=== PATIENT | male | born 1935 | race Caucasian/White ===

== ENCOUNTER → 2017-04-02 | Outpatient (CLI) | payer BC ==
[~2017-04-02] MED LIST: ATEN-173 PO; FELO5TAB PO; LISI40TA PO; MULT-506 PO
[2017-04-02 14:45] LABS: BASO % 0.4 %; BASO ABS # 0.02 K/uL (0-0.2); COMPLETE YES; EOS % 1.7 %; HEMATOCRIT 44.7 % (42-52); IG% 0.2 %; LYMPH % 33.8 %; LYMPH ABS # 1.84 K/uL (1.2-3.4); MEAN CELL VOLUME 93.1 fL (80-100); MEAN CORPUSCULAR HGB CONC 33.3 g/dl (32-36); MEAN PLATELET VOLUME 10.2 fL (7.4-10.4); NEUT % 56.9 %; PLATELET COUNT 231 K/uL (130-400); WHITE BLOOD COUNT 5.45 K/uL (4.8-10.8)
[2017-04-02 15:06] LABS: BLOOD UREA NITROGEN 20 mg/dl (7-18); BUN/CREATININE RATIO 17.9 (10-20); CALCIUM 9.2 mg/dl (8.5-10.1); CARBON DIOXIDE 30 mmol/L (21-32); CHLORIDE 110 mmol/L (98-107); GLUCOSE 88 mg/dl (70-99); POTASSIUM 3.9 mmol/L (3.5-5.1); SODIUM 146 mmol/L (136-145)
[2017-04-02 15:10] LABS: CHOLESTEROL 159 mg/dl (0-200); CHOLESTEROL/HDL RATIO 2.8; HDL CHOLESTEROL 56 mg/dl; LDL CHOLESTEROL CALCULATED 80 mg/dl; TRIGLYCERIDES 116 mg/dl (0-150); URIC ACID 8.9 mg/dl (2.6-7.2); VERY LOW DENSITY LIPOPROT CALC 23 mg/dl
== END | disposition home or self-care (01) ==
LOC: C.LABBC 10:28
PROVIDERS: ATTEND Internal Medicine Geriatric Medicine
DX: I10 Essential (primary) hypertension (principal); M10.9 Gout, unspecified; G47.30 Sleep apnea, unspecified; R42 Dizziness and giddiness

== ENCOUNTER → 2017-12-10 | Outpatient (CLI) | payer BC ==
[2017-12-10 17:37] LABS: BLOOD UREA NITROGEN 23 mg/dl (7-18); CALCIUM 9.4 mg/dl (8.5-10.1); CARBON DIOXIDE 30 mmol/L (21-32); CREATININE 1.12 mg/dl (0.60-1.40); GLUCOSE 127 mg/dl (70-99); POTASSIUM 4.2 mmol/L (3.5-5.1); SODIUM 137 mmol/L (136-145)
[2017-12-10 17:40] LABS: CHOLESTEROL 125 mg/dl (0-200); LDL CHOLESTEROL CALCULATED 34 mg/dl
== END | disposition home or self-care (01) ==
LOC: C.LABBC 14:51
PROVIDERS: ATTEND Internal Medicine Geriatric Medicine
DX: I73.9 Peripheral vascular disease, unspecified (principal); F09 Unspecified mental disorder due to known physiological condition; I10 Essential (primary) hypertension

== ENCOUNTER 2021-06-18 00:19 | Inpatient (IN) ==
[2021-06-18 01:09] LABS: Basophils # (auto) 0.01 K/uL (0-0.2); Basophils % (auto) 0.1 %; Eosinophils # (auto) 0.12 K/uL (0-0.5); Eosinophils % (auto) 1.7 %; Hematocrit (blood only) 43.2 % (42-52); Hemoglobin 14.5 g/dL (14.0-18.0); Immature Granulocytes # (auto) 0.01 K/uL (0.00-0.02); Immature Granulocytes % (auto) 0.1 %; Lymphocytes % (auto) 21.8 %; Mean Corpuscular Hemoglobin 31.2 pg (25-34); Mean Corpuscular Hgb Conc 33.6 g/dL (32-36); Mean Corpuscular Volume 92.9 fL (80-100); Monocytes # (auto) 0.58 K/uL (0.11-0.59); Monocytes % (auto) 8.4 %; Neutrophils # (auto) 4.67 K/uL (1.4-6.5); Neutrophils % (auto) 67.9 %; Platelet Count 202 K/uL (130-400); RDW Coefficient of Variation 13.7 % (11.5-14.5); RDW Standard Deviation 46.4 fL (36.4-46.3); Red Blood Count 4.65 M/uL (4.7-6.1); White Blood Count 6.89 K/uL (4.8-10.8)
[2021-06-18 01:18] LABS: Albumin Level 3.7 gm/dl (3.4-5.0); BUN Creatinine Ratio 19.4 (10-20); Calcium 9.4 mg/dl (8.5-10.1); Creatinine Clr Calc Pharmacy 48.5 ml/min; Est GFR (African American) 67.8 ml/min; Est GFR (Non-African American) 58.5 ml/min; Potassium 4.1 mmol/L (3.5-5.1)
[2021-06-18 01:22] LABS: Bilirubin,Total 0.4 mg/dl (0.2-1); Globulin 3.6 gm/dl (2.5-4.0); Partial Thromboplastin Time 25.5 Seconds (21.0-31.0); Prothrombin Time 10.6 Seconds (9.0-12.0); Total Protein 7.3 gm/dl (6.4-8.2); Troponin I 0.028 ng/ml (0-0.045)
--- NOTE | 2021-06-18 01:44 | Emergency Department Note ---
Impression & Plan Left-sided chest pain, AV block, Mobitz 1, Bifascicular block ED Provider Note Name: JUDI MICHELLE Age: 86 Sex: M Arrives Via: Walk-In Informant: Patient ED Provider: Jac Ramos MD Chief Complaint: Chest pain Impression: See Above Medical Decision Makin yr old male with history HTN, Prostate CA arrives with acute onset left chest pain radiating to left shoulder/elbow which has resolved by arrival. CXR with what seems to be mildly widened mediastinum vs rotation. Exam benign other than irregular beat on cardiac exam which is Mobitz 1 block on EKG. Initial Trop wnl. Labs otherwise unremarkable. With mild mediastinal widening will order CTA chest after discussion with hospitalist and noted that I did not order ASA while awaiting return of this which hospitalist agrees with. Patient comfortable and no distress at time of hospitalization. Prior Medical Record and Triage/Nursing Notes reviewed by Me Additional history obtained from chart Differentials:Cardiac ischemia, aortic dissection, pulmonary embolism, pneumothorax, pneumonia, pericarditis, myocarditis, esophageal rupture, GERD, cholecystitis, pancreatitis, musculoskeletal, as well as other pathologies. Vital Signs: reviewed and remarkable for HTN Interventions: SLNTG with improvement in BP Labs:Reviewed and remarkable for no significant abnormalities Imaging:X ray results are stated below per my interpretation: Chest: 1 view: Mild widening of mediastinum CT A CHEST: "CTA OTHER - CTA CHEST WO/WITH CONTRAST: Comparison: CT chest 11/30/2006 No acute findings within the chest. No aortic dissection. Mild dilatation of the aortic root measuring up to 4.6 m. The thoracic aorta is ectatic. Small hiatal hernia. Mild atelectasis within the lung bases. 4 mm nodule in the periphery of the right lung was present on comparison exam and therefore benign. Scattered small pulmonary nodules including a 4 mm nodule within the basilar right lower lobe and 4 mm nodule within the posterior right lower lobe. Consider follow-up per Fleischner criteria guidelines. Left adrenal adenoma measuring up to 13 mm. 2.1 cm cystic structure within the uncinate process of the pancreas, only partially included in the [id number]. Recommend a contrast enhanced pancreas protocol abdominal CT or MRI to further evaluate. Low-density structures within the liver likely represent cysts. Left renal cyst. Degenerative changes of the spine. Radiologist: Marjorie Gibbs M.D." EKG:Per My Interpretation: Indication Chest pain: Sinus with mobitz 1 heart block, 62 bpm, qtc 446. No Ectopy. No Ischemia. Compared to EKG earlier on 06/18/21, no significant changes. Cardiac/Tele Monitoring: Cardiac Monitoring: An Order was placed for continuous cardiac monitoring. The monitor shows a rate of 80 with a irregular rhythm. Consults:Dr Downing Hospitalist Plan: Disposition:Hospitalization. Referred to: PCP Condition: Good History of Present Illness:86 yr old male arrives for evaluation of chest pain. Patient notes sudden onset at rest of left chest pain. Dull/tight in nature. Radiated to left shoulder/elbow. Resolved after an hour. Currently sore left arm though notes chopping down a tree earlier. Denies nausea, vomiting, palpitations, syncope, back pian, abdominal pain, fevers, chills, shortness of breath, headache, urinary/bowel symptoms, increased leg swelling, nor other symptoms. No medications prior to arrival. Notes chronic leg swelling, HTN, and prostate cancer. No history of PA, CAD, nor cardiac work up. Ex smoker 50 yrs ago. ROS: See above HPI for pertinent positives & negatives. A total of 10 systems reviewed and were otherwise negative. Past Medical History:HTN, Prostate CA (had covid Nov 2020) Past Surgical History:See Below Family History:See Below Social History:See Below Home Medications:See Below Allergies:NKDA Vitals:Blood Pressure: 196/90, Pulse 57, RR 18, T 36.5C, O2 94% on RA Physical Exam: GENERAL: Patient is well appearing and in no acute distress. EYES: No scleral icterus, unremarkable pupils. ENT: Mucous membranes moist, no nasal congestion. NECK: No masses appreciated, nomeningismus, trachea is midline. RESPIRATORY: No dyspnea. Clear to auscultation and equal bilaterally. No wheeze, no rhonchi. CARDIOVASCULAR: Irregular.No murmurs, rubs, gallops appreciated. GASTROINTESTINAL: Abdomen soft, non-tender, no peritonitis.Bowel sounds positive.No masses appreciated. BACK: No midline tenderness, no CVA tenderness EXTREMITIES: Normal motion all extremities, no cyanosis, 2+ edema. NEUROLOGIC: Alert and oriented, no acute motor or sensory deficits, no focal weakness, cranial nerves grossly intact. SKIN: No rash, no jaundice, no diaphoresis. PSYCH: Appropriate GCS: 15 ED Course: Times/Reassessments: stable, no further chest pains, BP coming down Jac Ramos MD Past Med/Surg History Medical History (Updated 06/18/21 @ 05:53 by Jac Ramos MD) Abnormal gait Chronic venous stasis Cognitive disorder Elevated PSA, less than 10 ng/ml Gout Hyperlipidemia Hypertension Mild neurocognitive disorder Nephrolithiasis Obstructive sleep apnea Periodic limb movement disorder Urinary urgency Surgical History S/P cataract surgery 11/2015 S/P colonoscopy 10 years S/P tonsillectomy and adenoidectomy Family History Mother Breast cancer Lung disease COPD (chronic obstructive pulmonary disease) Father Heart disease Denies family history of Colon cancer Ovarian cancer Prostate cancer Myocardial infarction Colorectal cancer Social History (Updated 05/01/21 @ 08:44 by Gina Ortega RN) Smoking Status: Former smoker Tobacco Type: Cigarettes Age Quit Using Tobacco: 35; packs per day: 1; Smoking End Date: quit at 35 years old; Second Hand Exposure: No; Hx Alcohol Use: Yes Alcohol type: beer, wine and hard liquor Alcohol Intake Frequency: 2-3 x/Week Alcohol Intake Frequency Comment: 1 beer a week Hx Substance Use: No Preferred Language: Jordanian Communication Ability: Effective Visual Impairment: Limited Hearing Ability: Normal Automotive Refinisher Required: No Beliefs That Will Affect Care: None marital status: Current Living Situation: Spouse Current Living Situation Comment: Living at home with current occupational status: employed current occupation: works at a [employer] How many Children do You have: 2 Other Information That Helps Us Care for You: No Feels Safe at Home: Yes Safety Concerns: Feels Safe At This Time Childhood Exposure to Second-Hand Smoke: Yes caffeine: Yes (coffee daily, tea, soda ) Dental Care, Regularly: Yes Physical Activity Frequency: Daily Physical Activity Frequency Comment: prescribed by therapy Seatbelt Use: always Sunscreen Use: No Assistive Devices: Brace/Splint/Immobilizer, CPAP and Glasses Allergies Allergies Allergy/AdvReac Type Severity Reaction Status Date / Time No Known Allergies Allergy Verified 06/18/21 01:37 Home Meds Home Medications Medication Instructions Recorded Confirmed calcium carbonate 600 mg (1,500 1 tab PO DAILY 06/08/19 06/18/21 mg)-vitamin D3 400 unit tablet (Calcium 600 + D(3)) multivitamin 1 tab PO DAILY 06/08/19 06/18/21 acetaminophen 500 mg tablet 500 mg PO DAILY tab 01/14/21 06/18/21 (Tylenol Extra Strength) Prevagen 1 tab PO DAILY 06/18/21 06/18/21 ropinirole 0.5 mg tablet 0.5 mg PO HS 06/18/21 06/18/21 Previous Rx's Medication Instructions Recorded amlodipine 2.5 mg tablet 2.5 mg PO DAILY #90 tab 06/01/20 hydrochlorothiazide 12.5 mg tablet 12.5 mg PO DAILY #90 tab 01/14/21 CPAP Machine #1 ea 01/31/21 lisinopril 40 mg tablet 40 mg PO DAILY #90 tab 03/11/21 Results & Data (ED) Vital Signs Vital Signs - 24 hr 06/18/21 00:22 06/18/21 00:40 06/18/21 00:51 Temperature 36.5 C Temperature Source Temporal Artery Scan Pulse Rate 64 Pulse Rate [Apical] 57 L Pulse Rhythm [Apical] Regular Pulse Strength [Apical] Normal Respiratory Rate 20 18 Respiratory Effort / Characteristics Non-Labored Spontaneous Respiratory Depth Normal Blood Pressure 206/95 H Blood Pressure [Right Arm] 196/90 H Blood Pressure Mean 132 Blood Pressure Mean [Right Arm] 125 Pulse Oximetry 95 95 94 Oxygen Delivery Method Room Air Room Air Room Air Oxygen Flow Rate 94 Sepsis Recent Fever Within 48 Hours No Sepsis New/Unexplained Change in Mental Status N/A Sepsis Action Taken by Nursing No Action Required 06/18/21 02:00 Temperature Temperature Source Pulse Rate Pulse Rate [Apical] 61 Pulse Rhythm [Apical] Regular Pulse Strength [Apical] Normal Respiratory Rate 24 Respiratory Effort / Characteristics Non-Labored Spontaneous Respiratory Depth Normal Blood Pressure Blood Pressure [Right Arm] 179/100 H Blood Pressure Mean Blood Pressure Mean [Right Arm] 126 Pulse Oximetry 96 Oxygen Delivery Method Room Air Oxygen Flow Rate Sepsis Recent Fever Within 48 Hours Sepsis New/Unexplained Change in Mental Status Sepsis Action Taken by Nursing Laboratory Data Result diagrams: 06/18/21 00:40 06/18/21 00:40 Lab Results 06/18/21 06/18/21 06/18/21 Range/Units 00:40 00:40 00:40 WBC 6.89 (4.8-10.8) K/uL RBC 4.65 L (4.7-6.1) M/uL Hgb 14.5 (14.0-18.0) g/dL Hct 43.2 (42-52) % MCV 92.9 (80-100) fL MCH 31.2 (25-34) pg MCHC 33.6 (32-36) g/dL RDW Std Deviation 46.4 H (36.4-46.3) fL RDW Coeff of Armando 13.7 (11.5-14.5) % Plt Count 202 (130-400) K/uL MPV 10.0 (7.4-10.4) fL Immature Gran % (Auto) 0.1 % Neut % (Auto) 67.9 % Lymph % (Auto) 21.8 % [place] % (Auto) 8.4 % Eos % (Auto) 1.7 % Baso % (Auto) 0.1 % Neut # (Auto) 4.67 (1.4-6.5) K/uL Lymph # (Auto) 1.50 (1.2-3.4) K/uL [place] # (Auto) 0.58 (0.11-0.59) K/uL Eos # (Auto) 0.12 (0-0.5) K/uL Baso # (Auto) 0.01 (0-0.2) K/uL Immature Gran # (Auto) 0.01 (0.00-0.02) K/uL PT 10.6 (9.0-12.0) Seconds INR 1.0 (0.9-1.1) APTT 25.5 (21.0-31.0) Seconds PTT Ratio 1.0 Sodium 139 (136-145) mmol/L Potassium 4.1 (3.5-5.1) mmol/L Chloride 111 H (98-107) mmol/L Carbon Dioxide 25 (21-32) mmol/L Anion Gap 3.0 (3-11) BUN 22 H (7-18) mg/dl Creatinine 1.13 (0.6-1.4) mg/dl Est Cr Clr Drug Dosing 48.5 ml/min Est GFR ( Amer) 67.8 ml/min Est GFR (Non-Af Amer) 58.5 ml/min BUN/Creatinine Ratio 19.4 (10-20) Glucose 137 H (70-99) mg/dl Calcium 9.4 (8.5-10.1) mg/dl Magnesium 2.3 (1.8-2.4) mg/dl Total Bilirubin 0.4 (0.2-1) mg/dl AST 21 (15-37) U/L ALT 24 (12-78) U/L Alkaline Phosphatase 114 (45-117) U/L Troponin I 0.028 (0-0.045) ng/ml Total Protein 7.3 (6.4-8.2) gm/dl Albumin 3.7 (3.4-5.0) gm/dl Globulin 3.6 (2.5-4.0) gm/dl Albumin/Globulin Ratio 1.0 (0.9-2) COVID-19 Eval Order SARS-CoV-2 (PCR) (Negative) 06/18/21 06/18/21 Range/Units 01:45 01:45 WBC (4.8-10.8) K/uL RBC (4.7-6.1) M/uL Hgb (14.0-18.0) g/dL Hct (42-52) % MCV (80-100) fL MCH (25-34) pg MCHC (32-36) g/dL RDW Std Deviation (36.4-46.3) fL RDW Coeff of Armando (11.5-14.5) % Plt Count (130-400) K/uL MPV (7.4-10.4) fL Immature Gran % (Auto) % Neut % (Auto) % Lymph % (Auto) % [place] % (Auto) % Eos % (Auto) % Baso % (Auto) % Neut # (Auto) (1.4-6.5) K/uL Lymph # (Auto) (1.2-3.4) K/uL [place] # (Auto) (0.11-0.59) K/uL Eos # (Auto) (0-0.5) K/uL Baso # (Auto) (0-0.2) K/uL Immature Gran # (Auto) (0.00-0.02) K/uL PT (9.0-12.0) Seconds INR (0.9-1.1) APTT (21.0-31.0) Seconds PTT Ratio Sodium (136-145) mmol/L Potassium (3.5-5.1) mmol/L Chloride (98-107) mmol/L Carbon Dioxide (21-32) mmol/L Anion Gap (3-11) BUN (7-18) mg/dl Creatinine (0.6-1.4) mg/dl Est Cr Clr Drug Dosing ml/min Est GFR ( Amer) ml/min Est GFR (Non-Af Amer) ml/min BUN/Creatinine Ratio (10-20) Glucose (70-99) mg/dl Calcium (8.5-10.1) mg/dl Magnesium (1.8-2.4) mg/dl Total Bilirubin (0.2-1) mg/dl AST (15-37) U/L ALT (12-78) U/L Alkaline Phosphatase (45-117) U/L Troponin I (0-0.045) ng/ml Total Protein (6.4-8.2) gm/dl Albumin (3.4-5.0) gm/dl Globulin (2.5-4.0) gm/dl Albumin/Globulin Ratio (0.9-2) COVID-19 Eval Order Covid19 at [facility] SARS-CoV-2 (PCR) NEGATIVE (Negative) Administered Medications Discontinued Medications Aspirin (Aspirin Chew 324 Mg) 324 mg PO NOW STA Stop: 06/18/21 04:00 Last Admin: 06/18/21 04:05 Dose: 324 mg Documented by: [id number] Ioversol (Optiray 320 125ml) 125 ml IV ONCE ONE Stop: 06/18/21 02:26 Last Admin: 06/18/21 02:26 Dose: 118 ml Documented by: [id number] Discharge Plan Visit Data Chief Complaint: Chest Pain Stated Complaint: PAIN ON LEFT SIDE OF CHEST Discharge Problem: Left-sided chest pain, AV block, Mobitz 1, Bifascicular block Patient Disposition: Admitted As Inpatient Discharge Instructions Interventions: ED Discharge Assessment Last Done: 06/18/21 04:10
[2021-06-18] MEDS ORDERED: OPTIRAY 320 125ml IV ONE (02:25)
--- NOTE | 2021-06-18 02:36 | History & Physical Report ---
Date of Service June 18, 2021 Assessment & Plan (1) Chest pain: Plan: Mr. Flynn is an 86 yo gentleman with a PMHx of hypertension who presented for left sided chest pain, admitted for ACS rule out. - Heart Score of 3, low risk - Chest CTA ruling out PE, aortic dissection - initial trop detectable but not elevated at 0.028. Trend serial levels - EKG showing RBBB and second degree AV nasrin block, but no ST segment changes - resting echo ordered for the am given detectable trop and new onset RBBB - pain was reproducible on exam, suspect MSK etiology (2) 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: Plan: - noted on EKG - no prior EKGs to compare - recommend outpatient cardiology referral (3) AV block, Mobitz 1: Plan: - noted on EKG - no prior EKGs to compare - check magnesium level - does not require acute intervention, recommend outpatient cardiology referral (4) Hypertension: Plan: - continue home lisinopril, amlodipine, HCTZ (5) Lung nodules: Plan: - small scattered nodules noted on CT (STAT RAD) - patient with remote history of smoking - await official read and arrange follow up accordingly (6) Cyst of pancreas: Plan: - 2.1 cystic structure noted on uncinate process of pancreas (per STAT RAD); await official read - consider ordering dedicated imaging or arrange as outpatient (7) Obstructive sleep apnea: Plan: - may wear home CPAP qhs DVT ppx: Lovenox Diet: regular Dispo: Med/tele Code: Full, I discussed with patient History of Present Illness Primary Care Provider: Nba Lr DO Mr. Harper is an 86 yo M with a PMHx of hypertension who presented to the [facility] emergency department for evaluation of sudden onset left sided chest pain. The discomfort started as he was getting ready to go to bed on 06/17/21. It radiated down his left arm, but not up to the jaw. There was no associated shortness of breath, nausea or diaphoresis. He denies any preceding trauma to the chest wall. He is very physically active - he works out at the local [employer] at least 3 x per week without any chest pain. He also cuts his on grass and occasionally moves furniture. He denies any new upper body workouts or recent lifting injury. He denies any feeling of heartburn or acid reflux. Leading up to this admission, he was in his usual state of health. No fever/chills, congestion, cough, abdominal pain, diarrhea, rashes. He does have prostate cancer for which he is currently undergoing radiation and androgen deprivation therapy. He has been told by a doctor that he has a heart murmur and an "extra heart beat." Social Hx: Drinks 1 alcohol beverage per week. Smoked for ~19 years, < 1 pack per day. Quit at age 35. He lives at home with his Kelvin. Family Hx: no known heart disease, although he is only aware of his maternal side In the ED, he was afebrile with normal HR. Blood pressure was elevated to 179/100. He was breathing well on room air. His CBC was normal. His coags were normal. His kidney and liver function were normal. Electrolytes were WNL. His troponin was detectable at 0.028. COVID neg. EKG showing a 2nd degree AV nasrin block, Mobitz type 1, along with a RBBB (no previous EKGs to compare). CXR showing no evidence of a PNA, no pleural effusion; mediastinal silhouette was enlarged. Chest CTA showing no PE, no aortic dissection; small scattered pulmonary nodules were noted, and a 2.1 cm cystic structure within the uncinate process of the pancreas; dedicated contrast enhanced CT or MRI with pancreas protocol recommended (per STAT rad). 324mg Aspirin was given. Allergies Allergy/AdvReac Type Severity Reaction Status Date / Time No Known Allergies Allergy Verified 06/18/21 01:37 Home Medications Medication Instructions Recorded Confirmed Type calcium carbonate 600 mg (1,500 1 tab PO DAILY 06/08/19 06/18/21 History mg)-vitamin D3 400 unit tablet (Calcium 600 + D(3)) multivitamin 1 tab PO DAILY 06/08/19 06/18/21 History amlodipine 2.5 mg tablet 2.5 mg PO DAILY #90 tab 06/01/20 06/18/21 Rx acetaminophen 500 mg tablet 500 mg PO DAILY tab 01/14/21 06/18/21 History (Tylenol Extra Strength) hydrochlorothiazide 12.5 mg tablet 12.5 mg PO DAILY #90 tab 01/14/21 06/18/21 Rx CPAP Machine #1 ea 01/31/21 05/01/21 Rx lisinopril 40 mg tablet 40 mg PO DAILY #90 tab 03/11/21 06/18/21 Rx Prevagen 1 tab PO DAILY 06/18/21 06/18/21 History ropinirole 0.5 mg tablet 0.5 mg PO HS 06/18/21 06/18/21 History Past Med/Surg History Medical History (Updated 06/18/21 @ 17:46 by Kodak Garcia DO) Abnormal gait Chronic venous stasis Cognitive disorder Elevated PSA, less than 10 ng/ml Gout Hyperlipidemia Hypertension Mild neurocognitive disorder Nephrolithiasis Obstructive sleep apnea Periodic limb movement disorder Urinary urgency Surgical History S/P cataract surgery 11/2015 S/P colonoscopy 10 years S/P tonsillectomy and adenoidectomy Family History Mother Breast cancer Lung disease COPD (chronic obstructive pulmonary disease) Father Heart disease Denies family history of Colon cancer Ovarian cancer Prostate cancer Myocardial infarction Colorectal cancer Social History (Updated 05/01/21 @ 08:44 by Gina Ortega RN) Smoking Status: Former smoker Tobacco Type: Cigarettes Age Quit Using Tobacco: 35; packs per day: 1; Smoking End Date: quit at 35 years old; Second Hand Exposure: No; Hx Alcohol Use: Yes Alcohol type: beer, wine and hard liquor Alcohol Intake Frequency: 2-3 x/Week Alcohol Intake Frequency Comment: 1 beer a week Hx Substance Use: No Preferred Language: Persian Communication Ability: Effective Visual Impairment: Limited Hearing Ability: Normal Market Researcher Required: No Beliefs That Will Affect Care: None marital status: Current Living Situation: Spouse Current Living Situation Comment: Living at home with current occupational status: employed current occupation: works at a [employer] How many Children do You have: 2 Other Information That Helps Us Care for You: No Feels Safe at Home: Yes Safety Concerns: Feels Safe At This Time Childhood Exposure to Second-Hand Smoke: Yes caffeine: Yes (coffee daily, tea, soda ) Dental Care, Regularly: Yes Physical Activity Frequency: Daily Physical Activity Frequency Comment: prescribed by therapy Seatbelt Use: always Sunscreen Use: No Assistive Devices: Denture - Lower and Glasses Review of Systems Review of Systems: All systems reviewed & are unremarkable except as noted in HPI & below Physical Exam Constitutional: WD/WN, vitals as above cooperative and comfortable; no acute distress Eyes: + anicteric sclerae ENMT: external ear and nose normal, oropharynx normal Neck: trachea midline Respiratory: normal respiratory effort, lungs clear to auscultation no cough Cardiovascular: Rate/Rhythm: regular rate; + abnormal rhythm Heart Sounds: normal S1, normal S2 and + murmur (systolic ejection ) Extremities: + pedal edema (1+ b/l ) Chest (Breasts): Additional Comments: + mild tenderness upon palpation of left pectoralis major Gastrointestinal (Abdomen): normal bowel sounds, soft, nontender, no hepatosplenomegaly Musculoskeletal: Head/Neck/Chest: normocephalic and head atraumatic Skin: no rashes, warm and dry Neurologic: moves all extremities Psychiatric: A+Ox3, euthymic affect Results & Data Results & Data ([facility]) Vital Signs (Past 12 Hours) Vital Signs Temp Pulse Pulse Resp BP BP Pulse Ox 06/18/21 02:00 61 24 179/100 H 96 06/18/21 00:51 94 06/18/21 00:40 57 L 18 196/90 H 95 06/18/21 00:22 36.5 C 64 20 206/95 H 95 Supervising Physician Co-Signing Physician Notes Patient seen and examined, chart reviewed, case discussed with Dr. Pickett and I agree with her assessment and plan as above. In brief, patient is an 86yo male with history of HTN presenting with chest pain. Patient is very active - exercises at the [facility] several days/week and denies exertional chest discomfort or dyspnea. This evening he had sudden onset of left sided chest discomfort with radiation down left arm. No SOB/diaphoresis/nausea. Was told in 1959 that he has an "extra beat" to his heart. Has history of heart murmur as well. Patient now with some slight discomfort at his left elbow and arm On exam he is afebrile, HD stable, NAD Skin - intact, no rashes/lesions HEENT - NC/AT, PERRL, Neck supple, no JVD Heart - +S1/S2, regular with ectopy, 4/6 blowing murmur across precordium,no c hest wall tenderness Lungs - CTA Abd - +BS, soft, NT/ND Ext - warm, well perfused, no clubbing/cyanosis or edema Labs and images reviewed. Troponin detectable at 0.028 with no prior EKG with bifascicular block, TWI in lateral leads Assessment/Plan -Telemetry monitoring -Trend troponin -Check 2D echo -If troponin increases or patient has recurrence of chest pain will initiate heparin gtt -Remainder of plan as above Resident Activity Tracking Resident Involvement: Resident Care Provided Care Provided: Adult Hospital Medicine
[2021-06-18] MEDS ORDERED: ASPIRIN CHEW 324 MG PO STA (03:59)
[2021-06-18] MEDS ORDERED: ACETAMINOPHEN 325 MG TAB PO PRN (04:39)
[2021-06-18] MEDS ORDERED: ONDANSETRON INJ 2 MG/ML 2 ML VIAL IV PRN (04:39)
[2021-06-18] MEDS ORDERED: POLYETHYLENE (MIRALAX) 17 GM PACK PO PRN (04:39)
[2021-06-18] MEDS ORDERED: NITROGLYCERIN 2% OINTMENT 30GM TUBE EXT PRN (04:39)
[2021-06-18 05:04] LABS: Magnesium 2.3 mg/dl (1.8-2.4)
[2021-06-18] MEDS: hydroCHLOROthiazide 25 MG TAB PO SCH (08:09)
[2021-06-18] MEDS: amLODIPine BESYLATE 5 MG TAB PO SCH (08:10)
[2021-06-18] MEDS: lisinopril 40 MG TAB PO SCH (08:10)
[2021-06-18] MEDS ORDERED: ENOXAPARIN INJ 40 MG/0.4 ML SYR SQ SCH (09:00)
--- NOTE | 2021-06-18 09:09 | CT Scan Report ---
CT ANGIOGRAM OF THE CHEST COMBO CLINICAL HISTORY: Atypical chest pain. Widened mediastinum seen by chest x-ray. COMPARISON STUDY: Chest CT dated 11/30/2006. Chest x-ray dated 06/18/2021. TECHNIQUE: Before and following the IV administration of 118 cc of Optiray 320, CT angiogram of the c hest was performed from the thoracic inlet to the upper abdomen utilizing the dissection protocol. Im ages are reviewed in the axial, sagittal, and coronal planes. 3-D MIPS images are created and assesse d. IV contrast was administered without complication. A dose lowering technique was utilized adherin g to the principles of ALARA. CT DOSE: 894.01 mGy.cm FINDINGS: Thyroid: Normal in size and heterogeneous in attenuation. Thoracic aorta: No intramural hematoma is seen on the unenhanced series. There is mild atheroscleroti c calcification. There is mild aneurysmal dilatation of the ascending thoracic aorta which measures u p to 4.1 cm in diameter. There is also dilatation of the aortic root which measures up to 4.9 cm. The thoracic aorta is uncoiled. The remainder of the thoracic aorta is normal in caliber, and the arch d emonstrates standard 3-vessel anatomy. No dissection is seen. Pulmonary vasculature: The main pulmonary arteries are dilated suggesting pulmonary artery hypertensi on. There are no central filling defects identified in the pulmonary vessels to suggest pulmonary emb olus. Note that this examination was not specifically protocoled to assess for pulmonary emboli. Heart: The heart is enlarged and without pericardial effusion. The coronary arteries are densely calc ified. Lungs and pleural spaces: There is bibasilar scarring/atelectasis. No airspace consolidation or pleur al effusion is identified. The trachea and central airways are clear. A 6 mm pleural-based nodule in the right lower lobe as seen on image #166. This is new from 2007. A 5 mm pleural-based nodule in the right middle lobe along the minor fissure seen on image #168 and a 4 mm groundglass nodule in the ri ght middle lobe is seen on image #180. These are unchanged from 2007 and of doubtful significance. A calcified granuloma seen at the left lung base. Mediastinum: There is no mediastinal lymphadenopathy. Shaniqua: Clear. Axillae: There is no axillary lymphadenopathy. Upper abdomen: A 2.4 cm cyst is noted in the left kidney. There is a small to moderate hiatal hernia. Small hepatic cysts measure up to 1.7 cm. A 1.4 cm adenoma is noted in the left adrenal gland. A 2.9 cm cystic lesion is partially visualized in the pancreatic head. Skeletal structures: The skeletal structures are heterogeneously osteopenic. The skeletal structures are osteopenic. Degenerative change and hyperkyphosis is noted in the thoracic spine. Advanced arthri tic change is seen in the shoulders. No lytic or blastic bony lesions are seen. IMPRESSION: 1. There is mild aneurysmal dilatation of the ascending thoracic aorta which measures up to 4.1 cm. T he aortic root is also dilated measuring up to 4.9 cm. The thoracic aorta is uncoiled, likely corresp onding to the abnormality seen by chest x-ray. 2. No dissection is identified. 3. There is no airspace consolidation typical for pneumonia or pleural effusion. 4. There is a 6 cm pleural-based nodule in the right lower lobe. This is pathologically indeterminant but new from 2006. This can be followed as per the Fleischner criteria if clinically warranted. Warren tional pulmonary nodules are stable dating back to 2006. 5. There is a nonaggressive appearing 2.9 cm cystic lesion partially visualized in the pancreatic hea d. A nonemergent contrast-enhanced pancreatic protocol CT or MRI is recommended for further assessmen t. 6. Cardiomegaly. 7. Hiatal hernia. 8. Additional findings as above. Please refer to below summary of Fleischner criteria recommendations for follow-up of incidental CT n odules (Lisa Wren, Guidelines for management of small pulmonary nodules detected on CT scans: A sta tement from the Fleischner Society, Radiology 237: [phone].) SOLID NODULES Solitary nodule size: <6 mm * low risk patients: no follow-up needed * high risk patients: optional CT at 12 months Solitary nodule size: 6-8 mm * low risk patients: follow-up at 6-12 months, then consider further follow-up at 18-24 months * high risk patients: initial follow-up CT at 6-12 months and then at 18-24 months if no change Solitary nodule size: >8 mm * either low or high risk patients - consider follow-up CT at 3 months, and/or CT-PET, and/or biopsy Multiple nodules size: <6 mm * low risk patients: no routine follow-up * high risk patients: optional CT at 12 months Multiple nodules size: 6-8 mm * low risk patients: follow-up at 3-6 months, then consider further follow-up at 18-24 months * high risk patients: follow-up at 3-6 months, then at 18-24 months if no change Multiple nodules size: >8 mm * low risk patients: follow-up at 3-6 months, then consider further follow-up at 18-24 months * high risk patients: follow-up at 3-6 months, then at 18-24 months if no change Note: newly detected indeterminate nodule in persons 35 years of age or older. * low risk patients: minimal or absent history of smoking and/or other known risk factors * high risk patients: history of smoking or of other known risk factors (e.g. first degree relative with lung cancer, or exposure to asbestos, radon, uranium) * if a nodule up to 8 mm is partly solid or is ground glass further follow-up is required after [address] m [address] to exclude possible slow growing adenocarcinoma (KAREL) SUBSOLID NODULES Solitary pure ground-glass nodule * nodule size <6 mm - no CT follow-up required * nodule size >=6 mm - follow-up CT at 6-12 months, then every 2 years until 5 years Solitary part-solid nodule * nodule size <6 mm - no CT follow-up required * nodule size >=6 mm - follow-up CT at 3-6 months. If unchanged, and solid component remains <6 mm, then annual follow-up for 5 years Multiple subsolid nodules * nodule size <6 mm - follow-up CT at 3-6 months, consider further follow-up at 2 and 4 years if sta ble * nodule size >=6 mm - follow-up CT at 3-6 months, subsequent management based on the most suspiciou s nodule(s) ACT 112: Negative or not required by law. Electronically signed by: Oscar Gan M.D. 06/18/2021 9:07 AM
--- NOTE | 2021-06-18 09:12 | XRay Report ---
SINGLE VIEW CHEST CLINICAL HISTORY: Atypical chest pain. FINDINGS: 2 AP, portable, upright chest radiographs are compared to study dated 10/02/2006 and correl ated with chest CT dated 11/30/2006. The heart is enlarged noting atherosclerotic calcification and un coiling of the thoracic aorta. The pulmonary vasculature is noncongested. There is mild bibasilar sca rring/atelectasis. The lungs and pleural spaces are otherwise clear. No pneumothorax is seen. The ske letal structures are osteopenic. The bony thorax is grossly intact. IMPRESSION: Cardiomegaly with no acute cardiopulmonary abnormality. ACT 112: Negative or not required by law. Electronically signed by: Oscar Gan M.D. 06/18/2021 9:11 AM
[2021-06-18] MEDS ORDERED: Heparin IV Adult Wt-Based Standard *NO* Bolus Protocol IV SCH (11:28)
[2021-06-18] MEDS ORDERED: HEPARIN 25000 UNIT/500 ML D5W IV ONE (11:32)
[2021-06-18] MEDS: HEPARIN SODIUM/DEXTROSE 25,000 UNITS/500 ML BAG IV SCH (12:24)
[2021-06-18 12:49] LABS: Estimated Average Glucose 117 mg/dl; Hemoglobin A1C 5.7 % (4.5-5.6)
[2021-06-18 13:18] LABS: Chol HDL Ratio 3; Cholesterol 161 mg/dl (0-200); HDL Cholesterol 64 mg/dl; LDL Cholesterol Calculated 72 mg/dl; Triglycerides 126 mg/dl (0-150); VLDL Cholesterol 25 mg/dl
--- NOTE | 2021-06-18 13:38 | XCELERA ---
[id number]
--- NOTE | 2021-06-18 13:55 | Cardiology Consultation ---
Date of Consultation June 18, 2021 Assessment & Plan (1) NSTEMI (non-ST elevated myocardial infarction): The patient's symptoms of chest discomfort and elevated biomarkers suggest that this was an ischemic event. All the duration of his symptoms is in question, it does appear to have been extended in nature. He has been placed on heparin and did receive an aspirin. No current symptoms. I recommended a cardiac catheterization. I think based on his history and objective findings this is nutrition representative of an acute coronary syndrome. I did describe the risks of the procedure and the potential risks of not having the procedure to include recurrent and perhaps larger infarction. At this point the patient was not agreeable to a procedure but wished to simply continue medical therapy. Unfortunately, based on his degree of conduction disease he is not a good candidate for beta-blockade. Nitrates could be employed for any evidence of pulmonary vascular congestion or elevated blood pressure. (2) Left-sided chest pain: His symptoms were fairly typical for an acute coronary syndrome. No reproducible symptoms on evaluation. Currently resolved. (3) Bifascicular block: Dura no recent EKGs in his record to determine the chronicity of his conduction disease. However, he does report being told that he had an irregularity in his heartbeat for some years. He is not appear to be overtly symptomatic. However, his degree of conduction disease makes him a poor candidate for optimal medical therapy to include beta blockade. We did discuss symptoms of which to be aware. This would include dizziness or syncope. Also a reduction in his exercise tolerance would likely indicate the need for a pacemaker. No immediate indication for pacemaker. (4) Aortic regurgitation: He appears to have fairly severe aortic regurgitation on echocardiography. He does have evidence of left ventricular dilation. He has aortic root dilation as well. Again, he does not appear to be overtly symptomatic, but will likely need an aortic valve intervention in the near future. His degree of LV dysfunction currently puts him at higher risk for complication. (5) Aortic root dilation: This is likely related to his degree of aortic regurgitation. His aortic root is large, but does not yet represented independent indication for surgical repair. This will need to be monitored closely with repeat evaluation in 6 months. History of Present Illness Reason for Consultation: Chest pain, elevated troponin Requesting Physician: Angelo Attending Physician: Humaira Carey DO History of Present Illness The patient is an 86-year-old gentleman without a known history of cardiac disease who presented to the hospital with episode of chest discomfort. Patient states that around bedtime last evening while getting ready for bed he began to experience some symptoms of pressure and tightness involving the left upper pectoral area. He described this as a aching sensation. There was some radiation into the left arm. It did not appear to be pleuritic in nature. Did not appear to change with use of the arm or changes in position. He notified his who suggested he go to the emergency room for evaluation. He states that the pain persisted for few hours even after he was seen in the emergency room. Interventions in the emergency room did not seem to alleviate his symptoms entirely. The symptoms eventually resolved and currently he is feeling well. He did not have associated shortness of breath or dizziness. He was not aware of any palpitations at that time. He has not had similar episodes in the past. Patient claims to be very active and healthy individual. He states that he exercises regularly. Most of these exercises appear to involve calisthenics and weight training. However, he is able to walk without significant limitation. He denies any exertional symptoms such as dyspnea or chest discomfort. He has not been aware of any palpitations. Again, he has denies dizziness or lightheadedness. He has not suffered a recent syncopal episode. In the remote past he did have syncope associated with phlebotomy and seeing blood. Allergies Allergy/AdvReac Type Severity Reaction Status Date / Time No Known Allergies Allergy Verified 06/26/21 11:43 Home Medications Medication Instructions Recorded Confirmed Type calcium carbonate 600 mg (1,500 1 tab PO DAILY 06/08/19 06/21/21 History mg)-vitamin D3 400 unit tablet (Calcium 600 + D(3)) multivitamin 1 tab PO DAILY 06/08/19 06/21/21 History amlodipine 2.5 mg tablet 2.5 mg PO DAILY #90 tab 06/01/20 06/21/21 Rx CPAP Machine #1 ea 01/31/21 06/21/21 Rx lisinopril 40 mg tablet 40 mg PO DAILY #90 tab 03/11/21 06/21/21 Rx Prevagen 1 tab PO DAILY 06/18/21 06/21/21 History acetaminophen 500 mg tablet 500 mg PO DAILY PRN #30 tab 06/20/21 06/21/21 Rx (Tylenol Extra Strength) aspirin 81 mg tablet,delayed 81 mg PO DAILY 30 Days #30 tab 06/20/21 06/21/21 Rx release clopidogrel 75 mg tablet (Plavix) 75 mg PO DAILY 30 Days #30 tab 06/20/21 06/21/21 Rx furosemide 20 mg tablet (Lasix) 20 mg PO DAILY #30 tab 06/20/21 06/21/21 Rx ropinirole 0.5 mg tablet 0.5 mg PO HS #30 tab 06/21/21 Rx cholecalciferol (vitamin D3) 50 50 mcg PO DAILY 06/26/21 06/26/21 History mcg (2,000 unit) capsule ferrous sulfate 325 mg (65 mg 325 mg PO DAILY 06/26/21 06/26/21 History iron) tablet (Feosol) Patient History Medical History (Updated 06/26/21 @ 12:19 by Nba Lr DO) Abnormal gait Chronic venous stasis Cognitive disorder Elevated PSA, less than 10 ng/ml Gout Hyperlipidemia Hypertension Left-sided chest pain Mild neurocognitive disorder Nephrolithiasis Obstructive sleep apnea Periodic limb movement disorder Urinary urgency Surgical History S/P cataract surgery 11/2015 S/P colonoscopy 10 years S/P tonsillectomy and adenoidectomy Family History Mother Breast cancer Lung disease COPD (chronic obstructive pulmonary disease) Father Heart disease Denies family history of Colon cancer Ovarian cancer Prostate cancer Myocardial infarction Colorectal cancer Social History (Updated 05/01/21 @ 08:44 by Gina Ortega RN) Smoking Status: Former smoker (QUIT SMOKING AT AGE 35) Tobacco Type: Cigarettes Age Quit Using Tobacco: 35; packs per day: 1; Second Hand Exposure: No; Hx Alcohol Use: Yes Alcohol type: beer, wine and hard liquor Alcohol Intake Frequency: 2-3 x/Week Alcohol Intake Frequency Comment: 1 beer a week Hx Substance Use: No Preferred Language: [place] Communication Ability: Effective Visual Impairment: Limited Hearing Ability: Normal Vp Ad Products And Planning Required: No Beliefs That Will Affect Care: None marital status: Current Living Situation: Spouse Current Living Situation Comment: Living at home with current occupational status: employed current occupation: works at a [employer] How many Children do You have: 2 Feels Safe at Home: Yes Childhood Exposure to Second-Hand Smoke: Yes caffeine: Yes (coffee daily, tea, soda ) Dental Care, Regularly: Yes Physical Activity Frequency: Daily Physical Activity Frequency Comment: prescribed by therapy Seatbelt Use: always Sunscreen Use: No Assistive Devices: Glasses Review of Systems Review of Systems: All systems reviewed & are unremarkable except as noted in HPI & below Physical Exam Physical Exam: The patient is alert and oriented. Mood and affect appeared normal. He answered all questions appropriately. HEENT: Pupils are equal and reactive to light and accommodation. Extraocular movements are intact. The sclerae are anicteric. Neuro: Cranial nerves intact Neck: Patient's neck is supple. He has palpable carotid pulses bilaterally wi thout bruits on auscultation. There is no evidence of jugular venous distention. The thyroid is not enlarged. Lungs: Clear to auscultation bilaterally. He has good air movement without use of accessory muscles. No rales wheezes or rhonchi. Cardiac: Heart demonstrates an irregular rhythm and slow rate. Normal S1 and S2. Crescendo systolic murmur Pulses: The patient has palpable radial pulses bilaterally that are equal in intensity Extremities: There was no evidence of hypoperfusion. There is no cyanosis or clubbing. Very mild lower extremity edema Skin: I did not appreciate any rashes on examination today. Results & Data ([facility]) Vital Signs (Past 12 Hours) Vital Signs Temp Pulse Pulse Resp BP Pulse Ox 06/18/21 11:34 36.7 C 53 L 18 157/81 H 95 06/18/21 08:00 54 L 06/18/21 07:36 36.4 C L 47 L 19 161/76 H 96 06/18/21 05:11 61 06/18/21 04:41 36.7 C 60 18 179/76 H 97 06/18/21 02:00 61 24 179/100 H 96 Laboratory Results Abnormal Lab Results 06/18/21 06/18/21 06/18/21 00:40 00:40 00:40 WBC 6.89 RBC 4.65 L Hgb 14.5 Hct 43.2 MCV 92.9 MCH 31.2 MCHC 33.6 RDW Std Deviation 46.4 H RDW Coeff of Armando 13.7 Plt Count 202 MPV 10.0 Immature Gran % (Auto) 0.1 Neut % (Auto) 67.9 Lymph % (Auto) 21.8 [place] % (Auto) 8.4 Eos % (Auto) 1.7 Baso % (Auto) 0.1 Neut # (Auto) 4.67 Lymph # (Auto) 1.50 [place] # (Auto) 0.58 Eos # (Auto) 0.12 Baso # (Auto) 0.01 Immature Gran # (Auto) 0.01 PT 10.6 INR 1.0 APTT 25.5 PTT Ratio 1.0 Sodium 139 Potassium 4.1 Chloride 111 H Carbon Dioxide 25 Anion Gap 3.0 BUN 22 H Creatinine 1.13 Est Cr Clr Drug Dosing 48.5 Est GFR ( Amer) 67.8 Est GFR (Non-Af Amer) 58.5 BUN/Creatinine Ratio 19.4 Glucose 137 H Estimat Average Glucose Hemoglobin A1c Calcium 9.4 Magnesium 2.3 Total Bilirubin 0.4 AST 21 ALT 24 Alkaline Phosphatase 114 Troponin I 0.028 Total Protein 7.3 Albumin 3.7 Globulin 3.6 Albumin/Globulin Ratio 1.0 Triglycerides Cholesterol LDL Cholesterol, Calc VLDL Cholesterol, Calc HDL Cholesterol Cholesterol/HDL Ratio COVID-19 Eval Order SARS-CoV-2 (PCR) 06/18/21 06/18/21 06/18/21 00:40 00:40 01:45 WBC RBC Hgb Hct MCV MCH MCHC RDW Std Deviation RDW Coeff of Armando Plt Count MPV Immature Gran % (Auto) Neut % (Auto) Lymph % (Auto) [place] % (Auto) Eos % (Auto) Baso % (Auto) Neut # (Auto) Lymph # (Auto) [place] # (Auto) Eos # (Auto) Baso # (Auto) Immature Gran # (Auto) PT INR APTT PTT Ratio Sodium Potassium Chloride Carbon Dioxide Anion Gap BUN Creatinine Est Cr Clr Drug Dosing Est GFR ( Amer) Est GFR (Non-Af Amer) BUN/Creatinine Ratio Glucose Estimat Average Glucose 117 Hemoglobin A1c 5.7 H Calcium Magnesium Total Bilirubin AST ALT Alkaline Phosphatase Troponin I Total Protein Albumin Globulin Albumin/Globulin Ratio Triglycerides 126 Cholesterol 161 LDL Cholesterol, Calc 72 VLDL Cholesterol, Calc 25 HDL Cholesterol 64 Cholesterol/HDL Ratio 3 COVID-19 Eval Order Covid19 at [facility] SARS-CoV-2 (PCR) 06/18/21 06/18/21 06/18/21 01:45 06:58 12:48 WBC RBC Hgb Hct MCV MCH MCHC RDW Std Deviation RDW Coeff of Armando Plt Count MPV Immature Gran % (Auto) Neut % (Auto) Lymph % (Auto) [place] % (Auto) Eos % (Auto) Baso % (Auto) Neut # (Auto) Lymph # (Auto) [place] # (Auto) Eos # (Auto) Baso # (Auto) Immature Gran # (Auto) PT INR APTT PTT Ratio Sodium Potassium Chloride Carbon Dioxide Anion Gap BUN Creatinine Est Cr Clr Drug Dosing Est GFR ( Amer) Est GFR (Non-Af Amer) BUN/Creatinine Ratio Glucose Estimat Average Glucose Hemoglobin A1c Calcium Magnesium Total Bilirubin AST ALT Alkaline Phosphatase Troponin I 1.930 H* 9.840 H* Total Protein Albumin Globulin Albumin/Globulin Ratio Triglycerides Cholesterol LDL Cholesterol, Calc VLDL Cholesterol, Calc HDL Cholesterol Cholesterol/HDL Ratio COVID-19 Eval Order SARS-CoV-2 (PCR) NEGATIVE Diagnostic Findings Chest CT a demonstrated aortic root dilation of 4.9 cm. Pancreatic cystic mass also noted. Chest x-ray obtained in emergency room revealed cardiomegaly without active cardiopulmonary disease. Echocardiogram obtained today revealed reduced LV systolic function with an estimated ejection fraction of 40%. There were regional wall motion abnormalities most consistent with right coronary artery disease. He had severe aortic insufficiency with aortic root dilation. Mild mitral regurgitation. Left atrial dilation. Left ventricular dilation. PG Care Time/CCT Total # of Minutes Spent Total Time Spent with Patient: Total time spent is greater than 50% in coordination of care (as documented) at patient's floor/unit and/or counseling patient: Coding Level of Care Code 65958 Initial Inpt Care Lvl 3 Diagnoses NSTEMI (non-ST elevated myocardial infarction) I21.4 Left-sided chest pain R07.9 Bifascicular block I45.2 Aortic regurgitation I35.1 Aortic root dilation I77.810
--- NOTE | 2021-06-18 15:26 | Electrocardiogram Report ---
Test Reason : Blood Pressure : / mmHG Vent. Rate : 066 BPM Atrial Rate : 098 BPM P-R Int : 000 ms QRS Dur : 150 ms QT Int : 424 ms P-R-T Axes : 027 -55 043 degrees QTc Int : 444 ms Sinus rhythm with prolonged WI interval and Mobitz 1 conduction Right bundle branch block Left anterior fascicular block Bifascicular block Voltage criteria for left ventricular hypertrophy Abnormal ECG When compared with ECG of 02-OCT-2006 00:10, (RBBB and left anterior fascicular block) is now Present Confirmed by Milton Barajas ([id number]) on 06/18/2021 3:25:41 PM Referred By: REFERRED SELF Confirmed By:Mina Barajas
--- NOTE | 2021-06-18 15:26 | Electrocardiogram Report ---
Test Reason : Blood Pressure : / mmHG Vent. Rate : 062 BPM Atrial Rate : 093 BPM P-R Int : 000 ms QRS Dur : 150 ms QT Int : 440 ms P-R-T Axes : 000 -53 022 degrees QTc Int : 446 ms Sinus rhythm with 2nd degree A-V block (Mobitz I) with Premature supraventricular complexes Right bundle branch block Left anterior fascicular block Bifascicular block Voltage criteria for left ventricular hypertrophy Abnormal ECG When compared with ECG of 18-JUN-2021 00:28, (unconfirmed) No change Confirmed by Milton Barajas ([id number]) on 06/18/2021 3:26:22 PM Referred By: REFERRED SELF Confirmed By:Mina Barajas
--- NOTE | 2021-06-18 15:31 | Electrocardiogram Report ---
Test Reason : Blood Pressure : / mmHG Vent. Rate : 049 BPM Atrial Rate : 077 BPM P-R Int : 000 ms QRS Dur : 162 ms QT Int : 516 ms P-R-T Axes : 000 -64 -46 degrees QTc Int : 466 ms Sinus rhythm with 2nd degree A-V block Right bundle branch block Left anterior fascicular block Bifascicular block Moderate voltage criteria for LVH, may be normal variant T wave abnormality, consider lateral ischemia Abnormal ECG When compared with ECG of 18-JUN-2021 01:33, (unconfirmed) Premature supraventricular complexes are no longer Present T wave inversion now evident in Anterolateral leads Confirmed by Milton Barajas ([id number]) on 06/18/2021 3:30:46 PM Referred By: REFERRED SELF Confirmed By:Mina Barajas
--- NOTE | 2021-06-18 17:18 | Hospitalist Progress Note ---
Date of Service June 18, 2021 Assessment & Plan (1) NSTEMI (non-ST elevated myocardial infarction): Plan: Mr. Flynn is an 86 yo gentleman with a PMHx of hypertension who presented for left sided chest pain, admitted for ACS rule out. - Chest xray showed widened mediastinum in ED --> Chest CTA performed ruling out PE, aortic dissection - Initial trop detectable but not elevated at 0.028. Trended serial levels. 0.028 --> 1.9 --> 9.8 - Echo performed today --> reduced left ventricular systolic function, regional wall abnormalities, left atrium dilated, severe aortic regurgitation, mild mitral regurgitation, right ventricular systolic pressure elevated, moderate aortic root dilation (4.9cm on CT) - EKG in ED showing RBBB and second degree AV nasrin block, but no ST segment changes --> repeat EKG this morning showed inverted T waves in anterolateral leads suggesting ischemic changes - Consulted cardiology --> recommended cath, patient declined cath at first and wanted medication medication, however, agreed to cath tomorrow after discussion with his (2) Chest pain: (3) Aortic regurgitation: Plan: New. Severe aortic regurg with aortic root dilation on TTE today. - may require valve replacement at some point in the future if he becomes symptomatic. (4) Bifascicular block: Plan: New. - no beta blockade. (5) Thoracic ascending aortic aneurysm: Plan: - 4.1cm dilation found on CT scan - Will follow up outpatient; reimaging may be necessary in ~6 months to monitor size of aneurysm (6) Lung nodules: Plan: -Small scattered nodules noted on CT (STAT RAD) --> Official reading: A 6 mm pleural-based nodule in the right lower lobe as seen on image #166. This is new from 2007. A 5 mm pleural-based nodule in the right middle lobe along the minor fissure seen on image #168 and a 4 mm groundglass nodule in the right middle lobe is seen on image #180. These are unchanged from 2007 and of doubtful significance. - Patient with remote history of smoking and older age classify this patient as high risk and based on Fleischner criteria recommendations --> patient should get a repeat chest CT in 6-12 months to monitor progression. This can be done outpatient. (7) Hypertension: Plan: - continue home lisinopril, amlodipine, HCTZ (8) Cyst of pancreas: Plan: - Nonaggressive appearing 2.9 cm cystic lesion partially visualized in the pancreatic head --> a nonemergent contrast-enhanced pancreatic protocol CT or MRI is recommended for further assessment. This can be performed outpatient. (9) Obstructive sleep apnea: Plan: - may wear home CPAP qhs as needed DVT ppx: Lovenox Diet: regular Dispo: Med/tele Code: Full Admission and Anticipated Discharge Date Admission Date: June 18, 2021 Supervising Physician Co-Signing Physician Notes Patient seen and examined with PGY-1 Dr. Garcia. Agree with history, exam findings, assessment and plan of care as outlined. In brief, Mr. Flynn is an 86 year old male with history of HN admitted with left sided chest pain. Earlier today, reports that chest pain has resolved; however, troponins are rising. Denies dyspnea, nausea, dizziness. Vital signs and nursing notes reviewed. Well appearing. Breathing comfortably on room air. Heart irregular rhythm. Bradycardic. Systolic murmur. 1. NSTEMI. Troponin 0.025?1.93?9. Started on heparin gtt, atorvastatin 80mg, ASA 81mg. TTE with EF 40-45%, moderate to severe aortic regurgitation, moderate aortic root dilatation and wall motion abnormalities (inferior wall from the mid ventricle to apex is severely hypokinetic, distal septal and apical segments are occasionally dyskinetic). Continue Lisinopril 40mg. A1C in 5.7%, LDL 72, HDL 64. Appreciate cardiology recommendations. Plans for cardiac cath in the AM. 2. Aortic regurgitation with aortic root dilation. New. Severe. Seen on TTE obtained on admission. May require valve replacement at some point down the line. Will need repeat Echo in 6 months to re-evaluate aortic root dilation. 3. Bifascicular block. Avoid beta-thomas. May need a pacemaker at some point down the line should he become symptomatic. 4. HTN. Lisinopril as above. Continue home amlodipine 2.5mg and HCTZ 12.5mg. 5. Pancreatic cyst. CT Chest shows 2.9 cm cyst in the pancreatic head. Will plan for dedicated CT Abd/Pelvis after cardiac cath provided his renal function is stable. 6. Pulmonary nodules. Follow up imaging as an outpatient. 7. Descending aortic aneurysm. Follow up imaging as an outpatient. 8. Prostate cancer. s/p radiation and followed by urology and rad-onc. Dispo: pending clinical improvement. Subjective Patient states he is in no pain at all. Denies heart palpitations and SOB. No acute complaints. Review of Systems Review of Systems: All systems reviewed & are unremarkable except as noted in HPI & below Physical Exam Physical Exam: Constitutional: alert and oriented. Normal mood and affect. HEENT: Pupils are equal and reactive to light and accommodation. Extraocular movements are intact. The sclerae are anicteric. Neuro: Cranial nerves intact Neck: Patient's neck is supple. He has palpable carotid pulses bilaterally without bruits on auscultation. There is no evidence of jugular venous distention. The thyroid is not enlarged. Lungs: Clear to auscultation bilaterally. No use of accessory muscles. No rales wheezes or rhonchi. Cardiac: Heart demonstrates an irregular rhythm and slow rate. Normal S1 and S2. Crescendo systolic murmur. Pulses: Palpable equal radial pulses bilaterally Extremities: There was no evidence of hypoperfusion. There is no cyanosis or clubbing. Very mild lower extremity edema. MSK: chest pain not reproducible with palpation of the chest wall Skin: No rashes. Results & Data Results & Data ([facility]) Vital Signs (Past 12 Hours) Vital Signs Temp Pulse Pulse Resp BP Pulse Ox 06/18/21 16:00 36.7 C 49 L 18 153/80 H 97 06/18/21 11:34 36.7 C 53 L 18 157/81 H 95 06/18/21 08:00 54 L 06/18/21 07:36 36.4 C L 47 L 19 161/76 H 96 Diagnostic Findings Laboratory Results WBC 6.89 K/uL (4.8-10.8) 06/18/21 00:40 RBC 4.65 M/uL (4.7-6.1) L 06/18/21 00:40 Hgb 14.5 g/dL (14.0-18.0) 06/18/21 00:40 Hct 43.2 % (42-52) 06/18/21 00:40 MCV 92.9 fL (80-100) 06/18/21 00:40 MCH 31.2 pg (25-34) 06/18/21 00:40 MCHC 33.6 g/dL (32-36) 06/18/21 00:40 RDW Std Deviation 46.4 fL (36.4-46.3) H 06/18/21 00:40 RDW Coeff of Armando 13.7 % (11.5-14.5) 06/18/21 00:40 Plt Count 202 K/uL (130-400) 06/18/21 00:40 MPV 10.0 fL (7.4-10.4) 06/18/21 00:40 Immature Gran % (Auto) 0.1 % 06/18/21 00:40 Neut % (Auto) 67.9 % 06/18/21 00:40 Lymph % (Auto) 21.8 % 06/18/21 00:40 [place] % (Auto) 8.4 % 06/18/21 00:40 Eos % (Auto) 1.7 % 06/18/21 00:40 Baso % (Auto) 0.1 % 06/18/21 00:40 Neut # (Auto) 4.67 K/uL (1.4-6.5) 06/18/21 00:40 Lymph # (Auto) 1.50 K/uL (1.2-3.4) 06/18/21 00:40 [place] # (Auto) 0.58 K/uL (0.11-0.59) 06/18/21 00:40 Eos # (Auto) 0.12 K/uL (0-0.5) 06/18/21 00:40 Baso # (Auto) 0.01 K/uL (0-0.2) 06/18/21 00:40 Immature Gran # (Auto) 0.01 K/uL (0.00-0.02) 06/18/21 00:40 PT 10.6 Seconds (9.0-12.0) 06/18/21 00:40 INR 1.0 (0.9-1.1) 06/18/21 00:40 APTT 25.5 Seconds (21.0-31.0) 06/18/21 00:40 PTT Ratio 1.0 06/18/21 00:40 Sodium 139 mmol/L (136-145) 06/18/21 00:40 Potassium 4.1 mmol/L (3.5-5.1) 06/18/21 00:40 Chloride 111 mmol/L (98-107) H 06/18/21 00:40 Carbon Dioxide 25 mmol/L (21-32) 06/18/21 00:40 Anion Gap 3.0 (3-11) 06/18/21 00:40 BUN 22 mg/dl (7-18) H 06/18/21 00:40 Creatinine 1.13 mg/dl (0.6-1.4) 06/18/21 00:40 Est Cr Clr Drug Dosing 48.5 ml/min 06/18/21 00:40 Est GFR ( Amer) 67.8 ml/min 06/18/21 00:40 Est GFR (Non-Af Amer) 58.5 ml/min 06/18/21 00:40 BUN/Creatinine Ratio 19.4 (10-20) 06/18/21 00:40 Glucose 137 mg/dl (70-99) H 06/18/21 00:40 Estimat Average Glucose 117 mg/dl 06/18/21 00:40 Hemoglobin A1c 5.7 % (4.5-5.6) H 06/18/21 00:40 Calcium 9.4 mg/dl (8.5-10.1) 06/18/21 00:40 Magnesium 2.3 mg/dl (1.8-2.4) 06/18/21 00:40 Total Bilirubin 0.4 mg/dl (0.2-1) 06/18/21 00:40 AST 21 U/L (15-37) 06/18/21 00:40 ALT 24 U/L (12-78) 06/18/21 00:40 Alkaline Phosphatase 114 U/L (45-117) 06/18/21 00:40 Troponin I 9.840 ng/ml (0-0.045) H* 06/18/21 12:48 Total Protein 7.3 gm/dl (6.4-8.2) 06/18/21 00:40 Albumin 3.7 gm/dl (3.4-5.0) 06/18/21 00:40 Globulin 3.6 gm/dl (2.5-4.0) 06/18/21 00:40 Albumin/Globulin Ratio 1.0 (0.9-2) 06/18/21 00:40 Triglycerides 126 mg/dl (0-150) 06/18/21 00:40 Cholesterol 161 mg/dl (0-200) 06/18/21 00:40 LDL Cholesterol, Calc 72 mg/dl 06/18/21 00:40 VLDL Cholesterol, Calc 25 mg/dl 06/18/21 00:40 HDL Cholesterol 64 mg/dl 06/18/21 00:40 Cholesterol/HDL Ratio 3 06/18/21 00:40 COVID-19 Eval Order Covid19 at [facility] 06/18/21 01:45 SARS-CoV-2 (PCR) NEGATIVE (Negative) 06/18/21 01:45 Impressions Chest X-Ray 06/18/21 00:51 SINGLE VIEW CHEST CLINICAL HISTORY: Atypical chest pain. FINDINGS: 2 AP, portable, upright chest radiographs are compared to study dated 10/02/2006 and correlated with chest CT dated 11/30/2006. The heart is enlarged noting atherosclerotic calcification and uncoiling of the thoracic aorta. The pulmonary vasculature is noncongested. There is mild bibasilar scarring/atelectasis. The lungs and pleural spaces are otherwise clear. No pneumothorax is seen. The skeletal structures are osteopenic. The bony thorax is grossly intact. IMPRESSION: Cardiomegaly with no acute cardiopulmonary abnormality. ACT 112: Negative or not required by law. Electronically signed by: Oscar Gan M.D. 06/18/2021 9:11 AM Chest CTA 06/18/21 01:41 CT ANGIOGRAM OF THE CHEST COMBO CLINICAL HISTORY: Atypical chest pain. Widened mediastinum seen by chest x-ray. COMPARISON STUDY: Chest CT dated 11/30/2006. Chest x-ray dated 06/18/2021. TECHNIQUE: Before and following the IV administration of 118 cc of Optiray 320, CT angiogram of the chest was performed from the thoracic inlet to the upper abdomen utilizing the dissection protocol. Images are reviewed in the axial, sagittal, and coronal planes. 3-D MIPS images are created and assessed. IV contrast was administered without complication. A dose lowering technique was utilized adhering to the principles of ALARA. CT DOSE: 894.01 mGy.cm FINDINGS: Thyroid: Normal in size and heterogeneous in attenuation. Thoracic aorta: No intramural hematoma is seen on the unenhanced series. There is mild atherosclerotic calcification. There is mild aneurysmal dilatation of the ascending thoracic aorta which measures up to 4.1 cm in diameter. There is also dilatation of the aortic root which measures up to 4.9 cm. The thoracic aorta is uncoiled. The remainder of the thoracic aorta is normal in caliber, and the arch demonstrates standard 3-vessel anatomy. No dissection is seen. Pulmonary vasculature: The main pulmonary arteries are dilated suggesting pulmonary artery hypertension. There are no central filling defects identified in the pulmonary vessels to suggest pulmonary embolus. Note that this examination was not specifically protocoled to assess for pulmonary emboli. Heart: The heart is enlarged and without pericardial effusion. The coronary arteries are densely calcified. Lungs and pleural spaces: There is bibasilar scarring/atelectasis. No airspace consolidation or pleural effusion is identified. The trachea and central airways are clear. A 6 mm pleural-based nodule in the right lower lobe as seen on image #166. This is new from 2007. A 5 mm pleural-based nodule in the right middle lobe along the minor fissure seen on image #168 and a 4 mm groundglass nodule in the right middle lobe is seen on image #180. These are unchanged from 2007 and of doubtful significance. A calcified granuloma seen at the left lung base. Mediastinum: There is no mediastinal lymphadenopathy. Shaniqua: Clear. Axillae: There is no axillary lymphadenopathy. Upper abdomen: A 2.4 cm cyst is noted in the left kidney. There is a small to moderate hiatal hernia. Small hepatic cysts measure up to 1.7 cm. A 1.4 cm adenoma is noted in the left adrenal gland. A 2.9 cm cystic lesion is partially visualized in the pancreatic head. Skeletal structures: The skeletal structures are heterogeneously osteopenic. The skeletal structures are osteopenic. Degenerative change and hyperkyphosis is noted in the thoracic spine. Advanced arthritic change is seen in the shoulders. No lytic or blastic bony lesions are seen. IMPRESSION: 1. There is mild aneurysmal dilatation of the ascending thoracic aorta which measures up to 4.1 cm. The aortic root is also dilated measuring up to 4.9 cm. The thoracic aorta is uncoiled, likely corresponding to the abnormality seen by chest x-ray. 2. No dissection is identified. 3. There is no airspace consolidation typical for pneumonia or pleural effusion. 4. There is a 6 cm pleural-based nodule in the right lower lobe. This is pathologically indeterminant but new from 2007. This can be followed as per the Fleischner criteria if clinically warranted. Additional pulmonary nodules are stable dating back to 2006. 5. There is a nonaggressive appearing 2.9 cm cystic lesion partially visualized in the pancreatic head. A nonemergent contrast-enhanced pancreatic protocol CT or MRI is recommended for further assessment. 6. Cardiomegaly. 7. Hiatal hernia. 8. Additional findings as above. Please refer to below summary of Fleischner criteria recommendations for follow- up of incidental CT nodules (Lisa Wren, Guidelines for management of small pulmonary nodules detected on CT scans: A statement from the Fleischner Society, Radiology 237: [phone].) SOLID NODULES Solitary nodule size: <6 mm * low risk patients: no follow-up needed * high risk patients: optional CT at 12 months Solitary nodule size: 6-8 mm * low risk patients: follow-up at 6-12 months, then consider further follow-up at 18-24 months * high risk patients: initial follow-up CT at 6-12 months and then at 18-24 months if no change Solitary nodule size: >8 mm * either low or high risk patients - consider follow-up CT at 3 months, and/or CT-PET, and/or biopsy Multiple nodules size: <6 mm * low risk patients: no routine follow-up * high risk patients: optional CT at 12 months Multiple nodules size: 6-8 mm * low risk patients: follow-up at 3-6 months, then consider further follow-up at 18-24 months * high risk patients: follow-up at 3-6 months, then at 18-24 months if no change Multiple nodules size: >8 mm * low risk patients: follow-up at 3-6 months, then consider further follow-up at 18-24 months * high risk patients: follow-up at 3-6 months, then at 18-24 months if no change Note: newly detected indeterminate nodule in persons 35 years of age or older. * low risk patients: minimal or absent history of smoking and/or other known risk factors * high risk patients: history of smoking or of other known risk factors (e.g. first degree relative with lung cancer, or exposure to asbestos, radon, uranium) * if a nodule up to 8 mm is partly solid or is ground glass further follow-up is required after 24 months to exclude possible slow growing adenocarcinoma (KAREL) SUBSOLID NODULES Solitary pure ground-glass nodule * nodule size <6 mm - no CT follow-up required * nodule size >=6 mm - follow-up CT at 6-12 months, then every 2 years until 5 years Solitary part-solid nodule * nodule size <6 mm - no CT follow-up required * nodule size >=6 mm - follow-up CT at 3-6 months. If unchanged, and solid component remains <6 mm, then annual follow-up for 5 years Multiple subsolid nodules * nodule size <6 mm - follow-up CT at 3-6 months, consider further follow-up at 2 and 4 years if stable * nodule size >=6 mm - follow-up CT at 3-6 months, subsequent management based on the most suspicious nodule(s) ACT 112: Negative or not required by law. Electronically signed by: Oscar Gan M.D. 06/18/2021 9:07 AM Resident Activity Tracking Resident Involvement: Resident Care Provided Care Provided: Adult [facility]
[2021-06-18] MEDS ORDERED: CLOPIDOGREL BISULFATE 300 MG TAB PO ONE (18:08)
[2021-06-18] MEDS: rOPINIRole HCL 0.25 MG TABLET PO SCH (19:49)
[2021-06-18 19:57] LABS: Partial Thromboplastin Ratio 1.8
[2021-06-18 20:10] LABS: Partial Thromboplastin Time 48.4 Seconds (21.0-31.0)
--- NOTE | 2021-06-18 22:00 | Billing Data ---
Date of Service June 18, 2021 Coding Level of Care Code INT OBSERVATION CARE 50M LVL 2
[2021-06-19] MEDS: HEPARIN SODIUM/DEXTROSE 25,000 UNITS/500 ML BAG IV SCH (06:24)
[2021-06-19] MEDS: amLODIPine BESYLATE 5 MG TAB PO SCH (07:29)
[2021-06-19] MEDS: lisinopril 40 MG TAB PO SCH (07:29)
[2021-06-19] MEDS: CLOPIDOGREL BISULFATE 75 MG TAB PO SCH (07:29)
[2021-06-19] MEDS: ASPIRIN 81 MG ECTAB PO SCH (07:30)
[2021-06-19 07:39] LABS: Partial Thromboplastin Ratio 2.4
[2021-06-19] MEDS ORDERED: niCARdipine HCL INJ 2.5 MG/ML 10 ML AMP ONE (07:43)
[2021-06-19] MEDS ORDERED: HEPARIN (PORCINE) 1000 UNIT/ML 10 ML (CATH LAB USE ONLY) ONE (07:43)
[2021-06-19] MEDS ORDERED: MIDAZOLAM HCL 1 MG/ML 2ML VIAL ONE (07:44)
[2021-06-19] MEDS ORDERED: NITROGLYCERIN/D5W 100MCG/ML 20ML SYR ONE (07:44)
[2021-06-19] MEDS ORDERED: fentaNYL citrate 100 MCG/2 ML VIAL ONE (07:44)
[2021-06-19 07:47] LABS: Partial Thromboplastin Time 63.7 Seconds (21.0-31.0)
--- NOTE | 2021-06-19 08:13 | Pre Anesthesia Assessment ---
Date of Service June 19, 2021 Pre Sedation Assessment Vital Signs Temp Pulse Resp BP BP Pulse Ox 06/19/21 07:24 36.4 C L 59 L 16 169/91 H 93 06/19/21 02:50 37.0 C 46 L 18 129/73 97 06/18/21 22:16 36.6 C 48 L 16 165/78 H 91 06/18/21 20:24 36.8 C 53 L 17 157/75 H 96 06/18/21 16:00 36.7 C 49 L 18 153/80 H 97 06/18/21 11:34 36.7 C 53 L 18 157/81 H 95 Cardiovascular + regular rate Respiratory + respiratory effort normal Pre-Sedation Airway Assessment Smoking Status: Former smoker Hx Sleep Apnea: No Hx Difficult Intubation: No Short, Thick Neck: No Thyromental Distance: > or= 3.5 Finger Breadths Oral Cavity: + WNL Mallampati Class: III ASA: ASA3 NPO Status Date of Last Intake of Fluids: 06/19/21 Time of Last Intake of Fluids: 07:30 Last Oral Intake of Fluids Comment: sip with meds Date of Last Intake of Solid Food: 06/18/21 Procedure Planning Contraindications for Sedation: none Current Medications Reviewed: Yes Notes The planned sedation has been discussed with the patient. Informed Consent was obtained. I have identified the patient, determined the appropriateness of sedation and have assessed the patient immediately prior to the procedure. All medicine(s) and interventions are by my order.
--- NOTE | 2021-06-19 09:01 | Cardiac Catheterization ---
[facility] Data: Research Compliance Specialist Cardiac Status Clinical evaluation leading to the procedure CAD Presenation: Non STEMI Diagnostic Physicians Name: Milton Barajas MD Closure Device Recommendations: Medical Therapy and/or Counseling Cardiac Cath Procedure Full Procedure Date June 19, 2021 Pre-Procedure Diagnosis Pre-Procedure Diagnosis: Non STEMI AUC Score AUC Score: 8 Post-Procedure Diagnosis Post-Procedure Diagnosis: Mild CAD Procedure(s) Performed Procedure(s) Performed: Coronary Angiography and Left Heart Cath Firer Powerhouse Milton Barajas MD Steward/Stewardess Third Class(s) none Estimated Blood Loss Estimated Blood Loss: 15cc Medication(s) Medication(s): Fentanyl, Heparin, Lidocaine 1%, Nicardipine, Nitroglycerin and Versed Summary of Findings Procedure performed: Left heart catheterization, selective coronary angiography Staff managing manager: Milton Barajas MD Indication: The patient is an 86-year-old gentleman who presented with symptoms of chest discomfort and elevated cardiac biomarkers. Procedure detail: The patient was informed the risks benefits and alternatives to the intended procedure. He understood which proceed. He was taken to the cardiac catheterization suite in a fasting state. Conscious sedation was administered per protocol the patient was monitored electrocardiographically throughout today's procedure. The right wrist was prepped and draped in usual sterile fashion. This area was anesthetized using subcutaneous menstruation of lidoc enedina solution. The right radial artery was subsequently accessed using Seldinger technique and a sheath was placed over guidewire at this site. There was great difficulty in advancing a catheter through the tortuosity of the subclavian artery and aorta. As such, this site was abandoned and the right femoral area was prepped and draped in usual sterile fashion. The area over the right femoral artery was anesthetized using subcutaneous menstruation lidocaine solution in the right femoral artery was subsequently accessed using Seldinger technique. A sheath was placed over guidewire this site used facilitate passage of the cardiac catheter for selective coronary angiography and left heart catheterization. Images were obtained in multiple orthogonal views prior to removal of the catheter and sheath. Hemostasis was achieved using a proprietary closure device. The patient tolerated procedure well. There were no immediate complications. Findings: Left main: Left main coronary artery was relatively short and affectively trifurcate into the left anterior descending, large ramus intermedius branch in the left circumflex artery. There is no disease in this vessel Left anterior descending: Left anterior descending artery was a large transapical vessel. It produced a single large diagonal branch and a diminutive 2nd diagonal branch. No disease in this distribution Ramus intermedius: There was a large ramus intermedius branch which was free of disease Left circumflex: Left circumflex artery was a non dominant vessel. It produced 2 OM branches which were free of disease The right coronary artery was sub selectively engaged. It was large in size and free of disease. Impression: Right dominant coronary system No evidence of aortic stenosis Elevated left ventricular filling pressures No obstructive coronary disease Hemodynamics Rest Ao:: 155/79 mm of mercury Final Ao: 170/90 mm of mercury LV: 168/30 mm of mercury Left ventricular end-diastolic pressure 30 mm of mercury Recommendations Recommendations: Medical Therapy and/or Counseling Specimens Specimens: None Radiation Exposure (mGy) One thousand sixty-seven Contrast (mls) Eighty-five Procedural Complication(s) None Disposition PCU I attest to the content of the Intraoperative Record and any orders documented therein. Any exceptions are noted below. [facility] Card Cath Procedure Codes Cardiac Catheterization Procedure 1: Cardiovascular Cath Procedures: 35517 Coronaries and LHC (+/-LV) Moderate Sedation Procedure 1: Sedation/Anesthesia: 52377 Mod Sedation by the same physician;Init15 Min Child Age 5 & Up Procedure 2: Sedation/Anesthesia: 04401 Mod Sedation by the same physician; Ea [id number] Minutes PG Care Time/CCT Total # of Minutes Spent Total Time Spent with Patient: Total time spent is greater than 50% in coordination of care (as documented) at patient's floor/unit and/or counseling patient:
--- NOTE | 2021-06-19 09:03 | Post Operative Brief Note ---
Cardiology Brief Post Op Date of Surgery June 19, 2021 Pre & Post Diagnosis Operation Date: 06/19/21 08:00 <No data on this case meets the specified criteria> Procedure Left heart catheterization, selective coronary angiography, limited right femoral angiography, limited right subclavian angiography Hospice Chaplain Milton Barajas MD Stacker Straightener None Estimated Blood Loss 10 Findings See Below Normal coronary arteries without evidence of acute coronary syndrome Elevated left ventricular end-diastolic pressure Complications none Disposition Accompanied Patient To Recovery: No Overlapping Procedure I was immediately available: during the entire case.
--- NOTE | 2021-06-19 09:03 | Post Anesthesia Assessment ---
Date of Service June 19, 2021 Post Sedation Assessment Vital Signs Temp Pulse Resp BP BP Pulse Ox 06/19/21 07:24 36.4 C L 59 L 16 169/91 H 93 06/19/21 02:50 37.0 C 46 L 18 129/73 97 06/18/21 22:16 36.6 C 48 L 16 165/78 H 91 06/18/21 20:24 36.8 C 53 L 17 157/75 H 96 06/18/21 16:00 36.7 C 49 L 18 153/80 H 97 06/18/21 11:34 36.7 C 53 L 18 157/81 H 95 Recovery Score Activity: Moves 4 extremities Respiration: Deep Breath/Cough Circulation: +/-20% PreAnes Value Consciousness: Arouseable (by name) Oxygen Saturation: > 92% On Room Air Discharge Sedation Level of Care: Fast Track Phase II Post Sedation Plan On clinical assessment, the patient appears to have tolerated the sedation without complications. Patient is recovering as anticipated. Patient will continue to be monitored by nursing and may be discharged when sedation discharge criteria are met per below protocol. Upon Completions of procedure up to 15 minutes continue every 5 minute vital signs and the P.A.R. score; then discharge to a Phase I or Fast Track to Phase II per the following guidelines: * Discharge Patient to appropriate Phase II area if PAR is 8 or greater or return to pre- procedure baseline. The post - procedure orders will be as directed. * If PAR score is less than 8 or not return to pre-procedure baseline then patient will follow Phase I monitoring till PAR is reached for Phase II. The Phase I may be done in procedure room or may call to secure a Phase I area. * If naloxone or flumazenil are used for reversal, hold in Phase I for continued monitoring from when last reversal dose was given for a minimum of 60 minutes or longer pending the nurse and/or physician discretion of patient condition before discharge to Phase II. Please call the Sedation Physician to re-evaluate and complete post-note for discharge to Phase II area. Do NOT discharge from procedure sedation or Phase 1 until post- sedation evaluation note is complete by procedure /sedation MD Sedation Discharge Instructions to be given to the patient at discharge to home.
[2021-06-19] MEDS: ATORVASTATIN 40 MG TAB PO SCH (11:51)
[2021-06-19] MEDS: hydroCHLOROthiazide 25 MG TAB PO SCH (11:51)
--- NOTE | 2021-06-19 14:03 | Electrocardiogram Report ---
Test Reason : Blood Pressure : / mmHG Vent. Rate : 054 BPM Atrial Rate : 081 BPM P-R Int : 000 ms QRS Dur : 162 ms QT Int : 482 ms P-R-T Axes : 000 -61 -34 degrees QTc Int : 457 ms Sinus rhythm with 2nd degree A-V block (Mobitz I) Right bundle branch block Left anterior fascicular block Bifascicular block Moderate voltage criteria for LVH, may be normal variant T wave abnormality, consider lateral ischemia Abnormal ECG When compared with ECG of 18-JUN-2021 10:36, No significant change was found Confirmed by Milton Barajas ([id number]) on 06/19/2021 2:03:03 PM Referred By: REFERRED SELF Confirmed By:Mina Barajas
--- NOTE | 2021-06-19 14:43 | Hospitalist Progress Note ---
Date of Service June 19, 2021 Assessment & Plan (1) Chest pain: Plan: Mr. Flynn is an 86 yo gentleman with a PMHx of hypertension who presented for left sided chest pain, admitted for ACS rule out. - Chest xray showed widened mediastinum in ED --> Chest CTA performed ruling out PE, aortic dissection - Initial trop detectable but not elevated at 0.028. Trended serial levels. 0.028 --> 1.9 --> 9.8 --> Peaked and now downtrending. - Echo yesterday --> reduced left ventricular systolic function, regional wall abnormalities, left atrium dilated, severe aortic regurgitation, mild mitral regurgitation, right ventricular systolic pressure elevated, moderate aortic root dilation (4.9cm on CT) - EKG in ED showing RBBB and second degree AV nasrin block, but no ST segment changes --> repeat EKG showed inverted T waves in anterolateral leads suggesting ischemic changes - Consulted cardiology --> cath performed today; coronary arteries were clean showing no signs of ACS --> cardiology states symptoms could have been due to aortic regurgitation; recommends future aortic valve repair in future - Patient should follow up closely with cardiology in outpatient setting with serial echo's - d/c tomorrow (2) Thoracic ascending aortic aneurysm: Plan: - 4.1cm dilation found on CT scan - Will follow up outpatient; reimaging may be necessary in ~6 months to monitor size of aneurysm (3) Lung nodules: Plan: -Small scattered nodules noted on CT (STAT RAD) --> Official reading: A 6 mm pleural-based nodule in the right lower lobe as seen on image #166. This is new from 2007. A 5 mm pleural-based nodule in the right middle lobe along the minor fissure seen on image #168 and a 4 mm groundglass nodule in the right middle lobe is seen on image #180. These are unchanged from 2007 and of doubtful significance. - Patient with remote history of smoking and older age classify this patient as high risk and based on Fleischner criteria recommendations --> patient should get a repeat chest CT in 6-12 months to monitor progression. This can be done outpatient. (4) Hypertension: Plan: - continue home lisinopril, amlodipine, HCTZ (5) Cyst of pancreas: Plan: - Nonaggressive appearing 2.9 cm cystic lesion partially visualized in the pancreatic head --> a nonemergent contrast-enhanced pancreatic protocol CT or MRI is recommended for further assessment. This can be performed outpatient. (6) Obstructive sleep apnea: Plan: - may wear home CPAP qhs as needed DVT ppx: Lovenox Diet: regular Dispo: Med/tele Code: Full Admission and Anticipated Discharge Date Admission Date: June 18, 2021 Supervising Physician Co-Signing Physician Notes Patient seen and examined independently of PGY-1 Dr. Garcia. Agree with history, exam findings, assessment and plan of care as outlined. In brief, Mr. Flynn is an 86 year old male with history of HN admitted with left sided chest pain. Earlier today, reports that chest pain has resolved; however, troponins are rising. Denies dyspnea, nausea, dizziness. Vital signs and nursing notes reviewed. Well appearing. Breathing comfortably on room air. 1. Elevated Troponin. Troponin peaked at 15 and now downtrending. Received Freddy vix load yesterday and Plavix this AM prior to cardiac cath. Cardiac cath with no evidence of CAD, noted elevated left ventricular filling pressures. Suspect either heart strain from chronic, severe aortic regurg vs vasospasm vs thrombus that was no longer present on cath. Continue atorvastatin 80mg, ASA 81mg. TTE with EF 40-45%, moderate to severe aortic regurgitation, moderate aortic root dilatation and wall motion abnormalities (inferior wall from the mid ventricle to apex is severely hypokinetic, distal septal and apical segments are occasionally dyskinetic). Continue Lisinopril 40mg. A1C in 5.7%, LDL 72, HDL 64. Appreciate cardiology recommendations. 2. Aortic regurgitation with aortic root dilation. New. Severe. Seen on TTE obtained on admission. May need valve replaced at some point. Both our team and cardiology have discussed this with him. He would like to monitor for now and will likely have elective valve replacement. 3. Bifascicular block. Avoid beta-thomas. May need a pacemaker at some point down the line should he become symptomatic. 4. HTN. Lisinopril as above. Continue home amlodipine 2.5mg and HCTZ 12.5mg. 5. Pancreatic cyst. CT Chest shows 2.9 cm cyst in the pancreatic head. Will plan for dedicated CT Abd/Pelvis after cardiac cath provided his renal function is stable. 6. Pulmonary nodules. Follow up imaging as an outpatient. 7. Descending aortic aneurysm. Follow up imaging as an outpatient. 8. Prostate cancer. s/p radiation and followed by urology and rad-onc. Subjective Patient is in good spirits following cath. No acute symptoms or complaints. Review of Systems Review of Systems: All systems reviewed & are unremarkable except as noted in HPI & below Physical Exam Physical Exam: Constitutional: alert and oriented. Normal mood and affect. HEENT: Pupils are equal and reactive to light and accommodation. Extraocular movements are intact. The sclerae are anicteric. Neuro: Cranial nerves intact Neck: Patient's neck is supple. He has palpable carotid pulses bilaterally without bruits on auscultation. There is no evidence of jugular venous distention. The thyroid is not enlarged. Lungs: Clear to auscultation bilaterally. No use of accessory muscles. No rales wheezes or rhonchi. Cardiac: Normal S1 and S2. Crescendo systolic murmur. No reproducible pain. Pulses: Palpable equal radial pulses bilaterally Extremities: There was no evidence of hypoperfusion. There is no cyanosis or clubbing. Very mild lower extremity edema. Skin: No rashes. Results & Data Results & Data ([facility]) Vital Signs (Past 12 Hours) Vital Signs Temp Pulse Resp BP Pulse Ox 06/19/21 13:38 47 L 20 139/78 95 06/19/21 12:34 43 L 18 150/61 H 95 06/19/21 11:52 151/71 H 06/19/21 11:18 38 L 16 165/86 H 94 06/19/21 11:00 52 L 18 165/97 H 95 06/19/21 10:08 44 L 16 144/64 H 95 06/19/21 09:42 48 L 155/61 H 94 06/19/21 09:35 61 18 171/64 H 95 06/19/21 09:18 48 L 18 182/70 H 96 06/19/21 09:03 36.5 C 42 L 175/78 H 06/19/21 07:24 36.4 C L 59 L 16 169/91 H 93 06/19/21 02:50 37.0 C 46 L 18 129/73 97 Resident Activity Tracking Resident Involvement: Resident Care Provided Care Provided: Adult [facility] Medicine
--- NOTE | 2021-06-19 18:14 | Cardiology Progress Note ---
Date of Service June 19, 2021 Assessment & Plan (1) NSTEMI (non-ST elevated myocardial infarction): Plan: Despite symptoms and objective findings consistent with an acute coronary syndrome, there was no evidence of this on coronary angiography. However, given his risk factors in the possibility this represented a transient phenomenon related to the coronary is a think we will continue a daily aspirin and Plavix. (2) Left-sided chest pain: Plan: Unclear etiology. Still possibly an acute coronary syndrome without residual stenosis or thrombus. (3) Bifascicular block: Plan: Asymptomatic. No worse or high-grade conduction disease. (4) Aortic regurgitation: Plan: It is very possible this was involved in his recent symptoms. Despite elevated filling pressures and mildly reduced LV systolic function is not appear to be significantly symptomatic from his aortic regurgitation. He reports a reasonable exercise tolerance. I did discuss his case with the Interventional Cardiology Service at [facility]. He does not appear to be a good candidate for percutaneous valve is this is less successful with aortic regurgitation. This would suggested a valve replacement would need to involve a thoracotomy. We discussed this option and symptoms of which to be aware. We discussed the option of close follow-up with serial echocardiography in order to determine optimal timing for valve replacement. I think the patient is ambulatory tomorrow in feeling well he could be discharged on 81 mg of aspirin and 75 mg of Plavix daily. I think he would also benefit from low dose of diuretic based on his elevated filling pressures. 20 mg of Lasix daily be a good start. Can follow-up in our clinic for a discussion of symptoms and repeat echocardiography. (5) Aortic root dilation: Plan: This is likely related to his degree of aortic regurgitation. His aortic root is large, but does not yet represented independent indication for surgical repair. This will need to be monitored closely with repeat evaluation in 6 months. Admission and Anticipated Discharge Date Admission Date: June 18, 2021 Subjective This afternoon the patient was feeling well. No pain at the right radial access site or right femoral access site. No additional symptoms of chest discomfort. Ambulatory without difficulty. Review of Systems Review of Systems: Per HPI Physical Exam Physical Exam: The patient is alert and oriented. Mood and affect appeared normal. He answered all questions appropriately. HEENT: Pupils are equal and reactive to light and accommodation. Extraocular movements are intact. The sclerae are anicteric. Neuro: Cranial nerves intact Lungs: Normal respiratory effort Pulses: Palpable right radial pulse. Good perfusion of the right hand. Extremities: There was no evidence of hypoperfusion. There is no cyanosis or clubbing. Minimal edema. No hematoma the right femoral access site. Skin: I did not appreciate any rashes on examination today. Results & Data ([facility]) Vital Signs (Past 12 Hours) Vital Signs Temp Pulse Resp BP Pulse Ox 06/19/21 15:53 36.4 C L 65 18 96 06/19/21 15:33 52 L 16 164/78 H 06/19/21 14:48 47 L 20 147/68 H 06/19/21 13:38 47 L 20 139/78 95 06/19/21 12:34 43 L 18 150/61 H 95 06/19/21 11:52 151/71 H 06/19/21 11:18 38 L 16 165/86 H 94 06/19/21 11:00 52 L 18 165/97 H 95 06/19/21 10:08 44 L 16 144/64 H 95 06/19/21 09:42 48 L 155/61 H 94 06/19/21 09:35 61 18 171/64 H 95 06/19/21 09:18 48 L 18 182/70 H 96 06/19/21 09:03 36.5 C 42 L 175/78 H 06/19/21 07:24 36.4 C L 59 L 16 169/91 H 93 Laboratory Results Abnormal Lab Results 06/18/21 06/18/21 06/19/21 18:51 19:18 00:36 APTT 48.4 H* PTT Ratio 1.8 Activ Coag Time Kaolin Troponin I 15.300 H* 10.700 H* 06/19/21 06/19/21 06/19/21 06:57 06:57 08:58 APTT 63.7 H* PTT Ratio 2.4 Activ Coag Time Kaolin 164 H Troponin I 6.790 H* Diagnostic Findings Chest CT a demonstrated aortic root dilation of 4.9 cm. Pancreatic cystic mass also noted. Chest x-ray obtained in emergency room revealed cardiomegaly without active cardiopulmonary disease. Echocardiogram obtained today revealed reduced LV systolic function with an estimated ejection fraction of 40%. There were regional wall motion abnormalities most consistent with right coronary artery disease. He had severe aortic insufficiency with aortic root dilation. Mild mitral regurgitation. Left atrial dilation. Left ventricular dilation. Cardiac catheterization performed today revealed normal coronary arteries without significant obstructive disease or evidence of acute coronary syndrome. Elevated left ventricular filling pressures. PG Care Time/CCT Total # of Minutes Spent Total Time Spent with Patient: Total time spent is greater than 50% in coordination of care (as documented) at patient's floor/unit and/or counseling p atient: Coding Level of Care Code 81601 Subseq Hosp Care Lvl 2 Diagnoses NSTEMI (non-ST elevated myocardial infarction) I21.4 Left-sided chest pain R07.9 Bifascicular block I45.2 Aortic regurgitation I35.1 Aortic root dilation I77.810
[2021-06-19] MEDS: rOPINIRole HCL 0.25 MG TABLET PO SCH (20:15)
[2021-06-20] MEDS: ASPIRIN 81 MG ECTAB PO SCH (07:45)
[2021-06-20] MEDS: ATORVASTATIN 40 MG TAB PO SCH (07:45)
[2021-06-20] MEDS: amLODIPine BESYLATE 5 MG TAB PO SCH (07:45)
[2021-06-20] MEDS: CLOPIDOGREL BISULFATE 75 MG TAB PO SCH (07:45)
[2021-06-20] MEDS: lisinopril 40 MG TAB PO SCH (07:46)
[2021-06-20] MEDS ORDERED: FUROSEMIDE 20 MG in SYRINGE 0 ML IV ONE (09:00)
--- NOTE | 2021-06-20 10:59 | Discharge Summary ---
Date of Service June 20, 2021 Admission HPI Per Admitting Provider Mr. Harper is an 86 yo M with a PMHx of hypertension who presented to the [facility] emergency department for evaluation of sudden onset left sided chest pain. The discomfort started as he was getting ready to go to bed on 06/17/21. It radiated down his left arm, but not up to the jaw. There was no associated shortness of breath, nausea or diaphoresis. He denies any preceding trauma to the chest wall. He is very physically active - he works out at the local [employer] at least 3 x per week without any chest pain. He also cuts his on grass and occasionally moves furniture. He denies any new upper body workouts or recent lifting injury. He denies any feeling of heartburn or acid reflux. Leading up to this admission, he was in his usual state of health. No fever/chills, congestion, cough, abdominal pain, diarrhea, rashes. He does have prostate cancer for which he is currently undergoing radiation and androgen deprivation therapy. He has been told by a doctor that he has a heart murmur and an "extra heart beat." Social Hx: Drinks 1 alcohol beverage per week. Smoked for ~19 years, < 1 pack per day. Quit at age 35. He lives at home with his Kelvin. Family Hx: no known heart disease, although he is only aware of his maternal side In the ED, he was afebrile with normal HR. Blood pressure was elevated to 179/100. He was breathing well on room air. His CBC was normal. His coags were normal. His kidney and liver function were normal. Electrolytes were WNL. His troponin was detectable at 0.028. COVID neg. EKG showing a 2nd degree AV nasrin block, Mobitz type 1, along with a RBBB (no previous EKGs to compare). CXR showing no evidence of a PNA, no pleural effusion; mediastinal silhouette was enlarged. Chest CTA showing no PE, no aortic dissection; small scattered pulmonary nodules were noted, and a 2.1 cm cystic structure within the uncinate process of the pancreas; dedicated contrast enhanced CT or MRI with pancreas protocol recommended (per STAT rad). 324mg Aspirin was given. Admission Exam Per Admitting Provider Constitutional: WD/WN, vitals as above cooperative and comfortable; no acute distress Eyes: + anicteric sclerae ENMT: external ear and nose normal, oropharynx normal Neck: trachea midline Respiratory: normal respiratory effort, lungs clear to auscultation no cough Cardiovascular: Rate/Rhythm: regular rate; + abnormal rhythm Heart Sounds: normal S1, normal S2 and + murmur (systolic ejection ) Extremities: + pedal edema (1+ b/l ) Chest (Breasts): Additional Comments: + mild tenderness upon palpation of left pectoralis major Gastrointestinal (Abdomen): normal bowel sounds, soft, nontender, no hepatosplenomegaly Musculoskeletal: Head/Neck/Chest: normocephalic and head atraumatic Skin: no rashes, warm and dry Neurologic: moves all extremities Psychiatric: A+Ox3, euthymic affect Principal Diagnosis Aortic Valve Disease Discharge Exam Constitutional: alert and oriented. Normal mood and affect. HEENT: Pupils are equal and reactive to light and accommodation. Extraocular movements are intact. The sclerae are anicteric. Neuro: Cranial nerves intact Neck: Patient's neck is supple. He has palpable carotid pulses bilaterally without bruits on auscultation. There is no evidence of jugular venous distention. The thyroid is not enlarged. Lungs: Clear to auscultation bilaterally. No use of accessory muscles. No rales wheezes or rhonchi. Cardiac: Regular rate and rhythm. Normal S1 and S2. Crescendo systolic murmur. No reproducible pain. Pulses: Palpable equal radial pulses bilaterally. Good perfusion of the right hand. Extremities: There was no evidence of hypoperfusion. There is no cyanosis or clubbing. Very mild lower extremity edema. Skin: No rashes. Discharge Data Allergies Allergy/AdvReac Type Severity Reaction Status Date / Time No Known Allergies Allergy Verified 06/18/21 01:37 Consultations 06/18/21 01:41 ED Decision to Admit Stat 06/18/21 09:34 Consult Cardiology Routine Procedures Performed Operation Date: 06/19/21 08:00 Actual Procedures s Cineradiography w/Routine Exam - Juan Pablo Barajas MD p Cath, Left with Cors and Vent - Juan Pablo Barajas MD s Placement Art Occlusive Device - Juan Pablo Barajas MD Ordered Studies 06/18/21 01:41 CT angio chest dissec wo/w con Urgent 06/19/21 06:35 CL Cath Imgs for PACS use only Routine Laboratory Results WBC 6.89 K/uL (4.8-10.8) 06/18/21 00:40 RBC 4.65 M/uL (4.7-6.1) L 06/18/21 00:40 Hgb 14.5 g/dL (14.0-18.0) 06/18/21 00:40 Hct 43.2 % (42-52) 06/18/21 00:40 MCV 92.9 fL (80-100) 06/18/21 00:40 MCH 31.2 pg (25-34) 06/18/21 00:40 MCHC 33.6 g/dL (32-36) 06/18/21 00:40 RDW Std Deviation 46.4 fL (36.4-46.3) H 06/18/21 00:40 RDW Coeff of Armando 13.7 % (11.5-14.5) 06/18/21 00:40 Plt Count 202 K/uL (130-400) 06/18/21 00:40 MPV 10.0 fL (7.4-10.4) 06/18/21 00:40 Immature Gran % (Auto) 0.1 % 06/18/21 00:40 Neut % (Auto) 67.9 % 06/18/21 00:40 Lymph % (Auto) 21.8 % 06/18/21 00:40 [place] % (Auto) 8.4 % 06/18/21 00:40 Eos % (Auto) 1.7 % 06/18/21 00:40 Baso % (Auto) 0.1 % 06/18/21 00:40 Neut # (Auto) 4.67 K/uL (1.4-6.5) 06/18/21 00:40 Lymph # (Auto) 1.50 K/uL (1.2-3.4) 06/18/21 00:40 [place] # (Auto) 0.58 K/uL (0.11-0.59) 06/18/21 00:40 Eos # (Auto) 0.12 K/uL (0-0.5) 06/18/21 00:40 Baso # (Auto) 0.01 K/uL (0-0.2) 06/18/21 00:40 Immature Gran # (Auto) 0.01 K/uL (0.00-0.02) 06/18/21 00:40 PT 10.6 Seconds (9.0-12.0) 06/18/21 00:40 INR 1.0 (0.9-1.1) 06/18/21 00:40 APTT 63.7 Seconds (21.0-31.0) H* 06/19/21 06:57 PTT Ratio 2.4 06/19/21 06:57 Activ Coag Time Kaolin 164 SECONDS (94-140) H 06/19/21 08:58 Sodium 139 mmol/L (136-145) 06/18/21 00:40 Potassium 4.1 mmol/L (3.5-5.1) 06/18/21 00:40 Chloride 111 mmol/L (98-107) H 06/18/21 00:40 Carbon Dioxide 25 mmol/L (21-32) 06/18/21 00:40 Anion Gap 3.0 (3-11) 06/18/21 00:40 BUN 22 mg/dl (7-18) H 06/18/21 00:40 Creatinine 1.13 mg/dl (0.6-1.4) 06/18/21 00:40 Est Cr Clr Drug Dosing 48.5 ml/min 06/18/21 00:40 Est GFR ( Amer) 67.8 ml/min 06/18/21 00:40 Est GFR (Non-Af Amer) 58.5 ml/min 06/18/21 00:40 BUN/Creatinine Ratio 19.4 (10-20) 06/18/21 00:40 Glucose 137 mg/dl (70-99) H 06/18/21 00:40 Estimat Average Glucose 117 mg/dl 06/18/21 00:40 Hemoglobin A1c 5.7 % (4.5-5.6) H 06/18/21 00:40 Calcium 9.4 mg/dl (8.5-10.1) 06/18/21 00:40 Magnesium 2.3 mg/dl (1.8-2.4) 06/18/21 00:40 Total Bilirubin 0.4 mg/dl (0.2-1) 06/18/21 00:40 AST 21 U/L (15-37) 06/18/21 00:40 ALT 24 U/L (12-78) 06/18/21 00:40 Alkaline Phosphatase 114 U/L (45-117) 06/18/21 00:40 Troponin I 6.790 ng/ml (0-0.045) H* 06/19/21 06:57 Total Protein 7.3 gm/dl (6.4-8.2) 06/18/21 00:40 Albumin 3.7 gm/dl (3.4-5.0) 06/18/21 00:40 Globulin 3.6 gm/dl (2.5-4.0) 06/18/21 00:40 Albumin/Globulin Ratio 1.0 (0.9-2) 06/18/21 00:40 Triglycerides 126 mg/dl (0-150) 06/18/21 00:40 Cholesterol 161 mg/dl (0-200) 06/18/21 00:40 LDL Cholesterol, Calc 72 mg/dl 06/18/21 00:40 VLDL Cholesterol, Calc 25 mg/dl 06/18/21 00:40 HDL Cholesterol 64 mg/dl 06/18/21 00:40 Cholesterol/HDL Ratio 3 06/18/21 00:40 COVID-19 Eval Order Covid19 at [facility] 06/18/21 01:45 SARS-CoV-2 (PCR) NEGATIVE (Negative) 06/18/21 01:45 Impressions Chest X-Ray 06/18/21 00:51 SINGLE VIEW CHEST CLINICAL HISTORY: Atypical chest pain. FINDINGS: 2 AP, portable, upright chest radiographs are compared to study dated 10/02/2006 and correlated with chest CT dated 11/30/2006. The heart is enlarged noting atherosclerotic calcification and uncoiling of the thoracic aorta. The pulmonary vasculature is noncongested. There is mild bibasilar scarring/atelectasis. The lungs and pleural spaces are otherwise clear. No pneumothorax is seen. The skeletal structures are osteopenic. The bony thorax is grossly intact. IMPRESSION: Cardiomegaly with no acute cardiopulmonary abnormality. ACT 112: Negative or not required by law. Electronically signed by: Oscar Gan M.D. 06/18/2021 9:11 AM Chest CTA 06/18/21 01:41 CT ANGIOGRAM OF THE CHEST COMBO CLINICAL HISTORY: Atypical chest pain. Widened mediastinum seen by chest x-ray. COMPARISON STUDY: Chest CT dated 11/30/2006. Chest x-ray dated 06/18/2021. TECHNIQUE: Before and following the IV administration of 118 cc of Optiray 320, CT angiogram of the chest was performed from the thoracic inlet to the upper abdomen utilizing the dissection protocol. Images are reviewed in the axial, sagittal, and coronal planes. 3-D MIPS images are created and assessed. IV contrast was administered without complication. A dose lowering technique was utilized adhering to the principles of ALARA. CT DOSE: 894.01 mGy.cm FINDINGS: Thyroid: Normal in size and heterogeneous in attenuation. Thoracic aorta: No intramural hematoma is seen on the unenhanced series. There is mild atherosclerotic calcification. There is mild aneurysmal dilatation of the ascending thoracic aorta which measures up to 4.1 cm in diameter. There is also dilatation of the aortic root which measures up to 4.9 cm. The thoracic aorta is uncoiled. The remainder of the thoracic aorta is normal in caliber, and the arch demonstrates standard 3-vessel anatomy. No dissection is seen. Pulmonary vasculature: The main pulmonary arteries are dilated suggesting pulmonary artery hypertension. There are no central filling defects identified in the pulmonary vessels to suggest pulmonary embolus. Note that this examination was not specifically protocoled to assess for pulmonary emboli. Heart: The heart is enlarged and without pericardial effusion. The coronary arteries are densely calcified. Lungs and pleural spaces: There is bibasilar scarring/atelectasis. No airspace consolidation or pleural effusion is identified. The trachea and central airways are clear. A 6 mm pleural-based nodule in the right lower lobe as seen on image #166. This is new from 2007. A 5 mm pleural-based nodule in the right middle lobe along the minor fissure seen on image #168 and a 4 mm groundglass nodule in the right middle lobe is seen on image #180. These are unchanged from 2007 and of doubtful significance. A calcified granuloma seen at the left lung base. Mediastinum: There is no mediastinal lymphadenopathy. Shaniqua: Clear. Axillae: There is no axillary lymphadenopathy. Upper abdomen: A 2.4 cm cyst is noted in the left kidney. There is a small to moderate hiatal hernia. Small hepatic cysts measure up to 1.7 cm. A 1.4 cm adenoma is noted in the left adrenal gland. A 2.9 cm cystic lesion is partially visualized in the pancreatic head. Skeletal structures: The skeletal structures are heterogeneously osteopenic. The skeletal structures are osteopenic. Degenerative change and hyperkyphosis is noted in the thoracic spine. Advanced arthritic change is seen in the shoulders. No lytic or blastic bony lesions are seen. IMPRESSION: 1. There is mild aneurysmal dilatation of the ascending thoracic aorta which measures up to 4.1 cm. The aortic root is also dilated measuring up to 4.9 cm. The thoracic aorta is uncoiled, likely corresponding to the abnormality seen by chest x-ray. 2. No dissection is identified. 3. There is no airspace consolidation typical for pneumonia or pleural effusion. 4. There is a 6 cm pleural-based nodule in the right lower lobe. This is pathologically indeterminant but new from 2006. This can be followed as per the Fleischner criteria if clinically warranted. Additional pulmonary nodules are stable dating back to 2006. 5. There is a nonaggressive appearing 2.9 cm cystic lesion partially visualized in the pancreatic head. A nonemergent contrast-enhanced pancreatic protocol CT or MRI is recommended for further assessment. 6. Cardiomegaly. 7. Hiatal hernia. 8. Additional findings as above. Please refer to below summary of Fleischner criteria recommendations for follow-up of incidental CT nodules (Lisa Wren, Guidelines for management of small pulmonary nodules detected on CT scans: A statement from the Fleischner Society, Radiology 237: [phone].) SOLID NODULES Solitary nodule size: <6 mm * low risk patients: no follow-up needed * high risk patients: optional CT at 12 months Solitary nodule size: 6-8 mm * low risk patients: follow-up at 6-12 months, then consider further follow-up at 18-24 months * high risk patients: initial follow-up CT at 6-12 months and then at 18-24 months if no change Solitary nodule size: >8 mm * either low or high risk patients - consider follow-up CT at 3 months, and/or CT-PET, and/or biopsy Multiple nodules size: <6 mm * low risk patients: no routine follow-up * high risk patients: optional CT at 12 months Multiple nodules size: 6-8 mm * low risk patients: follow-up at 3-6 months, then consider further follow-up at 18-24 months * high risk patients: follow-up at 3-6 months, then at 18-24 months if no change Multiple nodules size: >8 mm * low risk patients: follow-up at 3-6 months, then consider further follow-up at 18-24 months * high risk patients: follow-up at 3-6 months, then at 18-24 months if no change Note: newly detected indeterminate nodule in persons 35 years of age or older. * low risk patients: minimal or absent history of smoking and/or other known risk factors * high risk patients: history of smoking or of other known risk factors (e.g. first degree relative with lung cancer, or exposure to asbestos, radon, uranium) * if a nodule up to 8 mm is partly solid or is ground glass further follow-up is required after 24 months to exclude possible slow growing adenocarcinoma (KAREL) SUBSOLID NODULES Solitary pure ground-glass nodule * nodule size <6 mm - no CT follow-up required * nodule size >=6 mm - follow-up CT at 6-12 months, then every 2 years until 5 years Solitary part-solid nodule * nodule size <6 mm - no CT follow-up required * nodule size >=6 mm - follow-up CT at 3-6 months. If unchanged, and solid component remains <6 mm, then annual follow-up for 5 years Multiple subsolid nodules * nodule size <6 mm - follow-up CT at 3-6 months, consider further follow-up at 2 and 4 years if stable * nodule size >=6 mm - follow-up CT at 3-6 months, subsequent management based on the most suspicious nodule(s) ACT 112: Negative or not required by law. Electronically signed by: Oscar Gan M.D. 06/18/2021 9:07 AM Hospital Course (1) Chest pain: Mr. Flynn is an 86 yo gentleman with a PMHx of hypertension who presented for left sided chest pain, admitted for ACS rule out. - Chest xray showed widened mediastinum in ED --> Chest CTA performed ruling out PE, aortic dissection - Initial trop detectable but not elevated at 0.028. Trended serial levels. 0.028 --> 1.9 --> 9.8 --> Peaked and downtrended. - Echo --> reduced left ventricular systolic function, regional wall abnormalities, left atrium dilated, severe aortic regurgitation, mild mitral regurgitation, right ventricular systolic pressure elevated, moderate aortic ro ot dilation (4.9cm on CT) - EKG in ED showing RBBB and second degree AV nasrin block, but no ST segment changes --> repeat EKG showed inverted T waves in anterolateral leads suggesting ischemic changes - After cardiology consultation, it was determined a cath should be performed; coronary arteries were clean showing no signs of ACS --> cardiology said presenting symptoms could have stemmed from aortic regurgitation; recommends future aortic valve repair in future - Patient should follow up closely with cardiology in outpatient setting with serial echocardiograms - Patient should begin low dose Lasix to alleviate elevated filling pressures; will also begin daily aspirin and Plavix; since we will begin these medications he will no longer need to take hydrochlorothiazide. (2) Thoracic ascending aortic aneurysm: - 4.1cm dilation found on CT scan - Will follow up with cardiology outpatient; reimaging may be necessary in ~6 months to monitor size progression of aneurysm. - Discuss with PCP during hospital follow up visit for further information. (3) Lung nodules: - Small scattered nodules noted on CT (STAT RAD) --> Official reading: A 6 mm pleural-based nodule in the right lower lobe as seen on image #166. This is new from 2007. A 5 mm pleural-based nodule in the right middle lobe along the minor fissure seen on image #168 and a 4 mm ground glass nodule in the right m iddle lobe is seen on image #180. These are unchanged from 2007 and of doubtful significance. - Patient quit smoking at the age of 35 so his sole risk factor for malignancy is his older age which classifies this patient as low risk and base follow up on Fleischner criteria recommendations --> I recommend you discuss this finding with your PCP during your hospital follow up visit for further information and recommendations for follow up. (4) Cyst of pancreas: - Nonaggressive appearing 2.9 cm cystic lesion partially visualized in the pancreatic head --> a nonemergent contrast-enhanced pancreatic protocol CT or MRI is recommended for further assessment. This can be performed outpatient. Discuss with PCP during hospital follow up visit for further information. (5) Hypertension: - Continue home lisinopril, amlodipine. - Patient will stop using HCTZ and instead begin using Lasix (more potent). Total Time Total Time Spent Total Time Spent (In Minutes): see attending attestation Discharge Plan Discharge Items Patient Disposition: Home - Self-Care Reason For Visit: CHEST PAIN Discharge Diagnosis: Aortic Valve Disease Activity: Resume your previous activity Non-emergency contact: Primary Care Provider and [employer] Service Team Member Call non-emergency contact if: you have any medication questions and your symptoms worsen Follow-up/Referrals: Nba Lr DO [Primary Care Provider] - 06/26/21 11:30 am Diet: Heart Healthy Addtl Attending Provider Instructions: Chest Pain - You were admitted to the hospital following chest pain in order to rule out acute coronary syndrome (ACS). Following lab work, imaging studies, and consultation with cardiology (Dr. Milton Barajas), it was determined the best course of action would to perform a diagnostic catheterization which ultimately showed no signs of ACS. However, based on echocardiogram findings, your presenting symptoms may have stemmed from aortic valve disease, which may need to be repaired in the near future. I recommend you follow up closely with your casing grader for repeat cardiograms and plan of action. You may also want to schedule an appointment with a vascular surgeon to learn more about aortic valve repair and your options going forward. - Your echocardiogram also showed elevated filling pressures in your heart and I suggest you begin using Lasix 20mg daily INSTEAD OF hydrochlorothiazide for optimal treatment. - I would also like you to begin taking aspirin 81mg and plavix 75mg daily for acute coronary syndrome prevention. Thoracic Aortic Ascending Aneurysm - Your CT scan in the hospital found a 4.1cm aneurysm on your aorta. With no symptoms, this just needs to be monitored for now with future chest CT. If the aneurysm grows to >5.5cm it has the chance to rupture so surgical intervention may be necessary at that time. - Discuss with PCP during hospital follow up visit for further information. Lung Nodule - Also on the CT scan, a new 6mm nodule was found in your lungs. You previously had other nodules in your lungs found in 2006, but those appear to be stable and non worrisome at this time. As for the new nodule, you are at low risk for malignancy but I recommend you discuss this finding with your PCP to determine what the best course of action is. Pancreatic Cyst - The CT scan also found a cyst on the head of the pancreas. Though this may be an incidental non worrisome finding, it is recommended you get a nonemergent contrast enhanced CT scan of your pancreas per protocol for further evaluation. Discuss this with your PCP during your hospital follow up visit for further information. Pending Studies at Discharge: No Stand-Alone Forms: My [facility] Medications and DC Order Prescriptions: New furosemide [Lasix] 20 mg tablet 20 mg PO DAILY Qty: 30 RF: 0 clopidogrel [Plavix] 75 mg tablet 75 mg PO DAILY 30 Days Qty: 30 RF: 0 aspirin 81 mg tablet,delayed release (DR/EC) 81 mg PO DAILY 30 Days Qty: 30 RF: 0 furosemide [Lasix] 20 mg tablet 20 mg PO DAILY 30 Days Qty: 30 RF: 0 Continued (DME) CPAP Machine Misc See Rx Instructions .ROUTE .MEDSUPPLY Qty: 1 RF: 0 lisinopril 40 mg tablet 40 mg PO DAILY Qty: 90 RF: 3 amlodipine 2.5 mg tablet 2.5 mg PO DAILY Qty: 90 RF: 3 multivitamin Tablet 1 tab PO DAILY RF: 0 calcium carbonate-vitamin D3 [Calcium 600 + D(3)] 600 mg(1,500mg) -400 unit Tablet 1 tab PO DAILY RF: 0 Prevagen 1 tab PO DAILY RF: 0 ropinirole 0.5 mg tablet 0.5 mg PO HS RF: 0 Changed acetaminophen [Tylenol Extra Strength] 500 mg tablet 500 mg PO DAILY PRN (Reason: pain) Qty: 30 RF: 0 Discontinued hydrochlorothiazide 12.5 mg tablet 12.5 mg PO DAILY Qty: 90 RF: 3 Discharge Orders: Discharge Order (Routine); Ordered 06/20/21 Ordered By: Kodak Garcia Admission Data Admit Date/Time: 06/18/21 17:42 Attending Provider: Humaira Carey Admit Provider: Annabella Pickett Primary Care Provider: Nba Lr Other Providers: Radha Downing Christophe W. Other Interventions: Discharge Summary Assessment (RN) Last Done: 06/20/21 15:04 Supervising Physician Co-Signing Physician Notes Patient seen and examined independently of PGY-1 Dr. Garcia. Agree with history, exam findings, assessment and plan of care as outlined. In brief, Mr. Flynn is an 86 year old male with history of HN admitted with left sided chest pain. Earlier today, reports that chest pain has resolved; however, troponins are rising. Denies dyspnea, nausea, dizziness. Vital signs and nursing notes reviewed. Well appearing. Breathing comfortably on room air. 1. Elevated Troponin. Troponin peaked at 15 and now downtrending. Cardiac cath with no evidence of CAD, noted elevated left ventricular filling pressures. Suspect either heart strain from chronic, severe aortic regurg vs vasospasm vs thrombus that was no longer present on cath. Continue atorvastatin 80mg, ASA 81mg, Plavix. TTE with EF 40-45%, moderate to severe aortic regurgitation, moderate aortic root dilatation and wall motion abnormalities (inferior wall from the mid ventricle to apex is severely hypokinetic, distal septal and apical segments are occasionally dyskinetic). Continue Lisinopril 40mg. A1C in 5.7%, LDL 72, HDL 64. Appreciate cardiology recommendations. 2. Aortic regurgitation with aortic root dilation. New. Severe. Seen on TTE obtained on admission. May need valve replaced at some point. Both our team and cardiology have discussed this with him. He would like to monitor for now and will likely have elective valve replacement. He is interested in being seen in [place] for valve replacement consultation. 3. Bifascicular block. Avoid beta-thomas. May need a pacemaker at some point down the line should he become symptomatic. 4. HTN. Lisinopril as above. Continue home amlodipine 2.5mg. Switched HCTZ to Lasix. 5. Pancreatic cyst. CT Chest shows 2.9 cm cyst in the pancreatic head. Will plan for dedicated CT Abd/Pelvis as an outpatient. 6. Pulmonary nodules. Follow up imaging as an outpatient. 7. Descending aortic aneurysm. Follow up imaging as an outpatient. Dispo: discharge home today. I personally spent 35 minutes discharge planning for this patient. Resident Activity Tracking Resident Involvement: Resident Care Provided Care Provided: Adult Hospital Medicine
--- NOTE | 2021-07-01 08:51 | Coding Query ---
CODING QUERY To promote full compliance with coding requirements relating to patient care, provider participation is requested in all cases of braille coder uncertainty. Please assist us with the question(s) below: Coding Question(s): Seeking to clarify if patient was treated for NSTEMI. Cardiology stated after cardiac cath " NSTEMI".. Despite symptoms and objective findings consistent with an acute coronary syndrome, there was no evidence of this on coronary angiography. Patient was treated with Heparin, Plavix, ASA , cardiology consult, echo , serial EKG's troponins, and cardiac cath. Please check below , after study, the condition that was treated pertaining to the documented NSTEMI. Physician's Response(s): __x Patient was treated for an NSTEMI. POA Patient was not treated treated for an NSTEMI Cannot cliically correlate if NSTEMI was treated Other: please document other /alternate diagnosis if applicable: Principal Diagnosis: "that condition established after study, to be chiefly responsible for occasioning the admission of the patient to the hospital for care." Co-Existing Principal Diagnosis: "when two or more diagnoses equally meet the criteria for principal diagnosis as determined by the circumstances of admission, diagnostic work up, and/or therapy provided, and the Alphabetic Index, Tabular List, or another coding guideline does not provide sequencing direction, any one of the diagnoses may be sequenced first." "When the physician has documented what appears to be a current diagnosis in the body of the record, but has not included the diagnosis in the final diagnostic statement, the physician should be asked whether the diagnosis should be added." (Source [facility] 2 QTR90. p3-4) NANCY
== END 2021-06-20 16:03 | disposition home or self-care (01) | DRG 281 ==
LOC: ED 00:19 → 2S 00:19 → SUATTDRO 02:13 → 2S 04:10

== ENCOUNTER 2021-10-10 09:12 | Observation (INO) ==
--- NOTE | 2021-10-10 09:38 | XRay Report ---
XR chest 1V portable CLINICAL HISTORY: SOB. COMPARISON STUDY: 10/09/2021 TECHNIQUE: 1 view of the chest FINDINGS: Single frontal view of the chest demonstrates the heart to again be enlarged. Compared to yesterday's study, there is again evidence for parenchymal costophrenic angles bilaterally characteristic of sma ll bilateral pleural effusions. The lungs are clear of alveolar opacities. There is decreased inspira tion with elevation of hemidiaphragms the current study. There is no evidence for vascular congestion . There is no acute osseous pathology. IMPRESSION: Compared to yesterday's study, evidence for small bilateral pleural effusions is again se en. Decreased inspiration on the current study. ACT 112: Negative or not required by law. Electronically signed by: Flakito Dyson M.D. 10/10/2021 9:37 AM
[2021-10-10 09:52] LABS: Basophils # (auto) 0.01 K/uL (0-0.2); Basophils % (auto) 0.2 %; Eosinophils # (auto) 0.03 K/uL (0-0.5); Eosinophils % (auto) 0.5 %; Hematocrit (blood only) 44.1 % (42-52); Hemoglobin 14.5 g/dL (14.0-18.0); Immature Granulocytes # (auto) 0.01 K/uL (0.00-0.02); Immature Granulocytes % (auto) 0.2 %; Lymphocytes # (auto) 1.01 K/uL (1.2-3.4); Lymphocytes % (auto) 16.1 %; Mean Corpuscular Hemoglobin 30.9 pg (25-34); Mean Corpuscular Hgb Conc 32.9 g/dL (32-36); Mean Platelet Volume 10.7 fL (7.4-10.4); Monocytes # (auto) 0.52 K/uL (0.11-0.59); Monocytes % (auto) 8.3 %; Neutrophils % (auto) 74.7 %; Platelet Count 179 K/uL (130-400); RDW Standard Deviation 47.8 fL (36.4-46.3); Red Blood Count 4.69 M/uL (4.7-6.1); White Blood Count 6.28 K/uL (4.8-10.8)
[2021-10-10 10:13] LABS: Albumin Level 3.6 gm/dl (3.4-5.0); BUN Creatinine Ratio 22.4 (10-20); Calcium 9.8 mg/dl (8.5-10.1); Creatinine Clr Calc Pharmacy 45.5 ml/min; Est GFR (African American) 62.5 ml/min; Est GFR (Non-African American) 53.9 ml/min; INR 1.3 (0.9-1.1); Magnesium 2.2 mg/dl (1.8-2.4); Partial Thromboplastin Time 27.6 Seconds (21.0-31.0); Potassium 4.1 mmol/L (3.5-5.1); Prothrombin Time 12.8 Seconds (9.0-12.0)
[2021-10-10 10:17] LABS: Globulin 3.6 gm/dl (2.5-4.0); Total Protein 7.2 gm/dl (6.4-8.2); Troponin I 0.041 ng/ml (0-0.045)
[2021-10-10] MEDS ORDERED: FUROSEMIDE 40 MG/4 ML VIAL IV ONE (12:13)
--- NOTE | 2021-10-10 12:13 | Emergency Department Note ---
Impression & Plan CHF (congestive heart failure), Breath shortness ED Provider Note NAME: JUDI MICHELLE AGE: 86 SEX: M : 1935 ARRIVES VIA: Walk-In INFORMANT: Patient ED PROVIDER(S): Steve Abebe DO CHIEF COMPLAINT: shortness of breath HPI: Patient is an 86-year-old male past medical history of NSTEMI, aortic root dilation, aortic rate regurg who presents the ER for shortness of breath. This been getting worse for the past week. He has been following up with his PCP and they referred him in today as he had a 9 pound weight gain over the past week. He increase his Lasix but has been getting worse. He can no longer lie flat. Shortness of breath is present with minimal movement. No chest pain. No belly pain, nausea, vomiting, or diarrhea. Swelling of legs is present. No dysuria, urgency, or frequency. No other exacerbating or remitting factors. ROS: See above HPI for pertinent positives & negatives. A total of 10 systems reviewed and were otherwise negative. PAST MEDICAL HISTORY:See Below PAST SURGICAL HISTORY:See Below FAMILY HISTORY:See Below SOCIAL HISTORY:See Below HOME MEDICATIONS:See Below ALLERGIES:See Below VITALS:See Below PHYSICAL EXAMINATION: GENERAL: Sitting up in bed, alert, well appearing, well nourished, no distress, non-toxic EYE EXAM: normal conjunctiva. PERRL and EOM's grossly intact. OROPHARYNX: no exudate, no erythema, lips, buccal mucosa, and tongue normal and mucous membranes are moist NECK: +JVD LUNGS: Clear to auscultation. Normal chest wall mechanics HEART: no murmurs, S1 normal and S2 normal ABDOMEN: abdomen soft, non-tender, normo-active bowel sounds, no masses, no rebound or guarding. UPPER EXTREMITIES: upper extremities are grossly normal. LOWER EXTREMITIES: Right leg larger than left with pitting edema bilaterally NEURO EXAM: Normal sensorium, cranial nerves II-XII grossly intact, normal speech, no gross weakness of arms, no gross weakness of legs. MEDICAL DECISION MAKING: Patient is an 86-year-old male who presents ER for shortness of breath. IV was established blood was obtained. Labs show no significant leukocytosis or anemia. INR 1.3. BMP with a slightly elevated chloride at 109. LFTs bilirubin was unremarkable. Troponin was checked was 0.041. Covid was negative. Chest x-ray with cephalization. Patient is given IV Lasix. With the 10 pound weight gain in the worsening shortness of breath and orthopnea patient was discussed with hospitalist for further evaluation. Triage Nursing notes reviewed. Limited review of prior medical records performed Vital Signs: reviewed and remarkable for no significant abnormalities Differential diagnosis: Differential diagnoses includes but is not limited to pneumonia, bronchitis, COPD/Asthma exacerbation, pneumothorax, pulmonary embolism, congestive heart fa ilure, acute coronary syndrome ER treatment provided: See below Diagnostics interpreted by me: ECG: Sinus rhythm with a first-degree AV block Left axis Right bundle branch block T wave inversion V1 through V3 QTC 492 Cardiac Monitoring: An order was placed for continuous cardiac monitoring. The monitor shows a rate of 51 with sinus rhythm. Laboratory studies: As stated above and show below. Imaging studies: Portable AP upright 1 view of the chest shows bilateral effusions with cephalization Consultation(s): Discussed with hospitalist for further evaluation Procedures: none Critical Care: None Past Med/Surg History Medical History Abnormal gait Chronic venous stasis Elevated PSA, less than 10 ng/ml Gout Hyperlipidemia Hypertension Left-sided chest pain Mild cognitive impairment Mild neurocognitive disorder Nephrolithiasis Obstructive sleep apnea Periodic limb movement disorder Urinary urgency Surgical History S/P cataract surgery 11/2015 S/P colonoscopy 10 years S/P tonsillectomy and adenoidectomy Family History Mother Breast cancer Lung disease COPD (chronic obstructive pulmonary disease) Father Heart disease Denies family history of Colon cancer Ovarian cancer Prostate cancer Myocardial infarction Colorectal cancer Social History (Updated 07/11/21 @ 10:19 by Sophia Chaudhry) Smoking Status: Former smoker Tobacco Type: Cigarettes Age Quit Using Tobacco: 35; packs per day: 1; Second Hand Exposure: No; Hx Alcohol Use: Yes Alcohol type: beer, wine and hard liquor Alcohol Intake Frequency: 2-3 x/Week Alcohol Intake Frequency Comment: 1 beer a week Hx Substance Use: No Preferred Language: Grenadian Communication Ability: Effective Visual Impairment: Limited Hearing Ability: Normal Engagement Director Required: No Beliefs That Will Affect Care: None marital status: Current Living Situation: Spouse Current Living Situation Comment: Living at home with current occupational status: employed current occupation: works at a [employer] How many Children do You have: 2 Feels Safe at Home: Yes Childhood Exposure to Second-Hand Smoke: Yes caffeine: Yes (coffee daily, tea, soda ) Dental Care, Regularly: Yes Physical Activity Frequency: Daily Physical Activity Frequency Comment: prescribed by therapy Seatbelt Use: always Sunscreen Use: No Assistive Devices: Glasses Allergies Allergies Allergy/AdvReac Type Severity Reaction Status Date / Time No Known Allergies Allergy Verified 10/08/21 10:35 Home Meds Home Medications Medication Instructions Recorded Confirmed calcium carbonate 600 mg-vitamin 1 tab PO DAILY 06/08/19 10/10/21 D3 10 mcg (400 unit) tablet (Calcium 600 + D(3)) multivitamin 1 tab PO DAILY 06/08/19 10/10/21 Prevagen 1 tab PO DAILY 06/18/21 10/10/21 cholecalciferol (vitamin D3) 50 250 mcg PO DAILY 06/26/21 10/10/21 mcg (2,000 unit) capsule ferrous sulfate 325 mg (65 mg 325 mg PO DAILY 06/26/21 10/10/21 iron) tablet (Feosol) ibuprofen 200 mg tablet 200 mg PO Q6H PRN 10/08/21 10/10/21 furosemide 20 mg tablet (Lasix) 40 mg PO DAILY 10/10/21 10/10/21 Previous Rx's Medication Instructions Recorded CPAP Machine #1 ea 01/31/21 lisinopril 40 mg tablet 40 mg PO DAILY #90 tab 03/11/21 acetaminophen 500 mg tablet 500 mg PO DAILY PRN #30 tab 06/20/21 (Tylenol Extra Strength) ropinirole 0.5 mg tablet 0.5 mg PO HS #30 tab 06/21/21 aspirin 81 mg tablet,delayed 81 mg PO DAILY #30 tab 07/31/21 release (Adult Low Dose Aspirin) clopidogrel 75 mg tablet (Plavix) 75 mg PO DAILY 30 Days #90 tab 07/31/21 Results & Data (ED) Vital Signs Vital Signs - 24 hr 10/10/21 09:21 10/10/21 12:23 10/10/21 12:57 Temperature 36.8 C Temperature Source Temporal Artery Scan Pulse Rate 44 L Pulse Rate [Radial] 58 L Pulse Rate from SpO2 Sensor Respiratory Rate 18 20 Respiratory Effort / Characteristics Blood Pressure Blood Pressure [Right Arm] 159/96 H Blood Pressure Mean Blood Pressure Mean [Right Arm] 117 Pulse Oximetry 92 93 93 Oxygen Delivery Method Room Air Room Air Room Air Oxygen Flow Rate Sepsis Recent Fever Within 48 Hours No Sepsis New/Unexplained Change in Mental Status No Sepsis Action Taken by Nursing No Action Required 10/10/21 13:00 10/10/21 13:30 10/10/21 13:52 Temperature Temperature Source Pulse Rate 58 L 50 L 70 Pulse Rate [Radial] Pulse Rate from SpO2 Sensor 55 L 54 L Respiratory Rate 22 15 16 Respiratory Effort / Characteristics Blood Pressure 163/89 H Blood Pressure [Right Arm] Blood Pressure Mean 113 Blood Pressure Mean [Right Arm] Pulse Oximetry 94 94 95 Oxygen Delivery Method Room Air Room Air Room Air Oxygen Flow Rate Sepsis Recent Fever Within 48 Hours Sepsis New/Unexplained Change in Mental Status Sepsis Action Taken by Nursing 10/10/21 13:55 10/10/21 13:56 10/10/21 13:57 Temperature Temperature Source Pulse Rate Pulse Rate [Radial] Pulse Rate from SpO2 Sensor Respiratory Rate 18 Respiratory Effort / Characteristics Non-Labored Non-Labored Blood Pressure Blood Pressure [Right Arm] Blood Pressure Mean Blood Pressure Mean [Right Arm] Pulse Oximetry 95 Oxygen Delivery Method Room Air Room Air Oxygen Flow Rate 96 95 Sepsis Recent Fever Within 48 Hours Sepsis New/Unexplained Change in Mental Status Sepsis Action Taken by Nursing 10/10/21 14:00 Temperature Temperature Source Pulse Rate 54 L Pulse Rate [Radial] Pulse Rate from SpO2 Sensor 56 L Respiratory Rate 22 Respiratory Effort / Characteristics Blood Pressure 151/93 H Blood Pressure [Right Arm] Blood Pressure Mean 112 Blood Pressure Mean [Right Arm] Pulse Oximetry 96 Oxygen Delivery Method Room Air Oxygen Flow Rate Sepsis Recent Fever Within 48 Hours Sepsis New/Unexplained Change in Mental Status Sepsis Action Taken by Nursing Laboratory Data Result diagrams: 10/10/21 09:40 10/10/21 09:40 Lab Results 10/10/21 10/10/21 10/10/21 Range/Units 09:40 09:40 09:40 WBC 6.28 (4.8-10.8) K/uL RBC 4.69 L (4.7-6.1) M/uL Hgb 14.5 (14.0-18.0) g/dL Hct 44.1 (42-52) % MCV 94.0 (80-100) fL MCH 30.9 (25-34) pg MCHC 32.9 (32-36) g/dL RDW Std Deviation 47.8 H (36.4-46.3) fL RDW Coeff of Armando 14.0 (11.5-14.5) % Plt Count 179 (130-400) K/uL MPV 10.7 H (7.4-10.4) fL Immature Gran % (Auto) 0.2 % Neut % (Auto) 74.7 % Lymph % (Auto) 16.1 % [place] % (Auto) 8.3 % Eos % (Auto) 0.5 % Baso % (Auto) 0.2 % Neut # (Auto) 4.70 (1.4-6.5) K/uL Lymph # (Auto) 1.01 L (1.2-3.4) K/uL [place] # (Auto) 0.52 (0.11-0.59) K/uL Eos # (Auto) 0.03 (0-0.5) K/uL Baso # (Auto) 0.01 (0-0.2) K/uL Immature Gran # (Auto) 0.01 (0.00-0.02) K/uL PT 12.8 H (9.0-12.0) Seconds INR 1.3 H (0.9-1.1) APTT 27.6 (21.0-31.0) Seconds PTT Ratio 1.0 Sodium 142 (136-145) mmol/L Potassium 4.1 (3.5-5.1) mmol/L Chloride 109 H (98-107) mmol/L Carbon Dioxide 25 (21-32) mmol/L Anion Gap 8.0 (3-11) BUN 27 H (7-18) mg/dl Creatinine 1.21 (0.6-1.4) mg/dl Est Cr Clr Drug Dosing 45.5 ml/min Est GFR ( Amer) 62.5 ml/min Est GFR (Non-Af Amer) 53.9 ml/min BUN/Creatinine Ratio 22.4 H (10-20) Glucose 125 H (70-99) mg/dl Calcium 9.8 (8.5-10.1) mg/dl Magnesium 2.2 (1.8-2.4) mg/dl Total Bilirubin 1.0 (0.2-1) mg/dl AST 34 (15-37) U/L ALT 36 (12-78) U/L Alkaline Phosphatase 100 (45-117) U/L Troponin I 0.041 (0-0.045) ng/ml NT-Pro-B Natriuret Pep (0-1800) pg/ml Total Protein 7.2 (6.4-8.2) gm/dl Albumin 3.6 (3.4-5.0) gm/dl Globulin 3.6 (2.5-4.0) gm/dl Albumin/Globulin Ratio 1.0 (0.9-2) SARS-CoV-2, RNA, NAAT (NEGATIVE) 10/10/21 10/10/21 Range/Units 09:40 12:23 WBC (4.8-10.8) K/uL RBC (4.7-6.1) M/uL Hgb (14.0-18.0) g/dL Hct (42-52) % MCV (80-100) fL MCH (25-34) pg MCHC (32-36) g/dL RDW Std Deviation (36.4-46.3) fL RDW Coeff of Armando (11.5-14.5) % Plt Count (130-400) K/uL MPV (7.4-10.4) fL Immature Gran % (Auto) % Neut % (Auto) % Lymph % (Auto) % [place] % (Auto) % Eos % (Auto) % Baso % (Auto) % Neut # (Auto) (1.4-6.5) K/uL Lymph # (Auto) (1.2-3.4) K/uL [place] # (Auto) (0.11-0.59) K/uL Eos # (Auto) (0-0.5) K/uL Baso # (Auto) (0-0.2) K/uL Immature Gran # (Auto) (0.00-0.02) K/uL PT (9.0-12.0) Seconds INR (0.9-1.1) APTT (21.0-31.0) Seconds PTT Ratio Sodium (136-145) mmol/L Potassium (3.5-5.1) mmol/L Chloride (98-107) mmol/L Carbon Dioxide (21-32) mmol/L Anion Gap (3-11) BUN (7-18) mg/dl Creatinine (0.6-1.4) mg/dl Est Cr Clr Drug Dosing ml/min Est GFR ( Amer) ml/min Est GFR (Non-Af Amer) ml/min BUN/Creatinine Ratio (10-20) Glucose (70-99) mg/dl Calcium (8.5-10.1) mg/dl Magnesium (1.8-2.4) mg/dl Total Bilirubin (0.2-1) mg/dl AST (15-37) U/L ALT (12-78) U/L Alkaline Phosphatase (45-117) U/L Troponin I (0-0.045) ng/ml NT-Pro-B Natriuret Pep 29344 H (0-1800) pg/ml Total Protein (6.4-8.2) gm/dl Albumin (3.4-5.0) gm/dl Globulin (2.5-4.0) gm/dl Albumin/Globulin Ratio (0.9-2) SARS-CoV-2, RNA, NAAT NEGATIVE (NEGATIVE) Administered Medications Discontinued Medications Furosemide (Furosemide 40 Mg/4 Ml Vial) 40 mg IV ONE ONE Stop: 10/10/21 12:14 Last Admin: 10/10/21 12:22 Dose: 40 mg Documented by: [id number] Imaging Data Radiologist's Impression: Chest X-Ray 10/10/21 09:25 XR chest 1V portable CLINICAL HISTORY: SOB. COMPARISON STUDY: 10/09/2021 TECHNIQUE: 1 view of the chest FINDINGS: Single frontal view of the chest demonstrates the heart to again be enlarged. Compared to yesterday's study, there is again evidence for parenchymal costophrenic angles bilaterally characteristic of small bilateral pleural effusions. The lungs are clear of alveolar opacities. There is decreased inspiration with elevation of hemidiaphragms the current study. There is no evid ence for vascular congestion. There is no acute osseous pathology. IMPRESSION: Compared to yesterday's study, evidence for small bilateral pleural effusions is again seen. Decreased inspiration on the current study. ACT 112: Negative or not required by law. Electronically signed by: Flakito Dyson M.D. 10/10/2021 9:37 AM Discharge Plan Visit Data Chief Complaint: Shortness of Breath/Dyspnea Stated Complaint: SOB ED Provider: Steve Abebe Discharge Problem: CHF (congestive heart failure), Breath shortness Discharge Problem: CHF (congestive heart failure) Qualifiers: Heart failure type: unspecified Heart failure chronicity: unspecified Qualified Code(s): I50.9 - Heart failure, unspecified
--- NOTE | 2021-10-10 14:30 | Electrocardiogram Report ---
Test Reason : Blood Pressure : / mmHG Vent. Rate : 060 BPM Atrial Rate : 060 BPM P-R Int : 000 ms QRS Dur : 156 ms QT Int : 492 ms P-R-T Axes : 000 -50 036 degrees QTc Int : 492 ms Sinus rhythm with Mobitz I AV block Right bundle branch block Left anterior fascicular block Bifascicular block Minimal voltage criteria for LVH, may be normal variant Abnormal ECG Confirmed by Milton Barajas ([id number]) on 10/10/2021 2:30:14 PM Referred By: Confirmed By:Mian Barajas
--- NOTE | 2021-10-10 14:39 | History & Physical Report ---
Date of Service October 10, 2021 Assessment & Plan (1) CHF exacerbation: Plan: Acute on chronic HF exacerbation- HFrEF - Decrease in systolic function noted on ECHO 09/27/21 - ? HF worsening of the valve or valve worsening causing the failure - 2 pillow orthopnea and increase lower extremity edema and weight gain - Will continue to diurese with 40mg IV lasix q8 hours- goal 1liter negative by morning - Continue EVELYN - Not on BB secondary to bradycardia - Cath completed in June with no obstructive disease - EF 35 % with diffuse hypokinesis without LVH (2) Aortic regurgitation: Plan: As above- follows with PSH - diurese and evaluate symptoms - Noted as moderate AR on 09/27 ECHO (3) Aortic root dilation: Plan: Found on 06/29 admission - follow serially (4) Obstructive sleep apnea: Plan: KATHYA with CPAP - evident of right sided failure as well on exam - Diurese CPAP at night while having HOB elevated (5) Bifascicular block: Plan: No change (6) Hypertension: Plan: Continue EVELYN and diuretics - Goal <140 (7) AV block, Mobitz 1: Plan: No change from previous ecg - appears he has also had some Mobitz II on previous ECGs History of Present Illness Chief Complaint: SOB Primary Care Provider: Nba Lr, DO 86 YOM with past medical history of: HTN, HLD, HFrEF, AR/AI, Restless legs, Thoracic ascending aortic aneurysm, NSTEMI. Patient comes to the EMD today following direction of his PCP for symptoms consistent with HF. Patient comes in with worsening dyspnea and weight gain reported 8lb gain from PCP last visit and 4lb weight gain since Thursday, he had his Lasix dose increased to 40mg daily but he is unsure if he started this yet. The patient denies any chest pain or pressure, gets dyspneic from approx 25-30 feet of ambulation and now has 2 pillow orthopnea at night. He also was not wearing his CPAP secondary to not being able to breathe with it on lying flat. also reports increase in lower extremity edema as well. Patient was originally seen for concern of CAD/NSTEMI in June 29. Patient underwent coronary angiography at that time- and had no obstructive disease. It was noted that he had mildly reduced EF (45%) at that time and worsening of his AR. He was followed up at [facility] at that time and follows with Dr. Mahmood. Patient was evaluated and started on EVELYN and Lasix 20mg daily, as his symptoms were controlled was to have follow up with CT chest and ECHO in September. The ECHO was completed on with EF now 35% and diffuse hypokinesis with RV and LV dilation. As patient has worsening of his systolic function and worsening of symptoms will have cardiology see patient and possibly coordinate transfer if surgical evaluation needs to be sooner. He is scheduled for for evaluation at [facility]. Patient was given 40mg IV Lasix in the EMD and has diuresed 550 ml urine now. Will continue with 40mg IV Lasix q8 hours, adjust if needed based on hemodynamics with his AR/AI. Discussed with Dr. Groves and he will not be on service tomorrow so will consult [facility] [place] Barajas. Patient has had his COVID vaccine and his COVID test on admission is: NEGATIVE Allergies Allergy/AdvReac Type Severity Reaction Status Date / Time No Known Allergies Allergy Verified 10/08/21 10:35 Home Medications Medication Instructions Recorded Confirmed Type calcium carbonate 600 mg-vitamin 1 tab PO DAILY 06/08/19 10/10/21 History D3 10 mcg (400 unit) tablet (Calcium 600 + D(3)) multivitamin 1 tab PO DAILY 06/08/19 10/10/21 History CPAP Machine #1 ea 01/31/21 10/08/21 Rx lisinopril 40 mg tablet 40 mg PO DAILY #90 tab 03/11/21 10/10/21 Rx Prevagen 1 tab PO DAILY 06/18/21 10/10/21 History acetaminophen 500 mg tablet 500 mg PO DAILY PRN #30 tab 06/20/21 10/10/21 Rx (Tylenol Extra Strength) ropinirole 0.5 mg tablet 0.5 mg PO HS #30 tab 06/21/21 10/10/21 Rx cholecalciferol (vitamin D3) 50 250 mcg PO DAILY 06/26/21 10/10/21 History mcg (2,000 unit) capsule ferrous sulfate 325 mg (65 mg 325 mg PO DAILY 06/26/21 10/10/21 History iron) tablet (Feosol) aspirin 81 mg tablet,delayed 81 mg PO DAILY #30 tab 07/31/21 10/10/21 Rx release (Adult Low Dose Aspirin) clopidogrel 75 mg tablet (Plavix) 75 mg PO DAILY 30 Days #90 tab 07/31/21 10/10/21 Rx ibuprofen 200 mg tablet 200 mg PO Q6H PRN 10/08/21 10/10/21 History furosemide 20 mg tablet (Lasix) 40 mg PO DAILY 10/10/21 10/10/21 History Past Med/Surg History Medical History Abnormal gait Chronic venous stasis Elevated PSA, less than 10 ng/ml Gout Hyperlipidemia Hypertension Left-sided chest pain Mild cognitive impairment Mild neurocognitive disorder Nephrolithiasis Obstructive sleep apnea Periodic limb movement disorder Urinary urgency Surgical History S/P cataract surgery 11/2015 S/P colonoscopy 10 years S/P tonsillectomy and adenoidectomy Family History Mother Breast cancer Lung disease COPD (chronic obstructive pulmonary disease) Father Heart disease Denies family history of Colon cancer Ovarian cancer Prostate cancer Myocardial infarction Colorectal cancer Social History (Updated 07/11/21 @ 10:19 by Sophia Chaudhry) Smoking Status: Former smoker Tobacco Type: Cigarettes Age Quit Using Tobacco: 35; packs per day: 1; Second Hand Exposure: No; Hx Alcohol Use: Yes Alcohol type: beer, wine and hard liquor Alcohol Intake Frequency: 2-3 x/Week Alcohol Intake Frequency Comment: 1 beer a week Hx Substance Use: No Preferred Language: Gabonese Communication Ability: Effective Visual Impairment: Limited Hearing Ability: Normal Smt Machine Operator Required: No Beliefs That Will Affect Care: None marital status: Current Living Situation: Spouse Current Living Situation Comment: Living at home with current occupational status: employed current occupation: works at a [email or web address] How many Children do You have: 2 Other Information That Helps Us Care for You: No Feels Safe at Home: Yes Safety Concerns: Feels Safe At This Time Childhood Exposure to Second-Hand Smoke: Yes caffeine: Yes (coffee daily, tea, soda ) Dental Care, Regularly: Yes Physical Activity Frequency: Daily Physical Activity Frequency Comment: prescribed by therapy Seatbelt Use: always Sunscreen Use: No Assistive Devices: Cane, Denture - Lower and Glasses Review of Systems Review of Systems: REVIEW OF SYSTEMS: Constitutional: No fever, sweats or chills Eyes: No diplopia, no worsening or blurred vision ENT: normal hearing, no trouble swallowing Respiratory: (+) dyspnea at rest or on exertion, No cough, sputum, Cardiovascular: (+) edema, No chest pain, tightness or palpitations Abdomen: No pain, nausea, vomiting, diarrhea or constipation Musculoskeletal: No joint pain, calf pain, swelling Neurologic: No weakness, numbness/tingling, or balance problems Psychiatric: No anxiety or depression Skin: No rash or itch Physical Exam Physical Exam: PHYSICAL EXAM: General: awake, alert, no apparent distress Head: Normocephalic, atraumatic ENT: PERRL, EOMI, no pharyngeal exudate, mucous membranes moist Neuro: AAO x 3, speech clear and appropriate, strength intact bilaterally 5/5, sensation intact and equal all extremities and dermatomes, no pronator drift Chest: equal rise and fall of the chest, no accessory muscle use, no heaves or thrills, scattered crackles throughout, on room air Cardiac: irregular rate and rhythm, telemetry reviewed- 1st degree with PACs, skin warm dry, cap refill <3 seconds, peripheral pulses +2 no JVD, systolic murmur, +3 bilateral lower extremity edema up to knees GI: NABS x 4 quadrants, soft, nontender to palpation, no rebound, guarding or tenderness : Spontaneously voiding, no pain, no CVA tenderness, Psych: Normal mood and affect Skin: venous discoloration Results & Data Results & Data ([facility]) Vital Signs (Past 12 Hours) Vital Signs Temp Pulse Pulse Resp BP BP Pulse Ox 10/10/21 13:56 18 95 10/10/21 13:52 70 16 95 10/10/21 13:30 50 L 15 94 10/10/21 13:00 58 L 22 163/89 H 94 10/10/21 12:57 93 10/10/21 12:23 58 L 20 159/96 H 93 10/10/21 09:21 36.8 C 44 L 18 92 Laboratory Results Abnormal lab results 10/10/21 10/10/21 10/10/21 Range/Units 09:40 09:40 09:40 RBC 4.69 L (4.7-6.1) M/uL RDW Std Deviation 47.8 H (36.4-46.3) fL MPV 10.7 H (7.4-10.4) fL Lymph # (Auto) 1.01 L (1.2-3.4) K/uL PT 12.8 H (9.0-12.0) Seconds INR 1.3 H (0.9-1.1) Chloride 109 H (98-107) mmol/L BUN 27 H (7-18) mg/dl BUN/Creatinine Ratio 22.4 H (10-20) Glucose 125 H (70-99) mg/dl NT-Pro-B Natriuret Pep (0-1800) pg/ml 10/10/21 Range/Units 09:40 RBC (4.7-6.1) M/uL RDW Std Deviation (36.4-46.3) fL MPV (7.4-10.4) fL Lymph # (Auto) (1.2-3.4) K/uL PT (9.0-12.0) Seconds INR (0.9-1.1) Chloride (98-107) mmol/L BUN (7-18) mg/dl BUN/Creatinine Ratio (10-20) Glucose (70-99) mg/dl NT-Pro-B Natriuret Pep 73092 H (0-1800) pg/ml Diagnostic Findings Chest X-Ray 10/10/21 09:25 XR chest 1V portable CLINICAL HISTORY: SOB. COMPARISON STUDY: 10/09/2021 TECHNIQUE: 1 view of the chest FINDINGS: Single frontal view of the chest demonstrates the heart to again be enlarged. Compared to yesterday's study, there is again evidence for parenchymal costophrenic angles bilaterally characteristic of small bilateral pleural effusions. The lungs are clear of alveolar opacities. There is decreased inspiration with elevation of hemidiaphragms the current study. There is no evidence for vascular congestion. There is no acute osseous pathology. IMPRESSION: Compared to yesterday's study, evidence for small bilateral pleural effusions is again seen. Decreased inspiration on the current study. ACT 112: Negative or not required by law. Electronically signed by: Flakito Dyson M.D. 10/10/2021 9:37 AM Medications Administered Home Medications calcium carbonate 600 mg-vitamin D3 10 mcg (400 unit) tablet (Calcium 600 + D(3)) 1 tab PO DAILY 06/08/19 [History Confirmed 10/10/21] multivitamin 1 tab PO DAILY 06/08/19 [History Confirmed 10/10/21] CPAP Machine #1 ea 01/31/21 [Rx Confirmed 10/08/21] lisinopril 40 mg tablet 40 mg PO DAILY #90 tab 03/11/21 [Rx Confirmed 10/10/21] Prevagen 1 tab PO DAILY 06/18/21 [History Confirmed 10/10/21] acetaminophen 500 mg tablet (Tylenol Extra Strength) 500 mg PO DAILY PRN #30 tab 06/20/21 [Rx Confirmed 10/10/21] ropinirole 0.5 mg tablet 0.5 mg PO HS #30 tab 06/21/21 [Rx Confirmed 10/10/21] cholecalciferol (vitamin D3) 50 mcg (2,000 unit) capsule 250 mcg PO DAILY 06/26/21 [History Confirmed 10/10/21] ferrous sulfate 325 mg (65 mg iron) tablet (Feosol) 325 mg PO DAILY 06/26/21 [History Confirmed 10/10/21] aspirin 81 mg tablet,delayed release (Adult Low Dose Aspirin) 81 mg PO DAILY #30 tab 07/31/21 [Rx Confirmed 10/10/21] clopidogrel 75 mg tablet (Plavix) 75 mg PO DAILY 30 Days #90 tab 07/31/21 [Rx Confirmed 10/10/21] ibuprofen 200 mg tablet 200 mg PO Q6H PRN 10/08/21 [History Confirmed 10/10/21] furosemide 20 mg tablet (Lasix) 40 mg PO DAILY 10/10/21 [History Confirmed 10/10/21] Discontinued Medications Furosemide (Furosemide 40 Mg/4 Ml Vial) 40 mg IV ONE ONE Stop: 10/10/21 12:14 Last Admin: 10/10/21 12:22 Dose: 40 mg Documented by: [id number] ECG Additional Comments: Sinus rhythm with Mobitz I AV block Right bundle branch block Left anterior fascicular block Bifascicular block Minimal voltage criteria for LVH, may be normal variant Abnormal ECG Code Status & VTE Plan Code Status CODE: FULL VTE: SCDs, Lovenos VTE Prophylaxis Plan VTE Prophylaxis will be ordered: Yes Supervising Physician Co-Signing Physician Notes Patient is a 86 yo male who si being admitted for CHF exacerbation During face to face encounter, a history and physical was obtained. I discussed plan of care with CHERRI Duarte and patient. Patient will treated with diuretics and Is and Os will be monitored PG Care Time/CCT Total # of Minutes Spent Total Time Spent with Patient: Total time spent is greater than 50% in coordination of care (as documented) at patient's floor/unit and/or counseling patient: Coding Level of Care Code 79648 Initial Inpt Care Lvl 3 Diagnoses CHF exacerbation I50.9 Aortic regurgitation I35.1 Aortic root dilation I77.810 Bifascicular block I45.2 Obstructive sleep apnea G47.33 Hypertension I10 AV block, Mobitz 1 I44.1
[2021-10-10] MEDS ORDERED: ONDANSETRON INJ 2 MG/ML 2 ML VIAL IV PRN (21:33)
[2021-10-10] MEDS ORDERED: POLYETHYLENE (MIRALAX) 17 GM PACK PO PRN (21:33)
[2021-10-10] MEDS ORDERED: ACETAMINOPHEN 500 MG TAB PO PRN (21:38)
[2021-10-10] MEDS ORDERED: rOPINIRole HCL 0.25 MG TABLET PO SCH (22:00)
[2021-10-10] MEDS: FUROSEMIDE 40 MG/4 ML VIAL IV SCH (22:39)
[2021-10-11] MEDS: FUROSEMIDE 40 MG/4 ML VIAL IV SCH (06:36)
[2021-10-11] MEDS ORDERED: ENOXAPARIN INJ 40 MG/0.4 ML SYR SQ SCH (09:00)
[2021-10-11] MEDS ORDERED: CLOPIDOGREL BISULFATE 75 MG TAB PO SCH (09:00)
[2021-10-11] MEDS ORDERED: FERROUS SULFATE 325 MG TAB PO SCH (09:00)
[2021-10-11] MEDS ORDERED: lisinopril 40 MG TAB PO SCH (09:00)
[2021-10-11] MEDS ORDERED: ASPIRIN 81 MG ECTAB PO SCH (09:00)
[2021-10-11 09:22] LABS: Hematocrit (blood only) 42.4 % (42-52); Hemoglobin 13.9 g/dL (14.0-18.0); Mean Corpuscular Hemoglobin 30.8 pg (25-34); Mean Corpuscular Hgb Conc 32.8 g/dL (32-36); Mean Corpuscular Volume 93.8 fL (80-100); Mean Platelet Volume 11.2 fL (7.4-10.4); Platelet Count 175 K/uL (130-400); Red Blood Count 4.52 M/uL (4.7-6.1); White Blood Count 5.33 K/uL (4.8-10.8)
--- NOTE | 2021-10-11 09:38 | Hospitalist Progress Note ---
Date of Service October 11, 2021 Assessment & Plan (1) CHF exacerbation: Plan: Acute on chronic HF exacerbation- HFrEF - Decrease in systolic function noted on ECHO 09/27/21 - ? HF worsening of the valve or valve worsening causing the failure - 2 pillow orthopnea and increase lower extremity edema and weight gain - Will continue to diurese with 40mg IV lasix q8 hours- goal 1liter negative by morning - Continue EVELYN - Not on BB secondary to bradycardia - Cath completed in June with no obstructive disease - EF 35 % with diffuse hypokinesis without LVH (2) Aortic regurgitation: Plan: As above- follows with PSH - diurese and evaluate symptoms - Noted as moderate AR on 09/27 ECHO (3) Aortic root dilation: Plan: Found on 06/29 admission - follow serially (4) Obstructive sleep apnea: Plan: KATHYA with CPAP - evident of right sided failure as well on exam - Diurese CPAP at night while having HOB elevated (5) Bifascicular block: Plan: No change (6) Hypertension: Plan: Continue EVELYN and diuretics - Goal <140 (7) AV block, Mobitz 1: Plan: No change from previous ecg - appears he has also had some Mobitz II on previous ECGs Admission and Anticipated Discharge Date Admission Date: October 10, 2021 Physical Exam Physical Exam: PHYSICAL EXAM: General: awake, alert, no apparent distress Head: Normocephalic, atraumatic ENT: PERRL, EOMI, no pharyngeal exudate, mucous membranes moist Neuro: AAO x 3, speech clear and appropriate, strength intact bilaterally 5/5, sensation intact and equal all extremities and dermatomes, no pronator drift Chest: equal rise and fall of the chest, no accessory muscle use, no heaves or thrills, scattered crackles throughout, on room air Cardiac: irregular rate and rhythm, telemetry reviewed- 1st degree with PACs, skin warm dry, cap refill <3 seconds, peripheral pulses +2 no JVD, systolic murmur, +3 bilateral lower extremity edema up to knees GI: NABS x 4 quadrants, soft, nontender to palpation, no rebound, guarding or tenderness : Spontaneously voiding, no pain, no CVA tenderness, Psych: Normal mood and affect Skin: venous discoloration Results & Data Results & Data ([facility]) Vital Signs (Past 12 Hours) Vital Signs Temp Pulse Resp BP Pulse Ox 10/11/21 04:25 53 L 14 98/51 L 95 10/11/21 01:48 87 L 10/11/21 01:36 55 L 16 162/99 H 93 10/10/21 22:44 36.5 C 60 20 10/10/21 22:07 59 L 24 162/99 H 94 PG Care Time/CCT Total # of Minutes Spent Total Time Spent with Patient: Total time spent is greater than 50% in coordination of care (as documented) at patient's floor/unit and/or counseling patient: Coding Diagnoses CHF exacerbation I50.9 Aortic regurgitation I35.1 Aortic root dilation I77.810 Obstructive sleep apnea G47.33 Bifascicular block I45.2 Hypertension I10 AV block, Mobitz 1 I44.1
[2021-10-11 09:45] LABS: BUN Creatinine Ratio 19.8 (10-20); Calcium 9.3 mg/dl (8.5-10.1); Creatinine Clr Calc Pharmacy 41.3 ml/min; Est GFR (African American) 57.3 ml/min; Est GFR (Non-African American) 49.4 ml/min; Potassium 3.5 mmol/L (3.5-5.1)
[2021-10-11 09:50] LABS: Troponin I 0.03 ng/ml (0-0.045)
--- NOTE | 2021-10-11 09:59 | Cardiology Consultation ---
Date of Consultation October 11, 2021 Assessment & Plan (1) CHF (congestive heart failure): (2) Aortic root dilation: (3) Aortic regurgitation: (4) Bifascicular block: (5) Cardiomyopathy: 1. Congestive heart very: He appears to have had an acute exacerbation of his known systolic heart failure. Most recent evaluation revealed an ejection fraction 35%. The precipitant for his decompensation is unclear. He has not report any recent dietary indiscretion although his symptoms appear to have developed after Thanksgiving. I suppose it is possible that he had higher than sodium intake during that time. He did not report palpitations consistent with an arrhythmia although transient atrial fibrillation could have produced some decompensation. He is not appear to have suffered an ischemic event. He appears to be compliant with his medications. It is possible that his LV functi on has worsened or his valvular heart disease has progressed. In any event, he will require diuresis. He responded quite well to intravenous diuretics last evening. He received another dose early this morning. I think if he is ambulatory today and his symptoms are improved we could consider discharge perhaps on torsemide as an alternative to furosemide. He could be followed in the outpatient setting for continued improvement. 2. Cardiomyopathy: Nonischemic. Previously he has done very well despite poor LV function and valvular heart disease. He appears to be an active individual without cardiac symptoms most of the time. He has been treated with lisinopril and more recently a diuretic. Beta-thomas has been held due to his conduction disease. His most recent evaluation suggested ejection fraction of 35%. By guidelines, this would place him in a group of patients who could be considered for implantable defibrillator as primary prevention against sudden cardiac . However, there appears to be attenuated benefit in his demographic and more recent studies have suggested the absence of a mortality benefit in his age group. 3. Aortic regurgitation: Moderate on most recent evaluation. Until this admission he did not generally have symptoms consistent with severe aortic regurgitation. He does have an element of left ventricular dilation. 4. Trifascicular block: He has significant conduction disease. This precludes use of beta-blockade for treatment of his cardiomyopathy. He did not endorse symptoms of dizziness or lightheadedness and leading up to his admission has been very active including exercising regularly. Without symptoms or does not appear to be a good indication for permanent pacing although with a pacemaker (or ICD) we could provide more aggressive treatment of his cardiomyopathy. 5. Aortic root dilation. Measured 4.6 cm on recent echocardiogram. Prior CT scan demonstrated aortic root dilation of 4.9 cm. He has some small dilation in the at ascending aorta as well. History of Present Illness Reason for Consultation: Dyspnea Requesting Physician: Felicia Attending Physician: Amanda Gomez MD History of Present Illness The patient is an 86-year-old gentleman with a known history of a nonischemic cardiomyopathy, aortic root dilation, bifascicular heart block and moderate aortic regurgitation who was referred to the emergency room for symptoms of progressive dyspnea. The patient states that over the past several days he has noticed worsening shortness of breath. This initially was fairly mild and occurred with exertion, but has become more significant in that time frame. Based on his symptoms he was advised previously to double the dose of his outpatient diuretic to 40 mg daily which she reports doing. He also noticed weight gain and lower extremity edema. There have been some reports of orthopnea, but the patient denied this. In general, he is an active individual who is accustomed to routine exercise. He participates in an exercise class at a local gymnasium without limiting symptoms. Generally speaking he does not have to stop activity due to dyspnea. He did not report any history of chest discomfort, palpitations or dizziness. He generally does not have lower extremity edema. He did not report any recent dietary indiscretion or change in his diet. He is cognizant of sodium use. He did not report missing any medications or having any other changes in his medical therapy. Allergies Allergy/AdvReac Type Severity Reaction Status Date / Time No Known Allergies Allergy Verified 10/08/21 10:35 Home Medications Medication Instructions Recorded Confirmed Type calcium carbonate 600 mg-vitamin 1 tab PO DAILY 06/08/19 10/10/21 History D3 10 mcg (400 unit) tablet (Calcium 600 + D(3)) multivitamin 1 tab PO DAILY 06/08/19 10/10/21 History CPAP Machine #1 ea 01/31/21 10/08/21 Rx lisinopril 40 mg tablet 40 mg PO DAILY #90 tab 03/11/21 10/10/21 Rx Prevagen 1 tab PO DAILY 06/18/21 10/10/21 History acetaminophen 500 mg tablet 500 mg PO DAILY PRN #30 tab 06/20/21 10/10/21 Rx (Tylenol Extra Strength) ropinirole 0.5 mg tablet 0.5 mg PO HS #30 tab 06/21/21 10/10/21 Rx cholecalciferol (vitamin D3) 50 250 mcg PO DAILY 06/26/21 10/10/21 History mcg (2,000 unit) capsule ferrous sulfate 325 mg (65 mg 325 mg PO DAILY 06/26/21 10/10/21 History iron) tablet (Feosol) aspirin 81 mg tablet,delayed 81 mg PO DAILY #30 tab 07/31/21 10/10/21 Rx release (Adult Low Dose Aspirin) clopidogrel 75 mg tablet (Plavix) 75 mg PO DAILY 30 Days #90 tab 07/31/21 10/10/21 Rx ibuprofen 200 mg tablet 200 mg PO Q6H PRN 10/08/21 10/10/21 History furosemide 20 mg tablet (Lasix) 40 mg PO DAILY 10/10/21 10/10/21 History Patient History Medical History Abnormal gait Chronic venous stasis Elevated PSA, less than 10 ng/ml Gout Hyperlipidemia Hypertension Left-sided chest pain Mild cognitive impairment Mild neurocognitive disorder Nephrolithiasis Obstructive sleep apnea Periodic limb movement disorder Urinary urgency Surgical History S/P cataract surgery 11/2015 S/P colonoscopy 10 years S/P tonsillectomy and adenoidectomy Family History Mother Breast cancer Lung disease COPD (chronic obstructive pulmonary disease) Father Heart disease Denies family history of Colon cancer Ovarian cancer Prostate cancer Myocardial infarction Colorectal cancer Social History (Updated 07/11/21 @ 10:19 by Sophia Chaudhry) Smoking Status: Former smoker Tobacco Type: Cigarettes Age Quit Using Tobacco: 35; packs per day: 1; Second Hand Exposure: No; Hx Alcohol Use: Yes Alcohol type: beer, wine and hard liquor Alcohol Intake Frequency: 2-3 x/Week Alcohol Intake Frequency Comment: 1 beer a week Hx Substance Use: No Preferred Language: Luxembourgish Communication Ability: Effective Visual Impairment: Limited Hearing Ability: Normal Silk Screen Repairer Required: No Beliefs That Will Affect Care: None marital status: Current Living Situation: Spouse Current Living Situation Comment: Living at home with current occupational status: employed current occupation: works at a [email or web address] How many Children do You have: 2 Other Information That Helps Us Care for You: No Feels Safe at Home: Yes Safety Concerns: Feels Safe At This Time Childhood Exposure to Second-Hand Smoke: Yes caffeine: Yes (coffee daily, tea, soda ) Dental Care, Regularly: Yes Physical Activity Frequency: Daily Physical Activity Frequency Comment: prescribed by therapy Seatbelt Use: always Sunscreen Use: No Assistive Devices: Cane, Denture - Lower and Glasses Review of Systems Review of Systems: Per HPI. No recent coughing. No recent fevers or chills. No close contacts that her sick. Physical Exam Physical Exam: The patient is alert and oriented. Mood and affect appeared normal. He answered all questions appropriately. HEENT: Pupils are equal and reactive to light and accommodation. Extraocular movements are intact. The sclerae are anicteric. Neuro: Cranial nerves intact Neck: Patient's neck is supple. He has palpable carotid pulses bilaterally without bruits on auscultation. There is no evidence of jugular venous distention. The thyroid is not enlarged. Lungs: Some crackles at the bases bilaterally. No expiratory wheezing. Normal respiratory effort. Cardiac: Heart demonstrates a regular rate and rhythm. Normal S1 and S2. Cre scendo systolic murmur. Pulses: The patient has palpable radial pulses bilaterally that are equal in intensity Extremities: There was no evidence of hypoperfusion. There is no cyanosis or clubbing. Mild to moderate lower extremity edema Skin: I did not appreciate any rashes on examination today. Results & Data ([facility]) Vital Signs (Past 12 Hours) Vital Signs Temp Pulse Resp BP Pulse Ox 10/11/21 04:25 53 L 14 98/51 L 95 10/11/21 01:48 87 L 10/11/21 01:36 55 L 16 162/99 H 93 10/10/21 22:44 36.5 C 60 20 10/10/21 22:07 59 L 24 162/99 H 94 Laboratory Results Abnormal Lab Results 10/10/21 10/10/21 10/10/21 09:40 09:40 09:40 WBC RBC Hgb Hct MCV MCH MCHC RDW Std Deviation RDW Coeff of Armando Plt Count MPV PT 12.8 H INR 1.3 H APTT 27.6 PTT Ratio 1.0 Sodium 142 Potassium 4.1 Chloride 109 H Carbon Dioxide 25 Anion Gap 8.0 BUN 27 H Creatinine 1.21 Est Cr Clr Drug Dosing 45.5 Est GFR ( Amer) 62.5 Est GFR (Non-Af Amer) 53.9 BUN/Creatinine Ratio 22.4 H Glucose 125 H Calcium 9.8 Magnesium 2.2 Total Bilirubin 1.0 AST 34 ALT 36 Alkaline Phosphatase 100 Troponin I 0.041 NT-Pro-B Natriuret Pep 93496 H Total Protein 7.2 Albumin 3.6 Globulin 3.6 Albumin/Globulin Ratio 1.0 SARS-CoV-2, RNA, NAAT 10/10/21 10/11/21 10/11/21 12:23 08:25 08:25 WBC 5.33 RBC 4.52 L Hgb 13.9 L Hct 42.4 MCV 93.8 MCH 30.8 MCHC 32.8 RDW Std Deviation 48.0 H RDW Coeff of Armando 14.0 Plt Count 175 MPV 11.2 H PT INR APTT PTT Ratio Sodium 143 Potassium 3.5 Chloride 105 Carbon Dioxide 29 Anion Gap 9.0 BUN 26 H Creatinine 1.30 Est Cr Clr Drug Dosing 41.3 Est GFR ( Amer) 57.3 Est GFR (Non-Af Amer) 49.4 BUN/Creatinine Ratio 19.8 Glucose 138 H Calcium 9.3 Magnesium Total Bilirubin AST ALT Alkaline Phosphatase Troponin I 0.030 NT-Pro-B Natriuret Pep Total Protein Albumin Globulin Albumin/Globulin Ratio SARS-CoV-2, RNA, NAAT NEGATIVE Diagnostic Findings Chest x-ray obtained the time admission revealed evidence for COPD. Echocardiogram performed 09/27/2021 at [facility]: Ejection fraction 35%. Moderately dilated left ventricle. Diffuse hypokinesis. Aortic root dilation (4.6 cm) Moderate aortic regurgitation. Cardiac catheterization performed 06/19/2021: No obstructive coronary disease. Elevated left ventricular filling pressures. ECG Additional Comments: EKG obtained the time admission revealed sinus rhythm with Mobitz 1 conduction, right bundle branch block and left anterior fascicular block. Essentially unchanged from prior EKGs. PG Care Time/CCT Total # of Minutes Spent Total Time Spent with Patient: Total time spent is greater than 50% in coordination of care (as documented) at patient's floor/unit and/or counseling patient: Coding Level of Care Code 86128 Initial Inpt Care Lvl 3 Diagnoses CHF (congestive heart failure) I50.9 Heart failure chronicity: unspecified Heart failure type: unspecified Aortic root dilation I77.810 Aortic regurgitation I35.1 Bifascicular block I45.2 Cardiomyopathy I42.9 (1) CHF (congestive heart failure) Heart failure chronicity: unspecified Heart failure type: unspecified Qualified Code(s): I50.9 - Heart failure, unspecified
--- NOTE | 2021-10-11 10:35 | Electrocardiogram Report ---
Test Reason : Blood Pressure : / mmHG Vent. Rate : 053 BPM Atrial Rate : 053 BPM P-R Int : 416 ms QRS Dur : 160 ms QT Int : 556 ms P-R-T Axes : 044 -61 088 degrees QTc Int : 521 ms Sinus rhythm with Mobitz I conduction Right bundle branch block Left anterior fascicular block Bifascicular block Abnormal ECG When compared with ECG of 10-OCT-2021 09:36, Nonspecific T wave abnormality now evident in Lateral leads Confirmed by Milton Barajas ([id number]) on 10/11/2021 10:35:20 AM Referred By: REFERRED SELF Confirmed By:Mina Barajas
--- NOTE | 2021-10-11 12:45 | Discharge Summary ---
Date of Service October 11, 2021 Admission HPI Per Admitting Provider 86 YOM with past medical history of: HTN, HLD, HFrEF, AR/AI, Restless legs, Thoracic ascending aortic aneurysm, NSTEMI. Patient comes to the [facility] today following direction of his PCP for symptoms consistent with HF. Patient comes in with worsening dyspnea and weight gain reported 8lb gain from PCP last visit and 4lb weight gain since Thursday, he had his Lasix dose increased to 40mg daily but he is unsure if he started this yet. The patient denies any chest pain or pressure, gets dyspneic from approx 25-30 feet of ambulation and now has 2 pillow orthopnea at night. He also was not wearing his CPAP secondary to not being able to breathe with it on lying flat. also reports increase in lower extremity edema as well. Patient was originally seen for concern of CAD/NSTEMI in June 29. Patient underwent coronary angiography at that time- and had no obstructive disease. It was noted that he had mildly reduced EF (45%) at that time and worsening of his AR. He was [place] [facility] [place] that [place] and follows with Dr. Mahmood. Patient was evaluated and started on EVELYN and Lasix 20mg daily, as his symptoms were controlled was to have follow up with CT chest and ECHO in September. The ECHO was completed on with EF now 35% and diffuse hypokinesis with RV and LV dilation. As patient has worsening of his systolic function and worsening of symptoms will have cardiology see patient and possibly coordinate transfer if surgical evaluation needs to be sooner. He is scheduled for for evaluation at [facility]. Patient was given 40mg IV Lasix in the [facility] and has diuresed 550 ml urine now. Will continue with 40mg IV Lasix q8 hours, adjust if needed based on hemodynamics with his AR/AI. Discussed with Dr. Groves and he will not be on service tomorrow so will consult [facility] Cardiology Dr. Barajas. Patient has had his COVID vaccine and his COVID test on admission is: NEGATIVE Admission Exam Per Admitting Provider PHYSICAL EXAM: General: awake, alert, no apparent distress Head: Normocephalic, atraumatic ENT: PERRL, EOMI, no pharyngeal exudate, mucous membranes moist Neuro: AAO x 3, speech clear and appropriate, strength intact bilaterally 5/5, sensation intact and equal all extremities and dermatomes, no pronator drift Chest: equal rise and fall of the chest, no accessory muscle use, no heaves or thrills, scattered crackles throughout, on room air Cardiac: irregular rate and rhythm, telemetry reviewed- 1st degree with PACs, skin warm dry, cap refill <3 seconds, peripheral pulses +2 no JVD, systolic murmur, +3 bilateral lower extremity edema up to knees GI: NABS x 4 quadrants, soft, nontender to palpation, no rebound, guarding or tenderness : Spontaneously voiding, no pain, no CVA tenderness, Psych: Normal mood and affect Skin: venous discoloration Principal Diagnosis CHF Exacerbation Discharge Exam PHYSICAL EXAM: General: awake, alert, no apparent distress Head: Normocephalic, atraumatic ENT: PERRL, EOMI, no pharyngeal exudate, mucous membranes moist Neuro: AAO x 3, speech clear and appropriate, strength intact bilaterally 5/5, sensation intact and equal all extremities and dermatomes, no pronator drift Resp: CTAB with exception of faint scattered crackles, no w/r, 95% on ROOM AIR Cardiac: RRR with PACs, +diastolic murmur of AI appreciated, calves non-tender, trace-1+ b/l edema with chronic venous stasis changes GI: +BS throughout, soft, nontender ; no borden Psych: AOx3, pleasant and cooperative MSK/Neuro: moves all extremities, no focal deficit Discharge Data Allergies Allergy/AdvReac Type Severity Reaction Status Date / Time No Known Allergies Allergy Verified 10/08/21 10:35 Consultations 10/10/21 12:15 ED Decision to Admit Stat 10/10/21 21:33 Consult Cardiology Routine Hospital Course (1) CHF exacerbation: Acute on chronic HF exacerbation- HFrEF, with worsening LE edema and 2pillow orthopnea inability to lay flat. ?if dietary indiscretion from thanksgiving as precipitating event although transient afib possible (not observe on tele while inpatient) vs worsening valvular heart disease (aortic insuffiency and root dilation, 4.6cm) Prior EF 45% June 2021 and underwent cath without obstructive disease at that time--> F/u C with Dr Yates and was started on EVELYN/lasix 20mg daily Repeat ECHO 09/27/21 with EF 35% and diffuse hypokinesis with RV and LV dilation. without LVH Placed on Lasix 40mg IV Q8H and diuresed net negative 4.3L (weight 84.2kg --> 76.7kg Cardiology evaluated -- recs to transition to torsemide 20mg daily at discharge and follow weights/contact PCP for worsening signs and need for additional doses Continue EVELYN, not on BB 2nd to bradycardia Weaned off supplemental oxygen-- 95% on RA and ready for discharge. --> F/u appt with Dr Yates at d/c [facility] [place] (2) Aortic regurgitation: As above- follows with PS for moderate AR per ECHO 09/27 F/u Dr Yates outpatient [facility] for eval valve replacement 10/29/21 (3) Aortic root dilation: Found on 06/29 admission, 2nd to above. f/u cards outpatient (4) Obstructive sleep apnea: CPAP HS (5) Bifascicular block: No change -- no symptoms of dizziness or lightheadedness prior to admission. 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 During your stay at [facility], we have made an effort to correct the problem that brought you to the hospital while keeping you as comfortable as possible. Medications were used to bring your condition under control and your discharge instructions will include directions for any medications you should take after l eaving the hospital. Please make sure you see your Primary Care Provider as part of your follow up plan. Activity: Resume your previous activity Non-emergency contact: Primary Care Provider and Publishing Systems Analyst Call non-emergency contact if: you have any medication questions and your symptoms worsen Follow-up/Referrals: Jhoan Groves, [Physician] - (1 week -- to f/u with Dr. Yates at [facility]) Nba Lr, DO [Primary Care Provider] - Diet: Carb Consistent or DM2 and Heart Healthy Addtl Attending Provider Instructions: You have been hospitalized for shortness of breath and found to be in congestive heart failure, likely due to your aortic insufficiency and that will need follow up with [facility] as you are already doing for consideration of valve replacement. You were provided with IV diuretics and evaluated by cardiology with good response to diuresis and you are being switched from furosemide (lasix) to torsemide as this may be a better choice for you to keep your weight stable and symptoms controlled. The torsemide is stronger, and for this reason you are being sent with 20mg to take by mouth daily. You should continue to monitor daily weights and alert your medical provider if you have weight gain >3lb in 24 hour period of time or for increased symptoms. You should follow up with your PCP to monitor your progress after discharge from the hospital to monitor your progress. Please return to the emergency department with any fever, chest pain, shortness of breath or for any other symptoms that are concerning for you. It has been a pleasure being a part of the medical team providing for you while you have been in the hospital. Take care! Addtl Clerk Travel Reservations Provider Instructions: Call 911 and go to the Emergency Room if: * You have tightness or pain in your chest that does not go away with rest or Nitroglycerin * You are very short of breath even with rest Call your doctor if any of the following symptoms or problems start or get worse: * Shortness of breath or difficulty breathing * Wake up at night short of breath * Chest pain * Cough * Swelling of your hands, fee, or legs * More fatigued or tired with your normal activity * Palpitations - sudden fast heart beats WEIGHT * Weigh yourself every morning after using the bathroom. * Use the same scale. * Wear the same amount of clothing. * Write your weight down on your chart. * Call your doctor if you gain more than 2-3 pounds in 1-2 days. MEDICATIONS * Use this discharge instruction sheet for instructions. * Take your medications at the time your doctor ordered. * Do not skip a dose of your medicines. * If you miss a dose of medicine, take as soon as possible, but DO NOT DOUBLE A DOSE. * Read your medicine information when you get home. * Know all of the side effects of your medicine. * Call your doctor's office if you have any side effects. * Be sure all of your doctors know what medicine and herbs you take (including cold, flu, and herbal medicine). * Pain Medicine: If you do not get relief from your pain, please call your doctor for help. Take the following with you to your follow-up doctor appointments: * Weight Chart * Medication List * List of questions Do not drink excessive alcohol, beer or wine. Pending Studies at Discharge: No Stand-Alone Forms: My [facility] Medications and DC Order Prescriptions: New torsemide 20 mg tablet 20 mg PO DAILY Qty: 30 RF: 0 Continued (DME) CPAP Machine Misc See Rx Instructions .ROUTE .MEDSUPPLY Qty: 1 RF: 0 lisinopril 40 mg tablet 40 mg PO DAILY Qty: 90 RF: 3 ropinirole 0.5 mg tablet 0.5 mg PO HS Qty: 30 RF: 5 aspirin [Adult Low Dose Aspirin] 81 mg tablet,delayed release (DR/EC) 81 mg PO DAILY Qty: 30 RF: 2 clopidogrel [Plavix] 75 mg tablet 75 mg PO DAILY 30 Days Qty: 90 RF: 3 cholecalciferol (vitamin D3) 50 mcg (2,000 unit) capsule 250 mcg PO DAILY RF: 0 ferrous sulfate [Feosol] 325 mg (65 mg iron) tablet 325 mg PO DAILY RF: 0 ibuprofen 200 mg tablet 200 mg PO Q6H PRN (Reason: Pain) RF: 0 multivitamin Tablet 1 tab PO DAILY RF: 0 calcium carbonate-vitamin D3 [Calcium 600 + D(3)] 600 mg(1,500mg) -400 unit Tablet 1 tab PO DAILY RF: 0 Prevagen 1 tab PO DAILY RF: 0 acetaminophen [Tylenol Extra Strength] 500 mg tablet 500 mg PO DAILY PRN (Reason: pain) Qty: 30 RF: 0 Discontinued furosemide [Lasix] 20 mg tablet 40 mg PO DAILY RF: 0 Discharge Orders: Discharge Order (Routine); Ordered 10/11/21 Ordered By: Shiloh Graham Admission Data Admit Date/Time: 10/10/21 14:06 Attending Provider: Amanda Gomez Admit Provider: Ney Mccann Primary Care Provider: Nba Lr Other Providers: Ney Hdez ; Juan Pablo Barajas Other Interventions: Discharge Summary Assessment (RN) Last Done: 10/11/21 13:45 Supervising Physician Co-Signing Physician Notes PA Supervision Note: I personally saw and examined the patient. I verified all whitaker points and agree with AL Graham with the following exceptions and/or additions: S-Pt feeling very well after IV diuresis over the last 24 hours. No further orthopnea, is weaned off O2, and ambulating in his room without difficulties. No CP or nausea, no abd pains. Leg swelling is improved. Discussed his care with Cardiology O- Vitals reviewed Gen: [AAOx3, NAD] HEENT: [anicteric sclerae, EOMI] CV: [RRR 1/6 diastolic murmur at RUSB, nl S1S2] Pulm: [CTAB no wcr] Abd: [+BS soft NT ND no masses or hernias] Ext: [trace edema legs and feet bilat] Skin: [no rashes, warm/dry] Neuro: [full strength throughout] A/P-86 yo male here with acute on chronic HFrEF exacerabtion. Much improved after diuresis, dc to home on torsemide 20mg daily as per Cardiology recommendation Keep f/u appt with Cardiology at [facility] [place] later this month for worsening EF in setting of severe AI Coding Level of Care Code D/C DAY MANAGEMENT >30 MINS Diagnoses CHF exacerbation I50.9 Aortic regurgitation I35.1 Aortic root dilation I77.810 Obstructive sleep apnea G47.33 Bifascicular block I45.2 Hypertension I10 AV block, Mobitz 1 I44.1
[2021-10-11] MEDS ORDERED: FUROSEMIDE 40 MG/4 ML VIAL IV SCH (21:00)
== END 2021-10-11 13:45 | disposition home or self-care (01) ==
LOC: ED 09:12 → SUATTDRO 14:06 → EDINP 14:06 → INTOOBSV 14:06 → EDINP 16:56
DX: I50.21 Acute systolic (congestive) heart failure; I35.0 Nonrheumatic aortic (valve) stenosis; I42.9 Cardiomyopathy, unspecified; I77.810 Thoracic aortic ectasia; I11.0 Hypertensive heart disease with heart failure; Z20.822 Contact with and (suspected) exposure to COVID-19; M10.9 Gout, unspecified; G47.33 Obstructive sleep apnea (adult) (pediatric); G47.61 Periodic limb movement disorder; Z79.899 Other long term (current) drug therapy; E78.5 Hyperlipidemia, unspecified; I44.1 Atrioventricular block, second degree; Z87.891 Personal history of nicotine dependence; I45.3 Trifascicular block

== ENCOUNTER 2023-09-20 15:39 | Inpatient (IN) ==
--- NOTE | 2023-09-20 16:17 | ED Triage Note ---
Date of Service September 20, 2023 History of Present Illness This patient was briefly evaluated while in triage. An abbreviated physical exam was performed. This patient is a 88-year-old Male who presents to the ED for evaluation of fall. Patient states he was walking to the bathroom at [employer] and lost his footing and fell. States he land on his buttock and back. Denies hitting his head. No LOC. On baby aspirin and Plavix. Denies having pain anywhere. Also reports rash on face that he woke up with this morning. No changes to environment or new medications. Physical Exam Constitutional: alert and oriented x3. no acute distress. HEENT: normocephalic, atraumatic. normal conjunctiva.PERRLA. EOM's grossly intact. Erythematous rash to upper face Respiratory: lungs are clear to auscultation without wheezes, rhonchi, or rales bilaterally. equal chest rise. normal respiratory effort, no accessory muscle use. Cardiovascular: normal heart sounds without murmur. regular rate and rhythm. GI: abdomen is soft, nontender. No palpable masses. No rebound tenderness or guarding. MSK: moves all 4 extremities spontaneously Psych:appropriate mood and affect. Initial orders for labs and / or imaging were placed and patient was placed in the waiting area until a bed is available. Please see further documentation for the full ED course.
--- NOTE | 2023-09-20 17:54 | CT Scan Report ---
HEAD CT NONCONTRAST CT DOSE: 1195.45 mGy.cm HISTORY: fall TECHNIQUE: Multiaxial CT images of the head were performed without the use of intravenous contrast. A utomated exposure control was utilized for this study. A dose lowering technique was utilized adheri ng to the principles of ALARA. Comparison: Head CT 09/18/2023. Findings: Mild mucosal thickening within the paranasal sinuses. The mastoid air cells are clear. Mild fascial edema/swelling. The calvarium and skull base are intact. There is no mass, hematoma, midline shift, acute infarct. White matter hypodensity is nonspecific but suggestive of microvascular ischem ic change. The ventricles and sulci demonstrate mild age-related involutional changes. Impression: No acute intracranial abnormality. Atrophy and microvascular ischemic changes. ACT 112: Negative or not required by law. Electronically signed by: Dangelo Perez M.D. 09/20/2023 5:52 PM
--- NOTE | 2023-09-20 17:58 | CT Scan Report ---
CERVICAL SPINE CT CT DOSE: HISTORY: fall TECHNIQUE: Multiaxial CT images of the cervical spine were performed and reformatted in the sagittal and coronal plane without the use of contrast. A dose lowering technique was utilized adhering to th e principles of ALARA. COMPARISON: None. FINDINGS: No fractures. No subluxation. Prevertebral soft tissues and the C1-C2 interval are intact. No pneumothorax. IMPRESSION: No fractures within the cervical spine. ACT 112: Negative or not required by law. Electronically signed by: Dangelo Perez M.D. 09/20/2023 5:55 PM
--- NOTE | 2023-09-20 19:09 | Emergency Department Note ---
Impression & Plan Generalized weakness, Leukocytosis, Non-ST elevation OK (NSTEMI), Facial swelling, Recurrent falls, Elevated procalcitonin ED Provider Note HISTORY OF PRESENT ILLNESS: Patient is an 88-year-old male presenting with a fall from standing and confusion. provides most of history secondary to patient's somnolence. states that last night the patient was walking to the bathroom when he lost his footing and fell backwards, striking the back of his head. He was more lethargic today and they were shopping at [employer] when the patient says he lost his footing and fell backwards, striking the back of his head again. reports that the patient woke up this morning and his eyes were swollen shut. Denies the patient having any fevers. She reports that he seems very lethargic and more weak than normal. Patient has no complaints on arrival to the ER. Denies any chest pain, shortness of breath or abdominal pain. He denies passing out. He is on aspirin and Plavix. ROS: as above PHYSICAL EXAM: Constitutional: Patient appears in no acute distress. HENT: Head: Normocephalic and atraumatic. Patient does appear to have erythema of the bilateral periorbital region with swelling. Eyes: EOMI, PERRL Mouth/Throat: Mucous membranes moist. Neck: Trachea midline. Neck supple. No midline cervical spine tenderness to palpation. Cardiovascular: RRR, No murmurs, rubs or gallops. Intact distal pulses. Pulmonary/Chest: No respiratory distress. Breath sounds clear and equal bilaterally. No wheezes or rales. No chest wall tenderness to palpation. Abdominal: Abdomen soft, no tenderness, rebound or guarding. Musculoskeletal: No edema, tenderness or deformity noted. Skin: Warm and dry. No rash, erythema, pallor or cyanosis Psychiatric: Appropriate mood and affect for situation. Neurological: Lethargic, but arousable to verbal stimulus. CN II-XII grossly intact, moving all extremities equally and fully. MDM: - Vitals signs stable - History obtained via patient's , given patient's lethargy. Patient presents with confusion and recurrent falls from standing. reports the patient has fallen twice in the last 24 hours secondary to losing his footing and falling backwards. He fell earlier today at [employer]. He is on aspirin and Plavix. No reported loss of consciousness with the falls. reports that the patient has been very confused and more lethargic today, which is abnormal for him. Patient denies any chest pain or shortness of breath. reports the patient's eyes were swollen shut this morning. - Chronic conditions affecting care: HTN; HLD; KATHYA; chronic venous stasis; RBBB; bifascicular block - Differential diagnoses include, but are not limited to: Intracranial hemorrhage; CVA; ACS; pneumonia; UTI; viral syndrome - Order placed for continuous cardiac monitoring. At this time, monitor showed rate of 60 bpm with normal sinus rhythm, per my interpretation. - External medical records reviewed. EMS run sheet was reviewed. Patient was vitally stable in route. No medications were given prehospital. - EKG reviewed by myself showed normal sinus rhythm. Rate 83 bpm. QTc 470. Patient is noted to have a bifascicular block, which has been noted on previous EKGs to - Laboratory workup interpreted by myself showed leukocytosis (WBC 16.78) with left shift; normal lactate; stable electrolytes; elevated troponin (42.2); normal CK; elevated procalcitonin (3.24) - CT head wo contrast negative for acute intracranial pathology. Noted to have mild facial edema and swelling. - CT cervical spine wo contrast negative for acute injury - UA negative for infection - CXR negative for pneumonia, per my interpretation. - Blood cultures obtained. - IV zosyn ordered for antibiotic coverage. - Given 2L NS in ER. - Unclear source for patient's infection at this time. - Discussion was had with point of care specialist about patient's case and need for admission - Hospitalist consulted for admission - Patient admitted to [facility] service for further evaluation and management. ASSESSMENT AND PLAN: Diagnosis: Generalized weakness; leukocytosis; NSTEMI; recurrent falls; facial swelling; elevated procalcitonin Plan: admit Past Med/Surg History Medical History (Updated 09/20/23 @ 22:11 by Nancy Ureña MD) Venous ulcer Pigmented skin lesion of uncertain behavior of torso IPMN (intraductal papillary mucinous neoplasm) Hyperglycemia Blood Sugar 216 after Kenalog injection 02/2022. HgbA1c 5.9%. Mild cognitive impairment NSTEMI (non-ST elevated myocardial infarction) Bifascicular block Left-sided chest pain AV block, Mobitz 1 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 Elevated PSA, less than 10 ng/ml Mild neurocognitive disorder Abnormal gait Gout Nephrolithiasis Urinary urgency Chronic venous stasis Periodic limb movement disorder Obstructive sleep apnea Hypertension Hyperlipidemia Surgical History S/P tonsillectomy and adenoidectomy S/P colonoscopy 10 years S/P cataract surgery 11/2015 Family History Mother Breast cancer Lung disease COPD (chronic obstructive pulmonary disease) Father Heart disease Denies family history of Colon cancer Ovarian cancer Prostate cancer Myocardial infarction Colorectal cancer Social History Smoking Status: Never smoker Tobacco Type: Cigarettes Age Quit Using Tobacco: 35; packs per day: 1; Second Hand Exposure: No; Do You Dip or Chew Tobacco: No; Hx Alcohol Use: Yes Alcohol type: beer, wine and hard liquor Alcohol Intake Frequency: 2-3 x/Week Alcohol Intake Frequency Comment: 1 beer a week Hx Substance Use: No Preferred Language: Mongolian Communication Ability: Effective Visual Impairment: Limited Hearing Ability: Normal 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 Beliefs That Will Affect Care: None marital status: Current Living Situation: Spouse Current Living Situation Comment: Living at home with current occupational status: employed current occupation: works at a [employer] How many Children do You have: 2 Feels Safe at Home: Yes Childhood Exposure to Second-Hand Smoke: Yes Diet: regular caffeine: Yes (coffee daily, tea, soda ) Dental Care, Regularly: Yes Physical Activity Frequency: Daily Physical Activity Frequency Comment: prescribed by therapy Seatbelt Use: always Sunscreen Use: No Assistive Devices: None Allergies Allergies Allergy/AdvReac Type Severity Reaction Status Date / Time No Known Allergies Allergy Verified 09/20/23 20:15 Home Meds Home Medications Medication Instructions Recorded Confirmed calcium carbonate 600 mg-vitamin 1 tab PO DAILY 06/08/19 09/20/23 D3 10 mcg (400 unit) tablet (Calcium 600 + D(3)) Prevagen 1 tab PO DAILY 06/18/21 09/20/23 cholecalciferol (vitamin D3) 50 250 mcg PO DAILY 06/26/21 09/20/23 mcg (2,000 unit) capsule ibuprofen 200 mg tablet 200 mg PO Q6H PRN Pain 10/08/21 09/20/23 acetaminophen 500 mg tablet 500 mg PO QAM pain 04/15/22 09/20/23 (Tylenol Extra Strength) [id number] 1 tab PO QAM 09/20/23 09/20/23 Previous Rx's Medication Instructions Recorded aspirin 81 mg tablet,delayed 81 mg PO DAILY #30 tabs 07/31/21 release (Adult Low Dose Aspirin) spironolactone 25 mg tablet 25 mg PO DAILY #30 tabs 01/22/23 empagliflozin 10 mg tablet 10 mg PO DAILY #90 tabs 04/20/23 (Jardiance) bicalutamide 50 mg tablet (Casodex) 50 mg PO DAILY Prostate cancer #30 05/21/23 tabs sacubitril 97 mg-valsartan 103 mg 1 tab PO BID #180 tabs 06/08/23 tablet (Entresto) torsemide 10 mg tablet 10 mg PO DAILY #60 tabs 08/20/23 clopidogrel 75 mg tablet (Plavix) 75 mg PO DAILY 30 days #90 tabs 09/16/23 Results & Data (ED) Vital Signs Vital Signs - 24 hr 09/20/23 16:13 09/20/23 18:18 09/20/23 19:03 Temperature 36.8 C Temperature Source Temporal Artery Scan Pulse Rate 89 84 64 Pulse Rate [Apical] Pulse Rhythm Regular Pulse Rhythm [Apical] Pulse Strength [Apical] Respiratory Rate 18 16 Respiratory Effort / Characteristics Non-Labored Respiratory Depth Normal Respiratory Pattern Blood Pressure 128/80 Blood Pressure [Right Arm] Blood Pressure Mean 96 Blood Pressure Mean [Right Arm] Blood Pressure Position [Right Arm] Pulse Oximetry 96 96 Oxygen Delivery Method Room Air Room Air Sepsis Recent Fever Within 48 Hours No Sepsis New/Unexplained Change in Mental Status No Sepsis Action Taken by Nursing No Action Required 09/20/23 19:44 09/20/23 21:00 Temperature 37.7 C H 37.8 C H Temperature Source Oral Oral Pulse Rate Pulse Rate [Apical] 61 61 Pulse Rhythm Pulse Rhythm [Apical] Regular Regular Pulse Strength [Apical] Normal Normal Respiratory Rate 17 17 Respiratory Effort / Characteristics Non-Labored Spontaneous Non-Labored Spontaneous Respiratory Depth Normal Normal Respiratory Pattern Regular Regular Blood Pressure Blood Pressure [Right Arm] 123/79 121/71 Blood Pressure Mean Blood Pressure Mean [Right Arm] 93 87 Blood Pressure Position [Right Arm] Semi-fowlers Semi-fowlers Pulse Oximetry 93 94 Oxygen Delivery Method Room Air Room Air Sepsis Recent Fever Within 48 Hours Sepsis New/Unexplained Change in Mental Status Sepsis Action Taken by Nursing Laboratory Data 09/20/23 19:18 09/20/23 19:18 Lab Results 09/20/23 09/20/23 09/20/23 Range/Units 19:15 19:18 19:43 WBC 16.78 H (4.8-10.8) K/ul RBC 4.38 L (4.70-6.10) M/uL Hgb 13.8 L (14.0-18.0) g/dl Hct 40.9 L (42.0-52.0) % MCV 93.4 (80.0-100.0) fL MCH 31.5 (25.0-34.0) pg MCHC 33.7 (32.0-36.0) g/dL RDW Std Deviation 43.8 (36.4-46.3) fL RDW Coeff of Armando 12.7 (11.5-14.5) % Plt Count 182 (130-400) K/uL MPV 10.1 (9.4-12.4) fL Immature Gran % (Auto) 0.7 % Neut % (Auto) 92.3 % Lymph % (Auto) 1.3 % Scurry % (Auto) 5.5 % Eos % (Auto) 0.0 % Baso % (Auto) 0.2 % Neut # (Auto) 15.49 H (1.40-6.50) K/uL Lymph # (Auto) 0.22 L (1.20-3.40) K/uL Scurry # (Auto) 0.92 H (0.11-0.59) K/uL Eos # (Auto) 0.00 (0.00-0.50) K/uL Baso # (Auto) 0.03 (0.00-0.20) K/uL Immature Gran # (Auto) 0.12 (0.01-0.20) K/uL Sodium 137 (136-145) mmol/L Potassium 3.8 (3.5-5.1) mmol/L Chloride 102 (98-107) mmol/L Carbon Dioxide 26 (21-32) mmol/L Anion Gap 9 (3-11) BUN 28 H (6-23) mg/dl Creatinine 1.31 (0.6-1.4) mg/dl Est Cr Clr Drug Dosing Not Reportable Est GFR ( Amer) 55.9 ml/min Est GFR (Non-Af Amer) 48.3 ml/min BUN/Creatinine Ratio 21.4 H (10-20) Glucose 154 H (70-99(Fasting)) mg/dl Lactate 1.3 (0.4-2.0) mmol/L Calcium 9.6 (8.6-10.3) mg/dl Magnesium 2.0 (1.7-2.4) mg/dl Total Bilirubin 1.0 (0.2-1.0) mg/dl AST 20 (13-39) U/L ALT 15 (7-52) U/L Alkaline Phosphatase 82 (34-104) U/L Total Creatine Kinase 51 (30-223) U/L Troponin I High Sens 42.2 H (0-20) pg/ml Total Protein 6.7 (6.0-8.3) gm/dl Albumin 4.0 (3.4-5.0) gm/dl Globulin 2.7 (2.5-4.0) gm/dl Albumin/Globulin Ratio 1.5 (0.9-2) Procalcitonin (0-0.5) ng/ml Urine Color Yellow Urine Appearance Clear (Clear) Urine pH 5.0 (4.5-7.5) Ur Specific Ada 1.022 (1.000-1.030) Urine Protein Trace H (Negative) Urine Glucose (UA) 3+ H (Negative) Urine Ketones Trace H (Negative) Urine Blood Negative (Negative) Urine Nitrite Negative (Negative) Urine Bilirubin Negative (Negative) Urine Urobilinogen Negative (Negative) Ur Leukocyte Esterase Negative (Negative) Urine WBC (Auto) 1-5 (0-5) /hpf Urine RBC (Auto) 0-4 (0-4) /hpf U Hyaline Cast (Auto) 0 (0-5) /lpf U Epithel Cells (Auto) >30 H (0-5) /lpf Urine Bacteria (Auto) Negative (Negative) 09/20/23 Range/Units 21:10 WBC (4.8-10.8) K/ul RBC (4.70-6.10) M/uL Hgb (14.0-18.0) g/dl Hct (42.0-52.0) % MCV (80.0-100.0) fL MCH (25.0-34.0) pg MCHC (32.0-36.0) g/dL RDW Std Deviation (36.4-46.3) fL RDW Coeff of Armando (11.5-14.5) % Plt Count (130-400) K/uL MPV (9.4-12.4) fL Immature Gran % (Auto) % Neut % (Auto) % Lymph % (Auto) % Scurry % (Auto) % Eos % (Auto) % Baso % (Auto) % Neut # (Auto) (1.40-6.50) K/uL Lymph # (Auto) (1.20-3.40) K/uL Scurry # (Auto) (0.11-0.59) K/uL Eos # (Auto) (0.00-0.50) K/uL Baso # (Auto) (0.00-0.20) K/uL Immature Gran # (Auto) (0.01-0.20) K/uL Sodium (136-145) mmol/L Potassium (3.5-5.1) mmol/L Chloride (98-107) mmol/L Carbon Dioxide (21-32) mmol/L Anion Gap (3-11) BUN (6-23) mg/dl Creatinine (0.6-1.4) mg/dl Est Cr Clr Drug Dosing Est GFR ( Amer) ml/min Est GFR (Non-Af Amer) ml/min BUN/Creatinine Ratio (10-20) Glucose (70-99(Fasting)) mg/dl Lactate (0.4-2.0) mmol/L Calcium (8.6-10.3) mg/dl Magnesium (1.7-2.4) mg/dl Total Bilirubin (0.2-1.0) mg/dl AST (13-39) U/L ALT (7-52) U/L Alkaline Phosphatase (34-104) U/L Total Creatine Kinase (30-223) U/L Troponin I High Sens (0-20) pg/ml Total Protein (6.0-8.3) gm/dl Albumin (3.4-5.0) gm/dl Globulin (2.5-4.0) gm/dl Albumin/Globulin Ratio (0.9-2) Procalcitonin 3.24 H (0-0.5) ng/ml Urine Color Urine Appearance (Clear) Urine pH (4.5-7.5) Ur Specific Ada (1.000-1.030) Urine Protein (Negative) Urine Glucose (UA) (Negative) Urine Ketones (Negative) Urine Blood (Negative) Urine Nitrite (Negative) Urine Bilirubin (Negative) Urine Urobilinogen (Negative) Ur Leukocyte Esterase (Negative) Urine WBC (Auto) (0-5) /hpf Urine RBC (Auto) (0-4) /hpf U Hyaline Cast (Auto) (0-5) /lpf U Epithel Cells (Auto) (0-5) /lpf Urine Bacteria (Auto) (Negative) Administered Medications Discontinued Medications Piperacillin Sod/Tazobactam Sod (Zosyn) 4.5 gm in 100 mls @ 200 mls/hr IV NOW ONE Stop: 09/20/23 21:56 Last Admin: 09/20/23 21:54 Dose: 200 mls/hr Documented By: ANA Imaging Data Radiologist's Impression: Cervical Spine CT 09/20/23 16:[address] DOSE: HISTORY: fall TECHNIQUE: Multiaxial CT images of the cervical spine were performed and reformatted in the sagittal and coronal plane without the use of contrast. A dose lowering technique was utilized adhering to the principles of ALARA. COMPARISON: None. FINDINGS: No fractures. No subluxation. Prevertebral soft tissues and the C1-C2 interval are intact. No pneumothorax. IMPRESSION: No fractures within the cervical spine. ACT 112: Negative or not required by law. Electronically signed by: Dangelo Perez M.D. 09/20/2023 5:[address] 09/20/23 16:[address] DOSE: 1195.45 mGy.cm HISTORY: fall TECHNIQUE: Multiaxial CT images of the head were performed without the use of intravenous contrast. Automated exposure control was utilized for this study. A dose lowering technique was utilized adhering to the principles of ALARA. Comparison: Head CT 09/18/2023. Findings: Mild mucosal thickening within the paranasal sinuses. The mastoid air cells are clear. Mild fascial edema/swelling. The calvarium and skull base are intact. There is no mass, hematoma, midline shift, acute infarct. White matter hypodensity is nonspecific but suggestive of microvascular ischemic change. The ventricles and sulci demonstrate mild age-related involutional changes. Impression: No acute intracranial abnormality. Atrophy and microvascular ischemic changes. ACT 112: Negative or not required by law. Electronically signed by: Dangelo Perez M.D. 09/20/2023 5:52 PM Chest X-Ray 09/20/23 19:03 XR chest 1V portable HISTORY: weakness COMPARISON: PET CT 05/28/2023. Chest x-ray 10/24/2022. FINDINGS: The cardiac silhouette remains enlarged. There is a tortuous thoracic aorta again noted. The lungs are clear. No pleural effusions. No pneumothorax. IMPRESSION: Stable cardiomegaly. Otherwise, no acute process within the chest. ACT 112: Negative or not required by law. Electronically signed by: Dangelo Perez M.D. 09/20/2023 8:19 PM Discharge Plan Visit Data Chief Complaint: Fall Stated Complaint: FALL, ED Provider: Nancy Ureña Discharge Problem: Generalized weakness, Leukocytosis, Non-ST elevation OK (NSTEMI), Facial swelling, Recurrent falls, Elevated procalcitonin Forms Stand Alone Forms: [facility] Prescriptions Prescriptions: No Action aspirin [Adult Low Dose Aspirin] 81 mg tablet,delayed release (DR/EC) 81 mg PO DAILY Qty: 30 2RF Jardiance 10 mg tablet 10 mg PO DAILY Qty: 90 3RF Entresto 97-103 mg tablet 1 tab PO BID Qty: 180 3RF clopidogrel [Plavix] 75 mg tablet 75 mg PO DAILY 30 Days Qty: 90 3RF spironolactone 25 mg tablet 25 mg PO DAILY Qty: 30 2RF torsemide 10 mg tablet 10 mg PO DAILY Qty: 60 1RF Rx Instructions: May increase to 20 mg PRN cholecalciferol (vitamin D3) 50 mcg (2,000 unit) capsule 250 mcg PO DAILY ibuprofen 200 mg tablet 200 mg PO Q6H PRN (Reason: Pain) acetaminophen [Tylenol Extra Strength] 500 mg tablet 500 mg PO QAM bicalutamide [Casodex] 50 mg tablet 50 mg PO DAILY Qty: 30 6RF calcium carbonate-vitamin D3 [Calcium 600 + D(3)] 600 mg(1,500mg) -400 unit Tablet 1 tab PO DAILY Prevagen 1 tab PO DAILY Multivitamin-Calcium and Iron Tablet 1 tab PO QAM Referrals Referrals: Nba Lr DO [Primary Care Provider] -
[2023-09-20 19:42] LABS: Hematocrit (blood only) 40.9 % (42.0-52.0); Hemoglobin 13.8 g/dl (14.0-18.0); Mean Corpuscular Hemoglobin 31.5 pg (25.0-34.0); Mean Corpuscular Hgb Conc 33.7 g/dL (32.0-36.0); Mean Corpuscular Volume 93.4 fL (80.0-100.0); Mean Platelet Volume 10.1 fL (9.4-12.4); Platelet Count 182 K/uL (130-400); RDW Coefficient of Variation 12.7 % (11.5-14.5); RDW Standard Deviation 43.8 fL (36.4-46.3); Red Blood Count 4.38 M/uL (4.70-6.10); White Blood Count 16.78 K/ul (4.8-10.8)
[2023-09-20 19:54] LABS: Appearance Urine Clear (Clear); Bacteria Urine Automated Negative (Negative); Bilirubin Urine Negative (Negative); Blood Urine Negative (Negative); Cast Urine Automated 0 /lpf (0-5); Color Urine Yellow; Epithelial Cell Urine Auto >30 /lpf (0-5); Glucose Urine UA 3+ (Negative); Ketones Urine Trace (Negative); Leukocyte Esterase Urine Negative (Negative); Nitrite Urine Negative (Negative); Protein Urine Trace (Negative); RBC Urine Automated 0-4 /hpf (0-4); Specific Gravity Urine 1.022 (1.000-1.030); Urobilinogen Urine Negative (Negative)
[2023-09-20 19:59] LABS: Alanine Aminotransferase 15 U/L (7-52); Albumin Globulin Ratio 1.5 (0.9-2); Alkaline Phosphatase 82 U/L (34-104); Anion Gap 9 (3-11); Aspartate Aminotransferase 20 U/L (13-39); BUN Creatinine Ratio 21.4 (10-20); Blood Urea Nitrogen 28 mg/dl (6-23); Calcium 9.6 mg/dl (8.6-10.3); Carbon Dioxide 26 mmol/L (21-32); Chloride 102 mmol/L (98-107); Creatine Kinase 51 U/L (30-223); Est GFR (African American) 55.9 ml/min; Est GFR (Non-African American) 48.3 ml/min; Globulin 2.7 gm/dl (2.5-4.0); Glucose 154 mg/dl (70-99(Fasting)); Potassium 3.8 mmol/L (3.5-5.1); Sodium 137 mmol/L (136-145); Total Protein 6.7 gm/dl (6.0-8.3)
[2023-09-20 20:05] LABS: Troponin I High Sensitivity 42.2 pg/ml (0-20)
[2023-09-20 20:20] LABS: Basophils # (auto) 0.03 K/uL (0.00-0.20); Basophils % (auto) 0.2 %; Immature Granulocytes # (auto) 0.12 K/uL (0.01-0.20); Immature Granulocytes % (auto) 0.7 %; Lymphocytes # (auto) 0.22 K/uL (1.20-3.40); Lymphocytes % (auto) 1.3 %; Monocytes # (auto) 0.92 K/uL (0.11-0.59); Monocytes % (auto) 5.5 %; Neutrophils # (auto) 15.49 K/uL (1.40-6.50); Neutrophils % (auto) 92.3 %
--- NOTE | 2023-09-20 20:20 | XRay Report ---
XR chest 1V portable HISTORY: weakness COMPARISON: PET CT 05/28/2023. Chest x-ray 10/24/2022. FINDINGS: The cardiac silhouette remains enlarged. There is a tortuous thoracic aorta again noted. Th e lungs are clear. No pleural effusions. No pneumothorax. IMPRESSION: Stable cardiomegaly. Otherwise, no acute process within the chest. ACT 112: Negative or not required by law. Electronically signed by: Dangelo Perez M.D. 09/20/2023 8:19 PM
[2023-09-20] MEDS ORDERED: PIPERACILLIN/TAZOBACTAM 4.5 GM/100 ML BAG IV ONE (21:27)
[2023-09-20] MEDS ORDERED: SODIUM CHLORIDE 0.9% 2,000 ML IV ONE (22:10)
[2023-09-20 22:20] LABS: Adenovirus PCR Not Detected (NotDetected); Bordetella parapertussis PCR Not Detected (NotDetected); Bordetella pertussis PCR Not Detected (NotDetected); Chlamydia pneumoniae PCR Not Detected (NotDetected); Coronavirus 229E PCR Not Detected (NotDetected); Coronavirus CoV-2 (COVID19)PCR Not Detected (NotDetected); Coronavirus HKU1 PCR Not Detected (NotDetected); Coronavirus NL63 PCR Not Detected (NotDetected); Coronavirus OC43PCR Not Detected (NotDetected); Human Metapneumovirus PCR Not Detected (NotDetected); Influenza A PCR Not Detected (NotDetected); Influenza B PCR Not Detected (NotDetected); Mycoplasma pneumoniae PCR Not Detected (NotDetected); Parainfluenza Virus 1 PCR Not Detected (NotDetected); Parainfluenza Virus 2 PCR Not Detected (NotDetected); Parainfluenza Virus 3 PCR Not Detected (NotDetected); Parainfluenza Virus 4 PCR Not Detected (NotDetected); Respiratory Syncytial VirusPCR Not Detected (NotDetected); Rhinovirus/Enterovirus PCR Not Detected (NotDetected)
--- NOTE | 2023-09-20 23:12 | History & Physical Report ---
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: (6) CAD (coronary artery disease): (7) HFrEF (heart failure with reduced ejection fraction): (8) Cardiomyopathy: (9) Mild cognitive impairment: (10) Incomplete emptying of bladder: Plan Falls x2/generalized weakness/dehydration- Negative imaging for CT of head, cervical spine and chest x-ray Respiratory BioFire negative Placed on LR at 80 mils per hour x1 L Will need PT/OT consult prior to discharge NSTEMI/CAD/hypertension/HFrEF/cardiomyopathy/bradycardia- The patient will be admitted to telemetry for serial cardiac enzymes, serial EKG's, cardiac rhythm monitoring Likely type II supply/demand mismatch Most recent echo on 05/21/2023 with ejection fraction of 30-35% reports that the patient has an appointment with Dr. Barajas for consideration of defibrillator While being observed in the ED, patient was noted to have a few PVCs, but also had episodes of bradycardia down into the low 40s. Holding spironolactone, torsemide, Entresto due to dehydration and borderline blood pressure Continue aspirin and clopidogrel Hold Jardiance Consult Dr. Snyder, who is covering for cardiology Prostate cancer/incomplete bladder emptying- Continue Casodex Follow urine culture and sensitivity Did receive a single dose of Zosyn 4.5 g IV from the ED Hyperglycemia- Holding Jardiance which unsure if he is on due to heart failure alone, or heart failure and blood sugar Placed on Accu-Cheks with NovoLog SSI CODE STATUS: DNR/DNI History of Present Illness Chief Complaint: The patient presents to the emergency department with his , after having had a fall backwards and hitting his head the previous evening at home, and then had a second episode today while walking at [facility]. She reports that he was confused last evening, had appeared improved somewhat today, and then had a second falling episode. The patient himself is fatigued appearing, is somewhat able to contribute to his HPI and review of systems, but his contributes most of the information Primary Care Provider: Nba Lr DO The patient is a an 88-year-old male with a past medical history including prostate cancer metastatic to intrathoracic lymph node, CAD, HFrEF, hypertension, cardiomyopathy, mild cognitive impairment, incomplete bladder emptying, multiple pulmonary nodules and chronic venous insufficiency. The patient presents to the emergency department as noted above, and is referred for further assessment and admission. Allergies Allergy/AdvReac Type Severity Reaction Status Date / Time No Known Allergies Allergy Verified 09/20/23 20:15 Home Medications Medication Instructions Recorded Confirmed Type calcium carbonate 600 mg-vitamin 1 tab PO DAILY 06/08/19 09/20/23 History D3 10 mcg (400 unit) tablet (Calcium 600 + D(3)) Prevagen 1 tab PO DAILY 06/18/21 09/20/23 History cholecalciferol (vitamin D3) 50 250 mcg PO DAILY 06/26/21 09/20/23 History mcg (2,000 unit) capsule aspirin 81 mg tablet,delayed 81 mg PO DAILY #30 tabs 07/31/21 09/20/23 Rx release (Adult Low Dose Aspirin) ibuprofen 200 mg tablet 200 mg PO Q6H PRN Pain 10/08/21 09/20/23 History acetaminophen 500 mg tablet 500 mg PO QAM pain 04/15/22 09/20/23 History (Tylenol Extra Strength) spironolactone 25 mg tablet 25 mg PO DAILY #30 tabs 01/22/23 09/20/23 Rx empagliflozin 10 mg tablet 10 mg PO DAILY #90 tabs 04/20/23 09/20/23 Rx (Jardiance) bicalutamide 50 mg tablet (Casodex) 50 mg PO DAILY Prostate cancer #30 05/21/23 09/20/23 Rx tabs sacubitril 97 mg-valsartan 103 mg 1 tab PO BID #180 tabs 06/08/23 09/20/23 Rx tablet (Entresto) torsemide 10 mg tablet 10 mg PO DAILY #60 tabs 08/20/23 09/20/23 Rx clopidogrel 75 mg tablet (Plavix) 75 mg PO DAILY 30 days #90 tabs 09/16/23 09/20/23 Rx jguggygdjvhv-Cu-dlhv-minerals 1 tab PO QAM 09/20/23 09/20/23 History Past Med/Surg History Medical History (Updated 09/21/23 @ 02:34 by Pk Newman MD) Venous ulcer Pigmented skin lesion of uncertain behavior of torso IPMN (intraductal papillary mucinous neoplasm) Hyperglycemia Blood Sugar 216 after Kenalog injection 02/2022. HgbA1c 5.9%. Mild cognitive impairment NSTEMI (non-ST elevated myocardial infarction) Bifascicular block Left-sided chest pain AV block, Mobitz 1 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 Elevated PSA, less than 10 ng/ml Mild neurocognitive disorder Abnormal gait Gout Nephrolithiasis Urinary urgency Chronic venous stasis Periodic limb movement disorder Obstructive sleep apnea Hypertension Hyperlipidemia Surgical History S/P tonsillectomy and adenoidectomy S/P colonoscopy 10 years S/P cataract surgery 11/2015 Family History Mother Breast cancer Lung disease COPD (chronic obstructive pulmonary disease) Father Heart disease Denies family history of Colon cancer Ovarian cancer Prostate cancer Myocardial infarction Colorectal cancer Social History Smoking Status: Never smoker Tobacco Type: Cigarettes Age Quit Using Tobacco: 35; packs per day: 1; Second Hand Exposure: No; Do You Dip or Chew Tobacco: No; Hx Alcohol Use: Yes Alcohol type: beer, wine and hard liquor Alcohol Intake Frequency: 2-3 x/Week Alcohol Intake Frequency Comment: 1 beer a week Hx Substance Use: No Preferred Language: Swedish Communication Ability: Effective Visual Impairment: Limited Hearing Ability: Normal Sample Paster Required: No Beliefs That Will Affect Care: None marital status: Current Living Situation: Spouse Current Living Situation Comment: Living at home with current occupational status: employed current occupation: works at a [employer] How many Children do You have: 2 Feels Safe at Home: Yes Childhood Exposure to Second-Hand Smoke: Yes Diet: regular caffeine: Yes (coffee daily, tea, soda ) Dental Care, Regularly: Yes Physical Activity Frequency: Daily Physical Activity Frequency Comment: prescribed by therapy Seatbelt Use: always Sunscreen Use: No Assistive Devices: Cane, CPAP and Denture - Lower Review of Systems Review of Systems: Per , patient was in his usual state of health until yesterday evening when he fell at home Physical Exam Physical Exam: The patient is intermittently awake, but significantly fatigued. lying in bed and in no acute distress. HEENT--PERRL, EOMI, mucous membranes and oropharynx moderately dry dry. Neck--supple. No JVD. No bruits. Thyroid normal, trachea midline, no adenopathy. Heart--intermittently with PVCs with normal heart rate, and episodes of bradycardia Lungs--clear bilaterally, no respiratory distress, no accessory muscle use. Abdomen--normal bowel sounds and soft. Nontender. Nondistended Extremities--no cyanosis or clubbing. No edema. Dermatologic--face is flushed, with moderate erythema in bilateral cheeks and forehead Neurologic--cranial nerves II through XII grossly intact. Rheumatologic--limited exam Psychiatric--fatigued and lethargic Results & Data Results & Data Vital Signs (Past 12 Hours) Vital Signs Temp Pulse Pulse Resp BP BP Pulse Ox 09/20/23 22:12 72 09/20/23 21:00 37.8 C H 61 17 121/71 94 09/20/23 19:44 37.7 C H 61 17 123/79 93 09/20/23 19:03 64 16 96 09/20/23 18:18 84 09/20/23 16:13 36.8 C 89 18 128/80 96 O2 Del Method 09/20/23 22:12 09/20/23 21:00 Room Air 09/20/23 19:44 Room Air 09/20/23 19:03 Room Air 09/20/23 18:18 09/20/23 16:13 Room Air Laboratory Results Laboratory Results WBC 16.78 K/ul (4.8-10.8) H 09/20/23 19:18 RBC 4.38 M/uL (4.70-6.10) L 09/20/23 19:18 Hgb 13.8 g/dl (14.0-18.0) L 09/20/23 19:18 Hct 40.9 % (42.0-52.0) L 09/20/23 19:18 MCV 93.4 fL (80.0-100.0) 09/20/23 19:18 MCH 31.5 pg (25.0-34.0) 09/20/23 19:18 MCHC 33.7 g/dL (32.0-36.0) 09/20/23 19:18 RDW Std Deviation 43.8 fL (36.4-46.3) 09/20/23 19:18 RDW Coeff of Armando 12.7 % (11.5-14.5) 09/20/23 19:18 Plt Count 182 K/uL (130-400) 09/20/23 19:18 MPV 10.1 fL (9.4-12.4) 09/20/23 19:18 Immature Gran % (Auto) 0.7 % 09/20/23 19:18 Neut % (Auto) 92.3 % 09/20/23 19:18 Lymph % (Auto) 1.3 % 09/20/23 19:18 [place] % (Auto) 5.5 % 09/20/23 19:18 Eos % (Auto) 0.0 % 09/20/23 19:18 Baso % (Auto) 0.2 % 09/20/23 19:18 Neut # (Auto) 15.49 K/uL (1.40-6.50) H 09/20/23 19:18 Lymph # (Auto) 0.22 K/uL (1.20-3.40) L 09/20/23 19:18 Free[place] # (Auto) 0.92 K/uL (0.11-0.59) H 09/20/23 19:18 Eos # (Auto) 0.00 K/uL (0.00-0.50) 09/20/23 19:18 Baso # (Auto) 0.03 K/uL (0.00-0.20) 09/20/23 19:18 Immature Gran # (Auto) 0.12 K/uL (0.01-0.20) 09/20/23 19:18 Sodium 137 mmol/L (136-145) 09/20/23 19:18 Potassium 3.8 mmol/L (3.5-5.1) 09/20/23 19:18 Chloride 102 mmol/L (98-107) 09/20/23 19:18 Carbon Dioxide 26 mmol/L (21-32) 09/20/23 19:18 Anion Gap 9 (3-11) 09/20/23 19:18 BUN 28 mg/dl (6-23) H 09/20/23 19:18 Creatinine 1.31 mg/dl (0.6-1.4) 09/20/23 19:18 Est Cr Clr Drug Dosing Not Reportable 09/20/23 19:18 Est GFR ( Amer) 55.9 ml/min 09/20/23 19:18 Est GFR (Non-Af Amer) 48.3 ml/min 09/20/23 19:18 BUN/Creatinine Ratio 21.4 (10-20) H 09/20/23 19:18 Glucose 154 mg/dl (70-99(Fasting)) H 09/20/23 19:18 Lactate 1.3 mmol/L (0.4-2.0) 09/20/23 19:43 Calcium 9.6 mg/dl (8.6-10.3) 09/20/23 19:18 Magnesium 2.0 mg/dl (1.7-2.4) 09/20/23 19:18 Total Bilirubin 1.0 mg/dl (0.2-1.0) 09/20/23 19:18 AST 20 U/L (13-39) 09/20/23 19:18 ALT 15 U/L (7-52) 09/20/23 19:18 Alkaline Phosphatase 82 U/L (34-104) 09/20/23 19:18 Total Creatine Kinase 51 U/L (30-223) 09/20/23 19:18 Troponin I High Sens 47.5 pg/ml (0-20) H 09/20/23 21:10 Total Protein 6.7 gm/dl (6.0-8.3) 09/20/23 19:18 Albumin 4.0 gm/dl (3.4-5.0) 09/20/23 19:18 Globulin 2.7 gm/dl (2.5-4.0) 09/20/23 19:18 Albumin/Globulin Ratio 1.5 (0.9-2) 09/20/23 19:18 Procalcitonin 3.24 ng/ml (0-0.5) H 09/20/23 21:10 Urine Color Yellow 09/20/23 19:15 Urine Appearance Clear (Clear) 09/20/23 19:15 Urine pH 5.0 (4.5-7.5) 09/20/23 19:15 Ur Specific [place] 1.022 (1.000-1.030) 09/20/23 19:15 Urine Protein Trace (Negative) H 09/20/23 19:15 Urine Glucose (UA) 3+ (Negative) H 09/20/23 19:15 Urine Ketones Trace (Negative) H 09/20/23 19:15 Urine Blood Negative (Negative) 09/20/23 19:15 Urine Nitrite Negative (Negative) 09/20/23 19:15 Urine Bilirubin Negative (Negative) 09/20/23 19:15 Urine Urobilinogen Negative (Negative) 09/20/23 19:15 Ur Leukocyte Esterase Negative (Negative) 09/20/23 19:15 Urine WBC (Auto) 1-5 /hpf (0-5) 09/20/23 19:15 Urine RBC (Auto) 0-4 /hpf (0-4) 09/20/23 19:15 U Hyaline Cast (Auto) 0 /lpf (0-5) 09/20/23 19:15 U Epithel Cells (Auto) >30 /lpf (0-5) H 09/20/23 19:15 Urine Bacteria (Auto) Negative (Negative) 09/20/23 19:15 Adenovirus (PCR) Not Detected (NotDetected) 09/20/23 21:05 B. pertussis DNA (PCR) Not Detected (NotDetected) 09/20/23 21:05 B.parapertussis DNA PCR Not Detected (NotDetected) 09/20/23 21:05 C. pneumoniae DNA (PCR) Not Detected (NotDetected) 09/20/23 21:05 Coronavirus OC43 (PCR) Not Detected (NotDetected) 09/20/23 21:05 Coronavirus HKU1 (PCR) Not Detected (NotDetected) 09/20/23 21:05 Coronavirus 229E (PCR) Not Detected (NotDetected) 09/20/23 21:05 SARS-CoV-2 (PCR) Not Detected (NotDetected) 09/20/23 21:05 Coronavirus NL63 (PCR) Not Detected (NotDetected) 09/20/23 21:05 Human Metapneumovir PCR Not Detected (NotDetected) 09/20/23 21:05 Influenza Type A (PCR) Not Detected (NotDetected) 09/20/23 21:05 Influenza Type B (PCR) Not Detected (NotDetected) 09/20/23 21:05 M. pneumoniae (PCR) Not Detected (NotDetected) 09/20/23 21:05 Parainfluenza 1 (PCR) Not Detected (NotDetected) 09/20/23 21:05 Parainfluenza 2 (PCR) Not Detected (NotDetected) 09/20/23 21:05 Parainfluenza 3 (PCR) Not Detected (NotDetected) 09/20/23 21:05 Parainfluenza 4 (PCR) Not Detected (NotDetected) 09/20/23 21:05 RSV (PCR) Not Detected (NotDetected) 09/20/23 21:05 Entero/Rhino (PCR) Not Detected (NotDetected) 09/20/23 21:[address] 09/20/23 16:[address] DOSE: HISTORY: fall TECHNIQUE: Multiaxial CT images of the cervical spine were performed and reformatted in the sagittal and coronal plane without the use of contrast. A dose lowering technique was utilized adhering to the principles of ALARA. COMPARISON: None. FINDINGS: No fractures. No subluxation. Prevertebral soft tissues and the C1-C2 interval are intact. No pneumothorax. IMPRESSION: No fractures within the cervical spine. ACT 112: Negative or not required by law. Electronically signed by: Dangelo Perez M.D. 09/20/2023 5:[address] 09/20/23 16:[address] DOSE: 1195.45 mGy.cm HISTORY: fall TECHNIQUE: Multiaxial CT images of the head were performed without the use of intravenous contrast. Automated exposure control was utilized for this study. A dose lowering technique was utilized adhering to the principles of ALARA. Comparison: Head CT 09/18/2023. Findings: Mild mucosal thickening within the paranasal sinuses. The mastoid air cells are clear. Mild fascial edema/swelling. The calvarium and skull base are intact. There is no mass, hematoma, midline shift, acute infarct. White matter hypodensity is nonspecific but suggestive of microvascular ischemic change. The ventricles and sulci demonstrate mild age-related involutional changes. Impression: No acute intracranial abnormality. Atrophy and microvascular ischemic changes. ACT 112: Negative or not required by law. Electronically signed by: Dangelo Perez M.D. 09/20/2023 5:52 PM Chest X-Ray 09/20/23 19:03 XR chest 1V portable HISTORY: weakness COMPARISON: PET CT 05/28/2023. Chest x-ray 10/24/2022. FINDINGS: The cardiac silhouette remains enlarged. There is a tortuous thoracic aorta again noted. The lungs are clear. No pleural effusions. No pneumothorax. IMPRESSION: Stable cardiomegaly. Otherwise, no acute process within the chest. ACT 112: Negative or not required by law. Electronically signed by: Dangelo Perez M.D. 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
[2023-09-21] MEDS ORDERED: DEXTROSE 50% 50 ML SYRINGE IV PRN (01:00)
[2023-09-21] MEDS ORDERED: GLUCOSE 40% GEL 15 GM TUBE PO PRN (01:00)
[2023-09-21] MEDS ORDERED: GLUCOSE 10 TAB/TUBE PO PRN (01:00)
[2023-09-21] MEDS ORDERED: GLUCAGON FOR INJ 1 MG VIAL SQ PRN (01:00)
[2023-09-21] MEDS ORDERED: ONDANSETRON INJ 2 MG/ML 2 ML VIAL IV PRN (01:00)
[2023-09-21] MEDS ORDERED: LACTATED RINGER'S 1,000 ML IV SCH (01:00)
[2023-09-21] MEDS ORDERED: CARBOHYDRATES FOR HYPOGLYCEMIA PO PRN (01:00)
[2023-09-21] MEDS ORDERED: PNEUMOCOCCAL VACCINE (PCV20) 20-VAL CONJ-DIP CRM/PF 0.5 ML SYR IM ONE (01:24)
[2023-09-21] MEDS ORDERED: INFLUENZA VACCINE HIGH-DOSE (HD-IIV4) PF 65+ 0.7mL SYR IM ONE (01:24)
[2023-09-21] MEDS: SPIRONOLACTONE 25 MG TAB PO SCH (08:22)
[2023-09-21] MEDS: VALSARTAN/SACUBITRIL 103/97MG TAB PO SCH ×2 (08:22→20:26)
[2023-09-21] MEDS: INSULIN ASPART PER UNIT CHARGE SC SCH ×4 (08:22→20:24)
[2023-09-21] MEDS: ASPIRIN 81 MG ECTAB PO SCH (08:22)
[2023-09-21] MEDS: TORSEMIDE 10 MG TAB PO SCH (08:22)
[2023-09-21] MEDS: ACETAMINOPHEN 500 MG TAB PO SCH (08:23)
[2023-09-21] MEDS: BICALUTAMIDE 50 MG TAB PO SCH (08:23)
--- NOTE | 2023-09-21 08:23 | Electrocardiogram Report ---
Test Reason : Blood Pressure : / mmHG Vent. Rate : 055 BPM Atrial Rate : 062 BPM P-R Int : 000 ms QRS Dur : 172 ms QT Int : 472 ms P-R-T Axes : -24 -53 034 degrees QTc Int : 451 ms Sinus rhythm with 2nd degree A-V block (Mobitz I) Right bundle branch block Left anterior fascicular block Abnormal ECG When compared with ECG of 20-SEP-2023 22:45, No significant change was found Confirmed by Jonathan Hathaway ([id number]) on 09/21/2023 8:23:24 AM Referred By: REFERRED SELF Confirmed By:Jonathan Hathaway
--- NOTE | 2023-09-21 08:25 | Electrocardiogram Report ---
Test Reason : Blood Pressure : / mmHG Vent. Rate : 055 BPM Atrial Rate : 079 BPM P-R Int : 000 ms QRS Dur : 172 ms QT Int : 454 ms P-R-T Axes : 000 -58 075 degrees QTc Int : 434 ms Sinus rhythm with 2nd degree A-V block (Mobitz I) Right bundle branch block Left anterior fascicular block Abnormal ECG When compared with ECG of 20-SEP-2023 19:09, Vent. rate has decreased BY 28 BPM Confirmed by Jonathan Hathaway ([id number]) on 09/21/2023 8:24:55 AM Referred By: REFERRED SELF Confirmed By:Jonathan Hathaway
--- NOTE | 2023-09-21 08:26 | Electrocardiogram Report ---
Test Reason : Blood Pressure : / mmHG Vent. Rate : 083 BPM Atrial Rate : 000 BPM P-R Int : 000 ms QRS Dur : 160 ms QT Int : 400 ms P-R-T Axes : 000 -63 062 degrees QTc Int : 470 ms Probable Sinus rhythm with 2nd degree SA block (Mobitz I) Right bundle branch block Left anterior fascicular block Abnormal ECG When compared with ECG of 17-JUL-2023 08:45, Vent. rate has increased BY 31 BPM Confirmed by Jonathan Hathaway ([id number]) on 09/21/2023 8:26:36 AM Referred By: REFERRED SELF Confirmed By:Jonathan Hathaway
[2023-09-21] MEDS ORDERED: CLOPIDOGREL BISULFATE 75 MG TAB PO SCH (09:00)
[2023-09-21 09:16] LABS: Estimated Average Glucose 114 mg/dl; Hemoglobin A1C 5.6 % (4.5-5.6)
[2023-09-21] MEDS: HEPARIN SOD 5,000 UNIT/0.5 ML VIAL SQ SCH ×2 (10:07→20:26)
[2023-09-21 12:17] LABS: A calco-baum cmplx NotReported Not Detected (NotDetected); Bact fragilis Not Reported Not Detected (NotDetected); C auris Not Reported Not Detected (NotDetected); Calbicans Not Reported Not Detected (NotDetected); Candida glabrata Not Reported Not Detected (NotDetected); Candida krusei Not Reported Not Detected (NotDetected); Cneoformans/gatti Not Reported Not Detected (NotDetected); Cparapsilosis Not Reported Not Detected (NotDetected); E cloacae compx Not Reported Not Detected (NotDetected); Efaecalis Not Reported Not Detected (NotDetected); Efaecium Not Reported Not Detected (NotDetected); Enterobacterales Not Reported Not Detected (NotDetected); Escherichia coli Not Reported Not Detected (NotDetected); H influenzae Not Reported Not Detected (NotDetected); K aerogenes Not Reported Not Detected (NotDetected); Koxytoca Not Reported Not Detected (NotDetected); Kpneumoniae grp Not Reported Not Detected (NotDetected); Lmonocyt Not Reported Not Detected (NotDetected); N meningitidis Not Reported Not Detected (NotDetected); P aeruginosa Not Reported Not Detected (NotDetected); Proteus spp Not Reported Not Detected (NotDetected); Salmonella spp Not Reported Not Detected (NotDetected); Smarcescens Not Reported Not Detected (NotDetected); Staph lugdunensis Not Reported Not Detected (NotDetected); Staph spp. Not Reported Not Detected (NotDetected); Staphaureus Not Reported Not Detected (NotDetected); Staphepi Not Reported Not Detected (NotDetected); Stenmaltophilia Not Reported Not Detected (NotDetected); Strep agal(GrpB) Not Reported Not Detected (NotDetected); Strep pneum Not Reported Not Detected (NotDetected); Strep pyog (GrpA) Not Reported DETECTED (NotDetected); Strep spp Not Reported DETECTED (NotDetected); Streptococcus spp DETECTED (NotDetected)
[2023-09-21 12:28] LABS: Streptococcus pyogenes (GrpA) DETECTED (NotDetected)
--- NOTE | 2023-09-21 12:30 | Cardiology Consultation ---
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 Although he is likely an ICD candidate based on reduced systolic function/heart failure alone and this would remedy any potential contribution of bradycardia to his falls, would first ensure that he does not have an active infection. He had a low-grade fever and his white count increased overnight, would observe further before committing to device implantation. Urine was not obviously infected and blood cultures are pending. If he remains afebrile and his white count improves and cultures are negative, he could be a candidate for device placement in the near future, will discuss with electrophysiology and reevaluate tomorrow. He was comfortable lying flat and is not obviously volume overloaded, he was restarted on his torsemide 10 mg daily and spironolactone 25 mg daily, Entresto was held due to concerns about volume depletion but likely could be restarted as well. Recommend discontinuing clopidogrel. As noted by Dr. Sanchez during last office visit, no clear indication for ongoing clopidogrel, this may have been started during an acute coronary syndrome over a year ago and should be discontinued prior to device placement to reduce bleeding risk. History of Present Illness Reason for Consultation: NSTEMI, bharti, syncope, appt for defib pnd Requesting Physician: Juan Courtney MD Attending Physician: Juan Courtney MD History of Present Illness 88-year-old man with metastatic prostate carcinoma and multiple chronic cardiac issues who was admitted 09/20/2023 after several falls. He is routinely followed by Dr. Luciano Sanchez for the following issues: 1. Heart failure with reduced ejection fraction (HFrEF)NICM, EF 30%NYHA class II, on ARNI/MRA, SGLT2i. No BB with conduction disease 2. Aortic regurgitationpreviously moderate to severe on echo, most recently moderate 05/2023 3. Aortic root/ascending aortic aneurysmroot 4.7, aorta 4.[address] surgery not thought surgical candidate 4. Minimal nonobstructive CAD on cath 2020 5. Sinus bradycardia with trifascicular blockasymptomatic 6. Hypertension At recent baseline he notes that he was able to go up and down stairs without difficulty, could sleep flat, and had no major limitations in activities of daily living. On the day of admission he abruptly fell backward at 1 point and struck his head, later that day he had a second fall and struck his face. He thought that the falls were perhaps mechanical, but he has had confusion and was not felt to be an accurate historian. ER evaluation for fractures was negative. He was felt to be mildly volume depleted and was given gentle fluid resuscitation. Rhythm appears to be chronically sinus with Mobitz type I second-degree AV block, at times his heart rate has dropped into the 40-50 bpm range during this admission. Of note, he was being considered for an ICD due to his reduced ejection fraction and heart failure symptoms, he had an appointment to see Dr. Barajas next month to discuss potential ICD placement. At the time of my evaluation this morning, he was comfortable and had no somatic complaints. He denied any chest pain, dyspnea, or subjective palpitations. Telemetry showed sinus rhythm with first-degree AV block with generally normal heart rates but periods of relative bradycardia (40-50 bpm). Allergies Allergy/AdvReac Type Severity Reaction Status Date / Time No Known Allergies Allergy Verified 09/20/23 20:15 Home Medications Medication Instructions Recorded Confirmed Type calcium carbonate 600 mg-vitamin 1 tab PO DAILY 06/08/19 09/20/23 History D3 10 mcg (400 unit) tablet (Calcium 600 + D(3)) Prevagen 1 tab PO DAILY 06/18/21 09/20/23 History cholecalciferol (vitamin D3) 50 250 mcg PO DAILY 06/26/21 09/20/23 History mcg (2,000 unit) capsule aspirin 81 mg tablet,delayed 81 mg PO DAILY #30 tabs 07/31/21 09/20/23 Rx release (Adult Low Dose Aspirin) ibuprofen 200 mg tablet 200 mg PO Q6H PRN Pain 10/08/21 09/20/23 History acetaminophen 500 mg tablet 500 mg PO QAM pain 04/15/22 09/20/23 History (Tylenol Extra Strength) spironolactone 25 mg tablet 25 mg PO DAILY #30 tabs 01/22/23 09/20/23 Rx empagliflozin 10 mg tablet 10 mg PO DAILY #90 tabs 04/20/23 09/20/23 Rx (Jardiance) bicalutamide 50 mg tablet (Casodex) 50 mg PO DAILY Prostate cancer #30 05/21/23 09/20/23 Rx tabs sacubitril 97 mg-valsartan 103 mg 1 tab PO BID #180 tabs 06/08/23 09/20/23 Rx tablet (Entresto) torsemide 10 mg tablet 10 mg PO DAILY #60 tabs 08/20/23 09/20/23 Rx clopidogrel 75 mg tablet (Plavix) 75 mg PO DAILY 30 days #90 tabs 09/16/23 09/20/23 Rx hxoyivapyhfi-Qt-qmza-minerals 1 tab PO QAM 09/20/23 09/20/23 History Patient History Medical History (Updated 09/21/23 @ 12:17 by Jonathan Hathaway MD) AV block, Mobitz 1 Venous ulcer Pigmented skin lesion of uncertain behavior of torso IPMN (intraductal papillary mucinous neoplasm) Hyperglycemia Blood Sugar 216 after Kenalog injection 02/2022. HgbA1c 5.9%. Mild cognitive impairment NSTEMI (non-ST elevated myocardial infarction) Bifascicular block Left-sided chest pain 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 Elevated PSA, less than 10 ng/ml Mild neurocognitive disorder Abnormal gait Gout Nephrolithiasis Urinary urgency Chronic venous stasis Periodic limb movement disorder Obstructive sleep apnea Hypertension Hyperlipidemia Surgical History S/P tonsillectomy and adenoidectomy S/P colonoscopy 10 years S/P cataract surgery 11/2015 Family History Mother Breast cancer Lung disease COPD (chronic obstructive pulmonary disease) Father Heart disease Denies family history of Colon cancer Ovarian cancer Prostate cancer Myocardial infarction Colorectal cancer Social History Smoking Status: Never smoker Tobacco Type: Cigarettes Age Quit Using Tobacco: 35; packs per day: 1; Second Hand Exposure: No; Do You Dip or Chew Tobacco: No; Hx Alcohol Use: Yes Alcohol type: beer, wine and hard liquor Alcohol Intake Frequency: 2-3 x/Week Alcohol Intake Frequency Comment: 1 beer a week Hx Substance Use: No Preferred Language: Bangladeshi Communication Ability: Effective Visual Impairment: Limited Hearing Ability: Normal Agricultural Adviser Required: No Beliefs That Will Affect Care: None marital status: Current Living Situation: Spouse Current Living Situation Comment: Living at home with current occupational status: employed current occupation: works at a [employer] How many Children do You have: 2 Feels Safe at Home: Yes Childhood Exposure to Second-Hand Smoke: Yes Diet: regular caffeine: Yes (coffee daily, tea, soda ) Dental Care, Regularly: Yes Physical Activity Frequency: Daily Physical Activity Frequency Comment: prescribed by therapy Seatbelt Use: always Sunscreen Use: No Assistive Devices: Cane, CPAP and Denture - Lower Physical Exam Physical Exam: No distress. Tmax 100.0 degrees Normotensive BP Pulse regular with brief pauses, current rate 51 bpm. Skin: No generalized lesions. HEENT: Periorbital swelling right eye. Neck: JVP mildly elevated with prominent "v" waves at 60 degrees, no carotid bruits. Lungs: clear. Cardiac: regular rhythm, normal S1/2, 2/6 right upper sternal border systolic ejection murmur which is nonradiating, no obvious diastolic murmur. Abdomen: benign. Extremities: Trace pretibial edema with stasis changes. Neurologic: Answers simple questions appropriately but may lack insight, grossly nonfocal. Results & Data Laboratory Results Troponin value was 30, 42, 47, 54, 58. Hemoglobin 13.8. WBC 10.4 yesterday, 16.78 today. Normal electrolytes, BUN 28, creatinine 1.31. BNP 1829 (previous range [id number]) Diagnostic Findings Initial ECG showed sinus rhythm at 83 BM with probable second-degree Mobitz type I AV block, RBBB, LAFB. Compared with 07/17/2023 study, ventricular rate increased by 31 bpm. Second ECG showed sinus rhythm with second-degree AV block Mobitz type I, RBBB, LAFB, ventricular rate 55 bpm. Third ECG showed sinus rhythm with second-degree AV block Mobitz type I, RBBB, LAFB, rate 55 bpm. Fourth ECG showed sinus rhythm with second-degree AV block Mobitz type I, RBBB, LAFB, rate 46 bpm. Chest x-ray on admission showed stable cardiomegaly and was otherwise unremarkable. 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
[2023-09-21] MEDS: DAPTOmycin 450 MG in SYRINGE 0 ML IV SCH (14:38)
--- NOTE | 2023-09-21 15:21 | Hospitalist Progress Note ---
Date of Service September 21, 2023 Assessment & Plan (1) Recurrent falls: Plan: Possibly due to near syncope from type I second-degree AV block and bradycardia. Appreciate cardiology consultation and recommendations. Permanent cardiac pacemaker insertion is indicated this admission. However, we will need to wait until blood cultures are negative. (2) Bacteremia: Plan: Gram-positive cocci in chains isolated. He is now on daptomycin, day 1. We will repeat blood cultures every 2 days until negative. Permanent pacemaker insertion will need to wait until blood cultures are negative. (3) Non-ST elevation NC (NSTEMI): Plan: Mild troponin elevation appears to be supply/demand mismatch. He has not had an acute NC (4) Generalized weakness: Plan: Supportive care. 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 Continue current medical management (7) CAD (coronary artery disease): Plan: Stable. Continue current medical manage (8) HFrEF (heart failure with reduced ejection fraction): Plan: No acute exacerbation. Stable. Continue current medical management Plan To be determined. OT and PT assessments will be requested after pacemaker insertion Admission and Anticipated Discharge Date Admission Date: September 20, 2023 Subjective Awake and alert. is at the bedside. Blood cultures are positive for gram- positive cocci in chains. Daptomycin has been started, day 1. Gentamicin ophthalmic drops ordered for the bilateral conjunctivitis. There may be a degree of facial cellulitis but the daptomycin should be taken care of this. Cardiology consultation noted. Permanent cardiac pacemaker is indicated in this case. He appears to have type I second-degree AV block with pauses causing near syncope and recurrent falls. He has not had an acute NC. Mild troponin elevation probably represents supply demand mismatch. Review of Systems 2 Review of Systems: Constitutional-no fever or chills ENT-no blurred vision, no double vision, no epistaxis, no sore throat Respiratory-no cough, no wheezing, no shortness of breath Cardiac-no palpitations, no chest pain, no syncope GI-no nausea, vomiting, diarrhea, melena, hematochezia -no urinary retention, no urinary incontinence, no dysuria, no hematuria Musculoskeletal-no joint pain, no muscle tenderness Skin-no bruising, no rashes, no pruritus Neuro-no isolated weakness, no paresthesia, no weakness Psych-no depression, no anxiety Physical Exam 2 Physical Exam: General-alert and oriented x3, no fevers, no chills HEENT-head atraumatic and normocephalic, bilateral conjunctivitis apparent pupils equal and reactive to light, extraocular muscles intact Neck-no lymphadenopathy or thyromegaly, trachea midline Chest-clear to auscultation percussion. No rales wheezing or rhonchi Cardiac-bradycardic irregular rate and rhythm, normal S1 and S2 Abdomen-normal bowel sounds, nontender, no hepatosplenomegaly Extremities-no cyanosis, clubbing, or edema Skinerythema in the periorbital areas may indicate cellulitis Neuro-cranial nerves II through XII intact, motor and sensory function within normal limits, strength symmetrical, no focal deficits Psych-normal affect, normal mood Results & Data Results & Data Vital Signs (Past 12 Hours) Vital Signs Temp Pulse Pulse Resp BP Pulse Ox O2 Del Method 09/21/23 11:06 36.9 C 51 L 18 111/66 96 Room Air 09/21/23 08:00 Room Air 09/21/23 07:00 37.2 C 66 20 130/72 97 Room Air 09/21/23 03:20 47 L Laboratory Results 09/20/23 19:18 09/20/23 19:18 PG Care Time/CCT Total # of Minutes Spent Total Time Spent with Patient: Total time spent is greater than 50% in coordination of care (as documented) at patient's floor/unit and/or counseling patient: Coding Level of Care Code 70852 SUB INP/OBS CARE 3/50MIN Diagnoses Recurrent falls R29.6 Bacteremia R78.81 Non-ST elevation NC (NSTEMI) I21.4 Generalized weakness R53.1 Dehydration, moderate E86.0 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
[2023-09-21] MEDS: GENTAMICIN SULFATE 0.3% OP SOLN 5 ML BTL OP SCH ×2 (16:58→20:26)
[2023-09-22] MEDS: ACETAMINOPHEN 500 MG TAB PO SCH (08:08)
[2023-09-22] MEDS: BICALUTAMIDE 50 MG TAB PO SCH (08:08)
[2023-09-22] MEDS: ASPIRIN 81 MG ECTAB PO SCH (08:08)
[2023-09-22] MEDS: TORSEMIDE 10 MG TAB PO SCH (08:09)
[2023-09-22] MEDS: VALSARTAN/SACUBITRIL 103/97MG TAB PO SCH ×2 (08:09→21:03)
[2023-09-22] MEDS: HEPARIN SOD 5,000 UNIT/0.5 ML VIAL SQ SCH ×2 (08:09→21:03)
[2023-09-22] MEDS: SPIRONOLACTONE 25 MG TAB PO SCH (08:09)
[2023-09-22] MEDS: GENTAMICIN SULFATE 0.3% OP SOLN 5 ML BTL OP SCH ×4 (08:11→21:03)
[2023-09-22] MEDS: INSULIN ASPART PER UNIT CHARGE SC SCH ×4 (08:22→21:13)
--- NOTE | 2023-09-22 08:57 | Electrocardiogram Report ---
Test Reason : Blood Pressure : / mmHG Vent. Rate : 046 BPM Atrial Rate : 061 BPM P-R Int : 488 ms QRS Dur : 172 ms QT Int : 510 ms P-R-T Axes : 047 -50 021 degrees QTc Int : 446 ms Sinus rhythm with 2nd degree A-V block (Mobitz I) Right bundle branch block Left anterior fascicular block Abnormal ECG When compared with ECG of 21-SEP-2023 06:15, No significant change Confirmed by Jonathan Hathaway ([id number]) on 09/22/2023 8:57:21 AM Referred By: REFERRED SELF Confirmed By:Jonathan Hathaway
--- NOTE | 2023-09-22 09:07 | Electrocardiogram Report ---
Test Reason : Blood Pressure : / mmHG Vent. Rate : 047 BPM Atrial Rate : 061 BPM P-R Int : 000 ms QRS Dur : 176 ms QT Int : 472 ms P-R-T Axes : 000 -59 019 degrees QTc Int : 417 ms Probable Sinus rhythm with 2nd degree A-V block (Mobitz I) Right bundle branch block Left anterior fascicular block Abnormal ECG When compared with ECG of 21-SEP-2023 07:59, No significant change Confirmed by Jonathan Hathaway ([id number]) on 09/22/2023 9:07:26 AM Referred By: REFERRED SELF Confirmed By:Jonathan Hathaway
--- NOTE | 2023-09-22 12:58 | Cardiology Progress Note ---
Date of Service September 22, 2023 Assessment & Plan (1) AV block, Mobitz 1: (2) Streptococcal bacteremia: (3) Nonischemic cardiomyopathy: (4) HFrEF (heart failure with reduced ejection fraction): Plan As noted, patient would be a candidate for ICD based on reduced systolic fu nction/heart failure and would benefit from pacemaker component given his recurrent bradycardia, however in the absence of symptoms/urgent indication, now that he has bacteremia elective device placement should be delayed. He is not demonstrating signs of hypoperfusion and has had bradycardia for some time, mainstay of management at this point is avoiding negative chronotropic agents. Volume status appears reasonable on torsemide 10 mg daily. No current heart failure symptoms. Hemodynamics favorable on his usual regimen of torsemide/spironolactone/Entresto. Remains afebrile, consider follow-up WBC to document resolution of leukocytosis. No new recommendations, will continue to follow to reassess risk/benefits and timing of device placement. Admission and Anticipated Discharge Date Admission Date: September 20, 2023 Subjective He appears more alert and engaged today. No somatic complaints, denies chest pain, dyspnea, palpitations, or lightheadedness. Rhythm remains sinus with Mobitz type I second-degree AV block, rates often in the 40-50 bpm range. 2/2 blood cultures from 09/20/2023 grew group A beta strep. Physical Exam Physical Exam: No distress. Tmax 99.0 degrees Normotensive BP Pulse regular with brief pauses, current rate 54 bpm. Skin: No generalized lesions. HEENT: Periorbital swelling right eye has largely resolved. Neck: JVP one third of the way to the angle of the jaw with prominent "v" waves at 60 degrees, no carotid bruits. Lungs: Limited inspiration, clear. Cardiac: regular rhythm with pauses, normal S1/2, no murmur appreciated today. Abdomen: benign. Extremities: Trace pretibial edema with stasis changes. Neurologic: Normal affect, grossly nonfocal. Results & Data Diagnostic Findings ECG showed sinus rhythm with second-degree AV block Mobitz type I, right bundle branch block, left anterior fascicular block. No significant change. Rate 47 bpm. PG Care Time/CCT Total # of Minutes Spent Total Time Spent with Patient: Total time spent is greater than 50% in coordination of care (as documented) at patient's floor/unit and/or counseling patient: Coding Level of Care Code 07534 SUB INP/OBS CARE 2MIN Diagnoses AV block, Mobitz 1 I44.1 Streptococcal bacteremia R78.81; B95.5 Nonischemic cardiomyopathy I42.8 HFrEF (heart failure with reduced ejection fraction) I50.20
[2023-09-22] MEDS: DAPTOmycin 450 MG in SYRINGE 0 ML IV SCH (14:01)
--- NOTE | 2023-09-22 15:25 | Hospitalist Progress Note ---
Date of Service September 22, 2023 Assessment & Plan (1) Recurrent falls: Plan: Possibly due to near syncope from type I second-degree AV block and bradycardia. Appreciate cardiology consultation and recommendations. Permanent cardiac pacemaker insertion is indicated this admission. However, we will need to wait until blood cultures are negative. (2) Bacteremia: Plan: Group A beta strep isolated. He remains on daptomycin, day 2. Facial sinus CT scan ordered to evaluate for possible sinusitis. Infectious disease consultation requested. He has multiple skin sores which could be the source of the infection. Repeat blood culture ordered today, September 22. Permanent pacemaker insertion will need to wait until blood cultures are negative. (3) Non-ST elevation MT (NSTEMI): Plan: Mild troponin elevation appears to be supply/demand mismatch. He has not had an acute MT (4) Generalized weakness: Plan: Supportive care. 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 Continue current medical management (7) CAD (coronary artery disease): Plan: Stable. Continue current medical manage (8) HFrEF (heart failure with reduced ejection fraction): Plan: No acute exacerbation. Stable. Continue current medical management (9) Conjunctivitis: Plan: Continue gentamicin ophthalmic drops. Plan To be determined. OT and PT assessments will be requested after pacemaker insertion Admission and Anticipated Discharge Date Admission Date: September 20, 2023 Subjective Alert and oriented. Good spirits. Group A beta strep isolated in the blood. Facial sinus CT scan ordered to rule out sinusitis as etiology. Cardiac echo ordered to rule out evidence of endocarditis. Infectious disease consultation requested. Daptomycin day 2. Review of Systems 2 Review of Systems: Constitutional-no fever or chills ENT-no blurred vision, no double vision, no epistaxis, no sore throat Respiratory-no cough, no wheezing, no shortness of breath Cardiac-no palpitations, no chest pain, no syncope GI-no nausea, vomiting, diarrhea, melena, hematochezia -no urinary retention, no urinary incontinence, no dysuria, no hematuria Musculoskeletal-no joint pain, no muscle tenderness Skin-no bruising, no rashes, no pruritus Neuro-no isolated weakness, no paresthesia, no weakness Psych-no depression, no anxiety Physical Exam 2 Physical Exam: General-alert and oriented x3, no fevers, no chills HEENT-head atraumatic and normocephalic, bilateral conjunctivitis is improving with gentamicin ophthalmic drops. Pupils equal and reactive to light, extraocular muscles intact Neck-no lymphadenopathy or thyromegaly, trachea midline Chest-clear to auscultation percussion. No rales wheezing or rhonchi Cardiac-bradycardic irregular rate and rhythm, normal S1 and S2 Abdomen-normal bowel sounds, nontender, no hepatosplenomegaly Extremities-no cyanosis, clubbing, or edema Skinerythema in the periorbital areas may indicate cellulitis Neuro-cranial nerves II through XII intact, motor and sensory function within normal limits, strength symmetrical, no focal deficits Psych-normal affect, normal mood Results & Data Results & Data Vital Signs (Past 12 Hours) Vital Signs Temp Pulse Pulse Resp BP BP Pulse Ox 09/22/23 14:00 36.4 C L 61 18 146/84 H 95 09/22/23 12:18 36.7 C 09/22/23 12:00 54 L 28 H 09/22/23 11:13 130/75 09/22/23 11:13 54 L 21 95 09/22/23 10:00 52 L 20 09/22/23 08:32 37.2 C 09/22/23 08:30 60 21 09/22/23 08:06 121/70 09/22/23 08:06 68 23 95 09/22/23 08:00 57 L 23 09/22/23 07:30 76 25 H 09/22/23 07:30 09/22/23 07:00 60 16 09/22/23 04:00 37.2 C 53 L 14 143/71 H 96 O2 Del Method 09/22/23 14:00 Room Air 09/22/23 12:18 09/22/23 12:00 09/22/23 11:13 09/22/23 11:13 Room Air 09/22/23 10:00 09/22/23 08:32 09/22/23 08:30 09/22/23 08:06 09/22/23 08:06 Room Air 09/22/23 08:00 09/22/23 07:30 09/22/23 07:30 Room Air 09/22/23 07:00 09/22/23 04:00 Room Air Laboratory Results 09/20/23 19:18 09/20/23 19:18 PG Care Time/CCT Total # of Minutes Spent Total Time Spent with Patient: Total time spent is greater than 50% in coordination of care (as documented) at patient's floor/unit and/or counseling patient: Coding Level of Care Code 82577 SUB INP/OBS CARE 3/50MIN Diagnoses Recurrent falls R29.6 Bacteremia R78.81 Non-ST elevation MT (NSTEMI) I21.4 Generalized weakness R53.1 Dehydration, moderate E86.0 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
--- NOTE | 2023-09-22 15:53 | CT Scan Report ---
CT sinus wo con CLINICAL HISTORY: strep bacteremia TECHNIQUE: Multidetector axial CT images through the sinuses were obtained. Coronal and sagittal refo rmations were also obtained. Automated dose lowering techniques and/or adjustment according to patien t size were utilized for this examination. CT DOSE: 655.81 mGy.cm Comparison: Comparison is made to CT head 09/20/2023 FINDINGS: Sinus thickening is seen in the bilateral frontal and maxillary sinuses. The orbits appear normal. Th ere are no acute fractures of the calvaria or scalp swelling. IMPRESSION: Mild sinus disease as above. ACT 112: Negative or not required by law. Electronically signed by: Kenji Martino M.D. 09/22/2023 3:51 PM
--- NOTE | 2023-09-22 16:59 | XCELERA ---
[id number]
[2023-09-23 07:13] LABS: Basophils # (auto) 0.02 K/uL (0.00-0.20); Basophils % (auto) 0.1 %; Eosinophils # (auto) 0.01 K/uL (0.00-0.50); Eosinophils % (auto) 0.1 %; Hematocrit (blood only) 37.2 % (42.0-52.0); Hemoglobin 12.1 g/dl (14.0-18.0); Immature Granulocytes % (auto) 0.7 %; Lymphocytes # (auto) 1.03 K/uL (1.20-3.40); Lymphocytes % (auto) 7.3 %; Mean Corpuscular Hemoglobin 30.8 pg (25.0-34.0); Mean Corpuscular Hgb Conc 32.5 g/dL (32.0-36.0); Mean Corpuscular Volume 94.7 fL (80.0-100.0); Mean Platelet Volume 10.3 fL (9.4-12.4); Monocytes # (auto) 0.86 K/uL (0.11-0.59); Monocytes % (auto) 6.1 %; Neutrophils # (auto) 12.09 K/uL (1.40-6.50); Neutrophils % (auto) 85.7 %; Platelet Count 205 K/uL (130-400); RDW Coefficient of Variation 12.6 % (11.5-14.5); RDW Standard Deviation 44.2 fL (36.4-46.3); Red Blood Count 3.93 M/uL (4.70-6.10); White Blood Count 14.11 K/ul (4.8-10.8)
[2023-09-23 09:06] LABS: Calcium 9.2 mg/dl (8.6-10.3); Creatinine Clr Calc Pharmacy 41.8 ml/min; Est GFR (African American) 58.6 ml/min; Est GFR (Non-African American) 50.6 ml/min; Potassium 3.5 mmol/L (3.5-5.1)
[2023-09-23] MEDS: ASPIRIN 81 MG ECTAB PO SCH (09:57)
[2023-09-23] MEDS: SPIRONOLACTONE 25 MG TAB PO SCH (09:57)
[2023-09-23] MEDS: HEPARIN SOD 5,000 UNIT/0.5 ML VIAL SQ SCH ×2 (09:57→20:59)
[2023-09-23] MEDS: TORSEMIDE 10 MG TAB PO SCH (09:57)
[2023-09-23] MEDS: VALSARTAN/SACUBITRIL 103/97MG TAB PO SCH ×2 (09:57→21:00)
[2023-09-23] MEDS: BICALUTAMIDE 50 MG TAB PO SCH (09:57)
[2023-09-23] MEDS: GENTAMICIN SULFATE 0.3% OP SOLN 5 ML BTL OP SCH ×4 (09:58→21:00)
[2023-09-23] MEDS: ACETAMINOPHEN 500 MG TAB PO SCH (10:00)
[2023-09-23] MEDS: INSULIN ASPART PER UNIT CHARGE SC SCH ×4 (10:18→21:01)
--- NOTE | 2023-09-23 12:24 | Infectious Disease Consult ---
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 He is a poor historian. History obtained from patient, but mostly chart review. He says he was attempting to put up a bird feeder, tripped and fell backwards and struck his head. Hs however states that he had fell at [facility] after losing his footing. The day of admission, he fell again. His noted that his eyes were swollen. He has multiple skin lesions and scabs on his neck ,scalp, arms and legs. He admits to feeling anxious and itching and picking his skin. He denies fever, chills, sweats, headaches, chest pain, shortness of breath, change in urine, bowel habits, nausea, vomiting. In ED, he was noted to be somnolent and had bilateral periorbital swelling and erythema. In the Ed, he is afebrile. T max 37.8. Labs with WBC 16.78, cr 1.31, troponin 42.2 ,procalcitonin 3.24,UA w/o pyuria. BC grew group A strep in 2/[address] head is negative for acute intracranial pathology. CT cervical and lumbarl spine negative for acute injury. CXR without infiltrates. EKG shows 2nd degree A-V block (Mobitz I). TTE shows a moderately dilated L ventricle, EF 30-35%, moderate Aortic regurgitation, Moderate root dilatation. He was seen by Cardiology and is being evaluated for ICD placement. He is currently receiving Daptomycin. ID consulted for bacteremia. Micro BC 09/20 Group A strep in 2/4 bottles BC 09/22 NGTD Abx Zosyn 09/20 Dapto 09/21- ongoing #Group A strep bacteremia #Multiple scabs and skin wounds with mild cellulitis. #2nd degree A-V block, Mobitz I #Recurrent Falls #Aortic root dilation #Prostate CA #Leukocytosis The GAS bacteremia may be from a skin source. He has several skin wounds and lesions that he reports is from itching and skin picking. He denies prosthetics or hardware. The multiple Falls may be secondary to syncopal episode with AV block. He also noted to have reduced systolic heart function and is under evaluation for ICD placement. TTE shows Aortic regurgitation and stable Aortic root dilation. No vegetation seen on valves. Recommendation Discontinued Daptomycin and Started Ancef 2 g iv q8 ( updated pharmacy) Follow up repeat BC Wound care Thank you for this consultation. ID will continue to follow. Jesús Palmer MD, MPH Infectious Disease [facility], ID Division Call [phone] with questions Consultation Information Consultation was provided via telemedicine using two-way real-time interactive telecommunication between the patient and the telemedicine provider. For the duration of the visit, the provider was performing the assessment from a different facility than the patient. This includesuse of bluetooth stethoscope forauscultationperformed by the telepresenter that the telemedicine provider can hear if described in the physical exam. Service Greeter contact information: Please call [facility] Call Center . 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 He is a poor historian. History obtained from patient, but mostly chart review. He says he was attempting to put up a bird feeder, tripped and fell backwards and struck his head. Hs however states that he had fell at [place] after losing his footing. The day of admission, he fell again. His noted that his eyes were swollen. He has multiple skin lesions and scabs on his neck ,scalp, arms and legs. He admits to feeling anxious and itching and picking his skin. He denies fever, chills, sweats, headaches, chest pain, shortness of breath, change in urine, bowel habits, nausea, vomiting. In ED, he was noted to be somnolent and had bilateral periorbital swelling and erythema. In the Ed, he is afebrile. T max 37.8. Labs with WBC 16.78, cr 1.31, troponin 42.2 ,procalcitonin 3.24,UA w/o pyuria. BC grew group A strep in 2/[address] head is negative for acute intracranial pathology. CT cervical and lumbarl spine negative for acute injury. CXR without infiltrates. EKG shows 2nd degree A-V block (Mobitz I). TTE shows a moderately dilated L ventricle, EF 30-35%, modera te Aortic regurgitation, Moderate root dilatation. He was seen by Cardiology and is being evaluated for ICD placement. He is currently receiving Daptomycin. ID consulted for bacteremia. Allergies Allergy/AdvReac Type Severity Reaction Status Date / Time No Known Allergies Allergy Verified 09/20/23 20:15 Home Medications Medication Instructions Recorded Confirmed Type calcium carbonate 600 mg-vitamin 1 tab PO DAILY 06/08/19 09/20/23 History D3 10 mcg (400 unit) tablet (Calcium 600 + D(3)) Prevagen 1 tab PO DAILY 06/18/21 09/20/23 History cholecalciferol (vitamin D3) 50 250 mcg PO DAILY 06/26/21 09/20/23 History mcg (2,000 unit) capsule aspirin 81 mg tablet,delayed 81 mg PO DAILY #30 tabs 07/31/21 09/20/23 Rx release (Adult Low Dose Aspirin) ibuprofen 200 mg tablet 200 mg PO Q6H PRN Pain 10/08/21 09/20/23 History acetaminophen 500 mg tablet 500 mg PO QAM pain 04/15/22 09/20/23 History (Tylenol Extra Strength) spironolactone 25 mg tablet 25 mg PO DAILY #30 tabs 01/22/23 09/20/23 Rx empagliflozin 10 mg tablet 10 mg PO DAILY #90 tabs 04/20/23 09/20/23 Rx (Jardiance) bicalutamide 50 mg tablet (Casodex) 50 mg PO DAILY Prostate cancer #30 05/21/23 09/20/23 Rx tabs sacubitril 97 mg-valsartan 103 mg 1 tab PO BID #180 tabs 06/08/23 09/20/23 Rx tablet (Entresto) torsemide 10 mg tablet 10 mg PO DAILY #60 tabs 08/20/23 09/20/23 Rx clopidogrel 75 mg tablet (Plavix) 75 mg PO DAILY 30 days #90 tabs 09/16/23 09/20/23 Rx kimypdtcfeyr-Fh-ubyh-minerals 1 tab PO QAM 09/20/23 09/20/23 History Patient History Medical History (Updated 09/22/23 @ 15:25 by Juan Courtney MD) AV block, Mobitz 1 Venous ulcer Pigmented skin lesion of uncertain behavior of torso IPMN (intraductal papillary mucinous neoplasm) Hyperglycemia Blood Sugar 216 after Kenalog injection 02/2022. HgbA1c 5.9%. Mild cognitive impairment NSTEMI (non-ST elevated myocardial infarction) Bifascicular block Left-sided chest pain 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 Elevated PSA, less than 10 ng/ml Mild neurocognitive disorder Abnormal gait Gout Nephrolithiasis Urinary urgency Chronic venous stasis Periodic limb movement disorder Obstructive sleep apnea Hypertension Hyperlipidemia Surgical History S/P tonsillectomy and adenoidectomy S/P colonoscopy 10 years S/P cataract surgery 11/2015 Family History Mother Breast cancer Lung disease COPD (chronic obstructive pulmonary disease) Father Heart disease Denies family history of Colon cancer Ovarian cancer Prostate cancer Myocardial infarction Colorectal cancer Social History Smoking Status: Never smoker Tobacco Type: Cigarettes Age Quit Using Tobacco: 35; packs per day: 1; Second Hand Exposure: No; Do You Dip or Chew Tobacco: No; Hx Alcohol Use: Yes Alcohol type: beer, wine and hard liquor Alcohol Intake Frequency: 2-3 x/Week Alcohol Intake Frequency Comment: 1 beer a week Hx Substance Use: No Preferred Language: Filipino Communication Ability: Effective Visual Impairment: Limited Hearing Ability: Normal Musculoskeletal Physician Required: No Beliefs That Will Affect Care: None marital status: Current Living Situation: Spouse Current Living Situation Comment: Living at home with current occupational status: employed current occupation: works at a [employer] How many Children do You have: 2 Feels Safe at Home: Yes Childhood Exposure to Second-Hand Smoke: Yes Diet: regular caffeine: Yes (coffee daily, tea, soda ) Dental Care, Regularly: Yes Physical Activity Frequency: Daily Physical Activity Frequency Comment: prescribed by therapy Seatbelt Use: always Sunscreen Use: No Assistive Devices: Cane and CPAP Review of System A 10 point ROS obtained. Pertinent positives per HPI. Physical Exam Physical Exam: Gen- NAD, Skin - multiple scabs and dry wounds on posterior neck, scalp, BL UE and LE. some with mild surrounding cellulitis.Cheeks with mild erythema. No periorbital edema HEENT- ANicteric sclera, EOMI Neck supple Card- bradycardic Lungs- no increased work of breathing Ext- chronic venous changes. See skin exam Neuro- Awake, alert Results & Data Vital Signs (Past 12 Hours) Vital Signs Temp Pulse Resp BP BP Pulse Ox O2 Del Method 09/23/23 11:39 36.6 C 69 18 123/69 96 Room Air 09/23/23 07:45 37 C 61 18 129/77 91 Room Air 09/23/23 02:30 36.8 C 73 18 135/72 93 Room Air Laboratory Results Laboratory Results - last 48 hr 09/20/23 09/21/23 09/21/23 21:05 08:06 16:28 WBC RBC Hgb Hct MCV MCH MCHC RDW Std Deviation RDW Coeff of Armando Plt Count MPV Immature Gran % (Auto) Neut % (Auto) Lymph % (Auto) [place] % (Auto) Eos % (Auto) Baso % (Auto) Neut # (Auto) Lymph # (Auto) [place] # (Auto) Eos # (Auto) Baso # (Auto) Immature Gran # (Auto) Sodium Potassium Chloride Carbon Dioxide Anion Gap BUN Creatinine Est Cr Clr Drug Dosing Est GFR ( Amer) Est GFR (Non-Af Amer) BUN/Creatinine Ratio Glucose POC Glucose 101 H Calcium Free T3 1.39 L Streptococcus sp PCR DETECTED A S. pyogenes (PCR) DETECTED A Bld Cult ID Panel PCR See PCR Comment 09/21/23 09/22/23 09/22/23 20:04 07:23 11:12 WBC RBC Hgb Hct MCV MCH MCHC RDW Std Deviation RDW Coeff of Armando Plt Count MPV Immature Gran % (Auto) Neut % (Auto) Lymph % (Auto) [place] % (Auto) Eos % (Auto) Baso % (Auto) Neut # (Auto) Lymph # (Auto) [place] # (Auto) Eos # (Auto) Baso # (Auto) Immature Gran # (Auto) Sodium Potassium Chloride Carbon Dioxide Anion Gap BUN Creatinine Est Cr Clr Drug Dosing Est GFR ( Amer) Est GFR (Non-Af Amer) BUN/Creatinine Ratio Glucose POC Glucose 155 H 100 H 160 H Calcium Free T3 Streptococcus sp PCR S. pyogenes (PCR) Bld Cult ID Panel PCR 09/22/23 09/22/23 09/23/23 16:24 19:58 06:34 WBC 14.11 H RBC 3.93 L Hgb 12.1 L Hct 37.2 L MCV 94.7 MCH 30.8 MCHC 32.5 RDW Std Deviation 44.2 RDW Coeff of Armando 12.6 Plt Count 205 MPV 10.3 Immature Gran % (Auto) 0.7 Neut % (Auto) 85.7 Lymph % (Auto) 7.3 [place] % (Auto) 6.1 Eos % (Auto) 0.1 Baso % (Auto) 0.1 Neut # (Auto) 12.09 H Lymph # (Auto) 1.03 L [place] # (Auto) 0.86 H Eos # (Auto) 0.01 Baso # (Auto) 0.02 Immature Gran # (Auto) 0.10 Sodium 138 Potassium 3.5 Chloride 104 Carbon Dioxide 29 Anion Gap 5 BUN 34 H Creatinine 1.26 Est Cr Clr Drug Dosing 41.8 Est GFR ( Amer) 58.6 Est GFR (Non-Af Amer) 50.6 BUN/Creatinine Ratio 27.0 H Glucose 98 POC Glucose 146 H 185 H Calcium 9.2 Free T3 Streptococcus sp PCR S. pyogenes (PCR) Bld Cult ID Panel PCR 09/23/23 09/23/23 07:26 11:39 WBC RBC Hgb Hct MCV MCH MCHC RDW Std Deviation RDW Coeff of Armando Plt Count MPV Immature Gran % (Auto) Neut % (Auto) Lymph % (Auto) [place] % (Auto) Eos % (Auto) Baso % (Auto) Neut # (Auto) Lymph # (Auto) [place] # (Auto) Eos # (Auto) Baso # (Auto) Immature Gran # (Auto) Sodium Potassium Chloride Carbon Dioxide Anion Gap BUN Creatinine Est Cr Clr Drug Dosing Est GFR ( Amer) Est GFR (Non-Af Amer) BUN/Creatinine Ratio Glucose POC Glucose 124 H 126 H Calcium Free T3 Streptococcus sp PCR S. pyogenes (PCR) Bld Cult ID Panel PCR Diagnostic Findings Microbiology 09/22/23 09:59 Blood Aerobic Blood Culture - Preliminary No growth in Aerobic bottle after 24 hours. 09/22/23 09:59 Blood Anaerobic Blood Culture - Preliminary No growth in Anaerobic bottle after 24 hours. 09/22/23 09:59 Blood Aerobic Blood Culture - Preliminary No growth in Aerobic bottle after 24 hours. 09/22/23 09:59 Blood Anaerobic Blood Culture - Preliminary No growth in Anaerobic bottle after 24 hours. 09/20/23 21:05 Blood Aerobic Blood Culture - Preliminary Group A Beta Strep 09/20/23 21:05 Blood Anaerobic Blood Culture - Preliminary No growth in Anaerobic bottle after 48 hours. 09/20/23 21:10 Blood Aerobic Blood Culture - Preliminary Group A Beta Strep 09/20/23 21:10 Blood Anaerobic Blood Culture - Preliminary No growth in Anaerobic bottle after [address] 09/22/23 14:44 CT sinus wo con CLINICAL HISTORY: strep bacteremia TECHNIQUE: Multidetector axial CT images through the sinuses were obtained. Coronal and sagittal reformations were also obtained. Automated dose lowering techniques and/or adjustment according to patient size were utilized for this examination. CT DOSE: 655.81 mGy.cm Comparison: Comparison is made to CT head 09/20/2023 FINDINGS: Sinus thickening is seen in the bilateral frontal and maxillary sinuses. The orbits appear normal. There are no acute fractures of the calvaria or scalp swelling. IMPRESSION: Mild sinus disease as above. ACT 112: Negative or not required by law. Electronically signed by: Kenji Martino M.D. 09/22/2023 3:51 PM Medications Administered Home Medications Medication Instructions Recorded Confirmed Last Taken calcium carbonate 600 mg-vitamin 1 tab PO DAILY 06/08/19 09/20/23 09/20/23 D3 10 mcg (400 unit) tablet (Calcium 600 + D(3)) Prevagen 1 tab PO DAILY 06/18/21 09/20/23 09/20/23 cholecalciferol (vitamin D3) 50 250 mcg PO DAILY 06/26/21 09/20/23 09/20/23 mcg (2,000 unit) capsule aspirin 81 mg tablet,delayed 81 mg PO DAILY #30 tabs 07/31/21 09/20/23 09/20/23 release (Adult Low Dose Aspirin) ibuprofen 200 mg tablet 200 mg PO Q6H PRN Pain 10/08/21 09/20/23 10/10/21 acetaminophen 500 mg tablet 500 mg PO QAM pain 04/15/22 09/20/23 09/20/23 (Tylenol Extra Strength) spironolactone 25 mg tablet 25 mg PO DAILY #30 tabs 01/22/23 09/20/23 09/20/23 empagliflozin 10 mg tablet 10 mg PO DAILY #90 tabs 04/20/23 09/20/23 09/20/23 (Jardiance) bicalutamide 50 mg tablet (Casodex) 50 mg PO DAILY Prostate cancer #30 05/21/23 09/20/23 09/20/23 tabs sacubitril 97 mg-valsartan 103 mg 1 tab PO BID #180 tabs 06/08/23 09/20/23 09/20/23 08:00 tablet (Entresto) torsemide 10 mg tablet 10 mg PO DAILY #60 tabs 08/20/23 09/20/23 09/20/23 clopidogrel 75 mg tablet (Plavix) 75 mg PO DAILY 30 days #90 tabs 09/16/23 09/20/23 09/20/23 nwlxfygfvyzp-Ve-yuwr-minerals 1 tab PO QAM 09/20/23 09/20/23 09/20/23 Active Medications Generic Name Dose Route Start Last Admin Trade Name Jimmie PRN Reason Stop Dose Admin Acetaminophen 500 mg 09/21/23 09:00 09/23/23 10:00 Acetaminophen 500 Mg Tab PO 10/21/23 08:59 500 mg QAM JONNA Administration Aspirin 81 mg 09/21/23 09:00 09/23/23 09:57 Aspirin 81 Mg Ectab PO 10/21/23 08:59 81 mg DAILY JONNA Administration Bicalutamide 50 mg 09/21/23 09:00 09/23/23 09:57 Bicalutamide 50 Mg Tab PO 10/21/23 08:59 50 mg DAILY JONNA Administration Gentamicin Sulfate 2 drops 09/21/23 17:00 09/23/23 09:58 Gentamicin Sulfate 0.3% Op Soln 5 Ml Btl OP 10/01/23 16:59 2 drops QID JONNA Administration Heparin Sodium (Porcine) 5,000 units 09/21/23 09:00 09/23/23 09:57 Heparin Sod 5,000 Unit/0.5 Ml Vial SQ 10/21/23 08:59 5,000 units Q12 JONNA Administration Insulin Aspart 0 units 09/21/23 07:30 09/23/23 10:18 Insulin Aspart Per Unit Charge SC 10/21/23 07:29 Not Given ACHS JONNA Sacubitril/Valsartan 1 tab 09/21/23 09:00 09/23/23 09:57 Valsartan/Sacubitril 103/97mg Tab PO 10/21/23 08:59 1 tab BID JONNA Administration Spironolactone 25 mg 09/21/23 09:00 09/23/23 09:57 Spironolactone 25 Mg Tab PO 10/21/23 08:59 25 mg DAILY JONNA Administration Torsemide 10 mg 09/21/23 09:00 09/23/23 09:57 Torsemide 10 Mg Tab PO 10/21/23 08:59 10 mg DAILY JONNA Administration
[2023-09-23] MEDS: ceFAZolin 2000MG 2,000 MG/15 ML SYR IV SCH ×2 (12:59→22:08)
[2023-09-23] MEDS ORDERED: cefTRIAXone SODIUM 2,000 MG in DEXTROSE 5 % MINI-B 50 ML IV SCH (14:00)
--- NOTE | 2023-09-23 15:32 | Hospitalist Progress Note ---
Date of Service September 23, 2023 Assessment & Plan (1) Recurrent falls: Plan: Possibly due to near syncope from type I second-degree AV block and bradycardia. Appreciate cardiology consultation and recommendations. Permanent cardiac pacemaker insertion is indicated, hopefully this admission. The second set of blood cultures are now negative. Infectious disease has switched the daptomycin to cefazolin. Streptococcus isolated in the blood. TTE negative for any signs of acute bacterial endocarditis. (2) Bacteremia: Plan: Group A beta strep isolated. Infectious disease has switched daptomycin to cefazolin. Facial sinus CT scan negative for evidence of acute or chronic sinusitis. He has multiple skin excoriations from itching which are the likely etiology of the Streptococcus. Repeat blood cultures ordered September 22 remain negative. (3) Non-ST elevation NJ (NSTEMI): Plan: Mild troponin elevation appears to be supply/demand mismatch. He has not had an acute NJ (4) Generalized weakness: Plan: Supportive care. 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 Continue current medical management (7) CAD (coronary artery disease): Plan: Stable. Continue current medical manage (8) HFrEF (heart failure with reduced ejection fraction): Plan: No acute exacerbation. Stable. Continue current medical management (9) Conjunctivitis: Plan: Continue gentamicin ophthalmic drops. Much improved Plan To be determined. OT and PT assessments will be requested after pacemaker insertion Admission and Anticipated Discharge Date Admission Date: September 20, 2023 Subjective Alert and oriented. Good spirits. is at the bedside. Infectious disease has switched daptomycin to cefazolin for the streptococcal bacteremia. TTE negative for any evidence of acute bacterial endocarditis. The second set of blood cultures are negative. Awaiting cardiology response whether we can proceed with pacemaker insertion at this point. Facial sinus CT scan negative for evidence of acute or chronic sinusitis. Streptococcus probably from multiple skin excoriations from itching Review of Systems 2 Review of Systems: Constitutional-no fever or chills ENT-no blurred vision, no double vision, no epistaxis, no sore throat Respiratory-no cough, no wheezing, no shortness of breath Cardiac-no palpitations, no chest pain, no syncope GI-no nausea, vomiting, diarrhea, melena, hematochezia -no urinary retention, no urinary incontinence, no dysuria, no hematuria Musculoskeletal-no joint pain, no muscle tenderness Skin-no bruising, no rashes, no pruritus Neuro-no isolated weakness, no paresthesia, no weakness Psych-no depression, no anxiety Physical Exam 2 Physical Exam: General-alert and oriented x3, no fevers, no chills HEENT-head atraumatic and normocephalic, bilateral conjunctivitis is improving with gentamicin ophthalmic drops. Pupils equal and reactive to light, extraocular muscles intact Neck-no lymphadenopathy or thyromegaly, trachea midline Chest-clear to auscultation percussion. No rales wheezing or rhonchi Cardiac-bradycardic irregular rate and rhythm, normal S1 and S2 Abdomen-normal bowel sounds, nontender, no hepatosplenomegaly Extremities-no cyanosis, clubbing, or edema Skinerythema in the periorbital areas has improved. Multiple excoriated areas on the extremities from itching. Neuro-cranial nerves II through XII intact, motor and sensory function within normal limits, strength symmetrical, no focal deficits Psych-normal affect, normal mood Results & Data Results & Data Vital Signs (Past 12 Hours) Vital Signs Temp Pulse Pulse Resp BP Pulse Ox O2 Del Method 09/23/23 11:39 36.6 C 69 18 123/69 96 Room Air 09/23/23 08:00 39 L 09/23/23 07:45 37 C 61 18 129/77 91 Room Air Laboratory Results 09/23/23 06:34 09/23/23 06:34 PG Care Time/CCT Total # of Minutes Spent Total Time Spent with Patient: Total time spent is greater than 50% in coordination of care (as documented) at patient's floor/unit and/or counseling patient: Coding Level of Care Code 28646 SUB INP/OBS CARE 3/50MIN Diagnoses Recurrent falls R29.6 Bacteremia R78.81 Non-ST elevation NJ (NSTEMI) I21.4 Generalized weakness R53.1 Dehydration, moderate E86.0 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
--- NOTE | 2023-09-23 16:43 | Cardiology Progress Note ---
Date of Service September 23, 2023 Assessment & Plan (1) AV block, Mobitz 1: (2) Streptococcal bacteremia: (3) Nonischemic cardiomyopathy: (4) HFrEF (heart failure with reduced ejection fraction): Plan Follow-up blood cultures negative but patient still with low-grade fever (Tm 100.0) and mild leukocytosis. We will reevaluate in the morning and discuss with EP relative risks/benefits of device placement during this hospitalization versus allowing more time to elapse to further lower the risk of device infection and recently bacteremic patient. Volume status favorable, no heart failure. Hemodynamics favorable. Further recommendations after evaluation tomorrow. Admission and Anticipated Discharge Date Admission Date: September 20, 2023 Subjective Uneventful night. Telemetry continues to show sinus rhythm with Mobitz 1 second-degree heart block, heart rate generally in the 50-60 bpm range but as low as 39 bpm transiently. He had no somatic complaints, denying any chest pain, dyspnea, palpitations, or lightheadedness. Physical Exam Physical Exam: No distress. Tmax 100.0 degrees Normotensive BP Pulse regular with brief pauses, current rate 66 bpm. Skin: No generalized lesions. HEENT: Benign. Neck: JVP at the clavicle at 90 degrees, no carotid bruits. Lungs: Limited depth inspiration, clear. Cardiac: regular rhythm with pauses, normal S1/2, no murmur appreciated today. Abdomen: benign. Extremities: Trace pretibial edema with stasis changes. Neurologic: Normal affect, grossly nonfocal. Results & Data Vital Signs (Past 12 Hours) Vital Signs Temp Pulse Pulse Resp BP Pulse Ox O2 Del Method 09/23/23 15:34 97.9 F 66 18 136/84 94 Room Air 09/23/23 11:39 97.9 F 69 18 123/69 96 Room Air 09/23/23 08:00 39 L 09/23/23 07:45 98.6 F 61 18 129/77 91 Room Air Laboratory Results Normal electrolytes, BUN 34, creatinine 1.26. Hemoglobin 12.1, WBC 14.11, normal platelet count. 09/22/2023 blood cultures 2/2 bottles were negative. PG Care Time/CCT Total # of Minutes Spent Total Time Spent with Patient: Total time spent is greater than 50% in coordination of care (as documented) at patient's floor/unit and/or counseling patient: Coding Level of Care Code 30826 SUB INP/OBS CARE Diagnoses AV block, Mobitz 1 I44.1 Streptococcal bacteremia R78.81; B95.5 Nonischemic cardiomyopathy I42.8 HFrEF (heart failure with reduced ejection fraction) I50.20
[2023-09-24] MEDS: ceFAZolin 2000MG 2,000 MG/15 ML SYR IV SCH ×3 (06:23→21:31)
[2023-09-24 06:46] LABS: Basophils # (auto) 0.02 K/uL (0.00-0.20); Basophils % (auto) 0.2 %; Eosinophils # (auto) 0.04 K/uL (0.00-0.50); Eosinophils % (auto) 0.4 %; Hematocrit (blood only) 38.4 % (42.0-52.0); Hemoglobin 12.5 g/dl (14.0-18.0); Immature Granulocytes # (auto) 0.05 K/uL (0.01-0.20); Immature Granulocytes % (auto) 0.5 %; Lymphocytes # (auto) 1.03 K/uL (1.20-3.40); Lymphocytes % (auto) 11.1 %; Mean Corpuscular Hemoglobin 30.6 pg (25.0-34.0); Mean Corpuscular Hgb Conc 32.6 g/dL (32.0-36.0); Mean Corpuscular Volume 94.1 fL (80.0-100.0); Mean Platelet Volume 9.8 fL (9.4-12.4); Monocytes # (auto) 0.54 K/uL (0.11-0.59); Monocytes % (auto) 5.8 %; Neutrophils # (auto) 7.61 K/uL (1.40-6.50); Platelet Count 224 K/uL (130-400); RDW Coefficient of Variation 12.5 % (11.5-14.5); RDW Standard Deviation 43.6 fL (36.4-46.3); Red Blood Count 4.08 M/uL (4.70-6.10); White Blood Count 9.29 K/ul (4.8-10.8)
[2023-09-24 07:00] LABS: BUN Creatinine Ratio 24.3 (10-20); Calcium 9.3 mg/dl (8.6-10.3); Creatinine Clr Calc Pharmacy 47.5 ml/min; Est GFR (African American) 68.3 ml/min; Potassium 3.4 mmol/L (3.5-5.1)
[2023-09-24] MEDS: INSULIN ASPART PER UNIT CHARGE SC SCH ×4 (08:34→20:52)
[2023-09-24] MEDS: BICALUTAMIDE 50 MG TAB PO SCH (08:35)
[2023-09-24] MEDS: VALSARTAN/SACUBITRIL 103/97MG TAB PO SCH ×2 (08:35→20:47)
[2023-09-24] MEDS: ASPIRIN 81 MG ECTAB PO SCH (08:35)
[2023-09-24] MEDS: SPIRONOLACTONE 25 MG TAB PO SCH (08:35)
[2023-09-24] MEDS: TORSEMIDE 10 MG TAB PO SCH (08:35)
[2023-09-24] MEDS: HEPARIN SOD 5,000 UNIT/0.5 ML VIAL SQ SCH ×2 (08:36→20:48)
[2023-09-24] MEDS: GENTAMICIN SULFATE 0.3% OP SOLN 5 ML BTL OP SCH ×4 (08:36→20:49)
[2023-09-24] MEDS: ACETAMINOPHEN 500 MG TAB PO SCH (08:38)
--- NOTE | 2023-09-24 13:00 | Cardiology Progress Note ---
Date of Service September 24, 2023 Assessment & Plan (1) AV block, Mobitz 1: (2) Streptococcal bacteremia: (3) Nonischemic cardiomyopathy: (4) HFrEF (heart failure with reduced ejection fraction): Plan In the absence of clearly symptomatic heart block, favor deferring device p lacement for weeks rather than days after recent bacteremia. Would increase activity as able, generally his heart rate picks up with any stimulation such as increased movement, and thus far he has not had symptoms attributable to bradycardia. If he does have presyncope or syncope, device placement might need to be earlier, otherwise would proceed with physical and occupational therapy and perhaps a stay at rehabilitation facility with plans for subsequent device placement in a few weeks. Volume status favorable, no heart failure. Hemodynamics favorable, with the exception of occasional bradycardia. Case discussed with Dr. Courtney. Admission and Anticipated Discharge Date Admission Date: September 20, 2023 Subjective Uneventful night, no change in status. WBC normalized, afebrile. Telemetry continues to show sinus rhythm with Mobitz 1 second-degree AV block, heart rate generally 50-60 bpm but dropping into the 30 bpm range for brief periods (asymptomatic). He had no somatic complaints, denying chest pain, dyspnea, palpitations, or lightheadedness. Physical Exam Physical Exam: No distress. Afebrile. Normotensive. Pulse currently 47 bpm Skin: No generalized lesions. HEENT: Benign. Neck: JVP at the clavicle at 90 degrees, no carotid bruits. Lungs: Limited depth inspiration, clear. Cardiac: regular rhythm with pauses, normal S1/2, no murmur appreciated today. Abdomen: benign. Extremities: Trace pretibial edema with stasis changes. Neurologic: Normal affect, grossly nonfocal. Results & Data Vital Signs (Past 12 Hours) Vital Signs Temp Pulse Resp BP Pulse Ox O2 Del Method 09/24/23 11:24 97.9 F 47 L 18 118/68 95 Room Air 09/24/23 07:36 97.7 F 60 18 133/61 96 Room Air 09/24/23 03:01 98.2 F 45 L 18 118/53 L 95 CPAP Laboratory Results Potassium 3.4, BUN 727, creatinine 1.11. PG Care Time/CCT Total # of Minutes Spent Total Time Spent with Patient: Total time spent is greater than 50% in coordination of care (as documented) at patient's floor/unit and/or counseling patient: Coding Level of Care Code 34875 SUB INP/OBS CARE 2MIN Diagnoses AV block, Mobitz 1 I44.1 Streptococcal bacteremia R78.81; B95.5 Nonischemic cardiomyopathy I42.8 HFrEF (heart failure with reduced ejection fraction) I50.20
[2023-09-24] MEDS: CYPROHEPTADINE HCL 4 MG TAB PO SCH (15:50)
--- NOTE | 2023-09-24 17:28 | Hospitalist Progress Note ---
Date of Service September 24, 2023 Assessment & Plan (1) Recurrent falls: Plan: Possibly due to near syncope from type I second-degree AV block and bradycardia. Appreciate cardiology consultation and recommendations. Permanent cardiac pacemaker insertion is indicated, hopefully this admission. The second set of blood cultures are now negative. Infectious disease has switched the daptomycin to cefazolin. Streptococcus isolated in the blood. TTE negative for any signs of acute bacterial endocarditis. (2) Bacteremia: Plan: Group A beta strep isolated. Infectious disease has switched daptomycin to cefazolin. Facial sinus CT scan negative for evidence of acute or chronic sinusitis. He has multiple skin excoriations from itching which are the likely etiology of the Streptococcus. Repeat blood cultures ordered September 22 are negative. (3) Non-ST elevation VA (NSTEMI): Plan: Mild troponin elevation appears to be supply/demand mismatch. He has not had an acute VA (4) Generalized weakness: Plan: Improved. 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 Continue current medical management (7) CAD (coronary artery disease): Plan: Stable. Continue current medical manage (8) HFrEF (heart failure with reduced ejection fraction): Plan: No acute exacerbation. Stable. Continue current medical management (9) Conjunctivitis: Plan: Continue gentamicin ophthalmic drops. Much improved (10) Pruritus: Plan: Periactin started. Plan Probable discharge to home. Awaiting final ID recommendations regarding antibiotic therapy. Admission and Anticipated Discharge Date Admission Date: September 20, 2023 Subjective Alert and oriented. Cardiology prefers to wait on pacemaker placement at a later date. He has chronic pruritus producing multiple excoriations which is the likely cause of this streptococcal infection. Periactin has been started for the itching. Bilateral conjunctivitis is much improved with gentamicin ophthalmic drops. He currently is on intravenous Ancef. Awaiting final ID recommendations regarding antibiotic therapy. Repeat blood culture obtained September [address] is negative[address] Fac[address] sinus CT scan is negative for evidence of acute or chronic sinusitis. TTE reveals no evidence of valvular vegetations. Review of Systems 2 Review of Systems: Constitutional-no fever or chills ENT-no blurred vision, no double vision, no epistaxis, no sore throat Respiratory-no cough, no wheezing, no shortness of breath Cardiac-no palpitations, no chest pain, no syncope GI-no nausea, vomiting, diarrhea, melena, hematochezia -no urinary retention, no urinary incontinence, no dysuria, no hematuria Musculoskeletal-no joint pain, no muscle tenderness Skin-no bruising, no rashes, no pruritus Neuro-no isolated weakness, no paresthesia, no weakness Psych-no depression, no anxiety Physical Exam 2 Physical Exam: General-alert and oriented x3, no fevers, no chills HEENT-head atraumatic and normocephalic, bilateral conjunctivitis is improving with gentamicin ophthalmic drops. Pupils equal and reactive to light, extraocular muscles intact Neck-no lymphadenopathy or thyromegaly, trachea midline Chest-clear to auscultation percussion. No rales wheezing or rhonchi Cardiac-bradycardic irregular rate and rhythm, normal S1 and S2 Abdomen-normal bowel sounds, nontender, no hepatosplenomegaly Extremities-no cyanosis, clubbing, or edema Skinerythema in the periorbital areas has improved. Multiple excoriated areas on the extremities from itching. Neuro-cranial nerves II through XII intact, motor and sensory function within normal limits, strength symmetrical, no focal deficits Psych-normal affect, normal mood Results & Data Results & Data Vital Signs (Past 12 Hours) Vital Signs Temp Pulse Resp BP Pulse Ox O2 Del Method 09/24/23 15:43 35.8 C L 55 L 18 135/61 94 Room Air 09/24/23 11:24 36.6 C 47 L 18 118/68 95 Room Air 09/24/23 07:36 36.5 C 60 18 133/61 96 Room Air Laboratory Results 09/24/23 06:16 09/24/23 06:16 PG Care Time/CCT Total # of Minutes Spent Total Time Spent with Patient: Total time spent is greater than 50% in coordination of care (as documented) at patient's floor/unit and/or counseling patient: Coding Level of Care Code 11171 SUB INP/OBS CARE 3/50MIN Diagnoses Recurrent falls R29.6 Bacteremia R78.81 Non-ST elevation VA (NSTEMI) I21.4 Generalized weakness R53.1 Dehydration, moderate E86.0 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
[2023-09-25] MEDS: CYPROHEPTADINE HCL 4 MG TAB PO SCH (03:56)
[2023-09-25] MEDS: ceFAZolin 2000MG 2,000 MG/15 ML SYR IV SCH ×2 (05:45→12:55)
[2023-09-25 06:10] LABS: Basophils # (auto) 0.02 K/uL (0.00-0.20); Basophils % (auto) 0.2 %; Eosinophils # (auto) 0.06 K/uL (0.00-0.50); Eosinophils % (auto) 0.6 %; Hematocrit (blood only) 38.5 % (42.0-52.0); Hemoglobin 12.6 g/dl (14.0-18.0); Immature Granulocytes % (auto) 1.1 %; Lymphocytes # (auto) 1.01 K/uL (1.20-3.40); Lymphocytes % (auto) 10.8 %; Mean Corpuscular Hemoglobin 31.1 pg (25.0-34.0); Mean Corpuscular Hgb Conc 32.7 g/dL (32.0-36.0); Mean Corpuscular Volume 95.1 fL (80.0-100.0); Mean Platelet Volume 9.8 fL (9.4-12.4); Monocytes # (auto) 0.59 K/uL (0.11-0.59); Monocytes % (auto) 6.3 %; Neutrophils # (auto) 7.56 K/uL (1.40-6.50); Platelet Count 252 K/uL (130-400); RDW Coefficient of Variation 12.6 % (11.5-14.5); Red Blood Count 4.05 M/uL (4.70-6.10); White Blood Count 9.34 K/ul (4.8-10.8)
[2023-09-25 06:12] LABS: BUN Creatinine Ratio 20.8 (10-20); Calcium 9.1 mg/dl (8.6-10.3); Creatinine Clr Calc Pharmacy 42.2 ml/min; Est GFR (African American) 59.2 ml/min; Est GFR (Non-African American) 51.1 ml/min; Potassium 3.7 mmol/L (3.5-5.1)
[2023-09-25] MEDS: ASPIRIN 81 MG ECTAB PO SCH (08:45)
[2023-09-25] MEDS: BICALUTAMIDE 50 MG TAB PO SCH (08:46)
[2023-09-25] MEDS: HEPARIN SOD 5,000 UNIT/0.5 ML VIAL SQ SCH (08:46)
[2023-09-25] MEDS: SPIRONOLACTONE 25 MG TAB PO SCH (08:46)
[2023-09-25] MEDS: TORSEMIDE 10 MG TAB PO SCH (08:46)
[2023-09-25] MEDS: VALSARTAN/SACUBITRIL 103/97MG TAB PO SCH (08:46)
[2023-09-25] MEDS: GENTAMICIN SULFATE 0.3% OP SOLN 5 ML BTL OP SCH ×2 (08:47→12:51)
[2023-09-25] MEDS: INSULIN ASPART PER UNIT CHARGE SC SCH ×2 (08:48→12:55)
[2023-09-25] MEDS: ACETAMINOPHEN 500 MG TAB PO SCH (08:53)
--- NOTE | 2023-09-25 09:34 | Infectious Disease Progress Nt ---
Date of Service September 25, 2023 Assessment & Plan (1) Streptococcal bacteremia: (2) AV block, Mobitz 1: (3) Nonischemic cardiomyopathy: (4) Recurrent falls: Plan 88 year old male with a pmh of prostate cancer with metastases to intrathoracic lymph node, CAD, HFrEF, hypertension, non ischemic cardiomyopathy, mild cognitive impairment, incomplete bladder emptying presents s/p fall. He is a poor historian. History obtained from patient, but mostly chart review. He says he was attempting to put up a bird feeder, tripped and fell backwards and struck his head. Hs however states that he had fell at [employer] after losing his footing. The day of admission, he fell again. His noted that his eyes were swollen. He has multiple skin lesions and scabs on his neck ,scalp, arms and legs. He admits to feeling anxious and itching and picking his skin. He denies fever, chills, sweats, headaches, chest pain, shortness of breath, change in urine, bowel habits, nausea, vomiting. In ED, he was noted to be somnolent and had bilateral periorbital swelling and erythema. In the Ed, he is afebrile. T max 37.8. Labs with WBC 16.78, cr 1.31, troponin 42.2 ,procalcitonin 3.24,UA w/o pyuria. BC grew group A strep in 2/[address] head is negative for acute intracranial pathology. CT cervical and lumbarl spine negative for acute injury. CXR without infiltrates. EKG shows 2nd degree A-V block (Mobitz I). TTE shows a moderately dilated L ventricle, EF 30-35%, moderate Aortic regurgitation, Moderate root dilatation. He was seen by Cardiology and is being evaluated for ICD placement. He is currently receiving Daptomycin. ID consulted for bacteremia. Micro BC 09/20 Group A strep in 2/4 bottles S to ampicillin, PCn BC 09/22 NGTD Abx Zosyn 09/20 Dapto 09/21- 09/23 Cefazolin 09/23-ongoing #Group A strep bacteremia #Multiple scabs and skin wounds with mild cellulitis. #2nd degree A-V block, Mobitz I #Recurrent Falls #Aortic root dilation #Prostate CA #Leukocytosis-resolved The GAS bacteremia is likely from a skin source. He has several skin wounds and lesions that he reports is from itching and skin picking. He denies prosthetics or hardware. The multiple falls may be secondary to syncopal episode with AV block. He also noted to have reduced systolic heart function and is under evaluation for ICD placement. TTE shows Aortic regurgitation and stable Aortic root dilation. No vegetation seen on valves. Cards is following but will hold off on ICD placement this admission as they favor deferring device placement for weeks rather than days after recent bacteremia. They dont feel he is clearly symptomatic heart block . If he does have presyncope or syncope, device placement might need to be earlier. Leukocytosis resolved. He remains afebrile. Repeat BC fro 09/22 sterile to date Recommendation Can transition to Amoxicillin 1 g PO q 8 hours ( cr cl 42 today) for 2 weeks post sterile cx. IF 09/22 BC remains sterile EOT is 10/06. Would repeat BC 1 week post completion of abx to ensure BC clearance Check weekly cbc, bmp, lft on abx Follow up BC 09/22 to ensure sterile Wound care D/w Dr Courtney ID will sign off . Call with questions. Jesús Palmer MD, MPH Infectious Disease [facility], ID Division Call [phone] with questions Admission and Anticipated Discharge Date Admission Date: September 20, 2023 Subjective This patient recommendation is based on a telemedicine consult request which was completed asynchronously through chart review and information provided by the primary physician. The patient was not seen or examined today. The evaluation is consultative in nature and all patient care and treatment decisions can either be accepted or rejected by the patient's primary hospital-based treating physician using their own independent medical judgment for their patient. Time Spent Reviewing Chart: 21 - 30 minutes Repeat BC 09/22 NGTD No ICD this admission per Cards Pending DC today Afebrile , wbc 9.4, cr 1.25 Results & Data Vital Signs (Past 12 Hours) Vital Signs Temp Pulse Pulse Resp BP Pulse Ox O2 Del Method 09/25/23 07:22 36.5 C 57 L 19 155/61 H 97 CPAP 09/25/23 03:00 36.4 C L 54 L 20 133/68 96 Room Air 09/25/23 02:40 39 L 09/24/23 23:52 Room Air, CPAP 09/24/23 23:00 36.8 C 49 L 20 126/66 96 Room Air Laboratory Results Short CBC 09/25/23 Range/Units 05:33 WBC 9.34 (4.8-10.8) K/ul Hgb 12.6 L (14.0-18.0) g/dl Hct 38.5 L (42.0-52.0) % Plt Count 252 (130-400) K/uL BMP 09/25/23 05:33 Sodium 139 Potassium 3.7 Chloride 105 Carbon Dioxide 28 BUN 26 H Creatinine 1.25 Glucose 95 Calcium 9.1 Diagnostic Findings Microbiology 09/22/23 09:59 Blood Aerobic Blood Culture - Preliminary No growth in Aerobic bottle after 48 hours. 09/22/23 09:59 Blood Anaerobic Blood Culture - Preliminary No growth in Anaerobic bottle after 48 hours. 09/22/23 09:59 Blood Aerobic Blood Culture - Preliminary No growth in Aerobic bottle after 48 hours. 09/22/23 09:59 Blood Anaerobic Blood Culture - Preliminary No growth in Anaerobic bottle after 48 hours. 09/20/23 21:05 Blood Aerobic Blood Culture - Preliminary Group A Beta Strep 09/20/23 21:05 Blood Anaerobic Blood Culture - Preliminary No growth in Anaerobic bottle after 48 hours. 09/20/23 21:10 Blood Aerobic Blood Culture - Preliminary Group A Beta Strep 09/20/23 21:10 Blood Anaerobic Blood Culture - Preliminary No growth in Anaerobic bottle after [address] 09/22/23 14:44 CT sinus wo con CLINICAL HISTORY: strep bacteremia TECHNIQUE: Multidetector axial CT images through the sinuses were obtained. Coronal and sagittal reformations were also obtained. Automated dose lowering techniques and/or adjustment according to patient size were utilized for this examination. CT DOSE: 655.81 mGy.cm Comparison: Comparison is made to CT head 09/20/2023 FINDINGS: Sinus thickening is seen in the bilateral frontal and maxillary sinuses. The orbits appear normal. There are no acute fractures of the calvaria or scalp swelling. IMPRESSION: Mild sinus disease as above. ACT 112: Negative or not required by law. Electronically signed by: Kenji Martino M.D. 09/22/2023 3:51 PM Medications Administered Home Medications Medication Instructions Recorded Confirmed Last Taken calcium carbonate 600 mg-vitamin 1 tab PO DAILY 06/08/19 09/20/23 09/20/23 D3 10 mcg (400 unit) tablet (Calcium 600 + D(3)) Prevagen 1 tab PO DAILY 06/18/21 09/20/23 09/20/23 cholecalciferol (vitamin D3) 50 250 mcg PO DAILY 06/26/21 09/20/23 09/20/23 mcg (2,000 unit) capsule aspirin 81 mg tablet,delayed 81 mg PO DAILY #30 tabs 07/31/21 09/20/23 09/20/23 release (Adult Low Dose Aspirin) ibuprofen 200 mg tablet 200 mg PO Q6H PRN Pain 10/08/21 09/20/23 10/10/21 acetaminophen 500 mg tablet 500 mg PO QAM pain 04/15/22 09/20/23 09/20/23 (Tylenol Extra Strength) spironolactone 25 mg tablet 25 mg PO DAILY #30 tabs 01/22/23 09/20/23 09/20/23 empagliflozin 10 mg tablet 10 mg PO DAILY #90 tabs 04/20/23 09/20/23 09/20/23 (Jardiance) bicalutamide 50 mg tablet (Casodex) 50 mg PO DAILY Prostate cancer #30 05/21/23 09/20/23 09/20/23 tabs sacubitril 97 mg-valsartan 103 mg 1 tab PO BID #180 tabs 06/08/23 09/20/23 09/20/23 08:00 tablet (Entresto) torsemide 10 mg tablet 10 mg PO DAILY #60 tabs 08/20/23 09/20/23 09/20/23 clopidogrel 75 mg tablet (Plavix) 75 mg PO DAILY 30 days #90 tabs 09/16/23 09/20/23 09/20/23 nshocsykfyta-Af-ohbt-minerals 1 tab PO QAM 09/20/23 09/20/23 09/20/23 Active Medications Generic Name Dose Route Start Last Admin Trade Name Freq PRN Reason Stop Dose Admin Acetaminophen 500 mg 09/21/23 09:00 09/25/23 08:53 Acetaminophen 500 Mg Tab PO 10/21/23 08:59 500 mg QAM JONNA Administration Aspirin 81 mg 09/21/23 09:00 09/25/23 08:45 Aspirin 81 Mg Ectab PO 10/21/23 08:59 81 mg DAILY JONNA Administration Bicalutamide 50 mg 09/21/23 09:00 09/25/23 08:46 Bicalutamide 50 Mg Tab PO 10/21/23 08:59 50 mg DAILY JONNA Administration Cyproheptadine HCl 4 mg 09/24/23 15:30 09/25/23 03:56 Cyproheptadine Hcl 4 Mg Tab PO 10/24/23 15:29 4 mg Q12H JONNA Administration Gentamicin Sulfate 2 drops 09/21/23 17:00 09/25/23 08:47 Gentamicin Sulfate 0.3% Op Soln 5 Ml Btl OP 10/01/23 16:59 2 drops QID JONNA Administration Heparin Sodium (Porcine) 5,000 units 09/21/23 09:00 09/25/23 08:46 Heparin Sod 5,000 Unit/0.5 Ml Vial SQ 10/21/23 08:59 5,000 units Q12 JONNA Administration Cefazolin Sodium 2,000 mg in 15 mls @ 3.75 mls/min 09/23/23 14:00 09/25/23 05:45 Ancef 2000mg IV 10/07/23 13:59 3.75 mls/min Q8H JONNA Administration Insulin Aspart 0 units 09/21/23 07:30 09/25/23 08:48 Insulin Aspart Per Unit Charge SC 10/21/23 07:29 Not Given ACHS JONNA Sacubitril/Valsartan 1 tab 09/21/23 09:00 09/25/23 08:46 Valsartan/Sacubitril 103/97mg Tab PO 10/21/23 08:59 1 tab BID JONNA Administration Spironolactone 25 mg 09/21/23 09:00 09/25/23 08:46 Spironolactone 25 Mg Tab PO 10/21/23 08:59 25 mg DAILY JONNA Administration Torsemide 10 mg 09/21/23 09:00 09/25/23 08:46 Torsemide 10 Mg Tab PO 10/21/23 08:59 10 mg DAILY JONNA Administration
--- NOTE | 2023-09-25 12:01 | Discharge Summary ---
Date of Service September 25, 2023 Admission HPI Per Admitting Provider The patient is a an 88-year-old male with a past medical history including prostate cancer metastatic to intrathoracic lymph node, CAD, HFrEF, hypertension, cardiomyopathy, mild cognitive impairment, incomplete bladder emptying, multiple pulmonary nodules and chronic venous insufficiency. The patient presents to the emergency department as noted above, and is referred for further assessment and admission. Principal Diagnosis Streptococcal bacteremia, type I second-degree AV block with episodes of syncope, bilateral conjunctivitis, chronic pruritus Discharge Exam General-alert and oriented x3, no fevers, no chills HEENT-head atraumatic and normocephalic, bilateral conjunctivitis is improving with gentamicin ophthalmic drops. Pupils equal and reactive to light, extraocular muscles intact Neck-no lymphadenopathy or thyromegaly, trachea midline Chest-clear to auscultation percussion. No rales wheezing or rhonchi Cardiac-bradycardic irregular rate and rhythm, normal S1 and S2 Abdomen-normal bowel sounds, nontender, no hepatosplenomegaly Extremities-no cyanosis, clubbing, or edema Skinerythema in the periorbital areas has improved. Multiple excoriated areas on the extremities from itching. Neuro-cranial nerves II through XII intact, motor and sensory function within normal limits, strength symmetrical, no focal deficits Psych-normal affect, normal mood Discharge Data Allergies Allergy/AdvReac Type Severity Reaction Status Date / Time No Known Allergies Allergy Verified 09/20/23 20:15 Consultations 09/20/23 21:40 ED Decision to Admit Stat 09/21/23 01:00 Consult Cardiology Routine 09/22/23 14:44 Consult Infectious Diseases Routine Ordered Studies 09/20/23 16:17 CT neck [CT cervical spine wo con] Stat Head CT [CT head/brain wo con] Stat 09/22/23 14:44 CT sinus wo con Urgent Hospital Course (1) Recurrent falls: Possibly due to near syncope from type I second-degree AV block and bradycardia. Appreciate cardiology consultation and recommendations. Permanent cardiac pacemaker insertion will be done at a later date due to current streptococcal bacteremia. The second set of blood cultures remain negative. Infectious disease has switched the daptomycin to cefazolin and stated that he can go home on amoxicillin 1 g 3 times daily through October 06. Streptococcus isolated in the blood. TTE negative for any signs of acute bacterial endocarditis. (2) Bacteremia: Group A beta strep isolated. Infectious disease has switched daptomycin to cefazolin. He will be discharged on amoxicillin 1 g 3 times a day through October 06 per ID recommendations. Facial sinus CT scan negative for evidence of acute or chronic sinusitis. He has multiple skin excoriations from itching which are the likely etiology of the Streptococcus. Repeat blood cultures ordered September 22 remain negative. (3) Non-ST elevation VT (NSTEMI): Mild troponin elevation appears to be supply/demand mismatch. He has not had an acute VT (4) Generalized weakness: Resolved. 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 Continue current medical management (7) CAD (coronary artery disease): Stable. Continue current medical manage (8) HFrEF (heart failure with reduced ejection fraction): No acute exacerbation. Stable. Continue current medical management (9) Conjunctivitis: Treated while hospitalized with gentamicin ophthalmic drops. Now resolved (10) Pruritus: Periactin has helped considerably. This will continue at discharge Plan Home today, September 25. Continue Periactin 4 mg twice daily for the itching. He will remain on amoxicillin 1 g 3 times a day through October 06. Follow-up with PCP and cardiology for scheduling of permanent cardiac pacemaker implant. Total Time Total Time Spent Total Time Spent (In Minutes): 45 minutes Discharge Plan Discharge Items Patient Disposition: Home - Self-Care Reason For Visit: NSTEMI, SYNCOPE, BRADYCARDIA, DEHYDRATION Discharge Diagnosis: Streptococcal bacteremia, type I second-degree AV block with syncope, bilateral conjunctivitis, chronic pruritus Activity: Resume your previous activity Non-emergency contact: Primary Care Provider and [place] Call non-emergency contact if: you have any medication questions and your symptoms worsen Follow-up/Referrals: Nba Lr, [Primary Care Provider] - Diet: Regular and Heart Healthy Addtl Attending Provider Instructions: Take amoxicillin 1 g 3 times a day through October 06 until gone. Take Periactin (cyproheptadine)twice daily for itching. See cardiology as an outpatient for eventual scheduling of permanent pacemaker insertion. Get blood work in 1 week. Pending Studies at Discharge: No Stand-Alone Forms: My [employer], Smoking Cessation Medications and DC Order Prescriptions: New cyproheptadine 4 mg Tablet 4 mg PO BID Qty: 40 0RF amoxicillin 500 mg tablet 1,000 mg PO TID Qty: 70 0RF Continued aspirin [Adult Low Dose Aspirin] 81 mg tablet,delayed release (DR/EC) 81 mg PO DAILY Qty: 30 2RF Jardiance 10 mg tablet 10 mg PO DAILY Qty: 90 3RF Entresto 97-103 mg tablet 1 tab PO BID Qty: 180 3RF clopidogrel [Plavix] 75 mg tablet 75 mg PO DAILY 30 Days Qty: 90 3RF spironolactone 25 mg tablet 25 mg PO DAILY Qty: 30 2RF torsemide 10 mg tablet 10 mg PO DAILY Qty: 60 1RF Rx Instructions: May increase to 20 mg PRN cholecalciferol (vitamin D3) 50 mcg (2,000 unit) capsule 250 mcg PO DAILY ibuprofen 200 mg tablet 200 mg PO Q6H PRN (Reason: Pain) acetaminophen [Tylenol Extra Strength] 500 mg tablet 500 mg PO QAM bicalutamide [Casodex] 50 mg tablet 50 mg PO DAILY Qty: 30 6RF calcium carbonate-vitamin D3 [Calcium 600 + D(3)] 600 mg(1,500mg) -400 unit Tablet 1 tab PO DAILY Prevagen 1 tab PO DAILY Multivitamin-Calcium and Iron Tablet 1 tab PO QAM Discharge Orders: Discharge Order (Routine); Ordered 09/25/23 Ordered By: Juan Courtney Admission Data Admit Date/Time: 09/20/23 23:11 Attending Provider: Juan Courtney Admit Provider: Pk Newman Primary Care Provider: Nba Lr Other Providers: Pk Newman; Brian Snyder; Laurita Wilburn; Lenny Magallanes; Meli Raya; Prateek Bentley; Kath Ro; Tanesha Rodriguez; Moni Partida; Jesús Palmer; Mariya Chavez; Cherie Quiles Coding Level of Care Code 25770 INP/OBS DISCH >30 MIN Diagnoses Recurrent falls R29.6 Bacteremia R78.81 Non-ST elevation [place] (NSTEMI) I21.4 Generalized weakness R53.1 Dehydration, moderate E86.0 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
--- NOTE | 2023-09-25 12:04 | Cardiology Progress Note ---
Date of Service September 25, 2023 Assessment & Plan (1) AV block, Mobitz 1: (2) Streptococcal bacteremia: (3) Nonischemic cardiomyopathy: (4) HFrEF (heart failure with reduced ejection fraction): Plan In the absence of clearly symptomatic heart block, favor deferring device p lacement for weeks rather than days after recent bacteremia. At this point, given absence of any symptomatic bradycardia, would complete antibiotic course and allow patient to continue through physical and occupational therapy with follow-up by electrophysiology in the next few weeks in the office. At that time, device placement can be discussed and scheduled in the near future. Volume status appears favorable, no change in diuretics. As noted, please arrange cardiology follow-up with Dr. Brittany Barajas for discussion of device placement. Admission and Anticipated Discharge Date Admission Date: September 20, 2023 Subjective Uneventful night. Feels well, no dyspnea, chest pain, palpitations, or lightheadedness. Telemetry showed sinus rhythm with Mobitz type I second-degree AV block, heart rate predominantly in the 50-60 bpm range, no sustained bradycardia. Physical Exam Physical Exam: No distress. Afebrile. Normotensive. Pulse currently 65 bpm Skin: No generalized lesions. HEENT: Benign. Neck: JVP at the clavicle at 90 degrees, no carotid bruits. Lungs: Limited depth inspiration, clear. Cardiac: regular rhythm with pauses, normal S1/2, no murmur appreciated today. Abdomen: benign. Extremities: Trace pretibial edema with stasis changes. Neurologic: Normal affect, grossly nonfocal. Results & Data Vital Signs (Past 12 Hours) Vital Signs Temp Pulse Pulse Resp BP BP Pulse Ox 09/25/23 11:10 97.3 F L 65 19 121/69 96 09/25/23 07:22 97.7 F 57 L 19 155/61 H 97 09/25/23 03:00 97.5 F L 54 L 20 133/68 96 09/25/23 02:40 39 L O2 Del Method 09/25/23 11:10 Room Air 09/25/23 07:22 CPAP 09/25/23 03:00 Room Air 09/25/23 02:40 PG Care Time/CCT Total # of Minutes Spent Total Time Spent with Patient: Total time spent is greater than 50% in coordination of care (as documented) at patient's floor/unit and/or counseling patient: Coding Level of Care Code 64298 SUB INP/OBS CARE Diagnoses AV block, Mobitz 1 I44.1 Streptococcal bacteremia R78.81; B95.5 Nonischemic cardiomyopathy I42.8 HFrEF (heart failure with reduced ejection fraction) I50.20
== END 2023-09-25 13:31 | disposition home or self-care (01) | DRG 871 ==
LOC: ED 15:39 → SUATTDRO 23:11 → EDINP 23:11 → 1E 09-21 01:48 → 2S 09-22 14:04

== ENCOUNTER 2023-09-26 13:35 | Inpatient (IN) ==
--- NOTE | 2023-09-26 14:11 | Emergency Department Note ---
History of Present Illness General Chief complaint: Leg Injury/Pain Stated complaint: LEFT LEG SWELLING/RED/WARM TO TOUCH Time Seen by Provider: 09/26/23 13:48 History of Present Illness Maximum Pain Intensity: 6 88-year-old male presents emergency department complaint of increased left lower extremity swelling pain and erythema and edema. Patient of note was discharged from the hospital yesterday. Patient was inpatient for a strep bacteremia. Patient was found to be syncopal 5 days ago and was found to have a type I second-degree block. Patient was planning to get a pacemaker however he was found to be bacteremic and that is currently on hold. Patient was discharged yesterday and family states that he was complaining of leg pain and leg redness. Patient does state that he has wounds to the left lateral side of his leg from scratching. Family was concerned due to increased swelling of his left leg. Patient denies chest pain or shortness of breath. Patient is currently on amoxicillin. Home Medications Medication Instructions Recorded Confirmed Type calcium carbonate 600 mg-vitamin 1 tab PO DAILY 06/08/19 09/26/23 History D3 10 mcg (400 unit) tablet (Calcium 600 + D(3)) Prevagen 1 tab PO DAILY 06/18/21 09/20/23 History cholecalciferol (vitamin D3) 50 250 mcg PO DAILY 06/26/21 09/26/23 History mcg (2,000 unit) capsule aspirin 81 mg tablet,delayed 81 mg PO DAILY #30 tabs 07/31/21 09/26/23 Rx release (Adult Low Dose Aspirin) ibuprofen 200 mg tablet 200 mg PO Q6H PRN Pain 10/08/21 09/26/23 History acetaminophen 500 mg tablet 500 mg PO QAM pain 04/15/22 09/26/23 History (Tylenol Extra Strength) spironolactone 25 mg tablet 25 mg PO DAILY #30 tabs 01/22/23 09/26/23 Rx empagliflozin 10 mg tablet 10 mg PO DAILY #90 tabs 04/20/23 09/26/23 Rx (Jardiance) bicalutamide 50 mg tablet (Casodex) 50 mg PO DAILY Prostate cancer #30 05/21/23 09/26/23 Rx tabs sacubitril 97 mg-valsartan 103 mg 1 tab PO BID #180 tabs 07/31/23 11/18/23 Rx tablet (Entresto) torsemide 10 mg tablet 10 mg PO DAILY #60 tabs 08/20/23 09/26/23 Rx clopidogrel 75 mg tablet (Plavix) 75 mg PO DAILY 30 days #90 tabs 09/16/23 09/26/23 Rx xnqelnvvecbu-Jc-tnqa-minerals 1 tab PO QAM 09/20/23 09/26/23 History amoxicillin 500 mg tablet 1,000 mg (2 x 500 mg) PO TID #70 09/25/23 09/26/23 Rx tabs cyproheptadine 4 mg tablet 4 mg PO BID #40 tabs 09/25/23 09/26/23 Rx Allergies Allergy/AdvReac Type Severity Reaction Status Date / Time No Known Allergies Allergy Verified 09/20/23 20:15 Past Med/Surg History Medical History Pruritus 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 HgbA1c 5.9%. Mild cognitive impairment NSTEMI (non-ST elevated myocardial infarction) Bifascicular block Left-sided chest pain 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 Elevated PSA, less than 10 ng/ml Mild neurocognitive disorder Abnormal gait Gout Nephrolithiasis Urinary urgency Chronic venous stasis Periodic limb movement disorder Obstructive sleep apnea Hypertension Hyperlipidemia Surgical History S/P tonsillectomy and adenoidectomy S/P colonoscopy 10 years S/P cataract surgery 11/2015 Family History Mother Breast cancer Lung disease COPD (chronic obstructive pulmonary disease) Father Heart disease Denies family history of Colon cancer Ovarian cancer Prostate cancer Myocardial infarction Colorectal cancer Social History Smoking Status: Former smoker Tobacco Type: Cigarettes Age Quit Using Tobacco: 35; packs per day: 1; Second Hand Exposure: No; Do You Dip or Chew Tobacco: No; Hx Alcohol Use: Yes Alcohol type: beer, wine and hard liquor Alcohol Intake Frequency: 2-3 x/Week Alcohol Intake Frequency Comment: 1 beer a week Hx Substance Use: No Preferred Language: Belarusian Communication Ability: Effective Visual Impairment: Limited Hearing Ability: Normal [employer] Required: No Beliefs That Will Affect Care: None marital status: Current Living Situation: Spouse Current Living Situation Comment: Living at home with current occupational status: employed current occupation: works at a [employer] How many Children do You have: 2 Feels Safe at Home: Yes Childhood Exposure to Second-Hand Smoke: Yes Diet: regular caffeine: Yes (coffee daily, tea, soda ) Dental Care, Regularly: Yes Physical Activity Frequency: Daily Physical Activity Frequency Comment: prescribed by therapy Seatbelt Use: always Sunscreen Use: No Assistive Devices: Cane and CPAP Review of Systems Respiratory: no cough Cardiovascular: no chest pain Integumentary: + skin ulcer and + erythema Physical Exam Vital Signs Vital Signs - 24 hr 09/26/23 13:37 09/26/23 14:10 09/26/23 14:10 Temperature 36.5 C Temperature Source Temporal Artery Scan Pulse Rate 78 48 L Pulse Rate [Apical] Pulse Rate from SpO2 Sensor 55 L Respiratory Rate 20 20 Respiratory Effort / Characteristics Non-Labored Spontaneous Respiratory Depth Normal Blood Pressure 112/68 126/63 Blood Pressure [Left Arm] Blood Pressure Mean 82 73 Blood Pressure Mean [Left Arm] Pulse Oximetry 94 95 Oxygen Delivery Method Room Air Sepsis Recent Fever Within 48 Hours No Sepsis New/Unexplained Change in Mental Status N/A Sepsis Action Taken by Nursing No Action Required 09/26/23 14:11 09/26/23 14:11 09/26/23 14:20 Temperature Temperature Source Pulse Rate 51 L 37 L Pulse Rate [Apical] 34 L Pulse Rate from SpO2 Sensor 62 Respiratory Rate 18 16 19 Respiratory Effort / Characteristics Respiratory Depth Blood Pressure Blood Pressure [Left Arm] 123/62 Blood Pressure Mean Blood Pressure Mean [Left Arm] 82 Pulse Oximetry 95 93 94 Oxygen Delivery Method Room Air Sepsis Recent Fever Within 48 Hours Sepsis New/Unexplained Change in Mental Status Sepsis Action Taken by Nursing 09/26/23 14:20 09/26/23 14:31 Temperature Temperature Source Pulse Rate 36 L Pulse Rate [Apical] Pulse Rate from SpO2 Sensor Respiratory Rate Respiratory Effort / Characteristics Respiratory Depth Blood Pressure 112/50 L Blood Pressure [Left Arm] Blood Pressure Mean 94 Blood Pressure Mean [Left Arm] Pulse Oximetry Oxygen Delivery Method Sepsis Recent Fever Within 48 Hours Sepsis New/Unexplained Change in Mental Status Sepsis Action Taken by Nursing GENERAL: Patient is awake alert in no acute distress patient is resting comfortably and showing no signs of anxiety EYES: The conjunctivae are clear. The pupils are round and reactive. EARS, NOSE, MOUTH AND THROAT: The nose is without any evidence of any deformity. Mucous membranes are moist. Tongue is midline. NECK: The neck is nontender and supple. RESPIRATORY: Normal respiratory effort is noted there is no evidence of wheezing rhonchi or rales CARDIOVASCULAR: Bradycardic rate, normal rhythm noted there no murmurs rubs or gallops normal S1 normal S2. GASTROINTESTINAL: The abdomen is soft. Abdomen is nontender. BACK: No midline tenderness or or step-off noted range of motion in flexion extension as well as rotation no signs of muscle spasm noted MUSCULOSKELETAL/EXTREMITIES: There is no evidence of gross deformity full range of motion is noted in the hips and shoulders. Left lower extremity with circumferential edema and pitting edema with erythema to the medial aspect of the lower bernal region. There are 2 bandages present on the lateral aspect of the leg. Patient is neurovascularly intact distally the foot is not cold. Patient has significant edema in comparison to the right leg. Patient has no palpable cords and negative Homans' sign SKIN: There is no obvious evidence of any rash. There are no petechiae, pallor or cyanosis noted. NEUROLOGIC: Patient is awake alert and oriented x3 strength is symmetric patellar Course Reevaluation(s) Reevaluation #1: Patient is resting in no distress has periods of bradycardia. Time: 17:07 Consultations Consultation #1: Case was discussed with the [facility] hospitalist for admission Time: 17:07 Medical Decision Making Medical Records Attestation: I reviewed the patient's medical records. Home Medications Current Medication List: was personally reviewed by me Laboratory Data Attestation: I reviewed the patient's lab results. Lab work interpreted by me is unremarkable 09/26/23 14:10 09/26/23 14:10 Lab Results 09/26/23 09/26/23 09/26/23 Range/Units 14:10 14:14 14:32 WBC 10.68 (4.8-10.8) K/ul RBC 4.21 L (4.70-6.10) M/uL Hgb 13.0 L (14.0-18.0) g/dl POC Hgb 12.9 L (14.0-18.0) g/dl Hct 39.5 L (42.0-52.0) % POC Hct 38 L (42-52) % MCV 93.8 (80.0-100.0) fL MCH 30.9 (25.0-34.0) pg MCHC 32.9 (32.0-36.0) g/dL RDW Std Deviation 43.5 (36.4-46.3) fL RDW Coeff of Armando 12.6 (11.5-14.5) % Plt Count 296 (130-400) K/uL MPV 9.6 (9.4-12.4) fL Immature Gran % (Auto) 1.1 % Neut % (Auto) 84.7 % Lymph % (Auto) 7.7 % [place] % (Auto) 5.9 % Eos % (Auto) 0.3 % Baso % (Auto) 0.3 % Neut # (Auto) 9.05 H (1.40-6.50) K/uL Lymph # (Auto) 0.82 L (1.20-3.40) K/uL [place] # (Auto) 0.63 H (0.11-0.59) K/uL Eos # (Auto) 0.03 (0.00-0.50) K/uL Baso # (Auto) 0.03 (0.00-0.20) K/uL Immature Gran # (Auto) 0.12 (0.01-0.20) K/uL POC Sodium 140 (135-144) mmol/L Sodium 138 (136-145) mmol/L POC Potassium 3.8 (3.3-5.0) mmol/L Potassium 3.9 (3.5-5.1) mmol/L POC Chloride 103 (101-112) mmol/L Chloride 104 (98-107) mmol/L Carbon Dioxide 29 (21-32) mmol/L POC Total CO2 26 (24-31) mmol/L Anion Gap 5 (3-11) POC Anion Gap 16.0 (16-25) mmol/L POC BUN 26 H (7-18) mg/dl BUN 27 H (6-23) mg/dl Creatinine 1.00 (0.6-1.4) mg/dl POC Creatinine 1.0 (0.6-1.3) mg/dl Est Cr Clr Drug Dosing 44.6 ml/min Est GFR ( Amer) 77.5 ml/min Est GFR (Non-Af Amer) 66.9 ml/min BUN/Creatinine Ratio 27.0 H (10-20) Glucose 142 H (70-99(Fasting)) mg/dl POC Glucose (other) 151 H (70-99) mg/dl Lactate 1.1 (0.4-2.0) mmol/L Calcium 9.7 (8.6-10.3) mg/dl POC Ioniz Calcium Carlos 1.20 (1.12-1.32) mmol/l Magnesium 2.2 (1.7-2.4) mg/dl Total Bilirubin 0.7 (0.2-1.0) mg/dl Direct Bilirubin 0.2 (0-0.2) mg/dl AST 17 (13-39) U/L ALT < 3 L (7-52) U/L Alkaline Phosphatase 98 (34-104) U/L Troponin I High Sens 25.9 H (0-20) pg/ml Total Protein 6.7 (6.0-8.3) gm/dl Albumin 3.3 L (3.4-5.0) gm/dl Procalcitonin 0.94 H (0-0.5) ng/ml Imaging Data Attestation: I personally reviewed and interpreted this imaging study as follows: My Impression: Chest x-ray interpreted by me negative for infiltrate Radiologist's Impression: Chest X-Ray 09/26/23 13:49 SINGLE VIEW CHEST CLINICAL HISTORY: Sepsis FINDINGS: An AP, portable, upright chest radiograph is compared to study dated 09/20/2023 and correlated with chest CT dated 05/20/2023. The heart is markedly enlarged. The pulmonary vasculature is noncongested. Chronic interstitial thickening is similar to previous. Scarring/atelectasis is seen at the lung bases. No airspace consolidation or large pleural effusion is identified. No pneumothorax is seen. The skeletal structures are osteopenic. The bony thorax is grossly intact. IMPRESSION: Cardiomegaly with no acute cardiopulmonary abnormality. ACT 112: Negative or not required by law. Electronically signed by: Oscar Gan M.D. 09/26/2023 4:40 PM Venous Doppler Study 09/26/23 14:04 ULTRASOUND LEFT LOWER EXTREMITY VENOUS CLINICAL HISTORY: Left leg pain. COMPARISON STUDY: Left lower extremity venous ultrasound dated 06/08/2019. TECHNIQUE: Portable real-time, grayscale, and color Doppler sonography of the deep veins of the left lower extremity was performed from the inguinal crease to the calf. Compression and augmentation were utilized. The examination is degraded by lack of patient cooperation/movement. FINDINGS: There is no sonographic evidence of deep venous thrombosis identified in the left lower extremity. The common femoral, superficial femoral, and popliteal veins are patent and normally compressible. The greater saphenous vein and the profunda femoris vein at the junction with the common femoral vein are clear. The visualized calf veins are patent. Prominent lymph nodes in the left groin measuring 2.2 cm. These may be reactive. IMPRESSION: There is no sonographic evidence of deep venous thrombosis identified in the left lower extremity. ACT 112: Negative or not required by law. Electronically signed by: Oscar Gan M.D. 09/26/2023 3:56 PM ECG Data Attestation: I personally reviewed and interpreted this ECG as follows: Additional Comments: EKG interpreted by me second-degree AV block type II 2-1 AV conduction, rate is [address] segment elevation or depression Telemetry interpreted by me, patient has a sinus rhythm and then at times he has a heart block with a rate of 42 MDM Narrative Medical decision making differential diagnosis includes dehydration, electrolyte abnormality, cardiac dysrhythmia, DVT, cellulitis, sepsis Plan is to check labs, EKG, chest x-ray, ultrasound of left lower extremity The patient's and the patient's son provided me history of him being discharged yesterday and the fact that he is bacteremic and has a history of a heart block and is requiring a pacemaker I did review Dr. Chaudhary discharge summary of 09/25/2023 in which the patient is currently on amoxicillin for bacteremia Patient had a negative ultrasound for DVT. Patient is bradycardic. Patient has a cellulitis in the left lower extremity, patient is on amoxicillin, the family has stated to me multiple times that he is too weak and they feel like they cannot handle him at home. The case was discussed with the [facility] hospitalist for admission the patient may need a SNF placement Impression & Plan AV block, Mobitz 1, Weakness, Cellulitis Discharge Plan Visit Data Chief Complaint: Leg Injury/Pain Stated Complaint: LEFT LEG SWELLING/RED/WARM TO TOUCH ED Provider: Lan Weaver Discharge Problem: AV block, Mobitz 1, Weakness, Cellulitis Patient Disposition: Admitted As Inpatient Forms Stand Alone Forms: [facility] Prescriptions Prescriptions: No Action aspirin [Adult Low Dose Aspirin] 81 mg tablet,delayed release (DR/EC) 81 mg PO DAILY Qty: 30 2RF Jardiance 10 mg tablet 10 mg PO DAILY Qty: 90 3RF Entresto 97-103 mg tablet 1 tab PO BID Qty: 180 3RF clopidogrel [Plavix] 75 mg tablet 75 mg PO DAILY 30 Days Qty: 90 3RF spironolactone 25 mg tablet 25 mg PO DAILY Qty: 30 2RF torsemide 10 mg tablet 10 mg PO DAILY Qty: 60 1RF Rx Instructions: May increase to 20 mg PRN cholecalciferol (vitamin D3) 50 mcg (2,000 unit) capsule 250 mcg PO DAILY ibuprofen 200 mg tablet 200 mg PO Q6H PRN (Reason: Pain) acetaminophen [Tylenol Extra Strength] 500 mg tablet 500 mg PO QAM bicalutamide [Casodex] 50 mg tablet 50 mg PO DAILY Qty: 30 6RF calcium carbonate-vitamin D3 [Calcium 600 + D(3)] 600 mg(1,500mg) -400 unit Tablet 1 tab PO DAILY Prevagen 1 tab PO DAILY lgybvhrqvqlo-Si-ksma-minerals Tablet 1 tab PO QAM cyproheptadine 4 mg Tablet 4 mg PO BID Qty: 40 0RF amoxicillin 500 mg tablet 1,000 mg PO TID Qty: 70 0RF Referrals Referrals: Nba Lr DO [Primary Care Provider] -
[2023-09-26 14:26] LABS: iSTAT Hemoglobin 12.9 g/dl (14.0-18.0); iSTAT Ionized Calcium 1.2 mmol/l (1.12-1.32); iSTAT Potassium 3.8 mmol/L (3.3-5.0)
[2023-09-26 14:52] LABS: Basophils # (auto) 0.03 K/uL (0.00-0.20); Basophils % (auto) 0.3 %; Eosinophils # (auto) 0.03 K/uL (0.00-0.50); Eosinophils % (auto) 0.3 %; Hematocrit (blood only) 39.5 % (42.0-52.0); Immature Granulocytes # (auto) 0.12 K/uL (0.01-0.20); Immature Granulocytes % (auto) 1.1 %; Lymphocytes # (auto) 0.82 K/uL (1.20-3.40); Lymphocytes % (auto) 7.7 %; Mean Corpuscular Hemoglobin 30.9 pg (25.0-34.0); Mean Corpuscular Hgb Conc 32.9 g/dL (32.0-36.0); Mean Corpuscular Volume 93.8 fL (80.0-100.0); Mean Platelet Volume 9.6 fL (9.4-12.4); Monocytes # (auto) 0.63 K/uL (0.11-0.59); Monocytes % (auto) 5.9 %; Neutrophils # (auto) 9.05 K/uL (1.40-6.50); Neutrophils % (auto) 84.7 %; Platelet Count 296 K/uL (130-400); RDW Coefficient of Variation 12.6 % (11.5-14.5); RDW Standard Deviation 43.5 fL (36.4-46.3); Red Blood Count 4.21 M/uL (4.70-6.10); White Blood Count 10.68 K/ul (4.8-10.8)
[2023-09-26 15:08] LABS: Anion Gap 5 (3-11); Blood Urea Nitrogen 27 mg/dl (6-23); Calcium 9.7 mg/dl (8.6-10.3); Carbon Dioxide 29 mmol/L (21-32); Chloride 104 mmol/L (98-107); Creatinine Clr Calc Pharmacy 44.6 ml/min; Est GFR (African American) 77.5 ml/min; Est GFR (Non-African American) 66.9 ml/min; Glucose 142 mg/dl (70-99(Fasting)); Potassium 3.9 mmol/L (3.5-5.1); Sodium 138 mmol/L (136-145)
[2023-09-26 15:14] LABS: Troponin I High Sensitivity 25.9 pg/ml (0-20)
[2023-09-26 15:21] LABS: Alanine Aminotransferase < 3 U/L (7-52); Albumin Level 3.3 gm/dl (3.4-5.0); Alkaline Phosphatase 98 U/L (34-104); Aspartate Aminotransferase 17 U/L (13-39); Bilirubin Direct 0.2 mg/dl (0-0.2); Bilirubin,Total 0.7 mg/dl (0.2-1.0); Magnesium 2.2 mg/dl (1.7-2.4); Total Protein 6.7 gm/dl (6.0-8.3)
--- NOTE | 2023-09-26 15:57 | Ultrasound Report ---
ULTRASOUND LEFT LOWER EXTREMITY VENOUS CLINICAL HISTORY: Left leg pain. COMPARISON STUDY: Left lower extremity venous ultrasound dated 06/08/2019. TECHNIQUE: Portable real-time, grayscale, and color Doppler sonography of the deep veins of the left lower extremity was performed from the inguinal crease to the calf. Compression and augmentation were utilized. The examination is degraded by lack of patient cooperation/movement. FINDINGS: There is no sonographic evidence of deep venous thrombosis identified in the left lower ext remity. The common femoral, superficial femoral, and popliteal veins are patent and normally compress ible. The greater saphenous vein and the profunda femoris vein at the junction with the common femora l vein are clear. The visualized calf veins are patent. Prominent lymph nodes in the left groin measu ring 2.2 cm. These may be reactive. IMPRESSION: There is no sonographic evidence of deep venous thrombosis identified in the left lower e xtremity. ACT 112: Negative or not required by law. Electronically signed by: Oscar Gan M.D. 09/26/2023 3:56 PM
--- NOTE | 2023-09-26 16:42 | XRay Report ---
SINGLE VIEW CHEST CLINICAL HISTORY: Sepsis FINDINGS: An AP, portable, upright chest radiograph is compared to study dated 09/20/2023 and correla edgardo with chest CT dated 05/20/2023. The heart is markedly enlarged. The pulmonary vasculature is nonco ngested. Chronic interstitial thickening is similar to previous. Scarring/atelectasis is seen at the lung bases. No airspace consolidation or large pleural effusion is identified. No pneumothorax is see n. The skeletal structures are osteopenic. The bony thorax is grossly intact. IMPRESSION: Cardiomegaly with no acute cardiopulmonary abnormality. ACT 112: Negative or not required by law. Electronically signed by: Oscar Gan M.D. 09/26/2023 4:40 PM
[2023-09-26] MEDS ORDERED: ACETAMINOPHEN 325 MG TAB PO PRN (17:25)
[2023-09-26] MEDS ORDERED: LACTATED RINGER'S 500 ML IV ONE (17:25)
--- NOTE | 2023-09-26 17:54 | History & Physical Report ---
Date of Service September 26, 2023 Assessment & Plan (1) Generalized weakness: Plan: -Admit to med/tele -HR currently in the 30's-50's but asymptomatic -Patient was discharged home yesterday; currently too weak with current cellulitis for family to safely care for him at home -Will need rehab/placement on DC until he is strong enough to return home -No there signs of infection at this time besides his known LLE cellulitis; UA is still in process -WBC still WNL, procal at 0.94 but likely trending down since last admission with procal of 3.24 -Will obtain repeat blood cultures to ensure he is still clear from previous strep bacteremia in case urgent pacemaker placement would be needed while admitted -Will continue amoxicillin as recommended by ID during last admission at this time -Will give 1L LR on admission as he appears dehydrated on exam -PT/OT/CM consults placed -Fall precautions -SQ lovenox for DVT PPX -HH diet with 2gm sodium restriction and 1800 mL fluid restriction -AM CBC, BMP, mag (2) Cellulitis of left lower extremity: Plan: -Will continue amoxicillin as recommended by ID with an end date of 10/06 -Will obtain xrays of the left ankle and foot for further evaluation -Wound care nurse consult placed (3) Elevated troponin: Plan: -Initial high sen trop elevated at 25 -Patient is without chest pain -Trending down compared to earlier this week when it was in the 50's -Likely due to demand from recent illness and dehydration -Obtaining ECG and 2 hour repeat high sen trop on admission -Continue to monitor on tele (4) Streptococcal bacteremia: Plan: -Present on last admission -Source is thought to be LLE cellulitis -Continue amoxicillin -Follow repeat blood cultures to ensure they are still negative (5) AV block, Mobitz 1: Plan: -Noted on last admission, thought to be the cause of his recurrent falls at presentation last admission -Cardiology is planning pacemaker placement when he is clear from his recent strep bacteremia -No recent falls/syncope since discharge yesterday -Continue to monitor on tele, fall precautions -Would consult Cardiology if he becomes symptomatic (6) HFrEF (heart failure with reduced ejection fraction): Plan: -LVEF of 30-35% as of 09/22 -Appears dehydrated on exam today, had am dose of torsemide and spironolactone per family -CXR negative for signs of failure -Will give 1L LR on admission -Can resume diuretics tomorrow if stable -Continue Entresto and Jardiance -2gm sodium and 1800 mL fluid restriction (7) Dehydration: Plan: -Will give 1L LR on admission -Monitor volume status while holding diuretics (8) Hypertension: Plan: -Stable -Holding spironolactone and torsemide on admission as he appears dehydrated and had doses this am (9) Obstructive sleep apnea: Plan: -Order placed so patient can use his CPAP machine family brought in (10) Prostate cancer: Plan: -Continue Casodex (11) Gout flare: Plan The patient was discussed with Dr. 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 In the ED the patient was noted to have a HR in the 30's-50's but was asymptomatic and otherwise stable. Labs were significant for WBC WNL, initial high sen trop of 25, procal of 0.94 (down from 3.24 on 09/20), and UA in process. Chest xray showed cardiomegaly without acute findings. Venous doppler of the LLE was negative for DVT. At the time of the exam the patient was sleeping with family bedside, history was mainly obtained from family. They state that they were unsure if the patient was ready for discharge yesterday but may not have voiced it clearly enough to the primary team. On arrival home (Patient only lives with his ), family had to be called to help get him inside. Since then the patient's grandson has needed to assist the patient anytime he needs to stand or walk as he is unable to safely ambulate due to his LLE pain. His states that she cannot safely care for him at home by herself, they all agree that rehab placement is best at this time. He has been taking all medications as prescribed since discharge yesterday and has not had recent falls. The patient himself states he is feeling fairly well. His pain is controlled at rest but significantly exacerbated with palpation of the LLE or ambulation. He denies recent fever, chills, chest pain, SOB, lightheadedness, dizziness, heart palpitations, recent syncopal episodes since discharge, cough, abd pain, nausea, vomiting, diarrhea, dysuria, hematuria, melena, and recent trauma. We discussed code status with the patient, , and grandson. The patient has a living will and wishes to be a DNR/DNI. His would be the primary decision maker if he could not make decisions himself. Per chart review, the patient was recently admitted to [facility] from 09/20-09/25 for symptomatic type 1 2nd degree AV block and multiple falls. He was found to have cellulitis of the LLE and found to have Streptococcal bacteremia. Infectious disease was consulted and believed his LLE cellulitis to be the source of his bacteremia. He was initially started on Daptomycin but transitioned to PO amoxicillin per ID recommendations. TTE during the admission was negative for signs of vegetation and showed a LVEF of 30-35%. Cardiology was consulted due to symptomatic 2nd degree AV block. The plan was for the patient to complete treatment of his bacteremia prior to pacemaker placement as he remained stable during the admission. The patient was discharged home on 09/25. Please refer to Dr. Do's attestation for any changes to the treatment plan Allergies Allergy/AdvReac Type Severity Reaction Status Date / Time No Known Allergies Allergy Verified 09/20/23 20:15 Home Medications Medication Instructions Recorded Confirmed Type calcium carbonate 600 mg-vitamin 1 tab PO DAILY 06/08/19 09/26/23 History D3 10 mcg (400 unit) tablet (Calcium 600 + D(3)) Prevagen 1 tab PO DAILY 06/18/21 09/20/23 History cholecalciferol (vitamin D3) 50 250 mcg PO DAILY 06/26/21 09/26/23 History mcg (2,000 unit) capsule aspirin 81 mg tablet,delayed 81 mg PO DAILY #30 tabs 07/31/21 09/26/23 Rx release (Adult Low Dose Aspirin) ibuprofen 200 mg tablet 200 mg PO Q6H PRN Pain 10/08/21 09/26/23 History acetaminophen 500 mg tablet 500 mg PO QAM pain 04/15/22 09/26/23 History (Tylenol Extra Strength) spironolactone 25 mg tablet 25 mg PO DAILY #30 tabs 01/22/23 09/26/23 Rx empagliflozin 10 mg tablet 10 mg PO DAILY #90 tabs 04/20/23 09/26/23 Rx (Jardiance) bicalutamide 50 mg tablet (Casodex) 50 mg PO DAILY Prostate cancer #30 05/21/23 09/26/23 Rx tabs sacubitril 97 mg-valsartan 103 mg 1 tab PO BID #180 tabs 06/08/23 09/26/23 Rx tablet (Entresto) torsemide 10 mg tablet 10 mg PO DAILY #60 tabs 08/20/23 09/26/23 Rx clopidogrel 75 mg tablet (Plavix) 75 mg PO DAILY 30 days #90 tabs 09/16/23 09/26/23 Rx qsxoowmawtzt-Nh-silo-minerals 1 tab PO QAM 09/20/23 09/26/23 History amoxicillin 500 mg tablet 1,000 mg (2 x 500 mg) PO TID #70 09/25/23 09/26/23 Rx tabs cyproheptadine 4 mg tablet 4 mg PO BID #40 tabs 09/25/23 09/26/23 Rx Past Med/Surg History Medical History (Updated 09/27/23 @ 13:15 by Cristopher Do MD) HFrEF (heart failure with reduced ejection fraction) Pruritus Nonischemic cardiomyopathy 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 HgbA1c 5.9%. Mild cognitive impairment NSTEMI (non-ST elevated myocardial infarction) Bifascicular block Left-sided chest pain 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 Elevated PSA, less than 10 ng/ml Mild neurocognitive disorder Abnormal gait Gout Nephrolithiasis Urinary urgency Chronic venous stasis Periodic limb movement disorder Obstructive sleep apnea Hypertension Hyperlipidemia Surgical History S/P tonsillectomy and adenoidectomy S/P colonoscopy 10 years S/P cataract surgery 11/2015 Family History Mother Breast cancer Lung disease COPD (chronic obstructive pulmonary disease) Father Heart disease Denies family history of Colon cancer Ovarian cancer Prostate cancer Myocardial infarction Colorectal cancer Social History Smoking Status: Never smoker Tobacco Type: Cigarettes Age Quit Using Tobacco: 35; packs per day: 1; Second Hand Exposure: No; Do You Dip or Chew Tobacco: No; Hx Alcohol Use: Yes Alcohol type: beer, wine and hard liquor Alcohol Intake Frequency: 2-3 x/Week Alcohol Intake Frequency Comment: 1 beer a week Hx Substance Use: No Preferred Language: Gibralt[place] Communication Ability: Effective Visual Impairment: Limited Hearing Ability: Normal [employer] Required: No Beliefs That Will Affect Care: None marital status: Current Living Situation: Spouse Current Living Situation Comment: Living at home with current occupational status: employed current occupation: works at a [employer] How many Children do You have: 2 Other Information That Helps Us Care for You: No Feels Safe at Home: Yes Safety Concerns: Feels Safe At This Time Childhood Exposure to Second-Hand Smoke: Yes Diet: regular caffeine: Yes (coffee daily, tea, soda ) Dental Care, Regularly: Yes Physical Activity Frequency: Daily Physical Activity Frequency Comment: prescribed by therapy Seatbelt Use: always Sunscreen Use: No Assistive Devices: Cane Physical Exam 2 Physical Exam: Physical Exam: General: In no acute distress, stated age, well-nourished, non-toxic appearing HEENT: Normocephalic, atraumatic, no scleral icterus, pupils around round, symmetrical, and reactive to light, dry mucus membranes, trachea midline, no thyromegaly Chest/Pulm: No respiratory distress, symmetrical chest expansion, clear breath sounds throughout Cardiac: bradycardic rate, regular rhythm, systolic murmur noted Abdomen: Negative for ascites and bruising, normoactive bowel sounds, soft, non-tender to palpation throughout Musculoskeletal: Symmetrical and without signs of acute trauma, upper and lower extremities with full ROM, no atrophy, spasticity, or flaccidity; swelling and erythema of the LLE does not extend proximally to the left knee and distally to the left ankle, no significant swelling or erythema of the left ankle or foot Extremities: Radial, dorsalis pedis, and posterior tibial pulses are intact and symmetrical, LLE currently swollen compared to right Skin: LLE with swelling, erythema, and warmth between the left knee and left ankle, does not cross either joint, 3 chronic wounds on the lateral LLE with pustulous drainage from the most distal wound Neuro: Alert and oriented to person, place, month, year, and president, no focal defects, no tremors noted Psych: No acute distress, calm and cooperative during the exam Skin: Results & Data Results & Data Vital Signs (Past 12 Hours) Vital Signs Temp Pulse Pulse Resp BP BP Pulse Ox 09/26/23 14:31 36 L 09/26/23 14:20 112/50 L 09/26/23 14:20 37 L 19 94 09/26/23 14:11 51 L 16 93 09/26/23 14:11 34 L 18 123/62 95 09/26/23 14:10 48 L 20 95 09/26/23 14:10 126/63 09/26/23 13:37 36.5 C 78 20 112/68 94 O2 Del Method 09/26/23 14:31 09/26/23 14:20 09/26/23 14:20 09/26/23 14:11 09/26/23 14:11 Room Air 09/26/23 14:10 09/26/23 14:10 09/26/23 13:37 Room Air Laboratory Results Abnormal lab results 09/26/23 09/26/23 Range/Units 14:10 14:14 RBC 4.21 L (4.70-6.10) M/uL Hgb 13.0 L (14.0-18.0) g/dl POC Hgb 12.9 L (14.0-18.0) g/dl Hct 39.5 L (42.0-52.0) % POC Hct 38 L (42-52) % Neut # (Auto) 9.05 H (1.40-6.50) K/uL Lymph # (Auto) 0.82 L (1.20-3.40) K/uL [place] # (Auto) 0.63 H (0.11-0.59) K/uL POC BUN 26 H (7-18) mg/dl BUN 27 H (6-23) mg/dl BUN/Creatinine Ratio 27.0 H (10-20) Glucose 142 H (70-99(Fasting)) mg/dl POC Glucose (other) 151 H (70-99) mg/dl ALT < 3 L (7-52) U/L Troponin I High Sens 25.9 H (0-20) pg/ml Albumin 3.3 L (3.4-5.0) gm/dl Procalcitonin 0.94 H (0-0.5) ng/ml Diagnostic Findings Chest X-Ray 09/26/23 13:49 SINGLE VIEW CHEST CLINICAL HISTORY: Sepsis FINDINGS: An AP, portable, upright chest radiograph is compared to study dated 09/20/2023 and correlated with chest CT dated 05/20/2023. The heart is markedly enlarged. The pulmonary vasculature is noncongested. Chronic interstitial thickening is similar to previous. Scarring/atelectasis is seen at the lung bases. No airspace consolidation or large pleural effusion is identified. No pneumothorax is seen. The skeletal structures are osteopenic. The bony thorax is grossly intact. IMPRESSION: Cardiomegaly with no acute cardiopulmonary abnormality. ACT 112: Negative or not required by law. Electronically signed by: Oscar Gan M.D. 09/26/2023 4:40 PM Venous Doppler Study 09/26/23 14:04 ULTRASOUND LEFT LOWER EXTREMITY VENOUS CLINICAL HISTORY: Left leg pain. COMPARISON STUDY: Left lower extremity venous ultrasound dated 06/08/2019. TECHNIQUE: Portable real-time, grayscale, and color Doppler sonography of the deep veins of the left lower extremity was performed from the inguinal crease to the calf. Compression and augmentation were utilized. The examination is degraded by lack of patient cooperation/movement. FINDINGS: There is no sonographic evidence of deep venous thrombosis identified in the left lower extremity. The common femoral, superficial femoral, and popliteal veins are patent and normally compressible. The greater saphenous vein and the profunda femoris vein at the junction with the common femoral vein are clear. The visualized calf veins are patent. Prominent lymph nodes in the left groin measuring 2.2 cm. These may be reactive. IMPRESSION: There is no sonographic evidence of deep venous thrombosis identified in the left lower extremity. ACT 112: Negative or not required by law. Electronically signed by: Oscar Gan M.D. 09/26/2023 3:56 PM ECG Additional Comments: Will obtain at the time of the admission Code Status & VTE Plan Code Status DNR/DNI VTE Prophylaxis Plan VTE Prophylaxis will be ordered: Yes Supervising Physician Co-Signing Physician Notes I personally saw and examined the patient. I verified all whitaker points and agree with Wilbert Lambert PA-C with the following exceptions and/or additions: 88 year old male patient discharged yesterday after bacteremia. Unable to manage at home mainly due to pain in his left ankle. Present for the day prior to discharge and suspected to be gout per family but no treatment given and recommended to follow up with his outpatient PCP O/E HS decreased rate, regular rhythm, no murmurs, Chest CTAB, Abdo SNT, left leg erythema and swelling surrounding left ankle with erythema spreading to left bernal per picture above, significant pain on any ankle movement A/P Gout flare - colchicine + Naproxen. Will avoid prednisone in setting of recent bacteremia. Erythema does appear to spread up his left leg therefore cellulitis remains a possibility but less likely while on Ancef (occurred while on Ancef on the last days of his admission). Otherwise as above PG Care Time/CCT Total # of Minutes Spent Total Time Spent with Patient: Total time spent is greater than 50% in coordination of care (as documented) at patient's floor/unit and/or counseling patient: Coding [place] [address] INT INP/OBS CARE 3/75MIN Patient Type Established Medical Decision Making Moderate Complexity Diagnoses Generalized weakness R53.1 Cellulitis of left lower extremity L03.116 Elevated troponin R79.89 Streptococcal bacteremia R78.81; B95.5 AV block, Mobitz 1 I44.1 HFrEF (heart failure with reduced ejection fraction) I50.20 Dehydration E86.0 Hypertension I10 Obstructive sleep apnea G47.33 Prostate cancer C61 Gout flare M10.9
--- NOTE | 2023-09-26 19:48 | XRay Report ---
LEFT FOOT 3 VIEWS CLINICAL HISTORY: Left foot infection. FINDINGS: 3 views of the left foot are compared to study dated 12/17/2021. The skeletal structures are osteopenic. No fracture is seen. There is no bony erosion or periostitis. There is hallux valgus with moderate osteoarthritic change at the first metatarsophalangeal joint. Milder degenerative change is seen through out the remainder of the foot. There is a large plantar heel spur. Degenerative spurrin g is seen along the dorsal aspect of the tarsal bones. Diffuse soft tissue edema seen throughout the foot, greatest dorsally. No soft tissue gas or radiodense foreign body is identified. IMPRESSION: 1. Soft tissue swelling with no acute bony abnormality identified. 2. Osteopenia, hallux valgus, degenerative change, and large plantar heel spur as above. Electronically signed by: Oscar Gan M.D. 09/26/2023 7:46 PM
--- NOTE | 2023-09-26 20:18 | XRay Report ---
LEFT ANKLE 3 VIEWS CLINICAL HISTORY: Left leg infection. FINDINGS: 3 views of the left ankle are obtained. No prior studies are available for comparison at th e time of dictation. The skeletal structures are osteopenic. No fracture is seen. The ankle mortise i s intact. Degenerative change is noted at the tibiotalar articulation. No bony erosion or periostitis is identified. There is a large plantar heel spur. Degenerative spurring is seen along the dorsal as pect of the talus. Soft tissue edema is seen throughout the left lower extremity. IMPRESSION: Soft tissue swelling with no acute bony abnormality identified. Electronically signed by: Oscar Gan M.D. 09/26/2023 8:17 PM
[2023-09-26] MEDS: CYPROHEPTADINE HCL 4 MG TAB PO SCH (21:38)
[2023-09-26] MEDS: AMOXICILLIN 500 MG CAP PO SCH (21:38)
[2023-09-26] MEDS: ENOXAPARIN INJ 40 MG/0.4 ML SYR SQ SCH (21:39)
[2023-09-26] MEDS: VALSARTAN/SACUBITRIL 103/97MG TAB PO SCH (21:39)
[2023-09-26 22:03] LABS: Appearance Urine Clear (Clear); Bilirubin Urine Negative (Negative); Blood Urine Negative (Negative); Color Urine Yellow; Glucose Urine UA 3+ (Negative); Ketones Urine Negative (Negative); Leukocyte Esterase Urine Negative (Negative); Nitrite Urine Negative (Negative); Protein Urine Negative (Negative); Specific Gravity Urine 1.015 (1.000-1.030); Urobilinogen Urine Negative (Negative); pH Urine 5.5 (4.5-7.5)
[2023-09-26] MEDS ORDERED: COLCHICINE 0.6 MG TAB PO ONE (22:56)
[2023-09-26] MEDS: NAPROXEN 250 MG TAB PO SCH (23:12)
[2023-09-27 07:28] LABS: Basophils # (auto) 0.03 K/uL (0.00-0.20); Basophils % (auto) 0.4 %; Eosinophils # (auto) 0.06 K/uL (0.00-0.50); Eosinophils % (auto) 0.8 %; Hematocrit (blood only) 33.9 % (42.0-52.0); Hemoglobin 11.2 g/dl (14.0-18.0); Immature Granulocytes # (auto) 0.21 K/uL (0.01-0.20); Immature Granulocytes % (auto) 2.7 %; Lymphocytes # (auto) 1.19 K/uL (1.20-3.40); Lymphocytes % (auto) 15.2 %; Mean Corpuscular Hemoglobin 30.6 pg (25.0-34.0); Mean Corpuscular Volume 92.6 fL (80.0-100.0); Mean Platelet Volume 9.6 fL (9.4-12.4); Monocytes # (auto) 0.58 K/uL (0.11-0.59); Monocytes % (auto) 7.4 %; Neutrophils # (auto) 5.78 K/uL (1.40-6.50); Neutrophils % (auto) 73.5 %; Platelet Count 280 K/uL (130-400); RDW Coefficient of Variation 12.7 % (11.5-14.5); RDW Standard Deviation 43.4 fL (36.4-46.3); Red Blood Count 3.66 M/uL (4.70-6.10); White Blood Count 7.85 K/ul (4.8-10.8)
[2023-09-27 07:58] LABS: BUN Creatinine Ratio 26.3 (10-20); Calcium 9.1 mg/dl (8.6-10.3); Creatinine Clr Calc Pharmacy 53.7 ml/min; Est GFR (African American) 82.5 ml/min; Est GFR (Non-African American) 71.2 ml/min; Potassium 3.8 mmol/L (3.5-5.1)
[2023-09-27] MEDS: BICALUTAMIDE 50 MG TAB PO SCH (08:13)
[2023-09-27] MEDS: NAPROXEN 250 MG TAB PO SCH (08:13)
[2023-09-27] MEDS: VALSARTAN/SACUBITRIL 103/97MG TAB PO SCH ×2 (08:13→20:02)
[2023-09-27] MEDS: EMPAGLIFLOZIN 10 MG TAB PO SCH (08:13)
[2023-09-27] MEDS: AMOXICILLIN 500 MG CAP PO SCH ×3 (08:13→20:02)
[2023-09-27] MEDS: ASPIRIN 81 MG ECTAB PO SCH (08:14)
[2023-09-27] MEDS: CYPROHEPTADINE HCL 4 MG TAB PO SCH (08:14)
[2023-09-27] MEDS ORDERED: CLOPIDOGREL BISULFATE 75 MG TAB PO SCH (09:00)
[2023-09-27] MEDS ORDERED: PNEUMOCOCCAL VACCINE (PCV20) 20-VAL CONJ-DIP CRM/PF 0.5 ML SYR IM ONE (09:00)
[2023-09-27] MEDS ORDERED: COLCHICINE 0.6 MG TAB PO SCH (09:00)
[2023-09-27] MEDS ORDERED: INFLUENZA VACCINE HIGH-DOSE (HD-IIV4) PF 65+ 0.7mL SYR IM ONE (09:00)
[2023-09-27] MEDS ORDERED: CYPROHEPTADINE HCL 4 MG TAB PO PRN (10:07)
--- NOTE | 2023-09-27 10:09 | Hospitalist Progress Note ---
Date of Service September 27, 2023 Assessment & Plan (1) Generalized weakness: Plan: Patient was discharged home 09/25 after 6 day stay for Strep bacteremia and 2nd degree AV block. Was able to ambulate with PT and recommended for home at that time. Since discharge, unable to ambulate without great difficulty and assistance from family members. Currently too weak with for family to safely care for him at home Could be from bradycardia, deconditioning from bacteremia and hospital stay, plus use of cyproheptadine for itching which is now resolved No new infection and his leg is apparently improving from previous. No fevers, Procal trending downward, UA neg for infection, no leukocytosis, tachycardia or sepsis. -make cyproheptadine prn rather than scheduled -Will continue amoxicillin as recommended by ID during last admission at this time for Strep bacteremia -PT/OT/CM consults placed in case of need for rehab -Fall precautions (2) Cellulitis of left lower extremity: Plan: Is improving. LLE Venous DOppler here neg for DVT but does show left inguinal lymphadenopathy Xrays of the left ankle and foot without acute findings I do not suspect gout-mild erythema on left bunion/1st MTP likely from bunion rubbing on shoes-dc colchicine and naproxen -continue amoxicillin as recommended by ID with an end date of 10/06 -Wound care nurse consult placed for 3 small wounds--> continue Aquacell Ag and Optifoam for now-appear small and healing (3) Elevated troponin: Plan: High sen trop elevated at 25 and stable on repeat check at 26 and trending down compared to earlier this week when it was in the 50's Patient is without chest pain, ECG without ischemia but with ongoing Mobitz 1 2nd degree AVB Likely due to demand from recent illness and dehydration 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 Sanchez Jul 2023--> does not need to be on Plavix-discontinue now -continue ASA,not on statin, not on BB due to bradycardia (4) Streptococcal bacteremia: Plan: -Strep pyogenes bacteremia present on last admission -Source is thought to be LLE cellulitis -Continue amoxicillin 1000mg po tid through 10/06 -Follow repeat blood cultures to ensure they are still negative -remain NGTD from 09/22 and 09/26 (5) AV block, Mobitz 1: Plan: -Noted on last admission, thought to be contributing to his recurrent falls at presentation last admission -Cardiology is planning pacemaker placement when he is clear from his recent strep bacteremia -will discuss with Cardiology/EP on Thursday as to timing of pacer/ICD -continue to monitor on tele-possible 3rd degree AVB now as well? -keep lytes replete (6) HFrEF (heart failure with reduced ejection fraction): Plan: LVEF of 30-35% with mod AI,mild-mod MR, dilated aortic root 4.3cm on 09/22 ECHO Aortic root/ascending aortic aneurysmroot 4.7, aorta 4.[address] surgery not thought surgical candidate CXR negative for signs of failure but with 1L IVFs given in ER for suspected dehydration Now with edema LLE -Continue Entresto and Jardiance -not on BB for bradycardia -resume home torsemide and aldactone for edema -continue 2gm sodium and 1800 mL fluid restriction, daily weights, strict I/Os -needs ICD/pacer placement when cleared from bacteremia -follow BMP, mag and keep lytes replete (7) Hypertension: Plan: BPs controlled resume home diuretics, continue Entresto (8) Obstructive sleep apnea: Plan: - can use his home CPAP machine (9) Prostate cancer: Plan: -Continue Casodex stable on last PET scan Plan DVT proph-Lovenox SQ DIspo-continued stay on tele PT/OT evals ordered to see if needs rehab Admission and Anticipated Discharge Date Admission Date: September 26, 2023 Subjective Pt very tired but does wake up and answer questions. Thinks his leg swelling and redness of the left leg are stable to improved. Denies CP, SOB. Is eating. Denies diarrhea No pain in leg/foot Tele with 2nd and 3rd degree heart block, SR, rates 30s-70s Discussed his care with road contractor Cardiology who will d/w EP Cardio on Thursday Physical Exam Constitutional: well developed and + lethargic; no acute distress Eyes: + anicteric sclerae Respiratory: normal respiratory effort, lungs clear to auscultation Cardiovascular: Rate/Rhythm: regular rate and + bradycardic Heart Sounds: + murmur (2/6 systolic murmur heard best at apex) Extremities: + edema (1+ pitting edema left distal leg,ankle) Gastrointestinal (Abdomen): normal bowel sounds, soft, nontender, no hepatosplenomegaly Musculoskeletal: Extremities: + extremities abnormal to inspection (left foot bunion 1st MTP,mild erythema and callus) Skin: + wound (left lateral and posterior leg with 3 small 1cm open wounds) and + erythema (left leg and dorsal foot with blanching erythema,no ttp) Psychiatric: Orientation: oriented x 3; + not alert (drowsy but wakes up easily and answers questions appropriately) Results & Data Results & Data Vital Signs (Past 12 Hours) Vital Signs Temp Pulse Pulse Resp BP Pulse Ox O2 Del Method 09/27/23 07:46 36.6 C 57 L 18 127/63 91 Room Air 09/27/23 03:56 44 L 09/27/23 03:14 36.6 C 72 16 129/70 95 Room Air 09/26/23 23:57 36.6 C 61 18 118/66 91 CPAP Laboratory Results CBC, BMP, magnesium, BCxs reviewed PG Care Time/CCT Total # of Minutes Spent Total Time Spent with Patient: Total time spent is greater than 50% in coordination of care (as documented) at patient's floor/unit and/or counseling patient: Coding Level of Care Code 04553 SUB INP/OBS CARE 3/50MIN Diagnoses Generalized weakness R53.1 Cellulitis of left lower extremity L03.116 Elevated troponin R79.89 Streptococcal bacteremia R78.81; B95.5 AV block, Mobitz 1 I44.1 HFrEF (heart failure with reduced ejection fraction) I50.20 Hypertension I10 Obstructive sleep apnea G47.33 Prostate cancer C61
[2023-09-27] MEDS: TORSEMIDE 10 MG TAB PO SCH (11:47)
[2023-09-27] MEDS: SPIRONOLACTONE 12.5 MG TAB PO SCH (12:48)
[2023-09-27] MEDS: ENOXAPARIN INJ 40 MG/0.4 ML SYR SQ SCH (20:02)
[2023-09-28 07:10] LABS: Basophils # (auto) 0.03 K/uL (0.00-0.20); Basophils % (auto) 0.4 %; Eosinophils # (auto) 0.09 K/uL (0.00-0.50); Eosinophils % (auto) 1.2 %; Hematocrit (blood only) 37.6 % (42.0-52.0); Hemoglobin 12.2 g/dl (14.0-18.0); Immature Granulocytes # (auto) 0.08 K/uL (0.01-0.20); Immature Granulocytes % (auto) 1.1 %; Lymphocytes # (auto) 1.08 K/uL (1.20-3.40); Lymphocytes % (auto) 14.8 %; Mean Corpuscular Hgb Conc 32.4 g/dL (32.0-36.0); Mean Corpuscular Volume 95.4 fL (80.0-100.0); Mean Platelet Volume 9.4 fL (9.4-12.4); Monocytes # (auto) 0.47 K/uL (0.11-0.59); Monocytes % (auto) 6.5 %; Neutrophils # (auto) 5.53 K/uL (1.40-6.50); Platelet Count 304 K/uL (130-400); RDW Coefficient of Variation 12.6 % (11.5-14.5); RDW Standard Deviation 44.5 fL (36.4-46.3); Red Blood Count 3.94 M/uL (4.70-6.10); White Blood Count 7.28 K/ul (4.8-10.8)
[2023-09-28] MEDS: AMOXICILLIN 500 MG CAP PO SCH ×3 (08:30→20:14)
[2023-09-28] MEDS: CHOLECALCIFEROL 5,000 UNITS 125 MCG TAB PO SCH (08:31)
[2023-09-28] MEDS: ASPIRIN 81 MG ECTAB PO SCH (08:31)
[2023-09-28] MEDS: VALSARTAN/SACUBITRIL 103/97MG TAB PO SCH ×2 (08:31→20:14)
[2023-09-28] MEDS: CEROVITE ADV FORMULA TAB PO SCH (08:31)
[2023-09-28] MEDS: TORSEMIDE 10 MG TAB PO SCH (08:32)
[2023-09-28] MEDS: CALCIUM 600MG + VIT D 400 IU TAB PO SCH (08:32)
[2023-09-28] MEDS: BICALUTAMIDE 50 MG TAB PO SCH (08:33)
[2023-09-28] MEDS: EMPAGLIFLOZIN 10 MG TAB PO SCH (08:33)
[2023-09-28] MEDS: SPIRONOLACTONE 12.5 MG TAB PO SCH (08:33)
[2023-09-28 09:13] LABS: BUN Creatinine Ratio 29.5 (10-20); Calcium 9.2 mg/dl (8.6-10.3); Creatinine Clr Calc Pharmacy 48.6 ml/min; Est GFR (African American) 73.1 ml/min; Est GFR (Non-African American) 63.1 ml/min; Magnesium 2.1 mg/dl (1.7-2.4); Potassium 4.1 mmol/L (3.5-5.1)
[2023-09-28 10:36] LABS: Uric Acid 6.7 mg/dl (2.6-7.2)
--- NOTE | 2023-09-28 12:25 | Cardiology Consultation ---
Date of Consultation September 28, 2023 Assessment & Plan (1) AV block, Mobitz 1: (2) HFrEF (heart failure with reduced ejection fraction): (3) Streptococcal bacteremia: Plan 1. AV block: He has frequent episodes of at least second-degree AV block, possibly higher degree AV block but I suspect not. Regardless the rhythm slows down considerably and results in brief periods of junctional escape at times. It is certainly possible that his syncopal/fall event was a result of transient bradycardia. This tends to worsen, and I think he should have a pacemaker implanted. 2. Cardiomyopathy: He has significant left ventricular dysfunction with an ejection fraction of less than 35%. I think would be reasonable to implant an ICD since he needs to undergo surgery in any case, I discussed this with the patient, his and his son in the room and their concern is that he does have a DNR order. During the discussion he seemed to indicate that he was happy with an ICD providing therapy, his did as well. I did let them know that we could turn that portion off should events change in the future. The surgery is the same, so I would recommend an ICD. It would need to be at least a dual- chamber, I would recommend a biventricular since he will probably pace freq uently in the ventricle, now or in the future, and this could lead to worsening cardiomyopathy. A biventricular pacer could also be used if he does not want ICD therapy. 3. Bacteremia: He has been on appropriate antibiotic therapy for some time and I think we can safely proceed with ICD implantation. I did discuss this including the risks of infection related to his prior bacteremia and the remote chance of device pocket infection from the surgery. I tentatively have him scheduled for surgery tomorrow afternoon. History of Present Illness Reason for Consultation: AV block, cardiomyopathy Attending Physician: Amanda Gomez MD History of Present Illness This is an 88-year-old male with a history of longstanding left ventricular dysfunction (with nonobstructive coronary disease identified at catheterization 2020 therefore consistent with a nonischemic cardiomyopathy) and an ejection fraction of 30 to 35% as of September 22, 2023 with similar measurements in the past. He has moderate aortic insufficiency and mild to moderate mitral regurgitation. He has also developed first and second-degree AV block. He was hospitalized from September 20, 2023 through September 25, 2023 after presenting with generalized weakness and then having a fall, it is not clear that he had a syncopal event although his family (who did not witness it) feels that he did. He was found to have a streptococcal bacteremia and on monitoring had first and second-degree AV block however his heart rate was typically in the 50 to 60 bpm range and with his bacteremia it was felt that we should wait to implant a device (although we had indications for ICD implantation for primary prevention and some of his symptoms could be due to sinus bradycardia and AV block). He was only home for a day before presenting to the emergency room on September 26, 2023 with left leg discomfort. He has been requiring a lot of assistance for ambulation, which may in part be due to his heart rate as well as weakness from his recent hospitalization. He remains on amoxicillin 1000 mg 3 times daily which is planned through October 06, 2023. He has negative blood cultures September 22, 2023 and September 26, 2023. He has been feeling very weak since this ordeal started, but before that he was extremely active despite his age. He and his run the [employer] and he is very active and that. He is able to live independently with his , climb stairs, etc. He is hoping to get back to his prior physical routine. Allergies Allergy/AdvReac Type Severity Reaction Status Date / Time No Known Allergies Allergy Verified 09/20/23 20:15 Home Medications Medication Instructions Recorded Confirmed Type calcium carbonate 600 mg-vitamin 1 tab PO DAILY 06/08/19 09/26/23 History D3 10 mcg (400 unit) tablet (Calcium 600 + D(3)) Prevagen 1 tab PO DAILY 06/18/21 09/20/23 History cholecalciferol (vitamin D3) 50 250 mcg PO DAILY 06/26/21 09/26/23 History mcg (2,000 unit) capsule aspirin 81 mg tablet,delayed 81 mg PO DAILY #30 tabs 07/31/21 09/26/23 Rx release (Adult Low Dose Aspirin) ibuprofen 200 mg tablet 200 mg PO Q6H PRN Pain 10/08/21 09/26/23 History acetaminophen 500 mg tablet 500 mg PO QAM pain 04/15/22 09/26/23 History (Tylenol Extra Strength) spironolactone 25 mg tablet 25 mg PO DAILY #30 tabs 01/22/23 09/26/23 Rx empagliflozin 10 mg tablet 10 mg PO DAILY #90 tabs 04/20/23 09/26/23 Rx (Jardiance) bicalutamide 50 mg tablet (Casodex) 50 mg PO DAILY Prostate cancer #30 05/21/23 09/26/23 Rx tabs sacubitril 97 mg-valsartan 103 mg 1 tab PO BID #180 tabs 06/08/23 09/26/23 Rx tablet (Entresto) torsemide 10 mg tablet 10 mg PO DAILY #60 tabs 08/20/23 09/26/23 Rx clopidogrel 75 mg tablet (Plavix) 75 mg PO DAILY 30 days #90 tabs 09/16/23 09/26/23 Rx sxvjgmsedslb-Ap-ggll-minerals 1 tab PO QAM 09/20/23 09/26/23 History amoxicillin 500 mg tablet 1,000 mg (2 x 500 mg) PO TID #70 09/25/23 09/26/23 Rx tabs cyproheptadine 4 mg tablet 4 mg PO BID #40 tabs 09/25/23 09/26/23 Rx Patient History Medical History HFrEF (heart failure with reduced ejection fraction) Pruritus Nonischemic cardiomyopathy 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 HgbA1c 5.9%. Mild cognitive impairment NSTEMI (non-ST elevated myocardial infarction) Bifascicular block Left-sided chest pain 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 Elevated PSA, less than 10 ng/ml Mild neurocognitive disorder Abnormal gait Gout Nephrolithiasis Urinary urgency Chronic venous stasis Periodic limb movement disorder Obstructive sleep apnea Hypertension Hyperlipidemia Surgical History S/P tonsillectomy and adenoidectomy S/P colonoscopy 10 years S/P cataract surgery 11/2015 Family History Mother Breast cancer Lung disease COPD (chronic obstructive pulmonary disease) Father Heart disease Denies family history of Colon cancer Ovarian cancer Prostate cancer Myocardial infarction Colorectal cancer Social History Smoking Status: Never smoker Tobacco Type: Cigarettes Age Quit Using Tobacco: 35; packs per day: 1; Second Hand Exposure: No; Do You Dip or Chew Tobacco: No; Hx Alcohol Use: Yes Alcohol type: beer, wine and hard liquor Alcohol Intake Frequency: 2-3 x/Week Alcohol Intake Frequency Comment: 1 beer a week Hx Substance Use: No Preferred Language: Guyanese Communication Ability: Effective Visual Impairment: Limited Hearing Ability: Normal Manager Social Media Required: No Beliefs That Will Affect Care: None marital status: Current Living Situation: Spouse Current Living Situation Comment: Living at home with current occupational status: employed current occupation: works at a [employer] How many Children do You have: 2 Other Information That Helps Us Care for You: No Feels Safe at Home: Yes Safety Concerns: Feels Safe At This Time Childhood Exposure to Second-Hand Smoke: Yes Diet: regular caffeine: Yes (coffee daily, tea, soda ) Dental Care, Regularly: Yes Physical Activity Frequency: Daily Physical Activity Frequency Comment: prescribed by therapy Seatbelt Use: always Sunscreen Use: No Assistive Devices: Cane Physical Exam Physical Exam: Constitutional: Alert, cooperative and in no distress. HEENT: Unremarkable Neck: No jugular venous distention, carotid pulses are normal and equal bilaterally without bruits. Pulmonary: Clear to auscultation bilaterally. Cardiac: Regular rhythm with a grade 2/6 holosystolic murmur at the apex, no gallop or rub. Abdomen: Soft, nontender with normal bowel sounds. Extremities: No edema. Distal pulses intact. Neurologic: No focal findings. Skin: No rash, ecchymoses or petechiae. Results & Data Vital Signs (Past 12 Hours) Vital Signs Temp Pulse Pulse Resp BP Pulse Ox O2 Del Method 09/28/23 11:00 36.4 C L 56 L 17 137/69 95 Room Air 09/28/23 09:37 57 L 09/28/23 07:58 36.6 C 58 L 17 144/81 H 95 Room Air 09/28/23 04:00 36.4 C L 53 L 19 148/71 H 95 CPAP Laboratory Results CBC 09/28/23 Range/Units 06:21 WBC 7.28 (4.8-10.8) K/ul RBC 3.94 L (4.70-6.10) M/uL Hgb 12.2 L (14.0-18.0) g/dl Hct 37.6 L (42.0-52.0) % Plt Count 304 (130-400) K/uL Neut # (Auto) 5.53 (1.40-6.50) K/uL Lymph # (Auto) 1.08 L (1.20-3.40) K/uL [place] # (Auto) 0.47 (0.11-0.59) K/uL Eos # (Auto) 0.09 (0.00-0.50) K/uL Baso # (Auto) 0.03 (0.00-0.20) K/uL Comprehensive Metabolic Panel 09/28/23 Range/Units 06:21 Sodium 141 (136-145) mmol/L Potassium 4.1 (3.5-5.1) mmol/L Chloride 106 (98-107) mmol/L Carbon Dioxide 32 (21-32) mmol/L BUN 31 H (6-23) mg/dl Creatinine 1.05 (0.6-1.4) mg/dl Glucose 99 (70-99(Fasting)) mg/dl Calcium 9.2 (8.6-10.3) mg/dl Intake and Output 09/27/23 09/28/23 09/28/23 22:59 06:59 14:59 Intake Total 440 / 440 Output Total 875 / 1275 400 / 1275 351 / 351 Balance -435 / -835 -400 / -835 -351 / -351 Intake: Oral 440 / 440 Output: Urine 875 / 1275 400 / 1275 350 / 350 # Bowel Movements 0 / 0 1 Other: # Unmeasured Voids 1 Weight 75 kg Weight Measurement Method Built in [facility] Diagnostic Findings Telemetry: I reviewed telemetry and for the most part he is in sinus rhythm and there are periods of AV block. This appears to be second-degree AV block although there are times when he has a junctional escape rhythm for brief periods of time which could be complete heart block but more likely is bradycardia resulting in an escape. Sitting down in the hospital this has been asymptomatic. PG Care Time/CCT Total # of Minutes Spent Total Time Spent with Patient: Total time spent is greater than 50% in coordination of care (as documented) at patient's floor/unit and/or counseling patient: Coding Level of Care Code 37151 INT INP/OBS CARE 3/75MIN Diagnoses AV block, Mobitz 1 I44.1 HFrEF (heart failure with reduced ejection fraction) I50.20 Streptococcal bacteremia R78.81; B95.5
--- NOTE | 2023-09-28 17:33 | Hospitalist Progress Note ---
Date of Service September 28, 2023 Assessment & Plan (1) Generalized weakness: Plan: Patient was discharged home 09/25 after 6 day stay for Strep bacteremia and 2nd degree AV block. Was able to ambulate with PT and recommended for home at that time. Since discharge, unable to ambulate without great difficulty and assistance from family members. Currently too weak with for family to safely care for him at home Could be from bradycardia, deconditioning from bacteremia and hospital stay, plus use of cyproheptadine for itching which is now resolved Possibly also due to pain in left leg and ankle from cellulitis plus minus gout No new infection and his leg cellulitis and edema are improving. No fevers, Procal trending downward, UA neg for infection, no leukocytosis, tachycardia or sepsis. Drowsiness has significantly improved with stopping cyproheptadine and he is feeling much better -Will continue amoxicillin as recommended by ID during last admission at this time for Strep bacteremia -PT/OT/CM consults placed-needs rehab -Fall precautions -Plan for pacer placement tomorrow for heart block (2) Cellulitis of left lower extremity: Plan: Continues to improve, edema and erythema improving LLE Venous DOppler here neg for DVT but does show left inguinal lymphadenopathy Xrays of the left ankle and foot without acute findings Potentially had gout prior to discharge as per my discussion with previous hospitalist. Did receive total of 1.8 mg of colchicine mild erythema on left bunion/1st MTP likely from bunion rubbing on shoes-dc colchicine and naproxen -continue amoxicillin as recommended by ID with an end date of 10/06 -Wound care nurse consult placed for 3 small wounds--> continue Aquacel Ag and Optifoam for now-appear small and healing (3) Elevated troponin: Plan: High sen trop elevated at 25 and stable on repeat check at 26 and trending down compared to earlier this week when it was in the 50's Patient is without chest pain, ECG without ischemia but with ongoing Mobitz 1 2nd degree AVB Likely due to demand from recent illness and dehydration 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 Sanchez Jul 2023--> does not need to be on Plavix-discontinued -continue ASA,not on statin, not on BB due to bradycardia (4) Streptococcal bacteremia: Plan: -Strep pyogenes bacteremia present on last admission -Source is thought to be LLE cellulitis -Continue amoxicillin 1000mg po tid through 10/06 -Follow repeat blood cultures to ensure they are still negative -remain NGTD from 09/22 and 09/26 (5) Gout flare: Plan: As above Improved, discontinue colchicine with improvement to avoid diarrhea (6) AV block, Mobitz 1: Plan: -Noted on last admission, thought to be contributing to his recurrent falls at presentation last admission -Cardiology is planning pacemaker placement when he is clear from his recent strep bacteremia -will discuss with Cardiology/EP on Thursday as to timing of pacer/ICD -continue to monitor on tele-possible 3rd degree AVB now as well? -keep lytes replete (7) HFrEF (heart failure with reduced ejection fraction): Plan: LVEF of 30-35% with mod AI,mild-mod MR, dilated aortic root 4.3cm on 09/22 ECHO Aortic root/ascending aortic aneurysmroot 4.7, aorta 4.[address] surgery not thought surgical candidate CXR negative for signs of failure but with 1L IVFs given in ER for suspected dehydration Now with edema LLE -Continue Entresto and Jardiance -not on BB for bradycardia -Continue home torsemide and aldactone for edema -continue 2gm sodium and 1800 mL fluid restriction, daily weights, strict I/Os -needs ICD/pacer placement tomorrow -follow BMP, mag and keep lytes replete (8) Hypertension: Plan: BPs controlled Continue home diuretics, continue Entresto (9) Obstructive sleep apnea: Plan: - can use his home CPAP machine (10) Prostate cancer: Plan: -Continue Casodex stable on last PET scan Plan DVT proph-Lovenox SQ DIspo-continued stay on tele Needs rehab after pacer placement Admission and Anticipated Discharge Date Admission Date: September 26, 2023 Subjective Patient feeling much better today, less drowsy. No pain in the leg or ankle unless touched frequently. He did ambulate a little bit with the walker. Tolerating p.o. and no other concerns. Discussed his care with cardiology and at bedside. Telemetry with frequent second-degree block and first-degree block sinus rhythm, bradycardia Physical Exam Constitutional: well developed; no acute distress Eyes: + anicteric sclerae Respiratory: normal respiratory effort, lungs clear to auscultation Cardiovascular: Rate/Rhythm: + bradycardic Heart Sounds: + murmur (2/6 systolic murmur heard best at apex) Extremities: + edema (1+ pitting edema left distal leg,ankle, improving from previous) Gastrointestinal (Abdomen): normal bowel sounds, soft, nontender, no hepatosplenomegaly Musculoskeletal: Extremities: + extremities abnormal to inspection (left foot bunion 1st MTP,mild erythema and callus) Skin: + wound (left lateral and posterior leg with 3 small 1cm open wounds) and + erythema (left leg and dorsal foot with blanching erythema, improving, mild TTP) Psychiatric: Orientation: alert and oriented x 3 Results & Data Results & Data Vital Signs (Past 12 Hours) Vital Signs Temp Pulse Pulse Resp BP Pulse Ox O2 Del Method 09/28/23 17:03 67 09/28/23 15:58 36.9 C 56 L 17 129/66 95 Room Air 09/28/23 13:58 Room Air 09/28/23 11:00 36.4 C L 56 L 17 137/69 95 Room Air 09/28/23 09:37 57 L 09/28/23 07:58 36.6 C 58 L 17 144/81 H 95 Room Air Laboratory Results CBC, BMP, magnesium, uric acid, blood cultures reviewed PG Care Time/CCT Total # of Minutes Spent Total Time Spent with Patient: Total time spent is greater than 50% in coordination of care (as documented) at patient's floor/unit and/or counseling patient: Coding Level of Care Code 73283 SUB INP/OBS CARE 3/50MIN Diagnoses Generalized weakness R53.1 Cellulitis of left lower extremity L03.116 Elevated troponin R79.89 Streptococcal bacteremia R78.81; B95.5 Gout flare M10.9 AV block, Mobitz 1 I44.1 HFrEF (heart failure with reduced ejection fraction) I50.20 Hypertension I10 Obstructive sleep apnea G47.33 Prostate cancer C61
[2023-09-29] MEDS ORDERED: LACTATED RINGER'S 1,000 ML IV SCH (00:15)
[2023-09-29] MEDS ORDERED: ceFAZolin 2000MG 2,000 MG/15 ML SYR IV SCH (06:00)
[2023-09-29] MEDS ORDERED: ceFAZolin 330 MG/ML 1 GM VIAL IV SCH (06:00)
[2023-09-29 07:00] LABS: Basophils # (auto) 0.02 K/uL (0.00-0.20); Basophils % (auto) 0.3 %; Eosinophils % (auto) 1.4 %; Hematocrit (blood only) 35.8 % (42.0-52.0); Hemoglobin 11.8 g/dl (14.0-18.0); Immature Granulocytes # (auto) 0.05 K/uL (0.01-0.20); Immature Granulocytes % (auto) 0.7 %; Lymphocytes # (auto) 1.05 K/uL (1.20-3.40); Lymphocytes % (auto) 14.8 %; Mean Corpuscular Hemoglobin 31.1 pg (25.0-34.0); Mean Corpuscular Volume 94.2 fL (80.0-100.0); Mean Platelet Volume 9.2 fL (9.4-12.4); Monocytes # (auto) 0.45 K/uL (0.11-0.59); Monocytes % (auto) 6.3 %; Neutrophils # (auto) 5.43 K/uL (1.40-6.50); Neutrophils % (auto) 76.5 %; Platelet Count 294 K/uL (130-400); RDW Coefficient of Variation 12.3 % (11.5-14.5); RDW Standard Deviation 42.9 fL (36.4-46.3)
[2023-09-29 07:55] LABS: Calcium 9.1 mg/dl (8.6-10.3); Magnesium 2.1 mg/dl (1.7-2.4); Potassium 3.9 mmol/L (3.5-5.1)
[2023-09-29 08:01] LABS: BUN Creatinine Ratio 32.6 (10-20); Creatinine Clr Calc Pharmacy 55.5 ml/min; Est GFR (African American) 85.8 ml/min
[2023-09-29] MEDS ORDERED: LIDOCAINE 1% LOCAL 20 ML VIAL ONE (08:35)
[2023-09-29] MEDS ORDERED: WATER, STERILE FOR INJ 10 ML VIAL ONE (08:36)
[2023-09-29] MEDS ORDERED: VANCOMYCIN HCL 1000MG/20ML VIAL ONE (08:36)
--- NOTE | 2023-09-29 11:59 | Hospitalist Progress Note ---
Date of Service September 29, 2023 Assessment & Plan (1) Generalized weakness: Plan: Patient was discharged home 09/25 after 6 day stay for Strep bacteremia and 2nd degree AV block. Was able to ambulate with PT and recommended for home at that time. Since discharge, unable to ambulate without great difficulty and assistance from family members. Currently too weak with for family to safely care for him at home Could be from bradycardia, deconditioning from bacteremia and hospital stay, plus use of cyproheptadine for itching which is now resolved Possibly also due to pain in left leg and ankle from cellulitis plus/minus gout No new infection and his leg cellulitis and edema are improving. No fevers, Procal trending downward since previous amdission, UA neg for infection, no leukocytosis, tachycardia or sepsis. Drowsiness has significantly improved with stopping cyproheptadine and he is feeling much better Left leg/ankle erythema,edema, and pain much improved -Will continue amoxicillin as recommended by ID during last admission at this time for Strep bacteremia -PT/OT/CM consults placed-needs rehab -Fall precautions -Plan for pacer placement today for heart block (2) Cellulitis of left lower extremity: Plan: Continues to improve, edema and erythema improving LLE Venous DOppler here neg for DVT but does show left inguinal lymphadenopathy Xrays of the left ankle and foot without acute findings Potentially had gout prior to discharge as per my discussion with previous hospitalist. Did receive total of 1.8 mg of colchicine and now edema and erythema, pain improving Swelling in leg from cellulitis and dependent edema may also have made his erythema appear worse? Edema now improved mild erythema on left bunion/1st MTP likely from bunion rubbing on shoes -continue amoxicillin as recommended by ID with an end date of 10/06 -Wound care nurse consult placed for 3 small wounds--> continue Aquacel Ag and Optifoam for now-appear small and healing (3) Elevated troponin: Plan: High sen trop elevated at 25 and stable on repeat check at 26 and trending down compared to earlier this week when it was in the 50's Patient is without chest pain, ECG without ischemia but with ongoing Mobitz 1 2nd degree AVB Likely due to demand from recent illness and dehydration 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 Sanchez Jul 2023--> does not need to be on Plavix-discontinued -continue ASA,not on statin, not on BB due to bradycardia (4) Streptococcal bacteremia: Plan: -Strep pyogenes bacteremia present on last admission -Source is thought to be LLE cellulitis -Continue amoxicillin 1000mg po tid through 10/06 -Follow repeat blood cultures to ensure they are still negative -remain NGTD from 09/22 and 09/26 (5) Gout flare: Plan: As above Improved, discontinued colchicine with improvement in ankle as above to avoid diarrhea (6) AV block, Mobitz 1: Plan: -Noted on last admission, thought to be contributing to his recurrent falls at presentation last admission -Cardiology is planning pacemaker placement when he is clear from his recent strep bacteremia -will discuss with Cardiology/EP on Thursday as to timing of pacer/ICD -continue to monitor on tele-possible 3rd degree AVB now as well? -keep lytes replete (7) HFrEF (heart failure with reduced ejection fraction): Plan: LVEF of 30-35% with mod AI,mild-mod MR, dilated aortic root 4.3cm on 09/22 ECHO Aortic root/ascending aortic aneurysmroot 4.7, aorta 4.[address] surgery not thought surgical candidate CXR negative for signs of failure but with 1L IVFs given in ER for suspected dehydration Now with edema LLE -Continue Entresto and Jardiance -not on BB for bradycardia -Continue home torsemide and aldactone for edema -continue 2gm sodium and 1800 mL fluid restriction, daily weights, strict I/Os -needs ICD/pacer placement tomorrow -follow BMP, mag and keep lytes replete (8) Hypertension: Plan: BPs controlled Continue home diuretics, continue Entresto (9) Obstructive sleep apnea: Plan: - can use his home CPAP machine (10) Prostate cancer: Plan: -Continue Casodex stable on last PET scan Plan DVT proph-Lovenox SQ DIspo-continued stay on tele Needs rehab after pacer placement hopefully tomorrow discussed care with Granddaughter, Yolis, at bedside Admission and Anticipated Discharge Date Admission Date: September 26, 2023 Subjective Feeling well, thirsty, no other concerns Tele with 2nd degree Mobitz 1 and 2 AVB, rates 20-40s Physical Exam Constitutional: well developed; no acute distress Eyes: + anicteric sclerae Respiratory: normal respiratory effort, lungs clear to auscultation Cardiovascular: Rate/Rhythm: + bradycardic Heart Sounds: + murmur (2/6 systolic murmur heard best at apex) Extremities: + edema (trace pitting edema left distal leg,ankle,much improved from previous) Gastrointestinal (Abdomen): normal bowel sounds, soft, nontender, no hepatosplenomegaly Musculoskeletal: Extremities: + extremities abnormal to inspection (left foot bunion 1st MTP,mild erythema and callus) Skin: + wound (left lateral and posterior leg with 3 small 1cm open wounds) and + erythema (left diatal leg and fot almost completely resolved) Psychiatric: Orientation: alert and oriented x 3 Results & Data Results & Data Vital Signs (Past 12 Hours) Vital Signs Temp Pulse Pulse Resp BP Pulse Ox O2 Del Method 09/29/23 11:13 36.4 C L 43 L 18 135/63 95 Room Air 09/29/23 09:38 Room Air 09/29/23 07:59 36.5 C 75 18 135/80 97 Room Air 09/29/23 05:58 39 L 09/29/23 02:39 36.7 C 45 L 18 127/72 94 Room Air Laboratory Results CBC, BMP, magnesium, blood cxs reviewed PG Care Time/CCT Total # of Minutes Spent Total Time Spent with Patient: Total time spent is greater than 50% in coordination of care (as documented) at patient's floor/unit and/or counseling patient: Coding Level of Care Code 27211 SUB INP/OBS CARE 2/35MIN Diagnoses Generalized weakness R53.1 Cellulitis of left lower extremity L03.116 Elevated troponin R79.89 Streptococcal bacteremia R78.81; B95.5 Gout flare M10.9 AV block, Mobitz 1 I44.1 HFrEF (heart failure with reduced ejection fraction) I50.20 Hypertension I10 Obstructive sleep apnea G47.33 Prostate cancer C61
--- NOTE | 2023-09-29 13:31 | History & Physical Bridge Note ---
Date of Service September 29, 2023 History & Physical Bridge Note I have examined the patient, reviewed the History & Physical and in the interval since the performance of the History & Physical I have noted the following changes of clinical significance: no changes noted. I reviewed the indications, procedure, risks and alternatives with the patient, his , granddaughter and son, and answered all questions. They all understands and agree to the procedure. We discussed a pacemaker versus an ICD and they would prefer the ICD which I believe to be appropriate. Consent obtained from the patient. I also reviewed the risks and use of sedation, patient understands and consent obtained.
--- NOTE | 2023-09-29 13:32 | Pre Anesthesia Assessment ---
Date of Service September 29, 2023 Pre Sedation Assessment Vital Signs Temp Pulse Pulse Resp BP BP Pulse Ox 09/29/23 12:15 36.7 C 55 L 18 126/62 94 09/29/23 11:13 36.4 C L 43 L 18 135/63 95 09/29/23 09:38 09/29/23 07:59 36.5 C 75 18 135/80 97 09/29/23 05:58 39 L 09/29/23 02:39 36.7 C 45 L 18 127/72 94 09/28/23 23:04 36.6 C 61 18 134/76 96 09/28/23 22:57 60 09/28/23 20:33 09/28/23 19:16 37.1 C 64 18 123/63 95 09/28/23 17:03 67 09/28/23 15:58 36.9 C 56 L 17 129/66 95 09/28/23 13:58 O2 Del Method 09/29/23 12:15 Room Air 09/29/23 11:13 Room Air 09/29/23 09:38 Room Air 09/29/23 07:59 Room Air 09/29/23 05:58 09/29/23 02:39 Room Air 09/28/23 23:04 Room Air 09/28/23 22:57 09/28/23 20:33 Room Air 09/28/23 19:16 Room Air 09/28/23 17:03 09/28/23 15:58 Room Air 09/28/23 13:58 Room Air Cardiovascular RRR, no murmur, no edema Respiratory normal respiratory effort, lungs clear to auscultation Pre-Sedation Airway Assessment Smoking Status: Never smoker Hx Sleep Apnea: Yes Hx Difficult Intubation: No Short, Thick Neck: No Thyromental Distance: > or= 3.5 Finger Breadths Oral Cavity: + Dentures Mallampati Class: I ASA: ASA3 NPO Status Date of Last Intake of Fluids: 09/28/23 Time of Last Intake of Fluids: 23:00 Date of Last Intake of Solid Food: 09/28/23 Time of Last Intake of Solid Foods: 23:00 Procedure Planning Contraindications for Sedation: none Current Medications Reviewed: Yes Notes The planned sedation has been discussed with the patient. Informed Consent was obtained. I have identified the patient, determined the appropriateness of sedation and have assessed the patient immediately prior to the procedure. All medicine(s) and interventions are by my order.
[2023-09-29] MEDS ORDERED: ceFAZolin 330 MG/ML 1 GM VIAL ONE ×2 (13:35→13:50)
[2023-09-29] MEDS ORDERED: MIDAZOLAM HCL 5 MG/ML 1 ML VIAL ONE (13:35)
[2023-09-29] MEDS ORDERED: fentaNYL citrate PF 100 MCG/2 ML VIAL ONE ×2 (13:35→15:26)
[2023-09-29] MEDS ORDERED: diphenhydrAMINE 50 MG/ML VIAL ONE (14:49)
--- NOTE | 2023-09-29 16:41 | Electrophysiology Report ---
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 The left prepectoral region was anesthetized with 1% lidocaine local anesthetic and left axillary venipuncture was performed by percutaneous technique and a guidewire placed through the left subclavian vein into the superior vena cava. The area was further infiltrated with 1% lidocaine local anesthetic and a 5 cm incision was made parallel to the left clavicle and 2 cm below it and carried down to the anterior pectoralis fascia. An ICD pocket was formed by blunt dissection anterior to the pectoralis fascia and a vancomycin- soaked sponge was placed in the pocket. A 10.5 [place] Medtronic lead introducer was placed over the guidewire into the left subclavian vein, the dilator and guidewire were removed and a bipolar active fixation steroid tipped ventricular ICD lead was advanced through the introducer into the superior vena cava. A guidewire was placed through the introducer and the introducer was stripped from the lead and guidewire. An 8.5 [place] Medtronic lead introducer was placed over the guidewire into the left subclavian vein, the dilator and guidewire were removed and a bipolar active fixation steroid tipped atrial lead was advanced through the introducer into the superior vena cava. A guidewire was placed back through the introducer and the introducer was stripped from the lead and guidewire. Using a curved stylette the ventricular lead was advanced through the right ventricular outflow tract into the pulmonary artery and then using a straight stylette was positioned in the right ventricular apex. The screw was extended fixing the lead in position. Pacing and sensing thresholds were evaluated in bipolar configuration and are recorded on the implant data sheet. Diaphragmatic pacing was evaluated at full bipolar output as indicated on the data sheet. Using a curved stylette the atrial lead was positioned in the region of the atrial appendage and the screw extended fixing the lead in position. Pacing and sensing thresholds were evaluated in bipolar configuration and are recorded on the implant data sheet. Diaphragmatic pacing was evaluated at full bipolar output as indicated on the data sheet. Once the leads were in position they were attached to the anterior pectoralis fascia using 1 suture of 2-0 silk around each lead collar. The short guidewire was exchanged for a long guidewire and a [place] coronary sinus sheath was advanced to position in the right atrium. The curved obturator was placed through the sheath and using x-ray dye the os of the coronary sinus was identified. A guidewire was placed through the introducer into the coronary sinus and the Tori sheath was advanced into the coronary sinus. A balloon occlusion catheter was advanced through this sheath into the coronary sinus, the balloon was inflated and dye was injected in various projections to obtain a coronary sinus angiogram. A good vessel was identified and a 0.014 inch guidewire was advanced into this vessel. The vessel in the ideal lead position was quite tortuous although appeared adequate for position, however using multiple guides and attempts the lead could not be positioned through this vessel due to tortuosity. A lower vessel was identified and accessed, a quadripolar coronary sinus catheter was advanced over the guidewire into acceptable position. The left ventricular pacing threshold was evaluated in various configurations, as recorded on the implant data sheet. Diaphragmatic pacing was evaluated at full output, as indicated on the data sheet. Once this lead was in position the introducer system was removed from the lead and the lead was attached to the anterior pectoral fascia using 2 sutures of 2-0 silk around the lead collar. An additional suture of 2-0 silk was placed around each of the atrial and ventricular lead collars as well. The vancomycin-soaked sponge was removed from the pocket, hemostasis was obtained, the ICD was attached to the leads and placed in the pocket with the leads coiled beneath it. The incision was closed with a running double subcutaneous closure of 3-0 Vicryl absorbable suture, followed by running subcuticular skin closure of 4-0 Vicryl absorbable suture. Bacitracin ointment was placed on the incision and a pressure dressing applied. [facility] [facility] [place] codes Indication for Procedure (1) HFrEF (heart failure with reduced ejection fraction): (2) High-grade atrioventricular block: Pacing Procedure 1: Pacin BiV electrode w/Pacer / ICD implant, add on code ICD Procedure 1: ICD: 63112 Insert single or dual ICD system Miscellaneous Procedures Procedure 1: EP Miscellaneous: 13537 Contrast injection for venography Procedure 2: EP Miscellaneous: 40188-82 Vengraphy, extremity Procedure 3: EP Miscellaneous: 59917-18 Venography, CS supevsion/interp PG Moderate Sedation Codes Moderate Sedation Codes Procedure 1: Sedation/Anesthesia: 98472 Mod Sedation by the same physician;Init15 Min Child Age 5 & Up Procedure 2: Sedation/Anesthesia: 49453 Mod Sedation by the same physician; Ea [id number] Minutes
--- NOTE | 2023-09-29 16:54 | Post Anesthesia Assessment ---
Date of Service September 29, 2023 Post Sedation Assessment Vital Signs Temp Pulse Pulse Resp BP BP Pulse Ox 09/29/23 16:30 36.6 C 60 14 129/75 93 09/29/23 12:15 36.7 C 55 L 18 126/62 94 09/29/23 11:13 36.4 C L 43 L 18 135/63 95 09/29/23 09:38 09/29/23 07:59 36.5 C 75 18 135/80 97 09/29/23 05:58 39 L 09/29/23 02:39 36.7 C 45 L 18 127/72 94 09/28/23 23:04 36.6 C 61 18 134/76 96 09/28/23 22:57 60 09/28/23 20:33 09/28/23 19:16 37.1 C 64 18 123/63 95 09/28/23 17:03 67 O2 Del Method 09/29/23 16:30 Room Air 09/29/23 12:15 Room Air 09/29/23 11:13 Room Air 09/29/23 09:38 Room Air 09/29/23 07:59 Room Air 09/29/23 05:58 09/29/23 02:39 Room Air 09/28/23 23:04 Room Air 09/28/23 22:57 09/28/23 20:33 Room Air 09/28/23 19:16 Room Air 09/28/23 17:03 Recovery Score Activity: Moves 4 extremities Respiration: Deep Breath/Cough Circulation: +/-20% PreAnes Value Consciousness: Arouseable (by name) Oxygen Saturation: > 92% On Room Air Post Anesthesia Score: 9 Discharge Sedation Level of Care: Fast Track Phase II Post Sedation Plan On clinical assessment, the patient appears to have tolerated the sedation without complications. Patient is recovering as anticipated. Patient will continue to be monitored by nursing and may be discharged when sedation discharge criteria are met per below protocol. Upon Completions of procedure up to 15 minutes continue every 5 minute vital signs and the P.A.R. score; then discharge to a Phase I or Fast Track to Phase II per the following guidelines: * Discharge Patient to appropriate Phase II area if PAR is 8 or greater or return to pre- procedure baseline. The post - procedure orders will be as directed. * If PAR score is less than 8 or not return to pre-procedure baseline then patient will follow Phase I monitoring till PAR is reached for Phase II. The Phase I may be done in procedure room or may call to secure a Phase I area. * If naloxone or flumazenil are used for reversal, hold in Phase I for continued monitoring from when last reversal dose was given for a minimum of 60 minutes or longer pending the nurse and/or physician discretion of patient condition before discharge to Phase II. Please call the Sedation Physician to re-evaluate and complete post-note for discharge to Phase II area. Do NOT discharge from procedure sedation or Phase 1 until post- sedation evaluation note is complete by procedure /sedation MD Sedation Discharge Instructions to be given to the patient at discharge to home.
[2023-09-29] MEDS: AMOXICILLIN 500 MG CAP PO SCH ×3 (17:12→21:18)
[2023-09-29] MEDS: BICALUTAMIDE 50 MG TAB PO SCH (17:40)
[2023-09-29] MEDS: ASPIRIN 81 MG ECTAB PO SCH (17:40)
[2023-09-29] MEDS: CALCIUM 600MG + VIT D 400 IU TAB PO SCH (17:40)
[2023-09-29] MEDS: CHOLECALCIFEROL 5,000 UNITS 125 MCG TAB PO SCH (17:40)
[2023-09-29] MEDS: EMPAGLIFLOZIN 10 MG TAB PO SCH (17:41)
[2023-09-29] MEDS: CEROVITE ADV FORMULA TAB PO SCH (17:41)
[2023-09-29] MEDS: SPIRONOLACTONE 25 MG TAB PO SCH (17:42)
[2023-09-29] MEDS: VALSARTAN/SACUBITRIL 103/97MG TAB PO SCH ×2 (17:42→21:18)
[2023-09-29] MEDS: TORSEMIDE 10 MG TAB PO SCH (17:42)
--- NOTE | 2023-09-29 21:50 | Electrocardiogram Report ---
Test Reason : Blood Pressure : / mmHG Vent. Rate : 042 BPM Atrial Rate : 131 BPM P-R Int : 000 ms QRS Dur : 162 ms QT Int : 468 ms P-R-T Axes : 000 092 082 degrees QTc Int : 390 ms Sinus tachycardia with 2nd degree A-V block (Mobitz I) with 2:1 A-V conduction Right bundle branch block Inferior infarct , age undetermined Abnormal ECG When compared with ECG of 22-SEP-2023 06:05, Left anterior fascicular block is no longer Present Nonspecific T wave abnormality now evident in Lateral leads Confirmed by Denny Samano ([id number]) on 09/29/2023 9:50:19 PM Referred By: REFERRED SELF Confirmed By:Denny aSmano
--- NOTE | 2023-09-29 22:13 | Electrocardiogram Report ---
Test Reason : Blood Pressure : / mmHG Vent. Rate : 039 BPM Atrial Rate : 000 BPM P-R Int : 000 ms QRS Dur : 170 ms QT Int : 494 ms P-R-T Axes : 000 -52 -08 degrees QTc Int : 397 ms Sinus bradycardia with 2nd degree A-V block (Mobitz I) Left axis deviation Right bundle branch block Left ventricular hypertrophy ( R in aVL , Magan product ) Abnormal ECG When compared with ECG of 26-SEP-2023 13:56, Inferior infarct is no longer Present Confirmed by Denny Samano ([id number]) on 09/29/2023 10:13:34 PM Referred By: REFERRED SELF Confirmed By:Denny Samano
[2023-09-30 08:24] LABS: BUN Creatinine Ratio 30.3 (10-20); Calcium 9.3 mg/dl (8.6-10.3); Creatinine Clr Calc Pharmacy 51.6 ml/min; Est GFR (African American) 78.5 ml/min; Est GFR (Non-African American) 67.7 ml/min; Potassium 4.3 mmol/L (3.5-5.1)
[2023-09-30] MEDS: AMOXICILLIN 500 MG CAP PO SCH ×3 (08:29→20:09)
[2023-09-30] MEDS: ASPIRIN 81 MG ECTAB PO SCH (08:30)
[2023-09-30] MEDS: CALCIUM 600MG + VIT D 400 IU TAB PO SCH (08:30)
[2023-09-30] MEDS: CHOLECALCIFEROL 5,000 UNITS 125 MCG TAB PO SCH (08:30)
[2023-09-30] MEDS: BICALUTAMIDE 50 MG TAB PO SCH (08:30)
[2023-09-30] MEDS: CEROVITE ADV FORMULA TAB PO SCH (08:31)
[2023-09-30] MEDS: SPIRONOLACTONE 25 MG TAB PO SCH (08:31)
[2023-09-30] MEDS: EMPAGLIFLOZIN 10 MG TAB PO SCH (08:31)
[2023-09-30] MEDS: VALSARTAN/SACUBITRIL 103/97MG TAB PO SCH ×2 (08:31→20:09)
[2023-09-30] MEDS: TORSEMIDE 10 MG TAB PO SCH (08:31)
--- NOTE | 2023-09-30 10:00 | Cardiology Progress Note ---
Date of Service September 30, 2023 Assessment & Plan (1) Status post implantation of automatic cardioverter/defibrillator (AICD): Plan 1. Postop day #1: He is doing very well postop, the site looks good, the leads are in good position and the device is working very well. He is pacing about half of the time programmed MVP mode therefore this is reprogrammed to DDD where he will pace almost all of the time. This is probably preferable. He is stable for discharge from my standpoint. Admission and Anticipated Discharge Date Admission Date: September 26, 2023 Subjective He is feeling well today postop day #1. No significant incisional discomfort, no chest discomfort, no shortness of breath and he tells me that he feels very well in general. Physical Exam Physical Exam: The ICD site is clean and dry, dressing changed. Cardiac rhythm is regular with no rub Lungs are clear Results & Data Vital Signs (Past 12 Hours) Vital Signs Temp Pulse Pulse Resp BP Pulse Ox O2 Del Method 09/30/23 08:08 36.6 C 69 18 120/73 96 Room Air 09/30/23 02:40 36.8 C 66 18 127/64 97 Room Air 09/29/23 23:05 64 09/29/23 22:43 36.5 C 63 18 125/72 96 Room Air Laboratory Results Comprehensive Metabolic Panel 09/30/23 Range/Units 07:16 Sodium 139 (136-145) mmol/L Potassium 4.3 (3.5-5.1) mmol/L Chloride 104 (98-107) mmol/L Carbon Dioxide 30 (21-32) mmol/L BUN 30 H (6-23) mg/dl Creatinine 0.99 (0.6-1.4) mg/dl Glucose 87 (70-99(Fasting)) mg/dl Calcium 9.3 (8.6-10.3) mg/dl Intake and Output 09/29/23 09/30/23 09/30/23 22:59 06:59 14:59 Intake Total 578 / 698 120 / 698 Output Total 1000 / 2250 700 / 2250 475 / 475 Balance -422 / -1552 -580 / -1552 -475 / -475 Intake: IV 258 / 258 Lactated Ringer's 1,000 ml @ 15 258 / 258 mls/hr IV .Q24H [facility] Rx#: [id number] Oral 320 / 440 120 / 440 Output: Urine 1000 / 2250 700 / 2250 475 / 475 Other: Other Intake Source 100% supper tray Weight 75.2 kg Diagnostic Findings Telemetry: Normal MVP pacing Postop ECG: Normal MVP function Chest x-ray: Good lead position, no pneumothorax Device evaluation: Excellent pacing and sensing characteristics. Ventricular pacing 50% of the time in MVP mode. This is probably too high of percentage to be beneficial therefore we reprogrammed to DDD with biventricular pacing. PG Care Time/CCT Total # of Minutes Spent Total Time Spent with Patient: Total time spent is greater than 50% in coordination of care (as documented) at patient's floor/unit and/or counseling patient: Coding Level of Care Code 54156 Post Operative Follow-Up Diagnoses Status post implantation of automatic cardioverter/defibrillator (AICD) Z95.810 CPT Codes Implantable Defib Multi lead programming - 34819 ([id number])
--- NOTE | 2023-09-30 10:34 | XRay Report ---
XR chest 2V PA/lateral HISTORY: Pacemaker placement. EXACT TIME ORDERED Evaluate for pneumothorax and l COMPARISON: Chest 09/26/2023. FINDINGS: Interval placement left-sided pacemaker/defibrillator. The leads appear intact. No pneumoth orax. The heart remains enlarged. No evidence for pulmonary edema. The lungs are clear. Degenerative changes within the thoracic spine. No pleural effusions. IMPRESSION: Interval placement of a left-sided pacemaker/defibrillator. No pneumothorax. ACT 112: Negative or not required by law. Electronically signed by: Dangelo Perez M.D. 09/30/2023 10:33 AM
[2023-09-30] MEDS ORDERED: COLCHICINE 0.6 MG TAB PO ONE (15:30)
--- NOTE | 2023-09-30 17:27 | Hospitalist Progress Note ---
Date of Service September 30, 2023 Assessment & Plan (1) Generalized weakness: Plan: Patient was discharged home 09/25 after 6 day stay for Strep bacteremia and 2nd degree AV block. Was able to ambulate with PT and recommended for home at that time. Since discharge, unable to ambulate without great difficulty and assistance from family members. Could be from bradycardia, deconditioning from bacteremia and hospital stay, plus use of cyproheptadine for itching which is now resolved Possibly also due to pain in left leg and ankle from cellulitis +/- gout No new infection and his leg cellulitis and edema are improving. No fevers, Procal trending downward since previous admission, UA neg for infection, no leukocytosis, tachycardia or sepsis. Drowsiness has significantly improved with stopping cyproheptadine and he is feeling much better Left leg/ankle erythema,edema, and pain much improved but it seems he still has some gout in left ankle Now s/p pacer placement and feeling much better -continue amoxicillin as recommended by ID during last admission at this time for Strep bacteremia -PT/OT recommend rehab -Fall precautions (2) Cellulitis of left lower extremity: Plan: Continues to improve, edema and erythema improving LLE Venous Doppler here neg for DVT but does show left inguinal lymphadenopathy Xrays of the left ankle and foot without acute findings Potentially w/ gout left ankle -Did receive total of 1.8 mg of colchicine after admission and now edema and erythema, pain improving, but some persists-give another dose of colchicine 0.6mg po x 1 now -continue amoxicillin as recommended by ID with an end date of 10/06 -Wound care nurse consult placed for 3 small wounds--> continue Aquacel Ag and Optifoam for now-appear small and healing (3) Elevated troponin: Plan: High sen trop elevated at 25 and stable on repeat check at 26 and trending down compared to earlier this week when it was in the 50's Patient is without chest pain, ECG without ischemia but with ongoing Mobitz 1 2nd degree AVB Likely due to demand from recent illness and dehydration 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 Sanchez Jul 2023--> does not need to be on Plavix-discontinued -continue ASA,but is not on statin, not on BB due to bradycardia (4) Streptococcal bacteremia: Plan: -Strep pyogenes bacteremia present on last admission -Source is thought to be LLE cellulitis and multiple other skin open wounds from itching -Continue amoxicillin 1000mg po tid through 10/06 -Follow repeat blood cultures to ensure they are still negative -remain NGTD from 09/22 and 09/26 (5) Gout flare: Plan: As above give another dose of colchicine (6) AV block, Mobitz 1: Plan: -Noted on last admission, thought to be contributing to his recurrent falls at presentation last admission -now s/p pacemaker placement now that he is clear from his recent strep bacteremia (7) HFrEF (heart failure with reduced ejection fraction): Plan: LVEF of 30-35% with mod AI,mild-mod MR, dilated aortic root 4.3cm on 09/22 ECHO Aortic root/ascending aortic aneurysmroot 4.7, aorta 4.[address] surgery not thought surgical candidate CXR negative for signs of failure and peripheral edema much improved -Continue Entresto, aldactone, torsemide, and Jardiance -not on BB for bradycardia but now could add this on-will add on Toprol XL 25mg qAM -Continue home torsemide and aldactone for edema -continue 2gm sodium and 1800 mL fluid restriction, daily weights, strict I/Os -now s/p ICD/pacer placement -follow BMP, mag and keep lytes replete (8) Hypertension: Plan: BPs controlled Continue home diuretics, continue Entresto start Toprol XL (9) Obstructive sleep apnea: Plan: - can use his home CPAP machine (10) Prostate cancer: Plan: -Continue Casodex stable on last PET scan Plan DVT proph-add on Lovenox SQ Dispo-continued stay on tele but is medically stable for discharge-insurance auth for [facility] pending Admission and Anticipated Discharge Date Admission Date: September 26, 2023 Subjective Pt feeling much better. Stronger. Denies much pain in ankle. Tele with paced rhythm, rates 60s Physical Exam Constitutional: well developed; no acute distress Eyes: + anicteric sclerae Respiratory: normal respiratory effort, lungs clear to auscultation Cardiovascular: Rate/Rhythm: regular rate and regular rhythm Heart Sounds: + murmur (2/6 systolic murmur heard best at apex) Extremities: + edema (trace pitting edema left distal leg,ankle,much improved from previous) Chest (Breasts): Chest: + pacemaker (left anterior chest wall) Gastrointestinal (Abdomen): normal bowel sounds, soft, nontender, no hepatosplenomegaly Musculoskeletal: Extremities: + extremities abnormal to inspection (left foot bunion 1st MTP,mild erythema and callus) mild +TTP over left medial ankle Skin: + wound (left lateral and posterior leg with 3 small 1cm open wounds) and + erythema (left diatal leg and fot almost completely resolved) Psychiatric: Orientation: alert and oriented x 3 Results & Data Results & Data Vital Signs (Past 12 Hours) Vital Signs Temp Pulse Resp BP Pulse Ox O2 Del Method 09/30/23 16:00 36.7 C 78 18 124/77 99 Room Air 09/30/23 11:00 36.7 C 61 16 118/66 98 Room Air 09/30/23 08:08 36.6 C 69 18 120/73 96 Room Air 09/30/23 08:00 Room Air Laboratory Results BMP, blood cxs reviewed Diagnostic Findings CXR reviewed, no PTX, pacer in place PG Care Time/CCT Total # of Minutes Spent Total Time Spent with Patient: Total time spent is greater than 50% in coordination of care (as documented) at patient's floor/unit and/or counseling patient: Coding Level of Care Code 36390 SUB INP/OBS CARE 2/35MIN Diagnoses Generalized weakness R53.1 Cellulitis of left lower extremity L03.116 Elevated troponin R79.89 Streptococcal bacteremia R78.81; B95.5 Gout flare M10.9 AV block, Mobitz 1 I44.1 HFrEF (heart failure with reduced ejection fraction) I50.20 Hypertension I10 Obstructive sleep apnea G47.33 Prostate cancer C61
--- NOTE | 2023-10-01 07:04 | Electrocardiogram Report ---
Test Reason : Blood Pressure : / mmHG Vent. Rate : 051 BPM Atrial Rate : 020 BPM P-R Int : 000 ms QRS Dur : 172 ms QT Int : 482 ms P-R-T Axes : 000 -57 017 degrees QTc Int : 444 ms Atrial-paced rhythm with prolonged AV conduction with occasional ventricular-paced complexes Right bundle branch block Left anterior fascicular block Bifascicular block Abnormal ECG When compared with ECG of 26-SEP-2023 18:36, Atrial pacing is now present Ventricular pacing is now present Confirmed by Denny Samano ([id number]) on 10/01/2023 7:04:28 AM Referred By: REFERRED SELF Confirmed By:Denny Samano
--- NOTE | 2023-10-01 07:42 | Electrocardiogram Report ---
Test Reason : Blood Pressure : / mmHG Vent. Rate : 060 BPM Atrial Rate : 060 BPM P-R Int : 168 ms QRS Dur : 178 ms QT Int : 522 ms P-R-T Axes : 020 -79 068 degrees QTc Int : 522 ms AV dual-paced rhythm Biventricular pacemaker detected Abnormal ECG When compared with ECG of 29-SEP-2023 17:23, AV pacing is now present Confirmed by Denny Samano ([id number]) on 10/01/2023 7:41:44 AM Referred By: REFERRED SELF Confirmed By:Denny Samano
[2023-10-01] MEDS: AMOXICILLIN 500 MG CAP PO SCH ×3 (08:03→20:51)
[2023-10-01] MEDS: BICALUTAMIDE 50 MG TAB PO SCH (08:04)
[2023-10-01] MEDS: CALCIUM 600MG + VIT D 400 IU TAB PO SCH (08:04)
[2023-10-01] MEDS: CHOLECALCIFEROL 5,000 UNITS 125 MCG TAB PO SCH (08:04)
[2023-10-01] MEDS: ASPIRIN 81 MG ECTAB PO SCH (08:04)
[2023-10-01] MEDS: EMPAGLIFLOZIN 10 MG TAB PO SCH (08:05)
[2023-10-01] MEDS: VALSARTAN/SACUBITRIL 103/97MG TAB PO SCH ×2 (08:05→20:51)
[2023-10-01] MEDS: ENOXAPARIN INJ 40 MG/0.4 ML SYR SQ SCH (08:05)
[2023-10-01] MEDS: CEROVITE ADV FORMULA TAB PO SCH (08:05)
[2023-10-01] MEDS: METOPROLOL SUCC 25MG EXT REL TAB PO SCH (08:06)
[2023-10-01] MEDS: SPIRONOLACTONE 25 MG TAB PO SCH (08:06)
[2023-10-01] MEDS: TORSEMIDE 10 MG TAB PO SCH (08:06)
[2023-10-01 08:07] LABS: Basophils # (auto) 0.03 K/uL (0.00-0.20); Basophils % (auto) 0.3 %; Eosinophils # (auto) 0.09 K/uL (0.00-0.50); Eosinophils % (auto) 0.9 %; Hematocrit (blood only) 35.8 % (42.0-52.0); Hemoglobin 12.1 g/dl (14.0-18.0); Immature Granulocytes # (auto) 0.04 K/uL (0.01-0.20); Immature Granulocytes % (auto) 0.4 %; Lymphocytes # (auto) 1.12 K/uL (1.20-3.40); Lymphocytes % (auto) 11.3 %; Mean Corpuscular Hemoglobin 30.7 pg (25.0-34.0); Mean Corpuscular Hgb Conc 33.8 g/dL (32.0-36.0); Mean Corpuscular Volume 90.9 fL (80.0-100.0); Mean Platelet Volume 9.1 fL (9.4-12.4); Monocytes # (auto) 0.61 K/uL (0.11-0.59); Monocytes % (auto) 6.2 %; Neutrophils # (auto) 8.01 K/uL (1.40-6.50); Neutrophils % (auto) 80.9 %; Platelet Count 298 K/uL (130-400); RDW Coefficient of Variation 12.3 % (11.5-14.5); RDW Standard Deviation 40.8 fL (36.4-46.3); Red Blood Count 3.94 M/uL (4.70-6.10)
[2023-10-01 08:22] LABS: BUN Creatinine Ratio 31.5 (10-20); Calcium 9.4 mg/dl (8.6-10.3); Creatinine Clr Calc Pharmacy 55.5 ml/min; Est GFR (African American) 85.8 ml/min; Magnesium 2.2 mg/dl (1.7-2.4)
--- NOTE | 2023-10-01 08:42 | Hospitalist Progress Note ---
Date of Service October 01, 2023 Assessment & Plan (1) Generalized weakness: Plan: Patient was discharged home 09/25 after 6 day stay for Strep bacteremia and 2nd degree AV block. Was able to ambulate with PT and recommended for home at that time. Since discharge, unable to ambulate without great difficulty and assistance from family members. Could be from bradycardia, deconditioning from bacteremia and hospital stay, plus use of cyproheptadine for itching which is now resolved Possibly also due to pain in left leg and ankle from cellulitis +/- gout leg cellulitis and edema are improving. UA neg for infection, no leukocytosis, tachycardia or sepsis. Drowsiness has significantly improved with stopping cyproheptadine and he is feeling much better Left leg/ankle erythema,edema, and pain much improved but it seems he still has some gout in left ankle Now s/p pacer placement and feeling much better -continue amoxicillin as recommended by ID during last admission at this time for Strep bacteremia -PT/OT recommend rehab , insurance says that at acute rehab family considering family appeal -Fall precautions (2) Cellulitis of left lower extremity: Plan: Continues to improve, edema and erythema improving LLE Venous Doppler here neg for DVT but does show left inguinal lymphadenopathy Xrays of the left ankle and foot without acute findings Potentially w/ gout left ankle -Did receive colchicine after admission, pain improving -continue amoxicillin as recommended by ID with an end date of 10/06 -Wound care nurse consult placed for 3 small wounds--> continue Aquacel Ag and Optifoam for now-appear small and healing (3) Elevated troponin: Plan: High sen trop elevated at 25 and stable on repeat check at 26 Ongoing Mobitz 1 2nd degree AVB Likely due to demand ischemia from recent illness and dehydration 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 Sanchez Jul 2023--> does not need to be on Plavix-discontinued -continue ASA,but is not on statin, not on BB due to bradycardia (4) Streptococcal bacteremia: Plan: -Strep pyogenes bacteremia present on last admission -Source is thought to be LLE cellulitis and multiple other skin open wounds from itching -Continue amoxicillin 1000mg po tid through 10/06 -Follow repeat blood cultures to ensure they are still negative -remain NGTD from 09/22 and 09/26 (5) AV block, Mobitz 1: Plan: -Noted on last admission, thought to be contributing to his recurrent falls at presentation last admission -now s/p pacemaker placement now that he is clear from his recent strep bacteremia (6) HFrEF (heart failure with reduced ejection fraction): Plan: LVEF of 30-35% with mod AI,mild-mod MR, dilated aortic root 4.3cm on 09/22 ECHO Aortic root/ascending aortic aneurysmroot 4.7, aorta 4.[address] surgery not thought surgical candidate CXR negative for signs of failure and peripheral edema much improved -Continue toprol XL Entresto, aldactone, torsemide, and Jardiance - continue 2gm sodium and 1800 mL fluid restriction, daily weights, strict I/Os -now s/p ICD/pacer placement (7) Obstructive sleep apnea: Plan: - can use his home CPAP machine (8) Prostate cancer: Plan: -Continue Casodex stable on last PET scan Plan DVT proph-add on Lovenox SQ pending disposition for rehab post discharge Admission and Anticipated Discharge Date Admission Date: September 26, 2023 Subjective this pt was seen with his no active complaints feels much better since pacemaker Physical Exam Physical Exam: awake and alert cardiac is regular with murmur lungs are clear ext with b/l Trace to one plus edema Results & Data Results & Data Vital Signs (Past 12 Hours) Vital Signs Temp Pulse Pulse Resp BP Pulse Ox O2 Del Method 10/01/23 08:00 97.7 F 75 18 117/73 95 Room Air 10/01/23 02:37 97.9 F 61 18 130/75 93 Room Air 09/30/23 22:43 98.2 F 62 18 125/73 95 Room Air 09/30/23 22:04 61 09/30/23 21:01 Room Air, CPAP Laboratory Results reviewed CBC reviewed chemistry PG Care Time/CCT Total # of Minutes Spent Total Time Spent with Patient: Total time spent is greater than 50% in coordination of care (as documented) at patient's floor/unit and/or counseling patient: Coding Level of Care Code 34103 SUB INP/OBS CARE 2/35MIN Diagnoses Generalized weakness R53.1 Cellulitis of left lower extremity L03.116 Elevated troponin R79.89 Streptococcal bacteremia R78.81; B95.5 AV block, Mobitz 1 I44.1 HFrEF (heart failure with reduced ejection fraction) I50.20 Obstructive sleep apnea G47.33 Prostate cancer C61
[2023-10-02] MEDS: CALCIUM 600MG + VIT D 400 IU TAB PO SCH (08:05)
[2023-10-02] MEDS: VALSARTAN/SACUBITRIL 103/97MG TAB PO SCH ×2 (08:05→20:09)
[2023-10-02] MEDS: ASPIRIN 81 MG ECTAB PO SCH (08:06)
[2023-10-02] MEDS: AMOXICILLIN 500 MG CAP PO SCH ×3 (08:06→20:08)
[2023-10-02] MEDS: BICALUTAMIDE 50 MG TAB PO SCH (08:06)
[2023-10-02] MEDS: SPIRONOLACTONE 25 MG TAB PO SCH (08:06)
[2023-10-02] MEDS: METOPROLOL SUCC 25MG EXT REL TAB PO SCH (08:07)
[2023-10-02] MEDS: CEROVITE ADV FORMULA TAB PO SCH (08:07)
[2023-10-02] MEDS: EMPAGLIFLOZIN 10 MG TAB PO SCH (08:07)
[2023-10-02] MEDS: CHOLECALCIFEROL 5,000 UNITS 125 MCG TAB PO SCH (08:07)
[2023-10-02] MEDS: ENOXAPARIN INJ 40 MG/0.4 ML SYR SQ SCH (08:07)
[2023-10-02] MEDS: TORSEMIDE 10 MG TAB PO SCH (08:07)
--- NOTE | 2023-10-02 17:03 | Hospitalist Progress Note ---
Date of Service October 02, 2023 Assessment & Plan (1) Generalized weakness: Plan: Patient was discharged home 09/25 after 6 day stay for Strep bacteremia and 2nd degree AV block. Was able to ambulate with PT and recommended for home at that time. Since discharge, unable to ambulate without great difficulty and assistance from family members. Could be from bradycardia, deconditioning from bacteremia and hospital stay, plus use of cyproheptadine for itching which is now resolved Possibly also due to pain in left leg and ankle from cellulitis +/- gout leg cellulitis and edema are improving. UA neg for infection, no leukocytosis, tachycardia or sepsis. Drowsiness has significantly improved with stopping cyproheptadine and he is feeling much better Left leg/ankle erythema,edema, and pain much improved but it seems he still has some gout in left ankle Now s/p pacer placement and feeling much better -continue amoxicillin as recommended by ID during last admission at this time for Strep bacteremia -PT/OT recommend rehab , insurance denies acute rehab family now supportive of center care -Fall precautions (2) Cellulitis of left lower extremity: Plan: Continues to improve, edema and erythema improving LLE Venous Doppler here neg for DVT but does show left inguinal lymphadenopathy Xrays of the left ankle and foot without acute findings Potentially w/ gout left ankle -Did receive colchicine after admission, pain improving -continue amoxicillin as recommended by ID with an end date of 10/06 -Wound care nurse consult placed for 3 small wounds--> continue Aquacel Ag and Optifoam for now-appear small and healing (3) Elevated troponin: Plan: High sen trop elevated at 25 and stable on repeat check at 26 Ongoing Mobitz 1 2nd degree AVB Likely due to demand ischemia from recent illness and dehydration 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 Sanchez Jul 2023--> does not need to be on Plavix-discontinued -continue ASA,but is not on statin, not on BB due to bradycardia (4) Streptococcal bacteremia: Plan: -Strep pyogenes bacteremia present on last admission -Source is thought to be LLE cellulitis and multiple other skin open wounds from itching -Continue amoxicillin 1000mg po tid through 10/06 -Follow repeat blood cultures to ensure they are still negative -remain NGTD from 09/22 and 09/26 (5) AV block, Mobitz 1: Plan: -Noted on last admission, thought to be contributing to his recurrent falls at presentation last admission -now s/p pacemaker placement now that he is clear from his recent strep bacteremia (6) HFrEF (heart failure with reduced ejection fraction): Plan: LVEF of 30-35% with mod AI,mild-mod MR, dilated aortic root 4.3cm on 09/22 ECHO Aortic root/ascending aortic aneurysmroot 4.7, aorta 4.[address] surgery not thought surgical candidate CXR negative for signs of failure and peripheral edema much improved -Continue toprol XL Entresto, aldactone, torsemide, and Jardiance - continue 2gm sodium and 1800 mL fluid restriction, daily weights, strict I/Os -now s/p ICD/pacer placement (7) Obstructive sleep apnea: Plan: - can use his home CPAP machine (8) Prostate cancer: Plan: -Continue Casodex stable on last PET scan Plan DVT proph-add on Lovenox SQ denied acute rehab, family now in agreement to subacute at [facility] Admission and Anticipated Discharge Date Admission Date: September 26, 2023 Subjective this pt was seen without complaints, spoke on speaker phone with his and pt this am feels much better since pacemaker denied acute rehab, family now in agreement to subacute at [facility] Physical Exam Physical Exam: awake and alert cardiac is regular with murmur lungs are clear ext with b/l Trace to one plus edema Results & Data Results & Data Vital Signs (Past 12 Hours) Vital Signs Temp Pulse Pulse Resp BP Pulse Ox O2 Del Method 10/02/23 15:40 60 10/02/23 15:02 97.5 F L 61 18 120/67 91 CPAP 10/02/23 11:29 97.7 F 64 18 101/61 96 Room Air 10/02/23 07:41 97.3 F L 60 124/67 97 Room Air 10/02/23 06:00 60 PG Care Time/CCT Total # of Minutes Spent Total Time Spent with Patient: Total time spent is greater than 50% in coordination of care (as documented) at patient's floor/unit and/or counseling patient: Coding Level of Care Code 81786 SUB INP/OBS CARE 2/35MIN Diagnoses Generalized weakness R53.1 Cellulitis of left lower extremity L03.116 Elevated troponin R79.89 Streptococcal bacteremia R78.81; B95.5 AV block, Mobitz 1 I44.1 HFrEF (heart failure with reduced ejection fraction) I50.20 Obstructive sleep apnea G47.33 Prostate cancer C61
[2023-10-03] MEDS: ASPIRIN 81 MG ECTAB PO SCH (08:42)
[2023-10-03] MEDS: VALSARTAN/SACUBITRIL 103/97MG TAB PO SCH ×2 (08:43→21:04)
[2023-10-03] MEDS: AMOXICILLIN 500 MG CAP PO SCH ×3 (08:43→21:04)
[2023-10-03] MEDS: SPIRONOLACTONE 25 MG TAB PO SCH (08:43)
[2023-10-03] MEDS: CHOLECALCIFEROL 5,000 UNITS 125 MCG TAB PO SCH (08:43)
[2023-10-03] MEDS: CEROVITE ADV FORMULA TAB PO SCH (08:44)
[2023-10-03] MEDS: METOPROLOL SUCC 25MG EXT REL TAB PO SCH (08:44)
[2023-10-03] MEDS: ENOXAPARIN INJ 40 MG/0.4 ML SYR SQ SCH (08:45)
[2023-10-03] MEDS: CALCIUM 600MG + VIT D 400 IU TAB PO SCH (08:45)
[2023-10-03] MEDS: EMPAGLIFLOZIN 10 MG TAB PO SCH (08:45)
[2023-10-03] MEDS: TORSEMIDE 10 MG TAB PO SCH (08:46)
[2023-10-03] MEDS: BICALUTAMIDE 50 MG TAB PO SCH (08:51)
--- NOTE | 2023-10-03 15:54 | Hospitalist Progress Note ---
Date of Service October 03, 2023 Assessment & Plan (1) Generalized weakness: Plan: Patient was discharged home 09/25 after 6 day stay for Strep bacteremia and 2nd degree AV block. Was able to ambulate with PT and recommended for home at that time. Since discharge, unable to ambulate without great difficulty and assistance from family members. Could be from bradycardia, deconditioning from bacteremia and hospital stay, plus use of cyproheptadine for itching which is now resolved Possibly also due to pain in left leg and ankle from cellulitis +/- gout leg cellulitis and edema are improving. UA neg for infection, no leukocytosis, tachycardia or sepsis. Drowsiness has significantly improved with stopping cyproheptadine and he is feeling much better Left leg/ankle erythema,edema, and pain much improved but it seems he still has some gout in left ankle Now s/p pacer placement and feeling much better -continue amoxicillin as recommended by ID during last admission at this time for Strep bacteremia -PT/OT recommend rehab , insurance denies acute rehab family now supportive of center care -Fall precautions (2) Cellulitis of left lower extremity: Plan: Continues to improve, edema and erythema improving LLE Venous Doppler here neg for DVT but does show left inguinal lymphadenopathy Xrays of the left ankle and foot without acute findings Potentially w/ gout left ankle -Did receive colchicine after admission, pain improving -continue amoxicillin as recommended by ID with an end date of 10/06 -Wound care nurse consult placed for 3 small wounds--> continue Aquacel Ag and Optifoam for now-appear small and healing (3) Elevated troponin: Plan: High sen trop elevated at 25 and stable on repeat check at 26 Ongoing Mobitz 1 2nd degree AVB Likely due to demand ischemia from recent illness and dehydration 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 Sanchez Jul 2023--> does not need to be on Plavix-discontinued -continue ASA,but is not on statin, not on BB due to bradycardia (4) Streptococcal bacteremia: Plan: -Strep pyogenes bacteremia present on last admission -Source is thought to be LLE cellulitis and multiple other skin open wounds from itching -Continue amoxicillin 1000mg po tid through 10/06 -Follow repeat blood cultures to ensure they are still negative -remain NGTD from 09/22 and 09/26 (5) AV block, Mobitz 1: Plan: -Noted on last admission, thought to be contributing to his recurrent falls at presentation last admission -now s/p pacemaker placement now that he is clear from his recent strep bacteremia (6) HFrEF (heart failure with reduced ejection fraction): Plan: LVEF of 30-35% with mod AI,mild-mod MR, dilated aortic root 4.3cm on 09/22 ECHO Aortic root/ascending aortic aneurysmroot 4.7, aorta 4.[address] surgery not thought surgical candidate CXR negative for signs of failure and peripheral edema much improved -Continue toprol XL Entresto, aldactone, torsemide, and Jardiance - continue 2gm sodium and 1800 mL fluid restriction, daily weights, strict I/Os -now s/p ICD/pacer placement (7) Obstructive sleep apnea: Plan: - can use his home CPAP machine (8) Prostate cancer: Plan: -Continue Casodex stable on last PET scan Plan DVT proph-add on Lovenox SQ denied acute rehab, family now in agreement to subacute at [facility] Admission and Anticipated Discharge Date Admission Date: September 26, 2023 Subjective Patient feels well. Denies chest pain or shortness of breath. Review of Systems Review of Systems: All systems reviewed & are unremarkable except as noted in Subjective Physical Exam Physical Exam: General: Awake, conversant Heart: S1, S2/regular rate and rhythm, no murmur rubs or gallops Lungs: Clear to auscultation bilaterally. Normal effort Abdomen: Soft/nontender/nondistended. No hepatosplenomegaly Extremities: No clubbing/cyanosis. No edema Behavior: Appropriate, cooperative Results & Data Results & Data Vital Signs (Past 12 Hours) Vital Signs Temp Pulse Resp BP Pulse Ox O2 Del Method 10/03/23 15:22 Room Air 10/03/23 15:10 36.3 C L 65 18 115/70 94 Room Air 10/03/23 08:30 Room Air 10/03/23 07:23 36.4 C L 60 18 105/58 L 97 Room Air PG Care Time/CCT Total # of Minutes Spent Total Time Spent with Patient: Total time spent is greater than 50% in coordination of care (as documented) at patient's floor/unit and/or counseling patient: Coding Level of Care Code 47159 SUB INP/OBS CARE 2/35MIN Diagnoses Generalized weakness R53.1 Cellulitis of left lower extremity L03.116 Elevated troponin R79.89 Streptococcal bacteremia R78.81; B95.5 AV block, Mobitz 1 I44.1 HFrEF (heart failure with reduced ejection fraction) I50.20 Obstructive sleep apnea G47.33 Prostate cancer C61
[2023-10-04] MEDS: EMPAGLIFLOZIN 10 MG TAB PO SCH (09:33)
[2023-10-04] MEDS: CHOLECALCIFEROL 5,000 UNITS 125 MCG TAB PO SCH (09:33)
[2023-10-04] MEDS: BICALUTAMIDE 50 MG TAB PO SCH (09:33)
[2023-10-04] MEDS: AMOXICILLIN 500 MG CAP PO SCH ×3 (09:33→20:46)
[2023-10-04] MEDS: ASPIRIN 81 MG ECTAB PO SCH (09:33)
[2023-10-04] MEDS: CALCIUM 600MG + VIT D 400 IU TAB PO SCH (09:33)
[2023-10-04] MEDS: METOPROLOL SUCC 25MG EXT REL TAB PO SCH (09:34)
[2023-10-04] MEDS: CEROVITE ADV FORMULA TAB PO SCH (09:34)
[2023-10-04] MEDS: TORSEMIDE 10 MG TAB PO SCH (09:35)
[2023-10-04] MEDS: SPIRONOLACTONE 25 MG TAB PO SCH (09:35)
[2023-10-04] MEDS: VALSARTAN/SACUBITRIL 103/97MG TAB PO SCH ×2 (09:36→20:46)
[2023-10-04] MEDS: ENOXAPARIN INJ 40 MG/0.4 ML SYR SQ SCH (09:53)
--- NOTE | 2023-10-04 14:33 | Hospitalist Progress Note ---
Date of Service October 04, 2023 Assessment & Plan (1) Generalized weakness: Plan: Patient was discharged home 09/25 after 6 day stay for Strep bacteremia and 2nd degree AV block. Was able to ambulate with PT and recommended for home at that time. Since discharge, unable to ambulate without great difficulty and assistance from family members. Could be from bradycardia, deconditioning from bacteremia and hospital stay, plus use of cyproheptadine for itching which is now resolved Possibly also due to pain in left leg and ankle from cellulitis +/- gout leg cellulitis and edema are improving. UA neg for infection, no leukocytosis, tachycardia or sepsis. Drowsiness has significantly improved with stopping cyproheptadine and he is feeling much better Left leg/ankle erythema,edema, and pain much improved but it seems he still has some gout in left ankle Now s/p pacer placement and feeling much better -continue amoxicillin as recommended by ID during last admission at this time for Strep bacteremia -PT/OT recommend rehab , insurance denies acute rehab family now supportive of center care -Fall precautions (2) Cellulitis of left lower extremity: Plan: Continues to improve, edema and erythema improving LLE Venous Doppler here neg for DVT but does show left inguinal lymphadenopathy Xrays of the left ankle and foot without acute findings Potentially w/ gout left ankle -Did receive colchicine after admission, pain improving -continue amoxicillin as recommended by ID with an end date of 10/06 -Wound care nurse consult placed for 3 small wounds--> continue Aquacel Ag and Optifoam for now-appear small and healing (3) Elevated troponin: Plan: High sen trop elevated at 25 and stable on repeat check at 26 Ongoing Mobitz 1 2nd degree AVB Likely due to demand ischemia from recent illness and dehydration 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 Sanchez Jul 2023--> does not need to be on Plavix-discontinued -continue ASA,but is not on statin, not on BB due to bradycardia (4) Streptococcal bacteremia: Plan: -Strep pyogenes bacteremia present on last admission -Source is thought to be LLE cellulitis and multiple other skin open wounds from itching -Continue amoxicillin 1000mg po tid through 10/06 -Follow repeat blood cultures to ensure they are still negative -remain NGTD from 09/22 and 09/26 (5) AV block, Mobitz 1: Plan: -Noted on last admission, thought to be contributing to his recurrent falls at presentation last admission -now s/p pacemaker placement now that he is clear from his recent strep bacteremia (6) HFrEF (heart failure with reduced ejection fraction): Plan: LVEF of 30-35% with mod AI,mild-mod MR, dilated aortic root 4.3cm on 09/22 ECHO Aortic root/ascending aortic aneurysmroot 4.7, aorta 4.[address] surgery not thought surgical candidate CXR negative for signs of failure and peripheral edema much improved -Continue toprol XL Entresto, aldactone, torsemide, and Jardiance - continue 2gm sodium and 1800 mL fluid restriction, daily weights, strict I/Os -now s/p ICD/pacer placement (7) Obstructive sleep apnea: Plan: - can use his home CPAP machine (8) Prostate cancer: Plan: -Continue Casodex stable on last PET scan Plan DVT proph-add on Lovenox SQ denied acute rehab, family now in agreement to subacute at [facility] Admission and Anticipated Discharge Date Admission Date: September 26, 2023 Subjective Patient feels well. Denies chest pain or shortness of breath. Review of Systems Review of Systems: All systems reviewed & are unremarkable except as noted in Subjective Physical Exam Physical Exam: General: Awake, conversant Heart: S1, S2/regular rate and rhythm, no murmur rubs or gallops Lungs: Clear to auscultation bilaterally. Normal effort Abdomen: Soft/nontender/nondistended. No hepatosplenomegaly Extremities: No clubbing/cyanosis. No edema Behavior: Appropriate, cooperative Results & Data Results & Data Vital Signs (Past 12 Hours) Vital Signs Temp Pulse Resp BP Pulse Ox O2 Del Method 10/04/23 08:55 36.7 C 68 18 111/67 97 Room Air 10/04/23 08:30 Room Air 10/04/23 07:17 36.7 C 60 16 112/67 96 Room Air PG Care Time/CCT Total # of Minutes Spent Total Time Spent with Patient: Total time spent is greater than 50% in coordination of care (as documented) at patient's floor/unit and/or counseling patient: Coding Level of Care Code 52597 SUB INP/OBS CARE 2/35MIN Diagnoses Generalized weakness R53.1 Cellulitis of left lower extremity L03.116 Elevated troponin R79.89 Streptococcal bacteremia R78.81; B95.5 AV block, Mobitz 1 I44.1 HFrEF (heart failure with reduced ejection fraction) I50.20 Obstructive sleep apnea G47.33 Prostate cancer C61
[2023-10-05] MEDS: AMOXICILLIN 500 MG CAP PO SCH ×3 (08:28→20:21)
[2023-10-05] MEDS: VALSARTAN/SACUBITRIL 103/97MG TAB PO SCH ×2 (08:29→20:21)
[2023-10-05] MEDS: TORSEMIDE 10 MG TAB PO SCH (08:29)
[2023-10-05] MEDS: EMPAGLIFLOZIN 10 MG TAB PO SCH (08:30)
[2023-10-05] MEDS: CHOLECALCIFEROL 5,000 UNITS 125 MCG TAB PO SCH (08:30)
[2023-10-05] MEDS: CEROVITE ADV FORMULA TAB PO SCH (08:30)
[2023-10-05] MEDS: METOPROLOL SUCC 25MG EXT REL TAB PO SCH (08:30)
[2023-10-05] MEDS: ASPIRIN 81 MG ECTAB PO SCH (08:30)
[2023-10-05] MEDS: SPIRONOLACTONE 25 MG TAB PO SCH (08:31)
[2023-10-05] MEDS: CALCIUM 600MG + VIT D 400 IU TAB PO SCH (08:31)
[2023-10-05] MEDS: ENOXAPARIN INJ 40 MG/0.4 ML SYR SQ SCH (08:31)
[2023-10-05] MEDS: BICALUTAMIDE 50 MG TAB PO SCH (08:36)
--- NOTE | 2023-10-05 15:26 | Hospitalist Progress Note ---
Date of Service October 05, 2023 Assessment & Plan (1) Generalized weakness: Plan: Patient was discharged home 09/25 after 6 day stay for Strep bacteremia and 2nd degree AV block. Was able to ambulate with PT and recommended for home at that time. Since discharge, unable to ambulate without great difficulty and assistance from family members. Could be from bradycardia, deconditioning from bacteremia and hospital stay, plus use of cyproheptadine for itching which is now resolved Possibly also due to pain in left leg and ankle from cellulitis +/- gout leg cellulitis and edema are improving. UA neg for infection, no leukocytosis, tachycardia or sepsis. Drowsiness has significantly improved with stopping cyproheptadine and he is feeling much better Left leg/ankle erythema,edema, and pain much improved but it seems he still has some gout in left ankle Now s/p pacer placement and feeling much better -continue amoxicillin as recommended by ID during last admission at this time for Strep bacteremia -PT/OT recommend rehab -Fall precautions (2) Cellulitis of left lower extremity: Plan: Continues to improve, edema and erythema improving LLE Venous Doppler here neg for DVT but does show left inguinal lymphadenopathy Xrays of the left ankle and foot without acute findings Potentially w/ gout left ankle -Did receive colchicine after admission, pain improving -continue amoxicillin as recommended by ID with an end date of 10/06 -Wound care nurse consult placed for 3 small wounds--> continue Aquacel Ag and Optifoam for now-appear small and healing (3) Elevated troponin: Plan: High sen trop elevated at 25 and stable on repeat check at 26 Ongoing Mobitz 1 2nd degree AVB Likely due to demand ischemia from recent illness and dehydration 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 Sanchez Jul 2023--> does not need to be on Plavix-discontinued -continue ASA,but is not on statin, not on BB due to bradycardia (4) Streptococcal bacteremia: Plan: -Strep pyogenes bacteremia present on last admission -Source is thought to be LLE cellulitis and multiple other skin open wounds from itching -Continue amoxicillin 1000mg po tid through 10/06 -Follow repeat blood cultures to ensure they are still negative -remain NGTD from 09/22 and 09/26 (5) AV block, Mobitz 1: Plan: -Noted on last admission, thought to be contributing to his recurrent falls at presentation last admission -now s/p pacemaker placement now that he is clear from his recent strep bacteremia (6) HFrEF (heart failure with reduced ejection fraction): Plan: LVEF of 30-35% with mod AI,mild-mod MR, dilated aortic root 4.3cm on 09/22 ECHO Aortic root/ascending aortic aneurysmroot 4.7, aorta 4.[address] surgery not thought surgical candidate CXR negative for signs of failure and peripheral edema much improved -Continue toprol XL Entresto, aldactone, torsemide, and Jardiance - continue 2gm sodium and 1800 mL fluid restriction, daily weights, strict I/Os -now s/p ICD/pacer placement (7) Obstructive sleep apnea: Plan: - can use his home CPAP machine (8) Prostate cancer: Plan: -Continue Casodex stable on last PET scan Plan DVT proph-add on Lovenox SQ denied acute rehab, family now [facility] . Awaiting insurance authorization Admission and Anticipated Discharge Date Admission Date: September 26, 2023 Subjective patient feels well. Denies chest pain or shortness of breath. Review of Systems Review of Systems: All systems reviewed & are unremarkable except as noted in Subjective Physical Exam Physical Exam: General: Awake, conversant Heart: S1, S2/regular rate and rhythm, no murmur rubs or gallops Lungs: Clear to auscultation bilaterally. Normal effort Abdomen: Soft/nontender/nondistended. No hepatosplenomegaly Extremities: No clubbing/cyanosis. No edema Behavior: Appropriate, cooperative Results & Data Results & Data Vital Signs (Past 12 Hours) Vital Signs Temp Pulse Pulse Resp BP BP Pulse Ox 10/05/23 12:00 36.3 C L 60 14 106/63 94 10/05/23 09:01 10/05/23 07:52 36.7 C 64 14 130/78 96 10/05/23 07:05 36.7 C 61 18 115/76 98 O2 Del Method 10/05/23 12:00 Room Air 10/05/23 09:01 Room Air 10/05/23 07:52 CPAP 10/05/23 07:05 CPAP PG Care Time/CCT Total # of Minutes Spent Total Time Spent with Patient: Total time spent is greater than 50% in coordination of care (as documented) at patient's floor/unit and/or counseling patient: Coding Level of Care Code 43620 SUB INP/OBS CARE 235MIN Diagnoses Generalized weakness R53.1 Cellulitis of left lower extremity L03.116 Elevated troponin R79.89 Streptococcal bacteremia R78.81; B95.5 AV block, Mobitz 1 I44.1 HFrEF (heart failure with reduced ejection fraction) I50.20 Obstructive sleep apnea G47.33 Prostate cancer C61
[2023-10-06] MEDS: ASPIRIN 81 MG ECTAB PO SCH (08:41)
[2023-10-06] MEDS: AMOXICILLIN 500 MG CAP PO SCH ×2 (08:41→13:31)
[2023-10-06] MEDS: CALCIUM 600MG + VIT D 400 IU TAB PO SCH (08:42)
[2023-10-06] MEDS: BICALUTAMIDE 50 MG TAB PO SCH (08:42)
[2023-10-06] MEDS: ENOXAPARIN INJ 40 MG/0.4 ML SYR SQ SCH (08:42)
[2023-10-06] MEDS: CHOLECALCIFEROL 5,000 UNITS 125 MCG TAB PO SCH (08:42)
[2023-10-06] MEDS: SPIRONOLACTONE 25 MG TAB PO SCH (08:43)
[2023-10-06] MEDS: METOPROLOL SUCC 25MG EXT REL TAB PO SCH (08:43)
[2023-10-06] MEDS: CEROVITE ADV FORMULA TAB PO SCH (08:43)
[2023-10-06] MEDS: TORSEMIDE 10 MG TAB PO SCH (08:44)
[2023-10-06] MEDS: VALSARTAN/SACUBITRIL 103/97MG TAB PO SCH (08:44)
[2023-10-06] MEDS: EMPAGLIFLOZIN 10 MG TAB PO SCH (08:45)
--- NOTE | 2023-10-06 15:24 | Discharge Summary ---
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 In the ED the patient was noted to have a HR in the 30's-50's but was asymptomatic and otherwise stable. Labs were significant for WBC WNL, initial high sen trop of 25, procal of 0.94 (down from 3.24 on 09/20), and UA in process. Chest xray showed cardiomegaly without acute findings. Venous doppler of the LLE was negative for DVT. At the time of the exam the patient was sleeping with family bedside, history was mainly obtained from family. They state that they were unsure if the patient was ready for discharge yesterday but may not have voiced it clearly enough to the primary team. On arrival home (Patient only lives with his ), family had to be called to help get him inside. Since then the patient's grandson has needed to assist the patient anytime he needs to stand or walk as he is unable to safely ambulate due to his LLE pain. His states that she cannot safely care for him at home by herself, they all agree that rehab placement is best at this time. He has been taking all medications as prescribed since discharge yesterday and has not had recent falls. The patient himself states he is feeling fairly well. His pain is controlled at rest but significantly exacerbated with palpation of the LLE or ambulation. He denies recent fever, chills, chest pain, SOB, lightheadedness, dizziness, heart palpitations, recent syncopal episodes since discharge, cough, abd pain, nausea, vomiting, diarrhea, dysuria, hematuria, melena, and recent trauma. We discussed code status with the patient, , and grandson. The patient has a living will and wishes to be a DNR/DNI. His would be the primary decision maker if he could not make decisions himself. Per chart review, the patient was recently admitted to [facility] from 09/20-09/25 for symptomatic type 1 2nd degree AV block and multiple falls. He was found to have cellulitis of the LLE and found to have Streptococcal bacteremia. Infectious disease was consulted and believed his LLE cellulitis to be the source of his bacteremia. He was initially started on Daptomycin but transitioned to PO amoxicillin per ID recommendations. TTE during the admission was negative for signs of vegetation and showed a LVEF of 30-35%. Cardiology was consulted due to symptomatic 2nd degree AV block. The plan was for the patient to complete treatment of his bacteremia prior to pacemaker placement as he remained stable during the admission. The patient was discharged home on 09/25. Please refer to Dr. Do's attestation for any changes to the treatment plan Admission Exam Per Admitting Provider General: In no acute distress, stated age, well-nourished, non-toxic appearing HEENT: Normocephalic, atraumatic, no scleral icterus, pupils around round, symmetrical, and reactive to light, dry mucus membranes, trachea midline, no thyromegaly Chest/Pulm: No respiratory distress, symmetrical chest expansion, clear breath sounds throughout Cardiac: bradycardic rate, regular rhythm, systolic murmur noted Abdomen: Negative for ascites and bruising, normoactive bowel sounds, soft, non- tender to palpation throughout Musculoskeletal: Symmetrical and without signs of acute trauma, upper and lower extremities with full ROM, no atrophy, spasticity, or flaccidity; swelling and erythema of the LLE does not extend proximally to the left knee and distally to the left ankle, no significant swelling or erythema of the left ankle or foot Extremities: Radial, dorsalis pedis, and posterior tibial pulses are intact and symmetrical, LLE currently swollen compared to right Skin: LLE with swelling, erythema, and warmth between the left knee and left ankle, does not cross either joint, 3 chronic wounds on the lateral LLE with pustulous drainage from the most distal wound Neuro: Alert and oriented to person, place, month, year, and president, no focal defects, no tremors noted Psych: No acute distress, calm and cooperative during the exam Principal Diagnosis 1. High-grade AV block status post pacemaker placement during this hospital stay 2. Recent bilateral cellulitis, improving Discharge Exam General: Awake, conversant Heart: S1, S2/regular rate and rhythm, no murmur rubs or gallops Lungs: Clear to auscultation bilaterally. Normal effort Abdomen: Soft/nontender/nondistended. No hepatosplenomegaly Extremities: No clubbing/cyanosis. No edema Behavior: Appropriate, cooperative Discharge Data Allergies Allergy/AdvReac Type Severity Reaction Status Date / Time No Known Allergies Allergy Verified 09/20/23 20:15 Consultations 09/26/23 16:49 ED Decision to Admit Stat 09/28/23 09:06 Consult Cardiology Routine Procedures Performed Operation Date: 09/29/23 13:00 Actual Procedures p ICD Insertion Single or Dual - Brian Snyder MD s Lead LV (No Priopr Implant) - Brian Snyder MD s Venogram, Unilateral - Brian Snyder MD Ordered Studies 09/26/23 14:04 US venous duplex leg [US venous doppler LE LT] Stat 09/29/23 07:30 EP Lab Images for PACS ONCE Hospital Course (1) Generalized weakness: Patient was discharged home 09/25 after 6 day stay for Strep bacteremia and 2nd degree AV block. Was able to ambulate with PT and recommended for home at that time. Since discharge, unable to ambulate without great difficulty and assistance from family members. Could be from bradycardia, deconditioning from bacteremia and hospital stay, plus use of cyproheptadine for itching which is now resolved Possibly also due to pain in left leg and ankle from cellulitis +/- gout leg cellulitis and edema have resolved. UA neg for infection, no leukocytosis, tachycardia or sepsis. Left leg/ankle erythema,edema, and pain Resolved Now s/p pacer placement and feeling much better -continue amoxicillin as recommended by ID during last admission at this time for Strep bacteremia -PT/OT recommend rehab -Fall precautions (2) Cellulitis of left lower extremity: Continues to improve, edema and erythema resolved LLE Venous Doppler here neg for DVT but does show left inguinal lymphadenopathy Xrays of the left ankle and foot without acute findings Potentially w/ gout left ankle -Did receive colchicine after admission, pain improving -continue amoxicillin as recommended by ID with an end date of 10/06 -Wound care nurse consult placed for 3 small wounds--> continue Aquacel Ag and Optifoam for now-appear small and healing (3) Elevated troponin: High sen trop elevated at 25 and stable on repeat check at 26 Ongoing Mobitz 1 2nd degree AVB Likely due to demand ischemia from recent illness and dehydration 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 Sanchez Jul 2023--> does not need to be on Plavix-discontinued -continue ASA,but is not on statin, was not on BB due to bradycardia Started the patient on metoprolol now that pacemaker is placed (4) Streptococcal bacteremia: -Strep pyogenes bacteremia present on last admission -Source is thought to be LLE cellulitis and multiple other skin open wounds from itching -Continue amoxicillin 1000mg po tid through 10/06 -Follow repeat blood cultures to ensure they are still negative -remain NGTD from 09/22 and 09/26 (5) AV block, Mobitz 1: -Noted on last admission, thought to be contributing to his recurrent falls at presentation last admission -now s/p pacemaker placement now that he is clear from his recent strep bacteremia (6) HFrEF (heart failure with reduced ejection fraction): LVEF of 30-35% with mod AI,mild-mod MR, dilated aortic root 4.3cm on 09/22 ECHO Aortic root/ascending aortic aneurysmroot 4.7, aorta 4.[address] surgery not thought surgical candidate CXR negative for signs of failure and peripheral edema much improved -Continue toprol XL Entresto, aldactone, torsemide, and Jardiance - continue 2gm sodium and 1800 mL fluid restriction, daily weights, strict I/Os -now s/p ICD/pacer placement (7) Obstructive sleep apnea: - can use his home CPAP machine (8) Prostate cancer: -Continue Casodex stable on last PET scan Plan DVT proph-add on Lovenox SQ patient is going to rehab today Total Time Total Time Spent Total Time Spent (In Minutes): 35 Discharge Plan Discharge Items Patient Disposition: Transfer Detention Fac Reason For Visit: NEED FOR PLACEMENT, FAILURE TO THRIVE, LLE CELLULI Discharge Diagnosis: 1. High-grade AV block status post pacemaker placement during this hospital stay 2. Recent bilateral cellulitis, improving Activity: Resume your previous activity Non-emergency contact: Primary Care Provider Call non-emergency contact if: you have any medication questions and your sy mptoms worsen Follow-up/Referrals: Brian Snyder MD [Physician] - Nba Lr DO [Primary Care Provider] - Diet: Heart Healthy and Low Sodium (2gm) Addtl Attending Provider Instructions: ACTIVITY RECOMMENDATIONS: * Do not raise affected arm over head for 2 weeks. SPECIAL CARE INSTRUCTIONS: * If bleeding occurs, apply direct pressure to area for 5 minutes. * Call your doctor if you have severe pain, fever, drainage or bleeding at site. * Keep dressing on and dry until 10/02/2013 then remove. * Keep any scheduled doctor's appointment. * Implant Card - hand held device with website information given. SKIN IRRITATION: * You may experience some redness and/or swelling in the area where radiation was administered. If any skin irritation occurs, please contact your family physician. FOLLOW UP VISIT: Keep any scheduled doctor appointments. Pending Studies at Discharge: No Stand-Alone Forms: My [facility] Skilled Items Patient informed of condition?: Yes DNR: Yes Discharge Level of Care: Skilled Communicable Disease: No Discharge Prognosis: Stable Lines: None Urinary Catheter: No Medications and DC Order Prescriptions: New metoprolol succinate 25 mg Tablet Extended Release 24 Hr 25 mg PO QAM 30 Days Qty: 30 0RF Continued aspirin [Adult Low Dose Aspirin] 81 mg tablet,delayed release (DR/EC) 81 mg PO DAILY Qty: 30 2RF Jardiance 10 mg tablet 10 mg PO DAILY Qty: 90 3RF Entresto 97-103 mg tablet 1 tab PO BID Qty: 180 3RF clopidogrel [Plavix] 75 mg tablet 75 mg PO DAILY 30 Days Qty: 90 3RF spironolactone 25 mg tablet 25 mg PO DAILY Qty: 30 2RF torsemide 10 mg tablet 10 mg PO DAILY Qty: 60 1RF Rx Instructions: May increase to 20 mg PRN cholecalciferol (vitamin D3) 50 mcg (2,000 unit) capsule 250 mcg PO DAILY ibuprofen 200 mg tablet 200 mg PO Q6H PRN (Reason: Pain) acetaminophen [Tylenol Extra Strength] 500 mg tablet 500 mg PO QAM bicalutamide [Casodex] 50 mg tablet 50 mg PO DAILY Qty: 30 6RF calcium carbonate-vitamin D3 [Calcium 600 + D(3)] 600 mg(1,500mg) -400 unit Tablet 1 tab PO DAILY Prevagen 1 tab PO DAILY glvmkebberjv-Lt-cvna-minerals Tablet 1 tab PO QAM amoxicillin 500 mg tablet 1,000 mg PO TID Qty: 70 0RF Discontinued cyproheptadine 4 mg Tablet 4 mg PO BID Qty: 40 0RF Discharge Orders: Discharge Order (Routine); Ordered 10/06/23 Ordered By: Goran Finn/Other Patient Handouts: Coping with Heart Failure Admission Data Admit Date/Time: 09/26/23 17:23 Attending Provider: Goran Ch Admit Provider: Cristopher Do Primary Care Provider: Nba Lr Other Providers: [facility]; [facility]; Street,[facility]; Cristopher Do; Brian Snyder Other Interventions: Discharge Summary Assessment (RN) Last Done: 10/06/23 15:48 Coding Level of Care Code 98063 INP/OBS DISCH >30 MIN Diagnoses Generalized weakness R53.1 Cellulitis of left lower extremity L03.116 Elevated troponin R79.89 Streptococcal bacteremia R78.81; B95.5 AV block, Mobitz 1 I44.1 HFrEF (heart failure with reduced ejection fraction) I50.20 Obstructive sleep apnea G47.33 Prostate cancer C61
== END 2023-10-06 16:11 | DRG 277 ==
LOC: ED 13:35 → 2S 17:23 → SUATTDRO 17:23 → 2S 19:53 → 3N 10-02 23:48
PROC: EPB.ICD (2023-09-29 13:00)

== ENCOUNTER 2024-08-20 15:30 | Inpatient (IN) ==
--- NOTE | 2024-08-20 16:03 | Emergency Department Note ---
Impression & Plan Acute dyspnea, Acute UTI Admission ED Provider Note HPI: History obtained from patient and patient's son at the bedside. The patient is a 89-year-old gentleman with history of HFrEF, bifascicular block status post AICD placement, CAD, who presents the emergency department with a chief complaint of shortness of breath, subjective fever, and lower abdominal pain. Patient states he has had the symptoms for the past several days aside from the lower abdominal pain which is started today. Patient denies any nausea or vomiting, denies any diarrhea. Patient states he was recently diagnosed with a urinary tract infection and was placed on antibiotic but is unsure of what the antibiotic is. Here to the ED the patient is hemodynamically stable, he is saturating well on room air on arrival. Patient does express concern that he recently was at a [employer] study group and one of the people at the group had COVID-19. ROS: - Per HPI Differential Diagnosis: Acute CHF exacerbation, pulmonary edema, pneumonia, viral upper respiratory infection to include COVID-19 infection, pulmonary embolism, urinary tract infection, sepsis, amongst other potential pathologies. *Outpatient medications and allergy history reviewed. PE: General: Alert HEENT: Normocephalic, trachea midline Eyes: Extraocular eye movement is intact, no scleral erythema Pulmonary: Diminished bilateral breath sounds without wheezing Cardio: Regular rate and rhythm GI: Abdomen is soft to palpation : No suprapubic tenderness MSK: No evidence of trauma or malformation of the extremities, no edema Skin: No evidence of rash Neuro: Alert, no focal deficits Psychiatric: Cooperative INDEPENDENT INTERPRETATIONS: night monitor: (As interpreted by myself): - An order was placed for continuous cardiac monitoring - Patient was noted to be in paced rhythm with a rate of 70 EKG: (As interpreted by myself): Rate: 97 Rhythm: Atrial sensed ventricular paced rhythm Intervals: QRS 160 ms, QTc 530 ms, VT within normal limits ST changes: No ST elevation Time: 1608 Chest x-ray: (As interpreted by myself): Pulmonary edema pattern without focal infiltrate Interventions provided in ED: -IV Lasix, IV ceftriaxone Medical Decision Making: IV was established and lab work obtained, patient was placed on ekg monitor. Lab work shows a mild leukocytosis of 11.12, hemoglobin is stable at 11.8, platelet count is normal, CMP does not show any evidence of any critical findings, no evidence of acute kidney injury, troponin is negative x 1. EKG per my interpretation shows a paced rhythm without acute ischemic changes. BNP is elevated at 1121. Urinalysis shows trace ketones trace blood, 1+ leukocyte esterase with significant pyuria. Will send for culture. Previous culture from earlier this month shows pansensitive enterococcus faecalis as the source of the patient's urinary tract infection. Blood culture was sent and the patient was started on IV ceftriaxone. CT imaging of the abdomen pelvis with IV contrast was obtained, there is evidence of possible bladder wall mass as well as evidence of a lytic lesion in the ninth rib on the right side but no evidence of any acute surgical abnormalities. Patient had multiple episodes of oxygen desaturations below 90% here in the ED requiring nasal cannula oxygen for improvement. Patient was given a dose of IV Lasix here in the ED given pulmonary edema/congestion on chest x-ray. I suspect his dyspnea is likely related to mild heart failure. Patient was unable to maintain his oxygen above 90% on room air, he was therefore placed for admission. Patient and his family at the bedside are in agreement to this plan. [facility] hospitalist service was consulted for admission and the patient was placed for admission in stable condition. Consultants/Discussions held with other healthcare providers: -Hospitalist, Dr. Newman Disposition discussion held by myself with: -Patient, patient's at the bedside, patient's son at the bedside Critical Care Time: 45 minutes -Stabilization of hypoxia with patient's oxygen saturation 88% on room air requiring nasal cannula oxygen for correction, time spent at the bedside, interpretation of diagnostic studies, consultation with other physicians and arrangement of admission. Diagnosis: 1. Hypoxia, acute 2. Urinary tract infection, acute 3. Leukocytosis, acute 4. Anemia, chronic, stable 5. 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 Gout flare Generalized weakness (Acute) Thoracic ascending aortic aneurysm Cyst of pancreas (~06/2021) 04/2022 3 cm Obstructive sleep apnea Organic periodic limb movement disorder Nocturnal hypoxemia Medical History (Updated 08/20/24 @ 19:11 by Noe Timmons DO) Recurrent falls Multiple pulmonary nodules Ct scan 06/2021 through 05/2023, stable no further surveillance Chronic venous insufficiency Pruritus Nonischemic cardiomyopathy CAD (coronary artery disease) Aortic root dilation Aortic regurgitation AV block, Mobitz 1 Venous ulcer Pigmented skin lesion of uncertain behavior of torso IPMN (intraductal papillary mucinous neoplasm) Hyperglycemia Blood Sugar 216 after Kenalog injection 02/2022. HgbA1c 5.9%. Mild cognitive impairment NSTEMI (non-ST elevated myocardial infarction) Bifascicular block Left-sided chest pain 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 Elevated PSA, less than 10 ng/ml Mild neurocognitive disorder Abnormal gait Gout Nephrolithiasis Urinary urgency Chronic venous stasis Periodic limb movement disorder Hypertension Hyperlipidemia Surgical History S/P tonsillectomy and adenoidectomy S/P colonoscopy 10 years S/P cataract surgery 11/2015 Family History Mother Breast cancer Lung disease COPD (chronic obstructive pulmonary disease) Father Heart disease Denies family history of Colon cancer Ovarian cancer Prostate cancer Myocardial infarction Colorectal cancer Social History Smoking Status: Never smoker Tobacco Type: Cigarettes Age Started Using Tobacco: 16; Age Quit Using Tobacco: 35; packs per day: 1; Second Hand Exposure: No; Do You Dip or Chew Tobacco: No; Hx Alcohol Use: Yes Alcohol type: beer, wine and hard liquor Alcohol Intake Frequency: 2-3 x/Week Alcohol Intake Frequency Comment: 1 beer a week Hx Substance Use: No Preferred Language: Thai Communication Ability: Effective Visual Impairment: Limited Hearing Ability: Normal Research Group Director Required: No Beliefs That Will Affect Care: None marital status: Current Living Situation: Spouse Current Living Situation Comment: Living at home with current occupational status: employed current occupation: works at a [employer] How many Children do You have: 2 Feels Safe at Home: Yes Childhood Exposure to Second-Hand Smoke: Yes Diet: regular caffeine: Yes (coffee daily, tea, soda ) Dental Care, Regularly: Yes Physical Activity Frequency: Daily Physical Activity Frequency Comment: prescribed by therapy Seatbelt Use: always Sunscreen Use: No Assistive Devices: Cane Allergies Allergies Allergy/AdvReac Type Severity Reaction Status Date / Time No Known Allergies Allergy Verified 08/17/24 09:58 Home Meds Home Medications Medication Instructions Recorded Confirmed calcium 600 mg (as 1 tab PO DAILY 06/08/19 08/20/24 carbonate)-vitamin D3 10 mcg (400 unit) tablet (Calcium 600 + D(3)) Prevagen 1 tab PO DAILY 06/18/21 08/20/24 ibuprofen 200 mg tablet 200 mg PO Q6H PRN Pain 10/08/21 08/20/24 kdzevfxlufig-Jf-iclb-minerals 1 tab PO QAM 09/20/23 08/20/24 cholecalciferol (vitamin D3) 50 50 mcg PO DAILY 11/11/23 08/20/24 mcg (2,000 unit) capsule acetaminophen 500 mg tablet 1,000 mg PO QAM pain 04/19/24 08/20/24 (Tylenol Extra Strength) balance of nature 6 cap PO DAILY 04/19/24 08/20/24 Previous Rx's Medication Instructions Recorded aspirin 81 mg tablet,delayed 81 mg PO DAILY #30 tabs 07/31/21 release (Adult Low Dose Aspirin) metoprolol succinate 25 mg 25 mg PO DAILY #90 tabs 11/11/23 tablet,extended release 24 hr spironolactone 25 mg tablet 12.5 mg (1/2 x 25 mg) PO DAILY #45 03/14/24 tabs sacubitril 97 mg-valsartan 103 mg 1 tab PO BID #180 tabs 07/22/24 tablet (Entresto) torsemide 10 mg tablet 10 mg PO DAILY #30 tabs 08/14/24 nitrofurantoin 100 mg PO Q12H 7 days #14 caps 08/19/24 monohydrate/macrocrystals 100 mg capsule (Macrobid) Results & Data (ED) Vital Signs Vital Signs - 24 hr 08/20/24 15:31 08/20/24 16:15 08/20/24 16:16 Temperature 37.5 C Temperature Source Temporal Artery Scan Pulse Rate 97 H 95 H 83 Pulse Rate from SpO2 Sensor Respiratory Rate 18 33 H 31 H Blood Pressure 128/94 Blood Pressure Mean 105 Pulse Oximetry 95 88 L 93 Oxygen Delivery Method Room Air Room Air Nasal Cannula Oxygen Flow Rate 2 Sepsis Recent Fever Within 48 Hours No Sepsis New/Unexplained Change in Mental Status N/A Sepsis Action Taken by Nursing No Action Required Oxygen Flow Rate - Titration Pulse Oximetry Post Tiitration 08/20/24 16:16 08/20/24 16:19 08/20/24 16:30 Temperature 37.4 C Temperature Source Oral Pulse Rate 77 80 Pulse Rate from SpO2 Sensor 74 Respiratory Rate 27 H Blood Pressure 107/68 Blood Pressure Mean 75 Pulse Oximetry 95 Oxygen Delivery Method Nasal Cannula Oxygen Flow Rate 2 Sepsis Recent Fever Within 48 Hours Sepsis New/Unexplained Change in Mental Status Sepsis Action Taken by Nursing Oxygen Flow Rate - Titration Pulse Oximetry Post Tiitration 08/20/24 17:06 08/20/24 17:52 08/20/24 18:00 Temperature Temperature Source Pulse Rate 90 108 H 72 Pulse Rate from SpO2 Sensor 91 H 82 Respiratory Rate 32 H 26 H Blood Pressure 118/73 111/58 L Blood Pressure Mean 92 75 Pulse Oximetry 96 90 Oxygen Delivery Method Oxygen Flow Rate Sepsis Recent Fever Within 48 Hours Sepsis New/Unexplained Change in Mental Status Sepsis Action Taken by Nursing Oxygen Flow Rate - Titration Pulse Oximetry Post Tiitration 08/20/24 18:30 08/20/24 19:03 08/20/24 19:19 Temperature Temperature Source Pulse Rate 92 H 65 Pulse Rate from SpO2 Sensor 73 Respiratory Rate 23 30 H Blood Pressure 115/61 102/75 Blood Pressure Mean 82 84 Pulse Oximetry 96 90 88 L Oxygen Delivery Method Nasal Cannula Room Air Nasal Cannula Oxygen Flow Rate 2 0 Sepsis Recent Fever Within 48 Hours Sepsis New/Unexplained Change in Mental Status Sepsis Action Taken by Nursing Oxygen Flow Rate - Titration 2 Pulse Oximetry Post Tiitration 93 Laboratory Data 08/20/24 16:24 08/20/24 16:24 Lab Results 08/20/24 08/20/24 Range/Units 16:24 17:49 WBC 11.12 H (4.8-10.8) K/ul RBC 3.73 L (4.70-6.10) M/uL Hgb 11.8 L (14.0-18.0) g/dl Hct 34.4 L (42.0-52.0) % MCV 92.2 (80.0-100.0) fL MCH 31.6 (25.0-34.0) pg MCHC 34.3 (32.0-36.0) g/dL RDW Std Deviation 43.7 (36.4-46.3) fL RDW Coeff of Armando 13.0 (11.5-14.5) % Plt Count 186 (130-400) K/uL MPV 9.3 L (9.4-12.4) fL Immature Gran % (Auto) 0.3 % Neut % (Auto) 93.0 % Lymph % (Auto) 2.4 % [place] % (Auto) 4.1 % Eos % (Auto) 0.1 % Baso % (Auto) 0.1 % Neut # (Auto) 10.34 H (1.40-6.50) K/uL Lymph # (Auto) 0.27 L (1.20-3.40) K/uL [place] # (Auto) 0.46 (0.11-0.59) K/uL Eos # (Auto) 0.01 (0.00-0.50) K/uL Baso # (Auto) 0.01 (0.00-0.20) K/uL Immature Gran # (Auto) 0.03 (0.01-0.20) K/uL Sodium 138 (136-145) mmol/L Potassium 4.1 (3.5-5.1) mmol/L Chloride 108 H (98-107) mmol/L Carbon Dioxide 26 (21-32) mmol/L Anion Gap 4 (3-11) BUN 23 (6-23) mg/dl Creatinine 0.96 (0.6-1.4) mg/dl Est Cr Clr Drug Dosing 53.9 ml/min eGFR 75.55 BUN/Creatinine Ratio 24.0 H (10-20) Glucose 127 H (70-99(Fasting)) mg/dl Calcium 9.8 (8.6-10.3) mg/dl Total Bilirubin 0.6 (0.2-1.0) mg/dl AST 16 (13-39) U/L ALT 9 (7-52) U/L Alkaline Phosphatase 75 (34-104) U/L Troponin I High Sens 18.1 (0-20) pg/ml B-Natriuretic Peptide 1121 H (0-100) pg/ml Total Protein 6.4 (6.0-8.3) gm/dl Albumin 3.9 (3.4-5.0) gm/dl Globulin 2.5 (2.5-4.0) gm/dl Albumin/Globulin Ratio 1.6 (0.9-2) Lipase 7 L (11-82) U/L Urine Color Yellow Urine Appearance Cloudy A (Clear) Urine pH 5.0 (4.5-7.5) Ur Specific [place] > 1.045 H (1.000-1.030) Urine Protein 1+ H (Negative) Urine Glucose (UA) Negative (Negative) Urine Ketones Trace H (Negative) Urine Blood Trace H (Negative) Urine Nitrite Negative (Negative) Urine Bilirubin Negative (Negative) Urine Urobilinogen Negative (Negative) Ur Leukocyte Esterase 1+ H (Negative) Urine WBC (Auto) >50 H (0-5) /hpf Urine RBC (Auto) 3-5 H (0-2) /hpf U Hyaline Cast (Auto) 0-2 (0-2) /lpf U Epithel Cells (Auto) 0-2 (0-2) /hpf Urine Bacteria (Auto) None Seen (None Seen) Adenovirus (PCR) Not Detected (NotDetected) B. pertussis DNA (PCR) Not Detected (NotDetected) B.parapertussis DNA PCR Not Detected (NotDetected) C. pneumoniae DNA (PCR) Not Detected (NotDetected) Coronavirus OC43 (PCR) Not Detected (NotDetected) Coronavirus HKU1 (PCR) Not Detected (NotDetected) Coronavirus 229E (PCR) Not Detected (NotDetected) SARS-CoV-2 (PCR) Not Detected (NotDetected) Coronavirus NL63 (PCR) Not Detected (NotDetected) Human Metapneumovir PCR Not Detected (NotDetected) Influenza Type A (PCR) Not Detected (NotDetected) Influenza Type B (PCR) Not Detected (NotDetected) M. pneumoniae (PCR) Not Detected (NotDetected) Parainfluenza 1 (PCR) Not Detected (NotDetected) Parainfluenza 2 (PCR) Not Detected (NotDetected) Parainfluenza 3 (PCR) Not Detected (NotDetected) Parainfluenza 4 (PCR) Not Detected (NotDetected) RSV (PCR) Not Detected (NotDetected) Entero/Rhino (PCR) Not Detected (NotDetected) Administered Medications Discontinued Medications Furosemide (Furosemide Inj 20 Mg/2 Ml Vial) 20 mg IV ONE ONE Stop: 08/20/24 18:37 Last Admin: 08/20/24 18:40 Dose: 20 mg Documented By: CEF Ioversol (Optiray 320 100ml) 93 ml IV ONCE ONE Stop: 08/20/24 17:14 Last Admin: 08/20/24 17:13 Dose: 93 ml Documented By: LOCO Imaging Data Radiologist's Impression: Chest X-Ray 08/20/24 15:51 SINGLE VIEW CHEST CLINICAL HISTORY: Dyspnea. Generalized weakness. FINDINGS: 2 AP, portable, upright chest radiographs are compared to study dated 09/30/2023. Correlation is made with chest CT dated 05/20/2023. A 3-lead cardiac AICD is unchanged in position and partially obscures the left upper chest. The heart is markedly enlarged. There is mild pulmonary vascular congestion. There is mild bibasilar atelectasis. No large pleural effusion or pneumothorax is seen. The skeletal structures are osteopenic. The bony thorax is grossly intact. Arthritic change is noted in the shoulders. IMPRESSION: 1. Cardiomegaly and AICD with mild pulmonary vascular congestion. 2. No airspace consolidation or large pleural effusion is identified. ACT 112: Negative or not required by law. Electronically signed by: Oscar Gan M.D. 08/20/2024 4:21 PM Abdomen/Pelvis CT 08/20/24 16:01 CT SCAN OF THE ABDOMEN AND PELVIS WITH IV CONTRAST CLINICAL HISTORY: Lower abdominal pain. Urinary tract infection. History of prostate cancer. COMPARISON STUDY: Abdominal MRI dated 10/16/2022. PET/CT dated 05/28/2023. TECHNIQUE: Following the IV administration of 93 cc of Optiray 320, CT scan of the abdomen and pelvis is performed from the lung bases to the proximal femora. Images are reviewed in the axial, sagittal, and coronal planes. IV contrast was administered without complication. A dose lowering technique was utilized adhering to the principles of ALARA. The examination is degraded by motion artifact. CT DOSE: 905.33 mGy.cm FINDINGS: Lung bases: The heart is markedly enlarged and without pericardial effusion. Pacemaker leads are in place. There are scattered calcific granulomas. The lung bases are otherwise clear noting bibasilar scarring/atelectasis. There is a small hiatal hernia. Gynecomastia is noted. Liver: The contrast-enhanced liver is normal in size, contour, and attenuation. There is no intrahepatic biliary ductal dilatation. The hepatic veins and portal veins are patent. Small hepatic cysts measure up to 1.3 cm. A 2.4 cm calcification containing cystic structure anterior to the possible ligament on image #60 is indeterminant and unchanged from prior studies. Gallbladder: Mildly distended but otherwise normal as imaged. Spleen: Normal in size and attenuation. Pancreas: The pancreas is mildly atrophic. 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 A 1.1 cm cystic lesion in the uncinate is also unchanged. The pancreatic duct is normal in caliber. Adrenal glands: Bilateral adrenal adenomas measure up to 1.6 cm. These are similar to previous. Kidneys: The contrast enhanced kidneys demonstrate mild cortical atrophy and are without hydronephrosis. The kidneys enhance symmetrically. Bilateral renal cysts measure up to 4.1 cm. Additional subcentimeter cortical hypodensities also likely represent cysts but are too small for definitive characterization. Abdominal vasculature: The abdominal aorta is normal in course and caliber noted is moderate atherosclerotic calcification. Bowel: There is moderate colonic diverticulosis without CT evidence of acute diverticulitis. No bowel obstruction is seen. The appendix is normal as visualized. Peritoneum: There is no intraperitoneal free air or abdominal ascites. There is a fat-containing umbilical hernia. Lymphadenopathy: None. Pelvic viscera: The prostate gland is enlarged and heterogeneous. The bladder wall is thickened and irregular indicating chronic outlet obstruction. There is significantly asymmetric and nodular wall thickening seen along the left posterior wall of the bladder near the dome on image #239. This measures up to 2.6 cm. Skeletal structures: The skeletal structures are osteopenic. There is advanced lumbosacral spondylosis as well as scoliosis. There is a large sclerotic lesion in the right posterolateral ninth rib seen on image #56. No additional sclerotic bony lesions are identified. IMPRESSION: 1. No acute infectious or inflammatory findings are identified in the abdomen or pelvis. 2. Prostatomegaly with evidence of chronic bladder outlet obstruction. 3. There is significant and asymmetric nodularity along the left posterior bladder wall. This is highly suspicious for urothelial neoplasm. Follow-up with urology is recommended. 4. There is a large sclerotic focus within the right posterolateral 9th rib. This represents a significant change from the 05/28/2023 PET examination, and given the history of prostate cancer is suspicious for a bony metastasis. 5. No additional sclerotic bone lesions are seen. 6. Marked cardiomegaly. 7. Colonic diverticulosis without CT evidence of acute diverticulitis. 8. Additional findings as above ACT 112: Positive. There are findings on this exam that require communication between the performing entity and the patient following Patient Test Result Information Act ([place] Act 112) guidelines. Electronically signed by: Oscar Gan M.D. 08/20/2024 6:14 PM Discharge Plan Visit Data Chief Complaint: Illness Stated Complaint: HAS UTI, EXPOSED TO COVID ED Provider: Noe Timmons Discharge Problem: Acute dyspnea, Acute UTI Patient Disposition: Home - Self-Care Condition: Good Discharge Instructions Krames/Other Patient Handouts: ED Shortness of Breath (Dyspnea), ED [facility] UTI Activity Restrictions/Additional Instructions: Please follow-up with your primary care doctor in 2 to 3 days for reassessment further management. Please follow-up with urology (Dr. Mcdowell) in the office as discussed in regards to possible bladder wall mass, please call to schedule this appointment. Please continue to take your antibiotic as prescribed. Please return to the emergency room if you have any new or acutely worsening symptoms. Forms Stand Alone Forms: My [facility], Important Visit Information Prescriptions Prescriptions: No Action aspirin [Adult Low Dose Aspirin] 81 mg tablet,delayed release (DR/EC) 81 mg PO DAILY Qty: 30 2RF spironolactone 25 mg tablet 12.5 mg PO DAILY Qty: 45 3RF Entresto 97-103 mg tablet 1 tab PO BID Qty: 180 3RF torsemide 10 mg tablet 10 mg PO DAILY Qty: 30 5RF Rx Instructions: May increase to 20 mg PRN nitrofurantoin monohyd/m-cryst [Macrobid] 100 mg capsule 100 mg PO Q12H 7 Days Qty: 14 0RF Rx Instructions: filled 08/19 must administer with a meal/food cholecalciferol (vitamin D3) 50 mcg (2,000 unit) capsule 50 mcg PO DAILY ibuprofen 200 mg tablet 200 mg PO Q6H PRN (Reason: Pain) metoprolol succinate 25 mg tablet extended release 24 hr 25 mg PO DAILY Qty: 90 3RF acetaminophen [Tylenol Extra Strength] 500 mg tablet 1,000 mg PO QAM balance of nature 6 cap PO DAILY Rx Instructions: 3 caps of fruit supplement & 3 caps of vegetable supplement calcium carbonate-vitamin D3 [Calcium 600 + D(3)] 600 mg(1,500mg) -400 unit Tablet 1 tab PO DAILY Prevagen 1 tab PO DAILY pmrtatwndnyd-Bt-cebu-minerals Tablet 1 tab PO QAM Referrals Referrals: Nba Lr DO [Primary Care Provider] -
--- NOTE | 2024-08-20 16:22 | XRay Report ---
SINGLE VIEW CHEST CLINICAL HISTORY: Dyspnea. Generalized weakness. FINDINGS: 2 AP, portable, upright chest radiographs are compared to study dated 09/30/2023. Correlati on is made with chest CT dated 05/20/2023. A 3-lead cardiac AICD is unchanged in position and partiall y obscures the left upper chest. The heart is markedly enlarged. There is mild pulmonary vascular con gestion. There is mild bibasilar atelectasis. No large pleural effusion or pneumothorax is seen. The skeletal structures are osteopenic. The bony thorax is grossly intact. Arthritic change is noted in t he shoulders. IMPRESSION: 1. Cardiomegaly and AICD with mild pulmonary vascular congestion. 2. No airspace consolidation or large pleural effusion is identified. ACT 112: Negative or not required by law. Electronically signed by: Oscar Gan M.D. 08/20/2024 4:21 PM
[2024-08-20 16:42] LABS: Hematocrit (blood only) 34.4 % (42.0-52.0); Hemoglobin 11.8 g/dl (14.0-18.0); Mean Corpuscular Hemoglobin 31.6 pg (25.0-34.0); Mean Corpuscular Hgb Conc 34.3 g/dL (32.0-36.0); Mean Corpuscular Volume 92.2 fL (80.0-100.0); Mean Platelet Volume 9.3 fL (9.4-12.4); Platelet Count 186 K/uL (130-400); RDW Standard Deviation 43.7 fL (36.4-46.3); Red Blood Count 3.73 M/uL (4.70-6.10); White Blood Count 11.12 K/ul (4.8-10.8)
[2024-08-20 17:00] LABS: Albumin Globulin Ratio 1.6 (0.9-2); Albumin Level 3.9 gm/dl (3.4-5.0); Bilirubin,Total 0.6 mg/dl (0.2-1.0); Calcium 9.8 mg/dl (8.6-10.3); Creatinine Clr Calc Pharmacy 53.9 ml/min; Globulin 2.5 gm/dl (2.5-4.0); Potassium 4.1 mmol/L (3.5-5.1); Total Protein 6.4 gm/dl (6.0-8.3)
[2024-08-20 17:07] LABS: Troponin I High Sensitivity 18.1 pg/ml (0-20)
[2024-08-20] MEDS: OPTIRAY 320 100ml IV ONE (17:13)
[2024-08-20 17:26] LABS: Adenovirus PCR Not Detected (NotDetected); Bordetella parapertussis PCR Not Detected (NotDetected); Bordetella pertussis PCR Not Detected (NotDetected); Chlamydia pneumoniae PCR Not Detected (NotDetected); Coronavirus 229E PCR Not Detected (NotDetected); Coronavirus CoV-2 (COVID19)PCR Not Detected (NotDetected); Coronavirus HKU1 PCR Not Detected (NotDetected); Coronavirus NL63 PCR Not Detected (NotDetected); Coronavirus OC43PCR Not Detected (NotDetected); Human Metapneumovirus PCR Not Detected (NotDetected); Influenza A PCR Not Detected (NotDetected); Influenza B PCR Not Detected (NotDetected); Mycoplasma pneumoniae PCR Not Detected (NotDetected); Parainfluenza Virus 1 PCR Not Detected (NotDetected); Parainfluenza Virus 2 PCR Not Detected (NotDetected); Parainfluenza Virus 3 PCR Not Detected (NotDetected); Parainfluenza Virus 4 PCR Not Detected (NotDetected); Respiratory Syncytial VirusPCR Not Detected (NotDetected); Rhinovirus/Enterovirus PCR Not Detected (NotDetected)
[2024-08-20 17:33] LABS: Basophils # (auto) 0.01 K/uL (0.00-0.20); Basophils % (auto) 0.1 %; Eosinophils # (auto) 0.01 K/uL (0.00-0.50); Eosinophils % (auto) 0.1 %; Immature Granulocytes # (auto) 0.03 K/uL (0.01-0.20); Immature Granulocytes % (auto) 0.3 %; Lymphocytes # (auto) 0.27 K/uL (1.20-3.40); Lymphocytes % (auto) 2.4 %; Monocytes # (auto) 0.46 K/uL (0.11-0.59); Monocytes % (auto) 4.1 %; Neutrophils # (auto) 10.34 K/uL (1.40-6.50)
--- NOTE | 2024-08-20 18:16 | CT Scan Report ---
CT SCAN OF THE ABDOMEN AND PELVIS WITH IV CONTRAST CLINICAL HISTORY: Lower abdominal pain. Urinary tract infection. History of prostate cancer. COMPARISON STUDY: Abdominal MRI dated 10/16/2022. PET/CT dated 05/28/2023. TECHNIQUE: Following the IV administration of 93 cc of Optiray 320, CT scan of the abdomen and pelvi s is performed from the lung bases to the proximal femora. Images are reviewed in the axial, sagittal , and coronal planes. IV contrast was administered without complication. A dose lowering technique wa s utilized adhering to the principles of ALARA. The examination is degraded by motion artifact. CT DOSE: 905.33 mGy.cm FINDINGS: Lung bases: The heart is markedly enlarged and without pericardial effusion. Pacemaker leads are in p lace. There are scattered calcific granulomas. The lung bases are otherwise clear noting bibasilar sc arring/atelectasis. There is a small hiatal hernia. Gynecomastia is noted. Liver: The contrast-enhanced liver is normal in size, contour, and attenuation. There is no intrahepa tic biliary ductal dilatation. The hepatic veins and portal veins are patent. Small hepatic cysts francesca sure up to 1.3 cm. A 2.4 cm calcification containing cystic structure anterior to the possible ligame nt on image #60 is indeterminant and unchanged from prior studies. Gallbladder: Mildly distended but otherwise normal as imaged. Spleen: Normal in size and attenuation. Pancreas: The pancreas is mildly atrophic. 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 A 1.1 c m cystic lesion in the uncinate is also unchanged. The pancreatic duct is normal in caliber. Adrenal glands: Bilateral adrenal adenomas measure up to 1.6 cm. These are similar to previous. Kidneys: The contrast enhanced kidneys demonstrate mild cortical atrophy and are without hydronephros is. The kidneys enhance symmetrically. Bilateral renal cysts measure up to 4.1 cm. Additional subcent imeter cortical hypodensities also likely represent cysts but are too small for definitive characteri zation. Abdominal vasculature: The abdominal aorta is normal in course and caliber noted is moderate atherosc lerotic calcification. Bowel: There is moderate colonic diverticulosis without CT evidence of acute diverticulitis. No bowel obstruction is seen. The appendix is normal as visualized. Peritoneum: There is no intraperitoneal free air or abdominal ascites. There is a fat-containing umbi lical hernia. Lymphadenopathy: None. Pelvic viscera: The prostate gland is enlarged and heterogeneous. The bladder wall is thickened and i rregular indicating chronic outlet obstruction. There is significantly asymmetric and nodular wall th ickening seen along the left posterior wall of the bladder near the dome on image #239. This measures up to 2.6 cm. Skeletal structures: The skeletal structures are osteopenic. There is advanced lumbosacral spondylosi s as well as scoliosis. There is a large sclerotic lesion in the right posterolateral ninth rib seen on image #56. No additional sclerotic bony lesions are identified. IMPRESSION: 1. No acute infectious or inflammatory findings are identified in the abdomen or pelvis. 2. Prostatomegaly with evidence of chronic bladder outlet obstruction. 3. There is significant and asymmetric nodularity along the left posterior bladder wall. This is high ly suspicious for urothelial neoplasm. Follow-up with urology is recommended. 4. There is a large sclerotic focus within the right posterolateral 9th rib. This represents a signif icant change from the 05/28/2023 PET examination, and given the history of prostate cancer is suspicio us for a bony metastasis. 5. No additional sclerotic bone lesions are seen. 6. Marked cardiomegaly. 7. Colonic diverticulosis without CT evidence of acute diverticulitis. 8. Additional findings as above ACT 112: Positive. There are findings on this exam that require communication between the performing entity and the patient following Patient Test Result Information Act ([place] Act 112) guidelines. Electronically signed by: Oscar Gan M.D. 08/20/2024 6:14 PM
[2024-08-20 18:29] LABS: Appearance Urine Cloudy (Clear); Bacteria Urine Automated None Seen (None Seen); Bilirubin Urine Negative (Negative); Blood Urine Trace (Negative); Cast Urine Automated 0-2 /lpf (0-2); Color Urine Yellow; Epithelial Cell Urine Auto 0-2 /hpf (0-2); Glucose Urine UA Negative (Negative); Ketones Urine Trace (Negative); Leukocyte Esterase Urine 1+ (Negative); Nitrite Urine Negative (Negative); Protein Urine 1+ (Negative); Specific Gravity Urine > 1.045 (1.000-1.030); Urobilinogen Urine Negative (Negative); WBC Urine Automated >50 /hpf (0-5)
[2024-08-20] MEDS: FUROSEMIDE INJ 20 MG/2 ML VIAL IV ONE (18:40)
[2024-08-20] MEDS: cefTRIAXone SODIUM 1,000 MG/50 ML BAG IV STA (19:31)
[2024-08-20] MEDS ORDERED: ACETAMINOPHEN 325 MG TAB PO PRN (20:11)
--- NOTE | 2024-08-20 20:37 | History & Physical Report ---
Date of Service August 20, 2024 Assessment & Plan (1) Congestive heart failure: Plan Assessment: 1. Acute decompensated systolic congestive heart failure/congestive heart failure with reduced ejection fraction. Echocardiogram performed August 09 of this year shows a EF of 40%. Lasix IV 40 mg twice daily and fluid restriction. 2. Nonischemic cardiomyopathy. He does have an ICD pacemaker per the patient and . He is also on goal-directed medical therapy for his nonischemic cardiomyopathy in the form of Entresto and beta-blockade spironolactone and torsemide. Oral torsemide diuretic will be held and lieu of the IV Lasix at this point. We will continue the spironolactone diuretic. 3. History of nonobstructive coronary artery disease. Will do serial troponins. 4. Acute urinary tract infection. We have reviewed the urine cultures and sensitivities from August 17. He is growing E faecalis. Will continue IV Rocephin while inpatient. 5. Right ninth rib posterior lateral lesion consistent with possible metastatic prostate cancer lesion. Close outpatient follow-up with urology as needed upon discharge. Discussed with the patient and his extensively. 6. Bladder lesion as discussed above suspicious for possible malignancy. Again close short-term (7 to 10 days) outpatient follow-up with urology as recommended. 7. COVID exposure 5 days ago. Testing negative today. If the patient becomes more symptomatic or any other clinical stigmata of COVID-19 repeat testing would be recommended. 8. Hypertension. Continue home medications. 9. History of high degree AV block again status post pacemaker ICD. 10. History of hyperuricemia with gout. No evidence of acute exacerbation. 11. History of obstructive sleep apnea he is compliant with CPAP at home. He does not know his settings. We have ordered CPAP protocol for sleep. While inp atient. 12. Mild anemia. Chronic. Stable. 13. Acute hypoxemic respiratory failure secondary to acute CHF. 14. Rule out acute pulmonary embolism. We are doing a stat D-dimer given the patient's hypoxemic respiratory failure and history of malignancy he would be high risk. If D-dimer positive we will do a CTA of the chest. Plan: As discussed above. Please refer to orders for further planning. History of Present Illness Chief Complaint: Shortness of breath. Primary Care Provider: Nba Lr, DO Very pleasant 89-year-old gentleman with a history of congestive heart failure with reduced ejection fraction/chronic systolic congestive heart failure last echocardiogram earlier this month showed a left ventricular ejection fraction of 40%. Over the last 24 to 36 hours has had increasing shortness of breath. In addition recently diagnosed with a urinary tract infection from urology and was recently started on an antibiotic. Patient presents to the ER today for further evaluation and treatment for shortness of breath. In the ER his oxygen saturation dropped down into the mid 80s. He was commenced on oxygen therapy. Chest x-ray positive for bilateral pulmonary vascular congestion. proBNP was elevated at 1121. Troponin was negative. Electrolytes were satisfactory. CBC was satisfactory. Mild chronic anemia was noted. Hemoglobin stable 11.8 g/dL. In addition the patient reports being exposed to COVID on Thursday of this week at a Bible study. He is tested negative for COVID tonight. Patient also complained of some vague abdominal pain. CT of the abdomen pelvis was obtained. There were no acute findings of the CT abdomen pelvis but there is prostamegaly with evidence of chronic urinary outlet obstruction. He does follow with urology. However in addition the noted patient had an asymmetric nodularity along the left posterior bladder wall highly suspicious for u urothelial neoplasm. In addition the patient had a sclerotic lesion of the posterior lateral ninth rib which was large in nature and not present on the PET scan from May 2023 which does appear suspicious for possible metastatic prostate cancer. Course Emergency Department patient received Lasix 40 mg IV x 1 and Rocephin 1 g IV x 1. Hospitalist service was contacted to entertain admission. Allergies Allergy/AdvReac Type Severity Reaction Status Date / Time No Known Allergies Allergy Verified 08/17/24 09:58 Home Medications Medication Instructions Recorded Confirmed Type calcium 600 mg (as 1 tab PO DAILY 06/08/19 08/20/24 History carbonate)-vitamin D3 10 mcg (400 unit) tablet (Calcium 600 + D(3)) Prevagen 1 tab PO DAILY 06/18/21 08/20/24 History aspirin 81 mg tablet,delayed 81 mg PO DAILY #30 tabs 07/31/21 08/20/24 Rx release (Adult Low Dose Aspirin) ibuprofen 200 mg tablet 200 mg PO Q6H PRN Pain 10/08/21 08/20/24 History odydzatdkdjp-Hn-huhs-minerals 1 tab PO QAM 09/20/23 08/20/24 History cholecalciferol (vitamin D3) 50 50 mcg PO DAILY 11/11/23 08/20/24 History mcg (2,000 unit) capsule metoprolol succinate 25 mg 25 mg PO DAILY #90 tabs 11/11/23 08/20/24 Rx tablet,extended release 24 hr spironolactone 25 mg tablet 12.5 mg (1/2 x 25 mg) PO DAILY #45 03/14/24 08/20/24 Rx tabs acetaminophen 500 mg tablet 1,000 mg PO QAM pain 04/19/24 08/20/24 History (Tylenol Extra Strength) balance of nature 6 cap PO DAILY 04/19/24 08/20/24 History sacubitril 97 mg-valsartan 103 mg 1 tab PO BID #180 tabs 07/22/24 08/20/24 Rx tablet (Entresto) torsemide 10 mg tablet 10 mg PO DAILY #30 tabs 08/14/24 08/20/24 Rx nitrofurantoin 100 mg PO Q12H 7 days #14 caps 08/19/24 08/20/24 Rx monohydrate/macrocrystals 100 mg capsule (Macrobid) Past Med/Surg History Problem List (Updated 08/20/24 @ 20:30 by Masoud Banks, PhD, DO) Congestive heart failure Acute UTI (Acute) Acute dyspnea (Acute) Lumbar back pain High-grade atrioventricular block Hypertension HFrEF (heart failure with reduced ejection fraction) Cardiomyopathy Status post implantation of automatic cardioverter/defibrillator (AICD) Incomplete emptying of bladder 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 Gout flare Generalized weakness (Acute) Thoracic ascending aortic aneurysm Cyst of pancreas (~06/2021) 04/2022 3 cm Obstructive sleep apnea Organic periodic limb movement disorder Nocturnal hypoxemia Medical History (Updated 08/20/24 @ 20:30 by Masoud Banks, PhD, DO) Recurrent falls Multiple pulmonary nodules Ct scan 06/2021 through 05/2023, stable no further surveillance Chronic venous insufficiency Pruritus Nonischemic cardiomyopathy CAD (coronary artery disease) Aortic root dilation Aortic regurgitation AV block, Mobitz 1 Venous ulcer Pigmented skin lesion of uncertain behavior of torso IPMN (intraductal papillary mucinous neoplasm) Hyperglycemia Blood Sugar 216 after Kenalog injection 02/2022. HgbA1c 5.9%. Mild cognitive impairment NSTEMI (non-ST elevated myocardial infarction) Bifascicular block Left-sided chest pain 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 Elevated PSA, less than 10 ng/ml Mild neurocognitive disorder Abnormal gait Gout Nephrolithiasis Urinary urgency Chronic venous stasis Periodic limb movement disorder Hypertension Hyperlipidemia Surgical History S/P tonsillectomy and adenoidectomy S/P colonoscopy 10 years S/P cataract surgery 11/2015 Family History Mother Breast cancer Lung disease COPD (chronic obstructive pulmonary disease) Father Heart disease Denies family history of Colon cancer Ovarian cancer Prostate cancer Myocardial infarction Colorectal cancer Social History Smoking Status: Never smoker Tobacco Type: Cigarettes Age Started Using Tobacco: 16; Age Quit Using Tobacco: 35; packs per day: 1; Second Hand Exposure: No; Do You Dip or Chew Tobacco: No; Hx Alcohol Use: Yes Alcohol type: beer, wine and hard liquor Alcohol Intake Frequency: 2-3 x/Week Alcohol Intake Frequency Comment: 1 beer a week Hx Substance Use: No Preferred Language: Faroese Communication Ability: Effective Visual Impairment: Limited Hearing Ability: Normal Ct Tech Required: No Beliefs That Will Affect Care: None marital status: Current Living Situation: Spouse Current Living Situation Comment: Living at home with current occupational status: employed current occupation: works at a [employer] How many Children do You have: 2 Feels Safe at Home: Yes Childhood Exposure to Second-Hand Smoke: Yes Diet: regular caffeine: Yes (coffee daily, tea, soda ) Dental Care, Regularly: Yes Physical Activity Frequency: Daily Physical Activity Frequency Comment: prescribed by therapy Seatbelt Use: always Sunscreen Use: No Assistive Devices: Cane Review of Systems Review of Systems: A 10 point review of system was obtained and unless otherwise stated here or in history of present illness are negative and noncontributory to chief complaint. Physical Exam Physical Exam: In General: In general this is a pleasant 89-year-old male was accompanied by his of 62 years at the time my examination. He appears to be in no acute distress. He is wearing supplemental oxygen and has approximately 5-6 word conversational dyspnea. He is using intermittently his accessory muscles for respiration. HEENT: Normocephalic atraumatic pupils are equal round and reactive to light bilaterally. No scleral icterus no conjunctival injection external auditory canals are patent septum is in the midline nose is without discharge oral mucosa is pink and moist without lesion. NECK: Supple no rigidity no lymphadenopathy no thyromegaly no carotid bruits positive JVD no masses. HEART: Regular rate and rhythm I do not appreciate any ectopy or rub. No murmur. LUNGS: Decreased breath sounds bilaterally. With fine cardiac growth diffusely. No rhonchi. ABDOMEN: Soft nontender, no rebound, no peritoneal signs, positive bowel sounds, no appreciable organomegaly. EXTREMITIES: Intact, no peripheral cyanosis, clubbing or edema. Strength is 5 out of 5 in extremities x4, no pathological reflexes. NEUROLOGICAL: Cranial nerves II through XII are grossly intact with no focal deficit elicited upon examination. No tremor. Results & Data Results & Data Vital Signs (Past 12 Hours) Vital Signs Temp Pulse Resp BP Pulse Ox O2 Del Method O2 Flow Rate 08/20/24 19:19 88 L Room Air, Nasal Cannula 0 08/20/24 19:03 65 30 H 102/75 90 08/20/24 18:30 92 H 23 115/61 96 Nasal Cannula 2 08/20/24 18:00 72 26 H 111/58 L 90 08/20/24 17:52 108 H 32 H 118/73 08/20/24 17:06 90 96 08/20/24 16:30 80 27 H 107/68 95 Nasal Cannula 2 08/20/24 16:19 77 08/20/24 16:16 37.4 C 08/20/24 16:16 83 31 H 93 Nasal Cannula 2 08/20/24 16:15 95 H 33 H 88 L Room Air 08/20/24 15:31 37.5 C 97 H 18 128/94 95 Room Air Code Status & VTE Plan Code Status Full code. I personally discussed with the patient and his at the bedside. He has been listed as a DNR here in the past however he is very clear in sound mind and would absolutely want attempted resuscitation therefore he is listed as a full code. VTE Prophylaxis Plan VTE Prophylaxis will be ordered: Yes PG Care Time/CCT Total # of Minutes Spent Total Time Spent with Patient: Total time spent is greater than 50% in coordination of care (as documented) at patient's floor/unit and/or counseling patient: Coding Level of Care Code 52196 INT INP/OBS CARE MIN Diagnoses Congestive heart failure I50.9
[2024-08-20] MEDS: VALSARTAN/SACUBITRIL 103/97MG TAB PO SCH (21:51)
[2024-08-20] MEDS: ENOXAPARIN INJ 40 MG/0.4 ML SYR SQ SCH (21:52)
[2024-08-20 23:21] LABS: D Dimer 660 ug/L FEU (0-500)
[2024-08-20] MEDS: OPTIRAY 320 125ml IV ONE (23:56)
[2024-08-21 00:34] LABS: Troponin I High Sensitivity 23.1 pg/ml (0-20)
[2024-08-21 00:43] LABS: Thyroid Stimulating Hormone 1.103 uIu/ml (0.300-4.500)
--- NOTE | 2024-08-21 01:28 | CT Scan Report ---
Exam(s): CTA CHEST EXAM: CT Angiography Chest With Intravenous Contrast CLINICAL HISTORY: Reason for exam: PE. TECHNIQUE: Axial computed tomographic angiography images of the chest with intravenous contrast. CTDI is 26.08 mGy and DLP is 921.25 mGy-cm. Automated exposure control was utilized for the study. A dose lowering technique was utilized adhering to the principles of ALARA. MIP reconstructed images were created and reviewed. COMPARISON: No relevant prior studies available. FINDINGS: Pulmonary arteries: Adequate pulmonary artery opacification. No evidence of acute pulmonary embolism as visualized. Segmental and subsegmental branches in the lower lobes are obscured by respiratory motion. Aorta: Ectasia of the ascending aorta measuring 4.4 cm. No aneurysm by strict size criteria. No dissection. Lungs: Pleural-parenchymal scarring posterior right upper lobe. No consolidation or mass. Subsegmental atelectasis/scarring at the lung bases. Pleural space: Unremarkable. No significant effusion. No pneumothorax. Heart: Cardiomegaly and coronary artery atherosclerosis. No pericardial effusion. Bones/joints: No acute fracture. No dislocation. Soft tissues: Gynecomastia. Lymph nodes: Unremarkable. No enlarged lymph nodes. Liver: Benign left hepatic lobe cyst. Kidneys and ureters: Simple right kidney cyst measuring 26 mm; no follow- up indicated. Tubes, lines and devices: Left chest wall multilead AICD-pacemaker. IMPRESSION: No evidence of acute pulmonary embolism as visualized. Segmental and subsegmental branches in the lower lobes are obscured by respiratory motion. Electronically signed by: Ivette Duran M.D. 08/21/24 01:28 AM
[2024-08-21 04:22] LABS: Basophils # (auto) 0.02 K/uL (0.00-0.20); Basophils % (auto) 0.2 %; Eosinophils # (auto) 0.09 K/uL (0.00-0.50); Eosinophils % (auto) 0.8 %; Hematocrit (blood only) 32.6 % (42.0-52.0); Hemoglobin 10.6 g/dl (14.0-18.0); Immature Granulocytes # (auto) 0.05 K/uL (0.01-0.20); Immature Granulocytes % (auto) 0.5 %; Lymphocytes # (auto) 0.46 K/uL (1.20-3.40); Lymphocytes % (auto) 4.2 %; Mean Corpuscular Hemoglobin 30.5 pg (25.0-34.0); Mean Corpuscular Hgb Conc 32.5 g/dL (32.0-36.0); Mean Corpuscular Volume 93.7 fL (80.0-100.0); Mean Platelet Volume 9.4 fL (9.4-12.4); Monocytes % (auto) 4.5 %; Neutrophils # (auto) 9.92 K/uL (1.40-6.50); Neutrophils % (auto) 89.8 %; Platelet Count 166 K/uL (130-400); RDW Coefficient of Variation 13.2 % (11.5-14.5); Red Blood Count 3.48 M/uL (4.70-6.10); White Blood Count 11.04 K/ul (4.8-10.8)
[2024-08-21 04:34] LABS: Albumin Globulin Ratio 1.5 (0.9-2); Albumin Level 3.5 gm/dl (3.4-5.0); BUN Creatinine Ratio 21.7 (10-20); Bilirubin,Total 0.6 mg/dl (0.2-1.0); Calcium 9.4 mg/dl (8.6-10.3); Chol HDL Ratio 1.9 (0-5); Creatinine Clr Calc Pharmacy 48.8 ml/min; Globulin 2.4 gm/dl (2.5-4.0); Potassium 3.8 mmol/L (3.5-5.1); Total Protein 5.9 gm/dl (6.0-8.3)
--- NOTE | 2024-08-21 07:05 | Hospitalist Progress Note ---
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 Echocardiogram performed August 09 of this year shows a EF of 40%. Lasix IV 40 mg twice daily and fluid restriction. - Nonischemic cardiomyopathy. He does have an ICD pacemaker per the patient and . He is also on goal-directed medical therapy for his nonischemic cardiomyopathy in the form of Entresto and beta-blockade spironolactone and torsemide. - Oral torsemide diuretic will be held in lieu of the IV Lasix at this point. We will continue the spironolactone diuretic. - Ferritin level pending (CHF mgmt recommendations) 2) History of nonobstructive coronary artery disease. - Will do serial troponins. - HSTrop, 29.6 <-- 23.1 <-- 22.7 (no need to follow, but ordered for 2x more) 3) Acute urinary tract infection. - We have reviewed the urine cultures and sensitivities from August 17. - He is growing E faecalis, Rocephin stopped, started on Augmentin 4) Bladder lesion - suspicious for possible malignancy in context of metastatic pancreatic cancer - Again close short-term (7 to 10 days) outpatient follow-up with urology as recommended. 5) Right ninth rib posterior lateral lesion - consistent with possible metastatic prostate cancer lesion. - Close outpatient follow-up with urology as needed upon discharge. Discussed with the patient and his extensively. 6) Hypertension. - Continue home medications. 7) COVID exposure (5 days ago) - Testing negative today. If the patient becomes more symptomatic or any other clinical stigmata of COVID-19 repeat testing would be recommended. 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 - No evidence of acute exacerbation. 10) History of obstructive sleep apnea - he is compliant with CPAP at home, does not know his settings. Ordered CPAP protocol for sleep while inpatient 11) Mild anemia. - Chronic. Stable. 12) Acute hypoxemic respiratory failure secondary to acute CHF. 13) Rule out acute pulmonary embolism. - D-dimer done, positive (given patient's hypoxemic respiratory failure, Hx of malignancy, was high risk) - CTA of the chest: no evidence of PE, 2) segmental and subsegmental branches in lower lobes obscured by resp motion Admission and Anticipated Discharge Date Admission Date: August 20, 2024 Supervising Physician Co-Signing Physician Notes I personally examined the patient and verified all whitaker points of history and exam, discussed case, and agree with decision making with Dr Stahl Feeling better, but has not gotten out of bed yet. was a bit SEAY but also more weak. vitals noted nad lungs faint bibasilar rales no rhonchi no wheeze good effort skin no rashes no pallor or icterus acute on chronic systolic CHF - Improved no dyspnea at rest, hasn't walked yet - will want to have him walk to ensure no SEAY - still rales - continue to diurese for now - educated on Na restriction/lifestyle (they note that normally follows this but pt doesn't always report his intake especially with things like potato chips, and also had sausages around the time things were worsening) - they express understanding and also note that they've gotten a little more relaxed about monitoring/managing Na since pacer insertion - reiterated CHF clinic education on extra diuretics and rationale behind use - hopefully home soon; will see how he does with ambulation - give age/frailty and still (+) rales suspect will need to keep into 08/22 to diurese further but if does great with ambulation today then can consider home with more aggressive PO diuresis and close outpt f/u - check ferritin in AM, if <50 give venofer ([facility] directed guidelines, [place] would actually suggest venofer if <100) - to prevent readmissions/improve quality of life metastatic prostate CA - after review of outside records, while it's not clear what mets lesions were/weren't known before, he is actively being followed by [facility] and recently starte on lupron (june 2024) vague abdominal pain / (+) urine culture - given bladder outlet obstruction from BPH and present (albeit vague) symptoms - treating - but since enterococcus - would change to ampicillin DVT proph - lovenox Subjective Patient is an 89 yo M w/ a PMHx of HFrEF, HTN, HLD, metastatic prostate cancer, pancreatic cyst, gout, KATHYA, Hx of NSTEMI/CAD, aortic root dilation/aortic regurgitation, RBBB, mild cognitive impairment, chronic venous stasis, who presented to the [facility] ED with concerns of dyspnea, generalized epigastric pain, leg weakness, with a recent Dx of UTI. Today the patient states that his epigastric pain has completely resolved, no dyspnea at rest, Review of Systems Constitutional: + fever (felt feverish last night, this morning no Sx); no chills and no body aches Respiratory: + cough and + dyspnea on exertion; no ch est congestion and no dyspnea Cardiovascular: no chest pain and no palpitations Gastrointestinal: no abdominal pain, no nausea, no vomiting, no constipation and no diarrhea/loose stools Genitourinary: no dysuria Neurologic: no tingling, no numbness and no headache(s) Physical Exam Constitutional: WD/WN, vitals as above Respiratory: normal respiratory effort and able to speak in complete sentences; no labored breathing Cardiovascular: RRR, no murmur, no edema Gastrointestinal (Abdomen): normal bowel sounds, soft, nontender, no hepatosplenomegaly Psychiatric: A+Ox3, euthymic affect Results & Data Results & Data Vital Signs (Past 12 Hours) Vital Signs Temp Pulse Pulse Resp BP BP BP 08/21/24 04:12 36.7 C 67 16 128/57 L 08/20/24 23:34 36.9 C 81 17 121/67 08/20/24 22:50 89 08/20/24 21:36 08/20/24 21:04 95 H 08/20/24 20:50 36.9 C 30 H 137/90 08/20/24 20:30 75 24 128/63 08/20/24 20:00 66 32 H 116/57 L 08/20/24 19:19 08/20/24 19:03 65 30 H 102/75 Pulse Ox O2 Del Method O2 Flow Rate 08/21/24 04:12 94 Room Air 08/20/24 23:34 91 Room Air 08/20/24 22:50 08/20/24 21:36 Nasal Cannula 2 08/20/24 21:04 08/20/24 20:50 96 Nasal Cannula 2 08/20/24 20:30 97 Nasal Cannula 2 08/20/24 20:00 96 Nasal Cannula 2 08/20/24 19:19 88 L Room Air, Nasal Cannula 0 08/20/24 19:03 90 (2) Hypertension Hypertension type: primary hypertension Qualified Code(s): I10 - Essential (primary) hypertension (6) CHF exacerbation Heart failure type: unspecified Qualified Code(s): I50.9 - Heart failure, unspecified
[2024-08-21] MEDS: CALCIUM 600MG + VIT D 400 IU TAB PO SCH (08:17)
[2024-08-21] MEDS: CHOLECALCIFEROL 25 MCG (1000 UNITS) TAB PO SCH (08:17)
[2024-08-21] MEDS: ASPIRIN 81 MG ECTAB PO SCH (08:17)
[2024-08-21] MEDS: METOPROLOL SUCC 25MG EXT REL TAB PO SCH (08:18)
[2024-08-21] MEDS: SPIRONOLACTONE 12.5 MG TAB PO SCH (08:18)
[2024-08-21] MEDS: FUROSEMIDE 40 MG/4 ML VIAL IV SCH (08:18)
--- NOTE | 2024-08-21 12:29 | Electrocardiogram Report ---
Test Reason : Blood Pressure : */* mmHG Vent. Rate : 97 BPM Atrial Rate : 97 BPM P-R Int : 144 ms QRS Dur : 160 ms QT Int : 418 ms P-R-T Axes : 75 -87 94 degrees QTcB Int : 530 ms Atrial-sensed ventricular-paced rhythm Biventricular pacemaker detected Abnormal ECG When compared with ECG of 30-Sep-2023 10:15, Vent. rate has increased by 37 bpm Confirmed by Angelo Alexander ([id number]) on 08/21/2024 12:29:23 PM Referred By: REFERRED SELF Confirmed By: Angelo Alexander
[2024-08-21] MEDS ORDERED: AMPICILLIN 250 MG in SODIUM CHLORIDE 0.9% 50 ML IV SCH (14:30)
--- NOTE | 2024-08-21 14:32 | Billing Data ---
Date of Service August 21, 2024 Coding Level of Care Code 63431 SUB INP/OBS CARE MIN
[2024-08-21] MEDS: AMPICILLIN 2,000 MG in SODIUM CHLOR 0.9% MINI-B 100 ML IV SCH (15:16)
[2024-08-21] MEDS ORDERED: cefTRIAXone SODIUM 1,000 MG/50 ML BAG IV SCH (19:00)
[2024-08-21 23:34] VITALS: RESP 18
[2024-08-22 06:52] LABS: BUN Creatinine Ratio 27.1 (10-20); Calcium 9.3 mg/dl (8.6-10.3); Creatinine Clr Calc Pharmacy 40.3 ml/min; Potassium 3.6 mmol/L (3.5-5.1)
--- NOTE | 2024-08-22 06:52 | Hospitalist Progress Note ---
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 Echocardiogram performed August 09 of this year shows a EF of 40%. Lasix IV 40 mg twice daily and fluid restriction. - Nonischemic cardiomyopathy. He does have an ICD pacemaker per the patient and . He is also on goal-directed medical therapy for his nonischemic cardiomyopathy in the form of Entresto and beta-blockade spironolactone and torsemide. - Oral torsemide diuretic will be held in lieu of the IV Lasix at this point. We will continue the spironolactone diuretic. - Ferritin level pending (CHF mgmt recommendations) 2) History of nonobstructive coronary artery disease. - Will do serial troponins. - HSTrop, 29.6 <-- 23.1 <-- 22.7 (no need to follow, but ordered for 2x more) 3) Acute urinary tract infection. - We have reviewed the urine cultures and sensitivities from August 17. - He is growing E faecalis, Rocephin stopped, started on Augmentin 4) Bladder lesion - suspicious for possible malignancy in context of metastatic pancreatic cancer - Again close short-term (7 to 10 days) outpatient follow-up with urology as recommended. 5) Right ninth rib posterior lateral lesion - consistent with possible metastatic prostate cancer lesion. - Close outpatient follow-up with urology as needed upon discharge. Discussed with the patient and his extensively. 6) Hypertension. - Continue home medications. 7) COVID exposure (5 days ago) - Testing negative today. If the patient becomes more symptomatic or any other clinical stigmata of COVID-19 repeat testing would be recommended. 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 - No evidence of acute exacerbation. 10) History of obstructive sleep apnea - he is compliant with CPAP at home, does not know his settings. Ordered CPAP protocol for sleep while inpatient 11) Mild anemia. - Chronic. Stable. 12) Acute hypoxemic respiratory failure secondary to acute CHF. 13) Rule out acute pulmonary embolism. - D-dimer done, positive (given patient's hypoxemic respiratory failure, Hx of malignancy, was high risk) - CTA of the chest: no evidence of PE, 2) segmental and subsegmental branches in lower lobes obscured by resp motion Admission and Anticipated Discharge Date Admission Date: August 20, 2024 Subjective Patient is an 89 yo M w/ a PMHx of HFrEF, HTN, HLD, metastatic prostate cancer, pancreatic cyst, gout, KATHYA, Hx of NSTEMI/CAD, aortic root dilation/aortic regurgitation, RBBB, mild cognitive impairment, chronic venous stasis, who presented to the [facility] ED with concerns of dyspnea, generalized epigastric pain, leg weakness, with a recent Dx of UTI. Today the patient states that his epigastric pain has completely resolved, no dyspnea at rest, Results & Data Results & Data Vital Signs (Past 12 Hours) Vital Signs Temp Pulse Pulse Resp BP Pulse Ox O2 Del Method 08/22/24 03:41 36.4 C L 64 18 132/70 91 Room Air 08/21/24 23:56 83 08/21/24 23:33 36.6 C 65 18 119/69 94 Room Air 08/21/24 21:32 Room Air 08/21/24 19:43 36.8 C 73 20 123/72 95 Room Air (2) Hypertension Hypertension type: primary hypertension Qualified Code(s): I10 - Essential (primary) hypertension (6) CHF exacerbation Heart failure type: unspecified Qualified Code(s): I50.9 - Heart failure, unspecified
[2024-08-22 07:11] LABS: Ferritin 216.8 ng/ml (8-388)
[2024-08-22 11:15] VITALS: BP 108/68; PULSE 67; TEMP 97.9; O2SAT 91
--- NOTE | 2024-08-22 12:07 | Discharge Summary ---
Date of Service August 22, 2024 Admission HPI Per Admitting Provider Very pleasant 89-year-old gentleman with a history of congestive heart failure with reduced ejection fraction/chronic systolic congestive heart failure last echocardiogram earlier this month showed a left ventricular ejection fraction of 40%. Over the last 24 to 36 hours has had increasing shortness of breath. In addition recently diagnosed with a urinary tract infection from urology and was recently started on an antibiotic. Patient presents to the ER today for further evaluation and treatment for shortness of breath. In the ER his oxygen saturation dropped down into the mid 80s. He was commenced on oxygen therapy. Chest x-ray positive for bilateral pulmonary vascular congestion. proBNP was elevated at 1121. Troponin was negative. Electrolytes were satisfactory. CBC was satisfactory. Mild chronic anemia was noted. Hemoglobin stable 11.8 g/dL. In addition the patient reports being exposed to COVID on Thursday of this week at a Bible study. He is tested negative for COVID tonight. Patient also complained of some vague abdominal pain. CT of the abdomen pelvis was obtained. There were no acute findings of the CT abdomen pelvis but there is prostamegaly with evidence of chronic urinary outlet obstruction. He does follow with urology. However in addition the noted patient had an asymmetric nodularity along the left posterior bladder wall highly suspicious for u urothelial neoplasm. In addition the patient had a sclerotic lesion of the posterior lateral ninth rib which was large in nature and not present on the PET scan from May 2023 which does appear suspicious for possible metastatic prostate cancer. Course Emergency Department patient received Lasix 40 mg IV x 1 and Rocephin 1 g IV x 1. Hospitalist service was contacted to entertain admission. Admission Exam Per Admitting Provider In General: In general this is a pleasant 89-year-old male was accompanied by his of 62 years at the time my examination. He appears to be in no acute distress. He is wearing supplemental oxygen and has approximately 5-6 word conversational dyspnea. He is using intermittently his accessory muscles for respiration. HEENT: Normocephalic atraumatic pupils are equal round and reactive to light bilaterally. No scleral icterus no conjunctival injection external auditory canals are patent septum is in the midline nose is without discharge oral mucosa is pink and moist without lesion. NECK: Supple no rigidity no lymphadenopathy no thyromegaly no carotid bruits positive JVD no masses. HEART: Regular rate and rhythm I do not appreciate any ectopy or rub. No murmur. LUNGS: Decreased breath sounds bilaterally. With fine cardiac growth diffusely. No rhonchi. ABDOMEN: Soft nontender, no rebound, no peritoneal signs, positive bowel sounds, no appreciable organomegaly. EXTREMITIES: Intact, no peripheral cyanosis, clubbing or edema. Strength is 5 out of 5 in extremities x4, no pathological reflexes. NEUROLOGICAL: Cranial nerves II through XII are grossly intact with no focal deficit elicited upon examination. No tremor. Principal Diagnosis CHF exacerbation Discharge Exam Constitutional WD/WN, vitals as above Respiratory normal respiratory effort, lungs clear to auscultation Cardiovascular RRR, no murmur, no edema Skin no rashes, warm and dry Psychiatric A+Ox3, euthymic affect Discharge Data Allergies Allergy/AdvReac Type Severity Reaction Status Date / Time No Known Allergies Allergy Verified 08/17/24 09:58 Consultations 08/20/24 19:33 ED Decision to Admit Stat Ordered Studies Chest X-Ray 08/20/24 15:51 SINGLE VIEW CHEST CLINICAL HISTORY: Dyspnea. Generalized weakness. FINDINGS: 2 AP, portable, upright chest radiographs are compared to study dated 09/30/2023. Correlation is made with chest CT dated 05/20/2023. A 3-lead cardiac AICD is unchanged in position and partially obscures the left upper chest. The heart is markedly enlarged. There is mild pulmonary vascular congestion. There is mild bibasilar atelectasis. No large pleural effusion or pneumothorax is seen. The skeletal structures are osteopenic. The bony thorax is grossly intact. Arthritic change is noted in the shoulders. IMPRESSION: 1. Cardiomegaly and AICD with mild pulmonary vascular congestion. 2. No airspace consolidation or large pleural effusion is identified. ACT 112: Negative or not required by law. Electronically signed by: Oscar Gan M.D. 08/20/2024 4:21 PM Abdomen/Pelvis CT 08/20/24 16:01 CT SCAN OF THE ABDOMEN AND PELVIS WITH IV CONTRAST CLINICAL HISTORY: Lower abdominal pain. Urinary tract infection. History of prostate cancer. COMPARISON STUDY: Abdominal MRI dated 10/16/2022. PET/CT dated 05/28/2023. TECHNIQUE: Following the IV administration of 93 cc of Optiray 320, CT scan of the abdomen and pelvis is performed from the lung bases to the proximal femora. Images are reviewed in the axial, sagittal, and coronal planes. IV contrast was administered without complication. A dose lowering technique was utilized adhering to the principles of ALARA. The examination is degraded by motion artifact. CT DOSE: 905.33 mGy.cm FINDINGS: Lung bases: The heart is markedly enlarged and without pericardial effusion. Pacemaker leads are in place. There are scattered calcific granulomas. The lung bases are otherwise clear noting bibasilar scarring/atelectasis. There is a small hiatal hernia. Gynecomastia is noted. Liver: The contrast-enhanced liver is normal in size, contour, and attenuation. There is no intrahepatic biliary ductal dilatation. The hepatic veins and portal veins are patent. Small hepatic cysts measure up to 1.3 cm. A 2.4 cm calcification containing cystic structure anterior to the possible ligament on image #60 is indeterminant and unchanged from prior studies. Gallbladder: Mildly distended but otherwise normal as imaged. Spleen: Normal in size and attenuation. Pancreas: The pancreas is mildly atrophic. 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 A 1.1 cm cystic lesion in the uncinate is also unchanged. The pancreatic duct is normal in caliber. Adrenal glands: Bilateral adrenal adenomas measure up to 1.6 cm. These are similar to previous. Kidneys: The contrast enhanced kidneys demonstrate mild cortical atrophy and are without hydronephrosis. The kidneys enhance symmetrically. Bilateral renal cysts measure up to 4.1 cm. Additional subcentimeter cortical hypodensities also likely represent cysts but are too small for definitive characterization. Abdominal vasculature: The abdominal aorta is normal in course and caliber noted is moderate atherosclerotic calcification. Bowel: There is moderate colonic diverticulosis without CT evidence of acute diverticulitis. No bowel obstruction is seen. The appendix is normal as vi sualized. Peritoneum: There is no intraperitoneal free air or abdominal ascites. There is a fat-containing umbilical hernia. Lymphadenopathy: None. Pelvic viscera: The prostate gland is enlarged and heterogeneous. The bladder wall is thickened and irregular indicating chronic outlet obstruction. There is significantly asymmetric and nodular wall thickening seen along the left posterior wall of the bladder near the dome on image #239. This measures up to 2.6 cm. Skeletal structures: The skeletal structures are osteopenic. There is advanced lumbosacral spondylosis as well as scoliosis. There is a large sclerotic lesion in the right posterolateral ninth rib seen on image #56. No additional sclerotic bony lesions are identified. IMPRESSION: 1. No acute infectious or inflammatory findings are identified in the abdomen or pelvis. 2. Prostatomegaly with evidence of chronic bladder outlet obstruction. 3. There is significant and asymmetric nodularity along the left posterior bladder wall. This is highly suspicious for urothelial neoplasm. Follow-up with urology is recommended. 4. There is a large sclerotic focus within the right posterolateral 9th rib. This represents a significant change from the 05/28/2023 PET examination, and given the history of prostate cancer is suspicious for a bony metastasis. 5. No additional sclerotic bone lesions are seen. 6. Marked cardiomegaly. 7. Colonic diverticulosis without CT evidence of acute diverticulitis. 8. Additional findings as above ACT 112: Positive. There are findings on this exam that require communication between the performing entity and the patient following Patient Test Result Information Act ([place] Act 112) guidelines. Electronically signed by: Oscar Gan M.D. 08/20/2024 6:14 PM Chest CTA 08/20/24 23:26 Exam(s): CTA CHEST EXAM: CT Angiography Chest With Intravenous Contrast CLINICAL HISTORY: Reason for exam: PE. TECHNIQUE: Axial computed tomographic angiography images of the chest with intravenous contrast. CTDI is 26.08 mGy and DLP is 921.25 mGy-cm. Automated exposure control was utilized for the study. A dose lowering technique was utilized adhering to the principles of ALARA. MIP reconstructed images were created and reviewed. COMPARISON: No relevant prior studies available. FINDINGS: Pulmonary arteries: Adequate pulmonary artery opacification. No evidence of acute pulmonary embolism as visualized. Segmental and subsegmental branches in the lower lobes are obscured by respiratory motion. Aorta: Ectasia of the ascending aorta measuring 4.4 cm. No aneurysm by strict size criteria. No dissection. Lungs: Pleural-parenchymal scarring posterior right upper lobe. No consolidation or mass. Subsegmental atelectasis/scarring at the lung bases. Pleural space: Unremarkable. No significant effusion. No pneumothorax. Heart: Cardiomegaly and coronary artery atherosclerosis. No pericardial effusion. Bones/joints: No acute fracture. No dislocation. Soft tissues: Gynecomastia. Lymph nodes: Unremarkable. No enlarged lymph nodes. Liver: Benign left hepatic lobe cyst. Kidneys and ureters: Simple right kidney cyst measuring 26 mm; no follow- up indicated. Tubes, lines and devices: Left chest wall multilead AICD-pacemaker. IMPRESSION: No evidence of acute pulmonary embolism as visualized. Segmental and subsegmental branches in the lower lobes are obscured by respiratory motion. Electronically signed by: Ivette Duran M.D. 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 1) Congestive heart failure - Acute decompensated systolic congestive heart failure/congestive heart failure with reduced ejection fraction. Echocardiogram performed August 09 of this year shows a EF of 40%. More aggressively diuresed with Lasix IV 40 mg twice daily and fluid restriction. - Continue goal-directed medical therapy for his nonischemic cardiomyopathy in the form of Entresto and beta-blockade spironolactone and torsemide. - On discharge, Torsemide resumed but increased to 20mg PO daily with recommendation for sliding scale diuresis ie. additional dose if weight +2lbs over one day or +5lbs over a week - recommend close follow up with PCP/HF clinic for diuretic titration and lab monitoring. 2) Acute urinary tract infection. - Urine cultures and sensitivities from 08/17/24 grew E. Faecalis sensitive to ampicillin, transitioned to amoxicillin on discharge for total course of 5 days. 3) Bladder lesion - CT A/P 08/20/24 with significant and asymmetric nodularity along the left posterior bladder wall, highly suspicious for urothelial neoplasm - close outpatient follow-up with urology recommended. 4) Right ninth rib posterior lateral lesion - CT A/P 10/12/24 with large sclerotic focus within right posterolateral 9th rib - suspicious for metastatic prostate cancer lesion. - Close outpatient follow-up with urology as needed upon discharge. Discussed with the patient and his extensively. 5) Hypertension. - Continue home medications. Total Time Total Time Spent Total Time Spent (In Minutes): see attending attestation Discharge Plan Discharge Items Patient Disposition: Home - Self-Care Reason For Visit: CHF Discharge Diagnosis: CHF exacerbation Condition on Discharge: Good Activity: Resume your previous activity Non-emergency contact: Primary Care Provider and Manufacturing Sr Engineer Call non-emergency contact if: you have any medication questions and your symptoms worsen Follow-up/Referrals: Nba Lr, [Primary Care Provider] - 09/01/24 11:30 am Diet: Low Sodium (2gm) Addtl Attending Provider Instructions: You were admitted for CHF exacerbation and treated with more aggressive diuretic therapy. Upon discharge, we have increased you home dose of Torsemide to 20mg daily. In addition to moderating fluid intake and consuming a low sodium diet, we recommend routine weight checks. If your weight increases by >2 lbs in one day, please take an additional 20mg dose of Torsemide that day. Please follow up as soon as possible with your PCP or the heart failure clinic, as they can help adjust your medication as needed and also monitor your labs. You were also started on treatment for a urinary tract infection. Upon discharge, please complete the antibiotic course as prescribed: - Amoxicillin: Please take one 500mg tablet 3 times daily for 4 more days. You had a CT scan of your abdomen and pelvis on 08/20/24 - this scan showed a s uspicious bladder wall finding as well as a suspicious finding in one of your ribs. Please follow up as soon as possible with your urologist, as it is possible some of these changes may be sequelae stemming from your prostate cancer. Pending Studies at Discharge: No Stand-Alone Forms: My Minimally invasive devices, Smoking Cessation Medications and DC Order Prescriptions: New torsemide 20 mg tablet 20 mg PO .see instructions 30 Days Qty: 45 0RF Rx Instructions: Please take one 20mg tab daily. If your weight increases by 2+ lbs in one day, take an additional 20mg tab. amoxicillin 500 mg capsule 500 mg PO Q8H 4 Days Qty: 12 0RF Continued aspirin [Adult Low Dose Aspirin] 81 mg tablet,delayed release (DR/EC) 81 mg PO DAILY Qty: 30 2RF spironolactone 25 mg tablet 12.5 mg PO DAILY Qty: 45 3RF Entresto 97-103 mg tablet 1 tab PO BID Qty: 180 3RF cholecalciferol (vitamin D3) 50 mcg (2,000 unit) capsule 50 mcg PO DAILY ibuprofen 200 mg tablet 200 mg PO Q6H PRN (Reason: Pain) metoprolol succinate 25 mg tablet extended release 24 hr 25 mg PO DAILY Qty: 90 3RF acetaminophen [Tylenol Extra Strength] 500 mg tablet 1,000 mg PO QAM balance of nature 6 cap PO DAILY Rx Instructions: 3 caps of fruit supplement & 3 caps of vegetable supplement calcium carbonate-vitamin D3 [Calcium 600 + D(3)] 600 mg(1,500mg) -400 unit Tablet 1 tab PO DAILY Prevagen 1 tab PO DAILY ulkzidvepaux-Vu-mqxa-minerals Tablet 1 tab PO QAM Discontinued torsemide 10 mg tablet 10 mg PO DAILY Qty: 30 5RF Rx Instructions: May increase to 20 mg PRN nitrofurantoin monohyd/m-cryst [Macrobid] 100 mg capsule 100 mg PO Q12H 7 Days Qty: 14 0RF Rx Instructions: filled 08/19 must administer with a meal/food Discharge Orders: Discharge Order (Routine); Ordered 08/22/24 Ordered By: Mik Harris Admission Data Admit Date/Time: 08/20/24 20:13 Attending Provider: Chiquita Cardenas Admit Provider: Masoud Banks Primary Care Provider: Nba Lr Other Providers: Pk Newman; Steve Arroyo Other Interventions: Discharge Summary Assessment (RN) Last Done: 08/22/24 13:28 Supervising Physician Co-Signing Physician Notes Attending Physician Supervision Note: I independently interviewed and examined the patient and verified the whitaker history and physical, reviewed labs and image studies and agree with findings and care plan noted above. Resident Activity Tracking Resident Involvement: Resident Care Provided Care Provided: Adult Hospital Medicine
== END 2024-08-22 14:33 | disposition home or self-care (01) | DRG 291 ==
LOC: ED 15:30 → 2E 20:13 → SUATTDRO 20:13 → 2E 20:35

== ENCOUNTER 2025-01-31 17:35 | Inpatient (IN) ==
[2025-01-31] MEDS: SODIUM CHLORIDE 0.9% 500 ML IV SCH ×2 (18:48→19:18)
[2025-01-31 19:02] LABS: Albumin Level 3.4 gm/dl (3.4-5.0); BUN Creatinine Ratio 34.7 (10-20); Bilirubin Direct 0.1 mg/dl (0-0.2); Bilirubin,Total 0.3 mg/dl (0.2-1.0); Calcium 9.5 mg/dl (8.6-10.3); Creatinine Clr Calc Pharmacy 27.1 ml/min; Magnesium 2.3 mg/dl (1.7-2.4); Potassium 5.4 mmol/L (3.5-5.1); Total Protein 6.9 gm/dl (6.0-8.3)
[2025-01-31 19:08] LABS: Troponin I High Sensitivity 18.2 pg/ml (0-20)
[2025-01-31 19:17] LABS: INR 1.1 (0.9-1.1); Partial Thromboplastin Ratio 0.9; Partial Thromboplastin Time 25 Seconds (21-31)
[2025-01-31 19:43] LABS: Base Excess VBG -3.7 mEq/L; HCO3 VBG 23 mmol/L; Oxygen Saturation VBG < 60.0 %; PCO2 VBG 45 mmHg (38-50); PO2 VBG 25 mmHg; pH VBG 7.31 (7.36-7.41)
[2025-01-31 20:25] LABS: Basophils # (auto) 0.02 K/uL (0.00-0.20); Basophils % (auto) 0.1 %; Hematocrit (blood only) 29.4 % (42.0-52.0); Hemoglobin 9.3 g/dl (14.0-18.0); Immature Granulocytes # (auto) 0.13 K/uL (0.01-0.20); Lymphocytes # (auto) 0.72 K/uL (1.20-3.40); Lymphocytes % (auto) 5.3 %; Mean Corpuscular Hemoglobin 28.9 pg (25.0-34.0); Mean Corpuscular Hgb Conc 31.6 g/dL (32.0-36.0); Mean Corpuscular Volume 91.3 fL (80.0-100.0); Mean Platelet Volume 8.9 fL (9.4-12.4); Monocytes # (auto) 0.91 K/uL (0.11-0.59); Monocytes % (auto) 6.7 %; Neutrophils # (auto) 11.77 K/uL (1.40-6.50); Neutrophils % (auto) 86.9 %; Platelet Count 378 K/uL (130-400); RDW Coefficient of Variation 12.9 % (11.5-14.5); RDW Standard Deviation 43.2 fL (36.4-46.3); Red Blood Count 3.22 M/uL (4.70-6.10); White Blood Count 13.55 K/ul (4.8-10.8)
--- NOTE | 2025-01-31 20:49 | XRay Report ---
EXAM: XR chest 1V portable CLINICAL HISTORY: Sepsis TECHNIQUE: An X-ray image of the chest is obtained in AP projection. COMPARISON: Compared to the prior chest x-ray dated 09/04/2024. FINDINGS: Pulmonary Parenchyma: Lungs are clear bilaterally. No evidence of consolidation, collapse, or focal opacities. No pulmonary nodules are identified. No evidence of pleural effusion or pleural thickening. Heart and Mediastinum: Heart size appears enlarged. Implnatable cardioverter defibrilator. Triple leads with two at the right ventricle and one at the right atrium. No mediastinal widening or masses. No hilar or mediastinal lymphadenopathy. Bony Thorax: Bony thorax appears intact without fractures or deformities. Soft Tissues: Soft tissues overlying the chest wall are unremarkable. IMPRESSION: 1. No acute pulmonary findings 2. Cardiomegaly (unchanged). Electronically signed by Forrest Cameron 01-31-2025 8:48 PM
[2025-01-31 21:22] LABS: Appearance Urine Turbid (Clear); Bacteria Urine Automated 3+ (None Seen); Bilirubin Urine Negative (Negative); Blood Urine 3+ (Negative); Cast Urine Automated 0-2 /lpf (0-2); Color Urine Yellow; Epithelial Cell Urine Auto 0-2 /hpf (0-2); Glucose Urine UA Negative (Negative); Ketones Urine Trace (Negative); Leukocyte Esterase Urine 3+ (Negative); Nitrite Urine Positive (Negative); Protein Urine 2+ (Negative); RBC Urine Automated >20 /hpf (0-2); Specific Gravity Urine 1.017 (1.000-1.030); Urobilinogen Urine Negative (Negative); WBC Urine Automated >50 /hpf (0-5); pH Urine 5.5 (4.5-7.5)
[2025-01-31] MEDS: cefTRIAXone SODIUM 2,000 MG/50 ML BAG IV STA (21:36)
[2025-01-31] MEDS: CLOTRIMAZOLE 1% CR 15 GM TUBE EXT ONE (22:03)
[2025-01-31] MEDS: FLUCONAZOLE 50 MG TAB PO ONE (22:03)
--- NOTE | 2025-01-31 22:31 | History & Physical Report ---
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 Urine culture and blood cultures pending. Procal 0.79 -Received Ceftriaxone in ED, will continue Ceftriaxone while awaiting culture/sensitivity. No prior resistance to ceftriaxone. -Monitor daily CBC Weakness | Ambulatory Dysfunction -Ongoing fatigue and weakness for over a week -Differential diagnosis includes but is not limited to: weakness secondary to current UTI, side effect of initiation of Lupron therapy 2 weeks ago, malnutrition due to poor PO intake, known iron deficiency -VBG shows mild acidosis, encourage CPAP compliance -PT/OT evaluations ordered HITESH | Electrolyte Disturbances | Hyponatremia and Hyperkalemia -Cr 1.76 on admission, baseline ~1.5. Likely secondary to poor PO intake -Na 131 on arrival in ED, was 134 earlier in the day with outpatient labs -K 5.4 in ED, baseline appears to be ~5.0. No EKG changes noted. Will repeat BMP in a.m. -Mild hyperglycemia on admission likely secondary to current infection, BSG as needed. Will defer insulin therapy on admission Excoriations of Lower Extremities -Erythematous discrete patches on left thigh and right medial ankle -No itching or pain at present -Received oral fluconazole in ED, consider additional oral therapy in 72 hours -Continue clotrimazole, nystatin powder Iron Deficiency Anemia -Hgb 9.3 on admission, baseline ~10 -Continue outpatient oral iron supplement, consider IV treatment while admitted -Iron level 20 on outpatient labs today HFrEF | S/P AICD Placement | CAD -Echo from August showed EF 40% -Continue with Entresto, metoprolol, spironolactone -Will hold torsemide as patient appears clinically dry -Cautious with IV fluids- ordered gentle fluids x1L overnight Prostate Cancer -Known prostate CA with jackie mets -Received Lupron injection 2.5 weeks ago, planning to start oral treatments with Dr. Khan Nocturnal Hypoxia- CPAP ordered Admit to: med/surg Diet: Regular, low sodium VTE Prophylaxis: Heparin Code Status: Full Code History of Present Illness Primary Care Provider: Nba Lr DO Nikita Flynn is a 89 year-old male who presented to the ED after evaluation by his PCP due to weakness and concern for UTI. Medical history significant for KATHYA, CHF, RBBB, s/p AICD implantation, history of bladder cancer, current prostate cancer with jackie metastasis. Patient's and son are at bedside, note that patient has been progressively weaker and fatigued for over one week- notes that one day he slept until the middle of the afternoon and then fell asleep again shortly afterwards. Uses a cane at home. Has also had decreased appetite, only eating a few bites of oatmeal this morning. Recently started following with Dr. Khan for prostate cancer, received Lupron injection about 2.5 weeks ago and family reports that he is planning to start oral treatment soon. Patient also has had a new rash at his lower legs and feet, not itchy or painful. Patient has a CPAP, family notes that he often takes it off overnight and only gets a few hours of wear per night. ED Course: -CBC, CMP, UA -Urine culture, blood cultures collected -Chest XR -IV Ceftriaxone, IVF bolus (500mL), oral fluconazole Allergies Allergy/AdvReac Type Severity Reaction Status Date / Time No Known Allergies Allergy Verified 01/31/25 19:48 Home Medications Medication Instructions Recorded Confirmed Type calcium 600 mg (as 1 tab PO DAILY 06/08/19 01/31/25 History carbonate)-vitamin D3 10 mcg (400 unit) tablet (Calcium 600 + D(3)) Prevagen 1 tab PO QAM 06/18/21 01/31/25 History ibuprofen 200 mg tablet 200 mg PO Q6H PRN Pain 10/08/21 01/31/25 History knvyefnftuhd-Xz-ratw-minerals 1 tab PO QAM 09/20/23 01/31/25 History cholecalciferol (vitamin D3) 50 50 mcg PO QAM 11/11/23 01/31/25 History mcg (2,000 unit) capsule acetaminophen 500 mg tablet 1,000 mg PO QAM pain 04/19/24 01/31/25 History (Tylenol Extra Strength) balance of nature 6 cap PO DAILY 04/19/24 01/31/25 History sacubitril 97 mg-valsartan 103 mg 1 tab PO BID #180 tabs 07/22/24 01/31/25 Rx tablet (Entresto) aspirin 81 mg tablet,delayed 81 mg PO QAM 10/04/24 01/31/25 History release (Adult Low Dose Aspirin) metoprolol succinate 25 mg 25 mg PO QAM 10/04/24 01/31/25 History tablet,extended release 24 hr torsemide 10 mg tablet 10 - 20 mg PO DAILY 11/15/24 01/31/25 History Lupron 0 mg IM DIRECTED 12/28/24 01/31/25 History celecoxib 200 mg capsule 200 mg PO DAILY PRN Pain 12/28/24 01/31/25 History triamcinolone acetonide 0.1 % 1 applic topical BID #80 grams 12/28/24 01/31/25 Rx topical cream nystatin 100,000 unit/gram topical 1 applic topical TID #60 grams 01/13/25 01/31/25 Rx powder spironolactone 25 mg tablet 12.5 mg (1/2 x 25 mg) PO QAM #45 01/30/25 01/31/25 Rx tabs Past Med/Surg History Problem List (Updated 02/01/25 @ 00:06 by Anne Tracey) Candidal skin infection (Acute) Acute UTI (Acute) Indwelling catheter present on admission Bladder tumor current dx Prostate cancer current dx Urinary incontinence Incomplete emptying of bladder Medical History Arthritis Nocturnal hypoxemia Thoracic ascending aortic aneurysm Echo 08/2024: Borderline dilated ascending aorta Cyst of pancreas (~06/2021) Per records: 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 Can consider repeat imaging in 2 years if good surgical candidate. ICD (implantable cardioverter-defibrillator) in place Implanted 10/2023 (bradycardia) [employer] device Pacemaker PPM/ICD CHF (congestive heart failure) [facility] cardio Hypertension History of asthma Childhood Sleep apnea CPAP (compliant) Hx of gout Recurrent falls Multiple pulmonary nodules Per records: CT scan 06/2021 through 05/2023, stable- no further surveillance Chronic venous insufficiency Nonischemic cardiomyopathy CAD (coronary artery disease) 2020 cath: "No obstructive coronary disease" Aortic root dilation Echo 08/2024: 4.6cm dilated aortic root, "Moderate aortic root dilatation" Aortic regurgitation Echo 08/2024: Moderate AR AV block, Mobitz 1 Pigmented skin lesion of uncertain behavior of torso IPMN (intraductal papillary mucinous neoplasm) Mild cognitive impairment Bifascicular block 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 Abnormal gait Uses cane Nephrolithiasis Urinary urgency Periodic limb movement disorder Hyperlipidemia Surgical History History of cardiac cath 2020- no stents Status post implantation of automatic cardioverter/defibrillator (AICD) History of tooth extraction S/P tonsillectomy and adenoidectomy S/P colonoscopy S/P cataract surgery R/L Family History Mother Breast cancer COPD (chronic obstructive pulmonary disease) Lung disease Father Heart disease Other No family history of adverse response to anesthesia Denies family history of Colon cancer Ovarian cancer Prostate cancer Myocardial infarction Colorectal cancer Social History Smoking Status: Former smoker Tobacco Type: Smokeless Tobacco (Dip or Chew) Age Started Using Tobacco: 16; Age Quit Using Tobacco: 35; packs per day: 1; Cigarettes Per Day: Quit at age 35; Smoking End Date: months ago; Second Hand Exposure: No; Do You Dip or Chew Tobacco: Yes; Hx Alcohol Use: Yes Alcohol type: beer Alcohol Intake Frequency: 2-3 x/Week Alcohol Intake Frequency Comment: 1 beer a week Hx Substance Use: No Preferred Language: B[place]ian Communication Ability: Effective Visual Impairment: Limited Hearing Ability: Normal Utility Tech Required: No Beliefs That Will Affect Care: None marital status: Current Living Situation: Spouse Current Living Situation Comment: Living at home with current occupational status: employed current occupation: works at a [employer] How many Children do You have: 2 Other Information That Helps Us Care for You: No Feels Safe at Home: Yes Safety Concerns: Feels Safe At This Time Childhood Exposure to Second-Hand Smoke: Yes Diet: regular caffeine: Yes (coffee daily, tea, soda ) Dental Care, Regularly: Yes Physical Activity Frequency: Daily Physical Activity Frequency Comment: prescribed by therapy Seatbelt Use: always Sunscreen Use: No Assistive Devices: Cane and CPAP Review of Systems Review of Systems: As per above Physical Exam Constitutional: Alert and oriented, no acute distress. Frail appearing. Eyes: PERRL; no conjunctival abnormality ENMT: Ears: no external ear abnormality Nose: no external nose abnormality Moist mucous membranes Respiratory: normal respiratory effort, lungs clear to auscultation Cardiovascular: Rate/Rhythm: regular rate and regular rhythm Extremities: no edema Gastrointestinal (Abdomen): Inspection/Auscultation: abdomen normal to inspection Percussion/Palpation: abdomen soft; abdomen nontender and no guarding Musculoskeletal: Moves all limbs independently, upper extremity floor supervisor strength intact bilaterally Skin: erythematous rash at R thigh and left medial surface of ankle. Neurologic: CN's II-XI intact bilaterally; no focal motor deficits Psychiatric: A+Ox3, euthymic affect Genitourinary: Borden catheter in place Results & Data Results & Data Vital Signs (Past 12 Hours) Vital Signs Temp Pulse Pulse Resp BP BP Pulse Ox 01/31/25 22:00 67 01/31/25 21:00 84 22 115/71 96 01/31/25 20:30 37.5 C 68 20 115/60 95 01/31/25 19:08 66 20 115/74 98 01/31/25 19:04 64 25 H 115/74 100 01/31/25 18:47 64 25 H 91/56 L 99 01/31/25 18:47 65 25 H 99 01/31/25 18:45 68 24 91/56 L 95 01/31/25 18:11 78 01/31/25 17:56 36.9 C 74 20 89/54 L 97 O2 Del Method 01/31/25 22:00 01/31/25 21:00 01/31/25 20:30 01/31/25 19:08 01/31/25 19:04 Room Air 01/31/25 18:47 Room Air 01/31/25 18:47 Room Air 01/31/25 18:45 Room Air 01/31/25 18:11 01/31/25 17:56 Room Air Diagnostic Findings Chest X-Ray 01/31/25 18:07 EXAM: XR chest 1V portable CLINICAL HISTORY: Sepsis TECHNIQUE: An X-ray image of the chest is obtained in AP projection. COMPARISON: Compared to the prior chest x-ray dated 09/04/2024. FINDINGS: Pulmonary Parenchyma: Lungs are clear bilaterally. No evidence of consolidation, collapse, or focal opacities. No pulmonary nodules are identified. No evidence of pleural effusion or pleural thickening. Heart and Mediastinum: Heart size appears enlarged. Implnatable cardioverter defibrilator. Triple leads with two at the right ventricle and one at the right atrium. No mediastinal widening or masses. No hilar or mediastinal lymphadenopathy. Bony Thorax: Bony thorax appears intact without fractures or deformities. Soft Tissues: Soft tissues overlying the chest wall are unremarkable. IMPRESSION: 1. No acute pulmonary findings 2. Cardiomegaly (unchanged). Electronically signed by Forrest Cameron 01-31-2025 8:48 PM Supervising Physician Co-Signing Physician Notes Attending addendum: I have physically seen this patient, have supervised the medical residents activities, and agree with the H&P unless as otherwise noted. Assessment and Plan: The patient is an 89-year-old male with a past medical history including KATHYA, CHF, right bundle branch block, status post AICD, history of bladder cancer, and prostate cancer with bony metastases. He complains of progressive fatigue, generalized weakness, after having started Lupron injection 2.5 weeks ago.. He continues follow-up with oncology. He complains of a new rash on both legs and feet. He does wear CPAP at night time, but is unable to tolerate it for a few hours. #Urinary tract infection/chronic indwelling Borden catheter/prostate cancer with urinary retention- Follow urine culture and sensitivity Continue ceftriaxone 2 g IV daily Acute kidney injury superimposed on CKD/electrolyte disturbances- Creatinine 1.76, with base 1.59 Potassium 5.4, no acute findings on EKG or monitor Repeat laboratories in a.m. Progressive weakness/ambulatory dysfunction- Multiple contributing factors including but not limited to: Urinary tract infection, progressive generalized debilitation, dehydration, Lupron therapy, overall malnutrition due to decreased oral intake Consult PT/OT HFrEF/presence of AICD/CAD/hypertension/recent echo from August 2024 with EF 40% Continue Entresto, metoprolol spironolactone Temporarily hold torsemide due to above IV fluids overnight as noted and recheck laboratories in a.m. Prostate cancer- Status post first Lupron injection 2.5 weeks ago with contributory side effects with Consult oncology Remaining orders and notations as noted Resident Activity Tracking Resident Involvement: Resident Care Provided Care Provided: Adult [facility]
--- NOTE | 2025-01-31 23:41 | Emergency Department Note ---
History of Present Illness General Chief complaint: Infection Stated complaint: INFECTION-DOC REFERRED Time Seen by Provider: 01/31/25 18:06 Source: patient and family History of Present Illness Provider complaint: Weakness Onset (ago): week(s) 2 89-year-old male presents emergency department for weakness. Patient and family state he has been increasing weak for the last 2 weeks. Denies any falls or trauma. No headache. No chest pain or difficulty breathing. PCP reportedly sent the patient over for concerns of elevated white blood cell count and kidney functions. Family states they are concerned the patient has a UTI as he has a chronic indwelling Betancourt catheter. Home Medications Medication Instructions Recorded Confirmed Type calcium 600 mg (as 1 tab PO DAILY 06/08/19 01/31/25 History carbonate)-vitamin D3 10 mcg (400 unit) tablet (Calcium 600 + D(3)) Prevagen 1 tab PO QAM 06/18/21 01/31/25 History ibuprofen 200 mg tablet 200 mg PO Q6H PRN Pain 10/08/21 01/31/25 History [id number]-Td-dmtr-minerals 1 tab PO QAM 09/20/23 01/31/25 History cholecalciferol (vitamin D3) 50 50 mcg PO QAM 11/11/23 01/31/25 History mcg (2,000 unit) capsule acetaminophen 500 mg tablet 1,000 mg PO QAM pain 04/19/24 01/31/25 History (Tylenol Extra Strength) balance of nature 6 cap PO DAILY 04/19/24 01/31/25 History sacubitril 97 mg-valsartan 103 mg 1 tab PO BID #180 tabs 07/22/24 01/31/25 Rx tablet (Entresto) aspirin 81 mg tablet,delayed 81 mg PO QAM 10/04/24 01/31/25 History release (Adult Low Dose Aspirin) metoprolol succinate 25 mg 25 mg PO QAM 10/04/24 01/31/25 History tablet,extended release 24 hr torsemide 10 mg tablet 10 - 20 mg PO DAILY 11/15/24 01/31/25 History Lupron 0 mg IM DIRECTED 12/28/24 01/31/25 History celecoxib 200 mg capsule 200 mg PO DAILY PRN Pain 12/28/24 01/31/25 History triamcinolone acetonide 0.1 % 1 applic topical BID #80 grams 12/28/24 01/31/25 Rx topical cream nystatin 100,000 unit/gram topical 1 applic topical TID #60 grams 01/13/25 01/31/25 Rx powder spironolactone 25 mg tablet 12.5 mg (1/2 x 25 mg) PO QAM #45 01/30/25 01/31/25 Rx tabs Allergies Allergy/AdvReac Type Severity Reaction Status Date / Time No Known Allergies Allergy Verified 01/31/25 19:48 Past Med/Surg History Problem List (Updated 01/31/25 @ 23:52 by Mik Holden MD) Candidal skin infection (Acute) Acute UTI (Acute) Indwelling catheter present on admission Bladder tumor current dx Prostate cancer current dx Urinary incontinence Incomplete emptying of bladder Medical History Arthritis Nocturnal hypoxemia Thoracic ascending aortic aneurysm Echo 08/2024: Borderline dilated ascending aorta Cyst of pancreas (~06/2021) Per records: 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 Can consider repeat imaging in 2 years if good surgical candidate. ICD (implantable cardioverter-defibrillator) in place Implanted 10/2023 (bradycardia) Medtronic device Pacemaker PPM/ICD CHF (congestive heart failure) MNPG cardio Hypertension History of asthma Childhood Sleep apnea CPAP (compliant) Hx of gout Recurrent falls Multiple pulmonary nodules Per records: CT scan 06/2021 through 05/2023, stable- no further surveillance Chronic venous insufficiency Nonischemic cardiomyopathy CAD (coronary artery disease) 2020 cath: "No obstructive coronary disease" Aortic root dilation Echo 08/2024: 4.6cm dilated aortic root, "Moderate aortic root dilatation" Aortic regurgitation Echo 08/2024: Moderate AR AV block, Mobitz 1 Pigmented skin lesion of uncertain behavior of torso IPMN (intraductal papillary mucinous neoplasm) Mild cognitive impairment Bifascicular block 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 Abnormal gait Uses cane Nephrolithiasis Urinary urgency Periodic limb movement disorder Hyperlipidemia Surgical History History of cardiac cath 2020- no stents Status post implantation of automatic cardioverter/defibrillator (AICD) History of tooth extraction S/P tonsillectomy and adenoidectomy S/P colonoscopy S/P cataract surgery R/L Family History Mother Breast cancer COPD (chronic obstructive pulmonary disease) Lung disease Father Heart disease Other No family history of adverse response to anesthesia Denies family history of Colon cancer Ovarian cancer Prostate cancer Myocardial infarction Colorectal cancer Social History Smoking Status: Never smoker Tobacco Type: Cigarettes and Smokeless Tobacco (Dip or Chew) Age Started Using Tobacco: 16; Age Quit Using Tobacco: 35; packs per day: 1; Cigarettes Per Day: Quit at age 35; Second Hand Exposure: No; Do You Dip or Chew Tobacco: No (2013 quit); Hx Alcohol Use: Yes Alcohol type: beer Alcohol Intake Frequency: 2-3 x/Week Alcohol Intake Frequency Comment: 1 beer a week Hx Substance Use: No Preferred Language: Serbian Communication Ability: Effective Visual Impairment: Limited Hearing Ability: Normal Rug Hooker Hand Required: No Beliefs That Will Affect Care: None marital status: Current Living Situation: Spouse Current Living Situation Comment: Living at home with current occupational status: employed current occupation: works at a [employer] How many Children do You have: 2 Feels Safe at Home: Yes Childhood Exposure to Second-Hand Smoke: Yes Diet: regular caffeine: Yes (coffee daily, tea, soda ) Dental Care, Regularly: Yes Physical Activity Frequency: Daily Physical Activity Frequency Comment: prescribed by therapy Seatbelt Use: always Sunscreen Use: No Assistive Devices: Cane, CPAP, Denture - Lower, Glasses and Hearing Aid - Bilateral Physical Exam Vital Signs Vital Signs - 24 hr 01/31/25 17:56 01/31/25 18:11 01/31/25 18:45 Temperature 36.9 C Temperature Source Temporal Artery Scan Pulse Rate 74 78 Pulse Rate [Apical] 68 Pulse Rate from SpO2 Sensor Pulse Rhythm Regular Pulse Strength Normal Respiratory Rate 20 24 Respiratory Effort / Characteristics Non-Labored Spontaneous Respiratory Depth Normal Blood Pressure 89/54 L Blood Pressure [Left Arm] 91/56 L Blood Pressure Mean 65 Blood Pressure Mean [Left Arm] 67 Blood Pressure Position Sitting Pulse Oximetry 97 95 Oxygen Delivery Method Room Air Room Air Sepsis Recent Fever Within 48 Hours No Sepsis New/Unexplained Change in Mental Status N/A Sepsis Action Taken by Nursing No Action Required 01/31/25 18:47 01/31/25 18:47 01/31/25 19:04 Temperature Temperature Source Pulse Rate 65 Pulse Rate [Apical] 64 64 Pulse Rate from SpO2 Sensor Pulse Rhythm Pulse Strength Respiratory Rate 25 H 25 H 25 H Respiratory Effort / Characteristics Respiratory Depth Blood Pressure Blood Pressure [Left Arm] 91/56 L 115/74 Blood Pressure Mean Blood Pressure Mean [Left Arm] 67 87 Blood Pressure Position Pulse Oximetry 99 99 100 Oxygen Delivery Method Room Air Room Air Room Air Sepsis Recent Fever Within 48 Hours Sepsis New/Unexplained Change in Mental Status Sepsis Action Taken by Nursing 01/31/25 19:08 01/31/25 20:30 01/31/25 21:00 Temperature 37.5 C Temperature Source Pulse Rate 66 68 84 Pulse Rate [Apical] Pulse Rate from SpO2 Sensor Pulse Rhythm Pulse Strength Respiratory Rate 20 20 22 Respiratory Effort / Characteristics Respiratory Depth Blood Pressure 115/74 115/60 115/71 Blood Pressure [Left Arm] Blood Pressure Mean 83 68 85 Blood Pressure Mean [Left Arm] Blood Pressure Position Pulse Oximetry 98 95 96 Oxygen Delivery Method Sepsis Recent Fever Within 48 Hours Sepsis New/Unexplained Change in Mental Status Sepsis Action Taken by Nursing 01/31/25 22:00 01/31/25 22:00 01/31/25 22:00 Temperature Temperature Source Pulse Rate 67 66 Pulse Rate [Apical] Pulse Rate from SpO2 Sensor Pulse Rhythm Pulse Strength Respiratory Rate 20 Respiratory Effort / Characteristics Respiratory Depth Blood Pressure 105/72 105/72 Blood Pressure [Left Arm] Blood Pressure Mean 85 85 Blood Pressure Mean [Left Arm] Blood Pressure Position Pulse Oximetry 97 Oxygen Delivery Method Sepsis Recent Fever Within 48 Hours Sepsis New/Unexplained Change in Mental Status Sepsis Action Taken by Nursing 01/31/25 22:00 01/31/25 22:00 01/31/25 22:00 Temperature Temperature Source Pulse Rate Pulse Rate [Apical] Pulse Rate from SpO2 Sensor Pulse Rhythm Pulse Strength Respiratory Rate Respiratory Effort / Characteristics Respiratory Depth Blood Pressure 105/72 105/72 105/72 Blood Pressure [Left Arm] Blood Pressure Mean 85 85 85 Blood Pressure Mean [Left Arm] Blood Pressure Position Pulse Oximetry Oxygen Delivery Method Sepsis Recent Fever Within 48 Hours Sepsis New/Unexplained Change in Mental Status Sepsis Action Taken by Nursing 01/31/25 22:00 01/31/25 22:00 01/31/25 22:00 Temperature Temperature Source Pulse Rate Pulse Rate [Apical] Pulse Rate from SpO2 Sensor Pulse Rhythm Pulse Strength Respiratory Rate Respiratory Effort / Characteristics Respiratory Depth Blood Pressure 105/72 105/72 105/72 Blood Pressure [Left Arm] Blood Pressure Mean 85 85 85 Blood Pressure Mean [Left Arm] Blood Pressure Position Pulse Oximetry Oxygen Delivery Method Sepsis Recent Fever Within 48 Hours Sepsis New/Unexplained Change in Mental Status Sepsis Action Taken by Nursing 01/31/25 22:00 01/31/25 22:00 01/31/25 22:00 Temperature Temperature Source Pulse Rate Pulse Rate [Apical] Pulse Rate from SpO2 Sensor Pulse Rhythm Pulse Strength Respiratory Rate Respiratory Effort / Characteristics Respiratory Depth Blood Pressure 105/72 105/72 105/72 Blood Pressure [Left Arm] Blood Pressure Mean 85 85 85 Blood Pressure Mean [Left Arm] Blood Pressure Position Pulse Oximetry Oxygen Delivery Method Sepsis Recent Fever Within 48 Hours Sepsis New/Unexplained Change in Mental Status Sepsis Action Taken by Nursing 01/31/25 22:00 01/31/25 22:00 01/31/25 22:00 Temperature Temperature Source Pulse Rate Pulse Rate [Apical] Pulse Rate from SpO2 Sensor Pulse Rhythm Pulse Strength Respiratory Rate Respiratory Effort / Characteristics Respiratory Depth Blood Pressure 105/72 105/72 105/72 Blood Pressure [Left Arm] Blood Pressure Mean 85 85 85 Blood Pressure Mean [Left Arm] Blood Pressure Position Pulse Oximetry Oxygen Delivery Method Sepsis Recent Fever Within 48 Hours Sepsis New/Unexplained Change in Mental Status Sepsis Action Taken by Nursing 01/31/25 22:00 01/31/25 22:00 01/31/25 22:00 Temperature Temperature Source Pulse Rate Pulse Rate [Apical] Pulse Rate from SpO2 Sensor Pulse Rhythm Pulse Strength Respiratory Rate Respiratory Effort / Characteristics Respiratory Depth Blood Pressure 105/72 105/72 105/72 Blood Pressure [Left Arm] Blood Pressure Mean 85 85 85 Blood Pressure Mean [Left Arm] Blood Pressure Position Pulse Oximetry Oxygen Delivery Method Sepsis Recent Fever Within 48 Hours Sepsis New/Unexplained Change in Mental Status Sepsis Action Taken by Nursing 01/31/25 22:00 01/31/25 22:00 01/31/25 22:00 Temperature Temperature Source Pulse Rate Pulse Rate [Apical] Pulse Rate from SpO2 Sensor Pulse Rhythm Pulse Strength Respiratory Rate Respiratory Effort / Characteristics Respiratory Depth Blood Pressure 105/72 105/72 105/72 Blood Pressure [Left Arm] Blood Pressure Mean 85 85 85 Blood Pressure Mean [Left Arm] Blood Pressure Position Pulse Oximetry Oxygen Delivery Method Sepsis Recent Fever Within 48 Hours Sepsis New/Unexplained Change in Mental Status Sepsis Action Taken by Nursing 01/31/25 22:36 01/31/25 22:42 01/31/25 22:57 Temperature Temperature Source Pulse Rate 74 71 77 Pulse Rate [Apical] Pulse Rate from SpO2 Sensor 73 66 73 Pulse Rhythm Pulse Strength Respiratory Rate 20 25 H 18 Respiratory Effort / Characteristics Respiratory Depth Blood Pressure Blood Pressure [Left Arm] Blood Pressure Mean Blood Pressure Mean [Left Arm] Blood Pressure Position Pulse Oximetry 98 96 96 Oxygen Delivery Method Sepsis Recent Fever Within 48 Hours Sepsis New/Unexplained Change in Mental Status Sepsis Action Taken by Nursing 01/31/25 23:00 01/31/25 23:00 01/31/25 23:00 Temperature Temperature Source Pulse Rate Pulse Rate [Apical] Pulse Rate from SpO2 Sensor Pulse Rhythm Pulse Strength Respiratory Rate Respiratory Effort / Characteristics Respiratory Depth Blood Pressure 115/67 115/67 115/67 Blood Pressure [Left Arm] Blood Pressure Mean 73 73 73 Blood Pressure Mean [Left Arm] Blood Pressure Position Pulse Oximetry Oxygen Delivery Method Sepsis Recent Fever Within 48 Hours Sepsis New/Unexplained Change in Mental Status Sepsis Action Taken by Nursing 01/31/25 23:00 01/31/25 23:00 01/31/25 23:00 Temperature Temperature Source Pulse Rate Pulse Rate [Apical] Pulse Rate from SpO2 Sensor Pulse Rhythm Pulse Strength Respiratory Rate Respiratory Effort / Characteristics Respiratory Depth Blood Pressure 115/67 115/67 115/67 Blood Pressure [Left Arm] Blood Pressure Mean 73 73 73 Blood Pressure Mean [Left Arm] Blood Pressure Position Pulse Oximetry Oxygen Delivery Method Sepsis Recent Fever Within 48 Hours Sepsis New/Unexplained Change in Mental Status Sepsis Action Taken by Nursing 01/31/25 23:00 01/31/25 23:00 01/31/25 23:00 Temperature Temperature Source Pulse Rate Pulse Rate [Apical] Pulse Rate from SpO2 Sensor Pulse Rhythm Pulse Strength Respiratory Rate Respiratory Effort / Characteristics Respiratory Depth Blood Pressure 115/67 115/67 115/67 Blood Pressure [Left Arm] Blood Pressure Mean 73 73 73 Blood Pressure Mean [Left Arm] Blood Pressure Position Pulse Oximetry Oxygen Delivery Method Sepsis Recent Fever Within 48 Hours Sepsis New/Unexplained Change in Mental Status Sepsis Action Taken by Nursing 01/31/25 23:00 01/31/25 23:00 01/31/25 23:00 Temperature Temperature Source Pulse Rate Pulse Rate [Apical] Pulse Rate from SpO2 Sensor Pulse Rhythm Pulse Strength Respiratory Rate Respiratory Effort / Characteristics Respiratory Depth Blood Pressure 115/67 115/67 115/67 Blood Pressure [Left Arm] Blood Pressure Mean 73 73 73 Blood Pressure Mean [Left Arm] Blood Pressure Position Pulse Oximetry Oxygen Delivery Method Sepsis Recent Fever Within 48 Hours Sepsis New/Unexplained Change in Mental Status Sepsis Action Taken by Nursing 01/31/25 23:00 01/31/25 23:03 01/31/25 23:12 Temperature Temperature Source Pulse Rate 73 69 Pulse Rate [Apical] Pulse Rate from SpO2 Sensor 73 69 Pulse Rhythm Pulse Strength Respiratory Rate 24 24 Respiratory Effort / Characteristics Respiratory Depth Blood Pressure 115/67 Blood Pressure [Left Arm] Blood Pressure Mean 73 Blood Pressure Mean [Left Arm] Blood Pressure Position Pulse Oximetry 98 97 Oxygen Delivery Method Sepsis Recent Fever Within 48 Hours Sepsis New/Unexplained Change in Mental Status Sepsis Action Taken by Nursing 01/31/25 23:21 Temperature Temperature Source Pulse Rate 65 Pulse Rate [Apical] Pulse Rate from SpO2 Sensor 64 Pulse Rhythm Pulse Strength Respiratory Rate 22 Respiratory Effort / Characteristics Respiratory Depth Blood Pressure Blood Pressure [Left Arm] Blood Pressure Mean Blood Pressure Mean [Left Arm] Blood Pressure Position Pulse Oximetry 97 Oxygen Delivery Method Sepsis Recent Fever Within 48 Hours Sepsis New/Unexplained Change in Mental Status Sepsis Action Taken by Nursing Physical Exam GENERAL: oriented to person, place, and time. appears well-developed and well- nourished. HENT: Exam performed. - Head: Normocephalic and atraumatic. EYES: Conjunctivae and EOM are normal. Right eye exhibits no discharge. Left eye exhibits no discharge. No scleral icterus. NECK: Normal range of motion. Neck supple. No JVD present. CV: Normal rate, regular rhythm, normal heart sounds and intact distal pulses. There is no peripheral edema. Palpable radial pulses bue. PULM/CHEST: Effort normal and breath sounds normal. No respiratory distress. No stridor. no wheezes. no rales. ABD: The abdomen is soft. There is no tenderness. : Betancourt catheter in place. Lesions on the scrotum that are with mattress with raised edges concerning for Eleonora. NEURO: Motor and sensation grossly intact. SKIN: Candidal appearing lesions over the bilateral lower extremities in the outline of where the patient's leg bag from his Betancourt catheter was. No vesicular lesions. No papular lesions. Nikolsky negative. Course Course 1806: The patient was evaluated in room C9. A complete history and physical exam was performed Cardiac monitoring: An order was placed for continuous cardiac monitoring. The monitor shows a rate of 60 with paced rhythm interpreted by nv 2200: Vital signs stable. Labs show leukocytosis of 13.55. Hemoglobin 9.3. VBG unremarkable. Potassium 5.4. Creatinine 1.76. Lactic acid within normal limits. Urinalysis does appear to be source of infection. Procalcitonin 0.79. Patient be treated with Rocephin for UTI as well as fluconazole and topical clotrimazole for presumed fungal infection over his bilateral lower extremities and scrotum. Patient will be admitted to the [facility] team. Administered Medications Discontinued Medications Clotrimazole (Clotrimazole 1% Cr 15 Gm Tube) 1 appln EXT NOW ONE Stop: 01/31/25 21:33 Last Admin: 01/31/25 22:03 Dose: 1 appln Documented By: TIN Fluconazole (Fluconazole 50 Mg Tab) 150 mg PO NOW ONE Stop: 01/31/25 21:33 Last Admin: 01/31/25 22:03 Dose: 150 mg Documented By: TIN Sodium Chloride (Nss) 500 mls @ 999 mls/hr IV .Q31M JONNA Stop: 01/31/25 18:45 Last Infusion: 01/31/25 19:18 Dose: Infused Documented By: Admin: 01/31/25 18:48 Dose: 999 mls/hr Documented By: MARCELA Sodium Chloride (Nss) 500 mls @ 125 mls/hr IV .Q4H JONNA Stop: 01/31/25 22:14 Last Admin: 01/31/25 19:18 Dose: 125 mls/hr Documented By: TIN Ceftriaxone Sodium (Rocephin) 2,000 mg in 50 mls @ 100 mls/hr IV NOW STA Stop: 01/31/25 21:53 Last Infusion: 01/31/25 22:06 Dose: Infused Documented By: Admin: 01/31/25 21:36 Dose: 100 mls/hr Documented By: TIN Medical Decision Making Medical Records Attestation: I reviewed the patient's medical records. External medical records reviewed. Patient was seen by PCP and had outpatient blood work done which showed a white blood cell count of 14 Laboratory Data Attestation: I reviewed the patient's lab results. 01/31/25 19:41 01/31/25 18:21 Lab Results 01/31/25 01/31/25 01/31/25 Range/Units 18:21 19:26 19:41 WBC Cancelled 13.55 H RBC Cancelled 3.22 L Hgb Cancelled 9.3 L Hct Cancelled 29.4 L MCV Cancelled 91.3 MCH Cancelled 28.9 MCHC Cancelled 31.6 L RDW Std Deviation Cancelled 43.2 RDW Coeff of Armando Cancelled 12.9 Plt Count Cancelled 378 MPV Cancelled 8.9 L Immature Gran % (Auto) Cancelled 1.0 Neut % (Auto) Cancelled 86.9 Lymph % (Auto) Cancelled 5.3 [place] % (Auto) Cancelled 6.7 Eos % (Auto) Cancelled 0.0 Baso % (Auto) Cancelled 0.1 Neut # (Auto) Cancelled 11.77 H Lymph # (Auto) Cancelled 0.[address] [place] # (Auto) Cancelled 0.91 H Eos # (Auto) Cancelled 0.00 Baso # (Auto) Cancelled 0.02 Immature Gran # (Auto) Cancelled 0.13 Absolute Nucleated RBC Cancelled Nucleated RBC % (auto) Cancelled Neutrophils % (Manual) Cancelled Band Neutrophils % Cancelled Lymphocytes % (Manual) Cancelled Prolymphocyte % Cancelled Reactive Lymphs % (Man) Cancelled Monocytes % (Manual) Cancelled Eosinophils % (Manual) Cancelled Basophils % (Manual) Cancelled Metamyelocytes % (Man) Cancelled Myelocytes % (Man) Cancelled Promyelocytes % (Man) Cancelled Blast Cells % (Manual) Cancelled Plasma Cell % (Manual) Cancelled Other Cells % Cancelled Nucleated RBC % Cancelled Neutrophils # (Manual) Cancelled Band Neutrophils # Cancelled Total Absolute Neuts Cancelled Lymphocytes # (Manual) Cancelled Prolymphocyte # Cancelled Reactive Lymphs # Cancelled Total Abs Lymphocytes Cancelled Monocytes # (Manual) Cancelled Eosinophils # (Manual) Cancelled Basophils # (Manual) Cancelled Metamyelocytes # (Man) Cancelled Myelocytes # (Manual) Cancelled Promyelocytes # (Man) Cancelled Blast Cells # (Man) Cancelled Plasma Cell # (Manual) Cancelled Other Cells # Cancelled Nucleated RBCs # (Man) Cancelled Hypersegmented Neuts Cancelled Hyposegmented Neuts Cancelled Hypogranular Neuts Cancelled Large Granular Lymphs Cancelled # Lrg Granular Lymphs Cancelled Hairy Cells Cancelled Smudge Cells Cancelled Toxic Granulation Cancelled Toxic Vacuolation Cancelled Dohle Bodies Cancelled [place] Rods Cancelled Platelet Estimate Cancelled Hypogranular Platelets Cancelled Giant Platelets Cancelled Platelet Satelliting Cancelled RBC Morphology Cancelled Polychromasia Cancelled Hypochromasia Cancelled Poikilocytosis Cancelled Basophilic Stippling Cancelled Anisocytosis Cancelled Microcytosis Cancelled Macrocytosis Cancelled Spherocytes Cancelled Pappenheimer Bodies Cancelled Sickle Cells Cancelled Target Cells Cancelled Tear Drop Cells Cancelled Ovalocytes Cancelled Stomatocytes Cancelled [place] Bodies Cancelled Echinocytes Cancelled Acanthocytes (Spur) Cancelled Rouleaux Cancelled RBC Agglutinates Cancelled Schistocytes Cancelled Sezary Cell Cancelled PT 12.0 (9.0-12.0) Seconds INR 1.1 (0.9-1.1) APTT 25 (21-31) Seconds PTT Ratio 0.9 VBG pH 7.31 L (7.36-7.41) VBG pCO2 45 (38-50) mmHg VBG pO2 25 mmHg VBG HCO3 23 mmol/L VBG O2 Saturation < 60.0 % VBG Base Excess -3.7 mEq/L Sodium 131 L (136-145) mmol/L Potassium 5.4 H (3.5-5.1) mmol/L Chloride 101 (98-107) mmol/L Carbon Dioxide 22 (21-32) mmol/L Anion Gap 8 (3-11) BUN 61 H (6-23) mg/dl Creatinine 1.76 H (0.6-1.4) mg/dl Est Cr Clr Drug Dosing 27.1 ml/min eGFR 36.51 BUN/Creatinine Ratio 34.7 H (10-20) Glucose 220 H (70-99(Fasting)) mg/dl Lactate 1.4 (0.4-2.0) mmol/L Calcium 9.5 (8.6-10.3) mg/dl Magnesium 2.3 (1.7-2.4) mg/dl Total Bilirubin 0.3 (0.2-1.0) mg/dl Direct Bilirubin 0.1 (0-0.2) mg/dl AST 14 (13-39) U/L ALT 11 (7-52) U/L Alkaline Phosphatase 110 H (34-104) U/L Troponin I High Sens 18.2 (0-20) pg/ml Total Protein 6.9 (6.0-8.3) gm/dl Albumin 3.4 (3.4-5.0) gm/dl Procalcitonin 0.79 H (0-0.5) ng/ml Urine Color Urine Appearance (Clear) Urine pH (4.5-7.5) Ur Specific [place] (1.000-1.030) Urine Protein (Negative) Urine Glucose (UA) (Negative) Urine Ketones (Negative) Urine Blood (Negative) Urine Nitrite (Negative) Urine Bilirubin (Negative) Urine Urobilinogen (Negative) Ur Leukocyte Esterase (Negative) Urine WBC (Auto) (0-5) /hpf Urine RBC (Auto) (0-2) /hpf U Hyaline Cast (Auto) (0-2) /lpf U Epithel Cells (Auto) (0-2) /hpf Urine Bacteria (Auto) (None Seen) Blood Parasites ID Cancelled 01/31/25 Range/Units 20:30 WBC RBC Hgb Hct MCV MCH MCHC RDW Std Deviation RDW Coeff of Armando Plt Count MPV Immature Gran % (Auto) Neut % (Auto) Lymph % (Auto) [place] % (Auto) Eos % (Auto) Baso % (Auto) Neut # (Auto) Lymph # (Auto) [place] # (Auto) Eos # (Auto) Baso # (Auto) Immature Gran # (Auto) Absolute Nucleated RBC Nucleated RBC % (auto) Neutrophils % (Manual) Band Neutrophils % Lymphocytes % (Manual) Prolymphocyte % Reactive Lymphs % (Man) Monocytes % (Manual) Eosinophils % (Manual) Basophils % (Manual) Metamyelocytes % (Man) Myelocytes % (Man) Promyelocytes % (Man) Blast Cells % (Manual) Plasma Cell % (Manual) Other Cells % Nucleated RBC % Neutrophils # (Manual) Band Neutrophils # Total Absolute Neuts Lymphocytes # (Manual) Prolymphocyte # Reactive Lymphs # Total Abs Lymphocytes Monocytes # (Manual) Eosinophils # (Manual) Basophils # (Manual) Metamyelocytes # (Man) Myelocytes # (Manual) Promyelocytes # (Man) Blast Cells # (Man) Plasma Cell # (Manual) Other Cells # Nucleated RBCs # (Man) Hypersegmented Neuts Hyposegmented Neuts Hypogranular Neuts Large Granular Lymphs # Lrg Granular Lymphs Hairy Cells Smudge Cells Toxic Granulation Toxic Vacuolation Dohle Bodies [place] Rods Platelet Estimate Hypogranular Platelets Giant Platelets Platelet Satelliting RBC Morphology Polychromasia Hypochromasia Poikilocytosis Basophilic Stippling Anisocytosis Microcytosis Macrocytosis Spherocytes Pappenheimer Bodies Sickle Cells Target Cells Tear Drop Cells Ovalocytes Stomatocytes [place] Bodies Echinocytes Acanthocytes (Spur) Rouleaux RBC Agglutinates Schistocytes Sezary Cell PT (9.0-12.0) Seconds INR (0.9-1.1) APTT (21-31) Seconds PTT Ratio VBG pH (7.36-7.41) VBG pCO2 (38-50) mmHg VBG pO2 mmHg VBG HCO3 mmol/L VBG O2 Saturation % VBG Base Excess mEq/L Sodium (136-145) mmol/L Potassium (3.5-5.1) mmol/L Chloride (98-107) mmol/L Carbon Dioxide (21-32) mmol/L Anion Gap (3-11) BUN (6-23) mg/dl Creatinine (0.6-1.4) mg/dl Est Cr Clr Drug Dosing ml/min eGFR BUN/Creatinine Ratio (10-20) Glucose (70-99(Fasting)) mg/dl Lactate (0.4-2.0) mmol/L Calcium (8.6-10.3) mg/dl Magnesium (1.7-2.4) mg/dl Total Bilirubin (0.2-1.0) mg/dl Direct Bilirubin (0-0.2) mg/dl AST (13-39) U/L ALT (7-52) U/L Alkaline Phosphatase (34-104) U/L Troponin I High Sens (0-20) pg/ml Total Protein (6.0-8.3) gm/dl Albumin (3.4-5.0) gm/dl Procalcitonin (0-0.5) ng/ml Urine Color Yellow Urine Appearance Turbid A (Clear) Urine pH 5.5 (4.5-7.5) Ur Specific [place] 1.017 (1.000-1.030) Urine Protein 2+ H (Negative) Urine Glucose (UA) Negative (Negative) Urine Ketones Trace H (Negative) Urine Blood 3+ H (Negative) Urine Nitrite Positive A (Negative) Urine Bilirubin Negative (Negative) Urine Urobilinogen Negative (Negative) Ur Leukocyte Esterase 3+ H (Negative) Urine WBC (Auto) >50 H (0-5) /hpf Urine RBC (Auto) >20 H (0-2) /hpf U Hyaline Cast (Auto) 0-2 (0-2) /lpf U Epithel Cells (Auto) 0-2 (0-2) /hpf Urine Bacteria (Auto) 3+ H (None Seen) Blood Parasites ID Imaging Data Radiologist's Impression: Chest X-Ray 01/31/25 18:07 EXAM: XR chest 1V portable CLINICAL HISTORY: Sepsis TECHNIQUE: An X-ray image of the chest is obtained in AP projection. COMPARISON: Compared to the prior chest x-ray dated 09/04/2024. FINDINGS: Pulmonary Parenchyma: Lungs are clear bilaterally. No evidence of consolidation, collapse, or focal opacities. No pulmonary nodules are identified. No evidence of pleural effusion or pleural thickening. Heart and Mediastinum: Heart size appears enlarged. Implnatable cardioverter defibrilator. Triple leads with two at the right ventricle and one at the right atrium. No mediastinal widening or masses. No hilar or mediastinal lymphadenopathy. Bony Thorax: Bony thorax appears intact without fractures or deformities. Soft Tissues: Soft tissues overlying the chest wall are unremarkable. IMPRESSION: 1. No acute pulmonary findings 2. Cardiomegaly (unchanged). Electronically signed by Forrest Cameron 01-31-2025 8:48 PM ECG Data Attestation: I personally reviewed and interpreted this ECG as follows: Additional Comments: Paced rhythm with rate of 63. NC 166 QRS 164 QTc 446. No ectopy. [facility] Narrative 1806: The patient was evaluated in room C9. A complete history and physical exam was performed Cardiac monitoring: An order was placed for continuous cardiac monitoring. The monitor shows a rate of 60 with paced rhythm interpreted by me 2200: Vital signs stable. Labs show leukocytosis of 13.55. Hemoglobin 9.3. VBG unremarkable. Potassium 5.4. Creatinine 1.76. Lactic acid within normal limits. Urinalysis does appear to be source of infection. Procalcitonin 0.79. Patient be treated with Rocephin for UTI as well as fluconazole and topical clotrimazole for presumed fungal infection over his bilateral lower extremities and scrotum. Patient will be admitted to [facility] hospitalist team. Impression & Plan Acute UTI, Candidal skin infection Discharge Plan Visit Data Chief Complaint: Infection Stated Complaint: INFECTION-DOC REFERRED ED Provider: Mik Holden Discharge Problem: Acute UTI, Candidal skin infection Patient Disposition: Admitted As Inpatient Forms Stand Alone Forms: My [facility] Prescriptions Prescriptions: No Action Entresto 97-103 mg tablet 1 tab PO BID Qty: 180 3RF spironolactone 25 mg tablet 12.5 mg PO QAM Qty: 45 3RF cholecalciferol (vitamin D3) 50 mcg (2,000 unit) capsule 50 mcg PO QAM ibuprofen 200 mg tablet 200 mg PO Q6H PRN (Reason: Pain) acetaminophen [Tylenol Extra Strength] 500 mg tablet 1,000 mg PO QAM torsemide 10 mg tablet 10 - 20 mg PO DAILY Patient Comments: pt states only taking 10mg daily unless wt gain, instructed to take 20mg Rx Instructions: Alternate 10 mg and 20 mg every other day. celecoxib 200 mg capsule 200 mg PO DAILY PRN (Reason: Pain) Lupron 0 mg IM DIRECTED triamcinolone acetonide 0.1 % cream 1 applic topical BID Qty: 80 0RF Rx Instructions: Apply to torso and extremities. nystatin 100,000 unit/gram powder 1 applic topical TID Qty: 60 0RF balance of nature 6 cap PO DAILY Rx Instructions: 3 caps of fruit supplement & 3 caps of vegetable supplement calcium carbonate-vitamin D3 [Calcium 600 + D(3)] 600 mg(1,500mg) -400 unit Tablet 1 tab PO DAILY Prevagen 1 tab PO QAM xtsxlojyuppn-Cc-vzpi-minerals Tablet 1 tab PO QAM aspirin [Adult Low Dose Aspirin] 81 mg tablet,delayed release (DR/EC) 81 mg PO QAM metoprolol succinate 25 mg tablet extended release 24 hr 25 mg PO QAM Referrals Referrals: Nba Lr DO [Primary Care Provider] -
[2025-02-01] MEDS ORDERED: POLYETHYLENE (MIRALAX) 17 GM PACK PO PRN (00:12)
[2025-02-01] MEDS ORDERED: ONDANSETRON INJ 2 MG/ML 2 ML VIAL IV PRN (00:12)
[2025-02-01] MEDS ORDERED: CLOTRIMAZOLE 1% CR 15 GM TUBE EXT PRN (00:12)
[2025-02-01] MEDS: SODIUM CHLORIDE 0.9% 1,000 ML IV SCH (00:56)
[2025-02-01 07:25] LABS: Basophils # (auto) 0.02 K/uL (0.00-0.20); Basophils % (auto) 0.2 %; Eosinophils # (auto) 0.02 K/uL (0.00-0.50); Eosinophils % (auto) 0.2 %; Hematocrit (blood only) 28.3 % (42.0-52.0); Hemoglobin 8.9 g/dl (14.0-18.0); Immature Granulocytes # (auto) 0.09 K/uL (0.01-0.20); Immature Granulocytes % (auto) 0.9 %; Lymphocytes % (auto) 9.6 %; Mean Corpuscular Hemoglobin 29.1 pg (25.0-34.0); Mean Corpuscular Hgb Conc 31.4 g/dL (32.0-36.0); Mean Corpuscular Volume 92.5 fL (80.0-100.0); Mean Platelet Volume 9.1 fL (9.4-12.4); Monocytes % (auto) 6.7 %; Neutrophils # (auto) 8.55 K/uL (1.40-6.50); Neutrophils % (auto) 82.4 %; Platelet Count 377 K/uL (130-400); RDW Coefficient of Variation 12.9 % (11.5-14.5); RDW Standard Deviation 43.8 fL (36.4-46.3); Red Blood Count 3.06 M/uL (4.70-6.10); White Blood Count 10.38 K/ul (4.8-10.8)
[2025-02-01 07:38] LABS: Albumin Globulin Ratio 0.9 (0.9-2); Albumin Level 2.9 gm/dl (3.4-5.0); BUN Creatinine Ratio 37.8 (10-20); Bilirubin,Total 0.3 mg/dl (0.2-1.0); Calcium 9.1 mg/dl (8.6-10.3); Creatinine Clr Calc Pharmacy 30.5 ml/min; Globulin 3.3 gm/dl (2.5-4.0); Potassium 4.9 mmol/L (3.5-5.1); Total Protein 6.2 gm/dl (6.0-8.3)
[2025-02-01] MEDS: SPIRONOLACTONE 12.5 MG TAB PO SCH (08:59)
[2025-02-01] MEDS: ASPIRIN 81 MG ECTAB PO SCH (08:59)
[2025-02-01] MEDS: METOPROLOL SUCC 25MG EXT REL TAB PO SCH (08:59)
[2025-02-01] MEDS: VALSARTAN/SACUBITRIL 103/97MG TAB PO SCH (08:59)
[2025-02-01] MEDS: HEPARIN SOD 5,000 UNIT/0.5 ML VIAL SQ SCH (09:00)
[2025-02-01] MEDS: NYSTATIN POWDER 15GM BTL EXT SCH (09:00)
--- NOTE | 2025-02-01 09:55 | Electrocardiogram Report ---
Test Reason : Blood Pressure : */* mmHG Vent. Rate : 63 BPM Atrial Rate : 63 BPM P-R Int : 166 ms QRS Dur : 164 ms QT Int : 436 ms P-R-T Axes : 79 269 79 degrees QTcB Int : 446 ms AV dual-paced rhythm Biventricular pacemaker detected Abnormal ECG When compared with ECG of 04-Sep-2024 18:55, Vent. rate has increased by 2 bpm Confirmed by Angelo Alexander ([id number]) on 02/01/2025 9:54:56 AM Referred By: REFERRED SELF Confirmed By: Angelo Alexander
--- NOTE | 2025-02-01 11:24 | Hospitalist Progress Note ---
Date of Service February 01, 2025 Assessment & Plan (1) UTI (urinary tract infection): (2) Indwelling catheter present on admission: (3) Weakness: (4) Rash and nonspecific skin eruption: Plan This pt is an 89 yo male with a h/o HFrEF, AICD, bladder CA, metastatic prostate CA recently started on Lupron, chronic Borden catheter, iron def anemia, KATHYA on CPAP, here with acute encephalopathy, lethargy, found to have catheter- associated UTI and a new rash. #CAUTI/Acute encephalopathy-Indwelling borden catheter present, presenting symptoms of weakness/fatigue, confusion, and leukocytosis. UA consistent with UTI. Urine culture and blood cultures pending. Procal mildly elevated at 0.79 -exchange Borden and collect new UA/Ur cx sample -continue ceftriaxone -follow urine and blood cultures -follow CBC, BMP in AM #Weakness/Ambulatory Dysfunction-Ongoing fatigue and weakness for over a week- secondary to combo of current UTI, side effect of initiation of Lupron therapy, dehydration/HITESH, and known iron deficiency anemia. -PT/OT evaluations ordered -treating UTI and anemia #HITESH/Hyponatremia/Hyperkalemia-Cr 1.76 on admission, baseline ~1.5. Likely secondary to poor PO intake and now improved to 1.4. Na 131 on arrival in ED, was 134 earlier in the day with outpatient labs, now improved to 135 with IVF hydration. 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 No itching or pain. Rash in groin appears possibly fungal in nature vs urticaria. He received oral fluconazole in ED. Rash is erythematous and serpiginous and with large rings on thighs and left knee--> could be generalized Granuloma annulare? This can be associated with drug reaction or malignancy -took pictures and sent to DERM for opinion-thinks urticarial in groin and lower abd but unclear about rash on legs, needs biopsy -Continue clotrimazole, nystatin powder for now -will arrange close f/u with DERM after discharge for biopsy and further eval -add Zyrtec 10mg po hs #Iron Deficiency Anemia-Hgb 9.3 on admission, baseline ~10. Transferrin sat here low at 7% -increase outpatient oral iron supplement to bid -follow BMP #HFrEF/ S/P AICD Placement/CAD--Echo from August showed EF 40%, no acute issues -Continue with ASA, Entresto, metoprolol, spironolactone -Will hold torsemide as patient appears clinically dry -Cautious with IV fluids- ordered gentle fluids x1L and now can stop #Prostate Cancer -Known prostate CA with bony mets-Received Lupron injection 3-4 weeks ago, planning to start oral treatments with Dr. Khan #KATHYA- CPAP ordered VTE Prophylaxis: Heparin SQ Dispo-continued stay on med/surg, PT/OT ordered Admission and Anticipated Discharge Date Admission Date: January 31, 2025 Subjective Pt seen on 3 occasions today. In the morning, he was drowsy but would wake up and answer questions. Later in the day, he was much more awake and alert, acting more like himself. I discussed his care with his , sone, and son in law at the bedside on two occasions. Pt denies abd pain, itching or pain. He has not moved his bowels yet since admission. He is eating. Physical Exam Constitutional: WD/WN, vitals as above Respiratory: normal respiratory effort, lungs clear to auscultation Cardiovascular: RRR, no murmur, no edema Gastrointestinal (Abdomen): normal bowel sounds, soft, nontender, no hepatosplenomegaly Skin: + rash (lower abd and groin,upper thighs with erythematous maculopap rash) and + lesion (LEs both with serpiginous erythematous,purplish nonblanching rash) Neurologic: PERRL, EOMI, accommodation nl, no face palsy, no dysarthria Psychiatric: A+Ox3, euthymic affect Genitourinary: + penis abnormality (Borden in place,puru lent drainage from around penis) Results & Data Results & Data Vital Signs (Past 12 Hours) Vital Signs Temp Pulse Pulse Resp BP Pulse Ox O2 Del Method 02/01/25 08:00 Room Air 02/01/25 07:41 37.1 C 78 130/75 97 CPAP 02/01/25 07:09 85 20 93 02/01/25 02:52 74 21 94 02/01/25 01:00 Room Air 02/01/25 00:30 72 21 95 02/01/25 00:17 36.7 C 70 18 122/70 96 Room Air 02/01/25 00:16 36.7 C 70 18 122/70 96 Room Air 01/31/25 23:58 Room Air 01/31/25 23:33 67 21 95 FiO2 02/01/25 08:00 02/01/25 07:41 02/01/25 07:09 21 02/01/25 02:52 21 02/01/25 01:00 02/01/25 00:30 21 02/01/25 00:17 02/01/25 00:16 01/31/25 23:58 01/31/25 23:33 Laboratory Results CBC, BMP, iron studies reviewed PG Care Time/CCT Total # of Minutes Spent Total Time Spent with Patient: Total time spent is greater than 50% in coordination of care (as documented) at patient's floor/unit and/or counseling patient: Coding Level of Care Code 88099 SUB INP/OBS CARE 3/50MIN Diagnoses UTI (urinary tract infection) N39.0 Indwelling catheter present on admission Z96.0 Weakness R53.1 Rash and nonspecific skin eruption R21
[2025-02-01 12:08] LABS: Appearance Urine Turbid (Clear); Bacteria Urine Automated 3+ (None Seen); Bilirubin Urine Negative (Negative); Blood Urine 2+ (Negative); Cast Urine Automated >20 /lpf (0-2); Color Urine Yellow; Glucose Urine UA Trace (Negative); Ketones Urine Negative (Negative); Leukocyte Esterase Urine 3+ (Negative); Nitrite Urine Negative (Negative); Protein Urine 2+ (Negative); RBC Urine Automated >20 /hpf (0-2); Specific Gravity Urine 1.016 (1.000-1.030); Urobilinogen Urine Negative (Negative); WBC Urine Automated >50 /hpf (0-5); pH Urine 5.5 (4.5-7.5)
[2025-02-01] MEDS: FERROUS SULFATE 325 MG TAB PO SCH (19:07)
--- NOTE | 2025-02-01 19:32 | Billing Data ---
Date of Service February 01, 2025 Coding Level of Care Code 66754 INT INP/OBS CARE
[2025-02-01] MEDS: cefTRIAXone SODIUM 2,000 MG/50 ML BAG IV SCH (20:58)
[2025-02-01] MEDS: CETIRIZINE HCL 10 MG TABLET PO SCH (20:58)
[2025-02-02 06:03] LABS: Basophils # (auto) 0.02 K/uL (0.00-0.20); Basophils % (auto) 0.2 %; Eosinophils # (auto) 0.01 K/uL (0.00-0.50); Eosinophils % (auto) 0.1 %; Hematocrit (blood only) 27.1 % (42.0-52.0); Hemoglobin 8.6 g/dl (14.0-18.0); Immature Granulocytes # (auto) 0.11 K/uL (0.01-0.20); Immature Granulocytes % (auto) 0.9 %; Lymphocytes # (auto) 0.83 K/uL (1.20-3.40); Lymphocytes % (auto) 6.5 %; Mean Corpuscular Hemoglobin 29.3 pg (25.0-34.0); Mean Corpuscular Hgb Conc 31.7 g/dL (32.0-36.0); Mean Corpuscular Volume 92.2 fL (80.0-100.0); Mean Platelet Volume 8.7 fL (9.4-12.4); Monocytes # (auto) 0.63 K/uL (0.11-0.59); Neutrophils # (auto) 11.09 K/uL (1.40-6.50); Neutrophils % (auto) 87.3 %; Platelet Count 358 K/uL (130-400); RDW Coefficient of Variation 12.9 % (11.5-14.5); RDW Standard Deviation 43.6 fL (36.4-46.3); Red Blood Count 2.94 M/uL (4.70-6.10); White Blood Count 12.69 K/ul (4.8-10.8)
[2025-02-02 06:22] LABS: BUN Creatinine Ratio 31.6 (10-20); Calcium 8.9 mg/dl (8.6-10.3); Potassium 4.9 mmol/L (3.5-5.1)
[2025-02-02] MEDS: DAPTOmycin 500 MG in SYRINGE 0 ML IV SCH (09:35)
--- NOTE | 2025-02-02 16:55 | Hospitalist Progress Note ---
Date of Service February 02, 2025 Assessment & Plan (1) UTI (urinary tract infection): (2) Indwelling catheter present on admission: (3) Weakness: (4) Rash and nonspecific skin eruption: Plan This pt is an 89 yo male with a h/o HFrEF, AICD, bladder CA, metastatic prostate CA recently started on Lupron, chronic Borden catheter, iron def anemia, KATHYA on CPAP, here with acute encephalopathy, lethargy, found to have catheter- associated UTI and a new rash. #CAUTI/Acute encephalopathy-Indwelling borden catheter present, presenting symptoms of weakness/fatigue, confusion, and leukocytosis. UA consistent with UTI and with nitrates. Urine culture growing Staph aureus, sensitivities pending; blood cultures NGTD. Procal mildly elevated at 0.79. Borden catheter exchanged one day after starting abx and repeat UA now without nitrates and still with Staph aureus on Ur cx. With low grade fever on 02/02 and leukocytosis worsening again on 02/02 -continue ceftriaxone and add Daptomycin in case of MRSA -follow urine and blood cultures -follow CBC, BMP in AM #Weakness/Ambulatory Dysfunction-Ongoing fatigue and weakness for over a week- secondary to combo of current UTI, side effect of initiation of Lupron therapy, dehydration/HITESH, and known iron deficiency anemia. -PT/OT evaluations recommending acute rehab -continue treating UTI and anemia #HITESH/Hyponatremia/Hyperkalemia-Cr 1.76 on admission, baseline ~1.5. Likely secondary to poor PO intake and now improved further to 1.3. Na 131 on arrival in ED, and now improved to 135 with IVF hydration. K+ now normal also with improvement in rodbuster -continue to follow BMP -ok to continue Entresto, spironolactone, but continue holding torsemide #Rash--diffuse on extremities and trunk, lateral left foot but spares palms and soles, face, and oral cavity.Rash on thighs was serpiginous and now improving on Zyrtec. No itching or pain. Could be urticaria. He received oral fluconazole in ED but this does not seem fungal. Rash is erythematous and serpiginous and with large rings on thighs and left knee--> could be generalized Granuloma annulare? This can be associated with drug reaction or malignancy. Improving now on Zyrtec. See pictures scanned into progress note 02/02 -took pictures and sent to DERM for opinion-thinks urticarial in groin and lower abd but unclear about rash on legs, needs biopsy -Continue clotrimazole, nystatin powder for now -will arrange close f/u with DERM after discharge for biopsy and further eval -added Zyrtec 10mg po hs #Iron Deficiency Anemia-Hgb 9.3 on admission, baseline ~10. Transferrin sat here low at 7% -increase outpatient oral iron supplement to bid -follow CBC #HFrEF/ S/P AICD Placement/CAD--Echo from August showed EF 40%, no acute issues, dry on admission and now euvolemic -Continue with ASA, Entresto, metoprolol, spironolactone -Will continue to hold torsemide #Prostate Cancer -Known prostate CA with bony mets-Received Lupron injection 3-4 weeks ago, planning to start oral treatments with Dr. Khan #KATHYA- CPAP ordered VTE Prophylaxis: Heparin SQ Dispo-continued stay on med/surg, PT/OT recommending rehab Admission and Anticipated Discharge Date Admission Date: January 31, 2025 Subjective Pt sleeping on AM rounds and when I came back in late afternoon, he was napping again but woke up more easily. Denies pain. Did ambulate in halls with PT. Discussed his care with his son-in-law at the bedside Physical Exam 2 Constitutional: WD/WN, vitals as above Respiratory: normal respiratory effort, lungs clear to auscultation Cardiovascular: RRR, no murmur, no edema Gastrointestinal (Abdomen): normal bowel sounds, soft, nontender, no hepatosplenomegaly Skin: + rash (lower abd and groin,upper thighs with erythematous maculopap rash) and + lesion (serpiginous rash resolved and replaced with large areas of confluent rash) see pictures below Psychiatric: A+Ox3, euthymic affect Genitourinary: + penis abnormality (Borden in place) Results & Data Results & Data Vital Signs (Past 12 Hours) Vital Signs Temp Pulse Resp BP Pulse Ox O2 Del Method 02/02/25 16:02 37.2 C 85 18 117/68 92 Room Air 02/02/25 11:06 36.8 C 65 22 121/62 97 Room Air 02/02/25 10:53 Room Air 02/02/25 08:40 36.6 C 74 22 123/76 95 Room Air Laboratory Results CBC, BMP, magnesium, urine culture, blood cx reviewed Diagnostic Findings PG Care Time/CCT Total # of Minutes Spent Total Time Spent with Patient: Total time spent is greater than 50% in coordination of care (as documented) at patient's floor/unit and/or counseling patient: Coding Level of Care Code 13693 SUB INP/OBS CARE 3/50MIN Diagnoses UTI (urinary tract infection) N39.0 Indwelling catheter present on admission Z96.0 Weakness R53.1 Rash and nonspecific skin eruption R21
[2025-02-02] MEDS: POLYETHYLENE (MIRALAX) 17 GM PACK PO SCH (18:19)
[2025-02-02] MEDS: DOCUSATE SODIUM 100 MG CAP PO SCH (20:33)
[2025-02-03 06:21] LABS: Basophils # (auto) 0.02 K/uL (0.00-0.20); Basophils % (auto) 0.2 %; Eosinophils # (auto) 0.01 K/uL (0.00-0.50); Eosinophils % (auto) 0.1 %; Hematocrit (blood only) 27.3 % (42.0-52.0); Hemoglobin 8.8 g/dl (14.0-18.0); Immature Granulocytes # (auto) 0.12 K/uL (0.01-0.20); Lymphocytes # (auto) 0.91 K/uL (1.20-3.40); Lymphocytes % (auto) 7.5 %; Mean Corpuscular Hemoglobin 29.7 pg (25.0-34.0); Mean Corpuscular Hgb Conc 32.2 g/dL (32.0-36.0); Mean Corpuscular Volume 92.2 fL (80.0-100.0); Mean Platelet Volume 9.2 fL (9.4-12.4); Monocytes # (auto) 0.51 K/uL (0.11-0.59); Monocytes % (auto) 4.2 %; Neutrophils # (auto) 10.55 K/uL (1.40-6.50); Platelet Count 390 K/uL (130-400); RDW Standard Deviation 43.9 fL (36.4-46.3); Red Blood Count 2.96 M/uL (4.70-6.10); White Blood Count 12.12 K/ul (4.8-10.8)
[2025-02-03 06:33] LABS: BUN Creatinine Ratio 33.3 (10-20); Creatinine Clr Calc Pharmacy 32.3 ml/min; Potassium 4.9 mmol/L (3.5-5.1)
--- NOTE | 2025-02-03 14:10 | Hospitalist Progress Note ---
Date of Service February 03, 2025 Assessment & Plan (1) UTI (urinary tract infection): (2) Indwelling catheter present on admission: (3) Weakness: (4) Rash and nonspecific skin eruption: Plan This pt is an 89 yo male with a h/o HFrEF, AICD, bladder CA, metastatic prostate CA recently started on Lupron, chronic Borden catheter, iron def anemia, KATHYA on CPAP, here with acute encephalopathy, lethargy, found to have catheter- associated UTI and a new rash. #CAUTI/Acute encephalopathy-Indwelling borden catheter present, presenting symptoms of weakness/fatigue, confusion, and leukocytosis. UA consistent with UTI and with nitrites. Urine culture growing MSSA; blood cultures remain NGTD. Procal mildly elevated at 0.79. Borden catheter exchanged one day after starting abx and repeat UA without nitrites yet still with Staph aureus, sensitivities pending on Ur cx. With low grade fever on 02/02 and now resolved; leukocytosis worsening again on 02/02, stable at 12k on 02/03. -dc Daptomycin as not MRSA -change ceftriaxone to Augmentin and complete 10 day course -follow final urine and blood cultures -follow CBC, BMP in AM #Weakness/Ambulatory Dysfunction-Ongoing fatigue and weakness for over a week- secondary to combo of current UTI, side effect of initiation of Lupron therapy, dehydration/HITESH, and known iron deficiency anemia. -PT/OT evaluations recommending acute rehab-SNF referral placed by CM -continue treating UTI and anemia #HITESH/Hyponatremia/Hyperkalemia-Cr 1.76 on admission, baseline ~1.5. Likely secondary to poor PO intake and now improved further to 1.3. Na 131 on arrival in ED, and now improved to 137 with IVF hydration. 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 No itching or pain. Likely urticaria. He received oral fluconazole in ED but this does not seem fungal. See pictures of rash on 02/02 and 02/03 Could be reaction to Lupron? No other new meds -took pictures and sent to DERM for opinion-thinks urticarial -Continue clotrimazole, nystatin powder for now -will arrange close f/u with DERM after discharge for biopsy and further eval -continue Zyrtec 10mg po hs #Iron Deficiency Anemia-Hgb 9.3 on admission, baseline ~10. Transferrin sat here low at 7% -increased oral iron supplement to 32mg po bid -follow CBC #HFrEF/ S/P AICD Placement/CAD--Echo from August showed EF 40%, no acute issues, dry on admission and now euvolemic -Continue with ASA, Entresto, metoprolol, spironolactone -Will continue to hold torsemide #Prostate Cancer -Known prostate CA with bony mets-Received Lupron injection 3-4 weeks ago, planning to start oral treatments with Dr. Khan #KATHYA- CPAP ordered VTE Prophylaxis: Heparin SQ Dispo-continued stay on med/surg, PT/OT recommending rehab-medically stable for discharge and insurance auth will likely be needed. Discussed care with son in law at bedside again on 02/03 Admission and Anticipated Discharge Date Admission Date: January 31, 2025 Subjective Still feeling tired but did ambulate in the halls. Rash still present but changing in shape, not itchy or painful. No abd pains. No BM since admission. Physical Exam 2 Constitutional: WD/WN, vitals as above Respiratory: normal respiratory effort, lungs clear to auscultation Cardiovascular: RRR, no murmur, no edema Gastrointestinal (Abdomen): normal bowel sounds, soft, nontender, no hepatosplenomegaly Skin: + rash (lower abd and groin,upper thighs with erythematous maculopap rash) and + lesion (serpiginous rash resolved and replaced with large areas of confluent rash) rash changing in size/shape-see pics Psychiatric: A+Ox3, euthymic affect Genitourinary: + penis abnormality (Borden in place, uri ne clear) Results & Data Results & Data Vital Signs (Past 12 Hours) Vital Signs Temp Pulse Resp BP Pulse Ox O2 Del Method 02/03/25 08:20 Room Air 02/03/25 07:58 36.8 C 78 18 119/66 97 Room Air Laboratory Results CBC, BMP, urine cxs reviewed PG Care Time/CCT Total # of Minutes Spent Total Time Spent with Patient: Total time spent is greater than 50% in coordination of care (as documented) at patient's floor/unit and/or counseling patient: Coding Level of Care Code 26175 SUB INP/OBS CARE 2/35MIN Diagnoses UTI (urinary tract infection) N39.0 Indwelling catheter present on admission Z96.0 Weakness R53.1 Rash and nonspecific skin eruption R21
[2025-02-03] MEDS: AMOXICILLIN/CLAVULANATE 875 MG TAB PO SCH (17:20)
[2025-02-04 07:05] LABS: Basophils # (auto) 0.02 K/uL (0.00-0.20); Basophils % (auto) 0.2 %; Eosinophils # (auto) 0.01 K/uL (0.00-0.50); Eosinophils % (auto) 0.1 %; Hematocrit (blood only) 27.7 % (42.0-52.0); Hemoglobin 8.7 g/dl (14.0-18.0); Immature Granulocytes % (auto) 0.8 %; Lymphocytes % (auto) 7.2 %; Mean Corpuscular Hemoglobin 28.9 pg (25.0-34.0); Mean Corpuscular Hgb Conc 31.4 g/dL (32.0-36.0); Mean Platelet Volume 8.9 fL (9.4-12.4); Monocytes # (auto) 0.46 K/uL (0.11-0.59); Monocytes % (auto) 3.7 %; Neutrophils # (auto) 11.06 K/uL (1.40-6.50); Platelet Count 424 K/uL (130-400); RDW Coefficient of Variation 12.9 % (11.5-14.5); RDW Standard Deviation 43.5 fL (36.4-46.3); Red Blood Count 3.01 M/uL (4.70-6.10); White Blood Count 12.55 K/ul (4.8-10.8)
[2025-02-04 07:21] LABS: BUN Creatinine Ratio 35.2 (10-20); Creatinine Clr Calc Pharmacy 35.7 ml/min; Potassium 4.9 mmol/L (3.5-5.1)
--- NOTE | 2025-02-04 10:44 | Hospitalist Progress Note ---
Date of Service February 04, 2025 Assessment & Plan (1) UTI (urinary tract infection): (2) Indwelling catheter present on admission: (3) Weakness: (4) Rash and nonspecific skin eruption: Plan This pt is an 89 yo male with a h/o HFrEF, AICD, bladder CA, metastatic prostate CA recently started on Lupron, chronic Borden catheter, iron def anemia, KATHYA on CPAP, here with acute encephalopathy, lethargy, found to have catheter- associated UTI and a new rash. #CAUTI/Acute metabolic encephalopathy-Indwelling borden catheter present, presenting symptoms of weakness/fatigue, confusion, and leukocytosis. UA consistent with UTI and with nitrites. Urine culture growing MSSA; blood cultures remain NGTD. Procal mildly elevated at 0.79. Borden catheter exchanged one day after starting abx and repeat UA without nitrites yet still with Staph aureus, sensitivities pending on repeat Ur cx. With low grade fever on 02/02 and now resolved; leukocytosis worsening again on 02/02, stable at 12k on 02/03 and again on 02/04 with mild thrombocytosis as well- possibly reactive to Fe def anemia? Received Ceftriaxone since admission and 2 doses of Daptomycin which is now stopped as no MRSA -continue Augmentin to complete 10 day course on 02/09 -follow final urine and blood cultures-remain NGTD -follow CBC, BMP in AM #Weakness/Ambulatory Dysfunction-Ongoing fatigue and weakness for over a week- secondary to combo of current UTI, side effect of initiation of Lupron therapy, dehydration/HITESH, and known iron deficiency anemia. Improving slowly with treating infection and anemia -PT/OT evaluations recommending acute rehab-SNF referral placed by CM -continue treating UTI and anemia #HITESH/Hyponatremia/Hyperkalemia-Cr 1.76 on admission, baseline ~1.5. Likely secondary to poor PO intake and now improved further to 1.2. Na 131 on arrival in ED, and now improved to 136 with IVF hydration and holding diuretic. K+ now normal also with improvement in machine hand -continue to follow BMP -ok to continue Entresto, spironolactone, but continue holding torsemide -continue Boost shakes as poor po intake #Rash/Urticaria--diffuse on extremities and trunk, lateral left foot but spares palms and soles, face, and oral cavity.Rash on thighs was serpiginous and now overall improving on Zyrtec. No itching or pain. Likely urticaria. He received oral fluconazole in ED but this does not seem fungal. See pictures of rash on 02/02 and 02/03. 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 No other new meds -took pictures and sent to DERM for opinion-thinks urticarial -dc topical nystatin and clotrimazole -will arrange close f/u with DERM after discharge for biopsy and further eval if not improving -continue Zyrtec 10mg po hs #Constipation-ongoing, no BM since admission. po Fe tabs may be contributing -continue Miralax, docusate, and add sennakot #Iron Deficiency Anemia-Hgb 9.3 on admission, now stable at 8.7- baseline ~10. Transferrin sat here low at 7% -increased oral iron supplement to 325mg po bid -follow CBC #HFrEF/ S/P AICD Placement/CAD--Echo from August showed EF 40%, no acute issues, dry on admission and now euvolemic -Continue with ASA, Entresto, metoprolol, spironolactone -Will continue to hold torsemide #Prostate Cancer -Known prostate CA with bony mets-Received Lupron injection 3-4 weeks ago, planning to start oral treatments with Dr. Khan #KATHYA- CPAP ordered VTE Prophylaxis: Heparin SQ Dispo-continued stay on med/surg, PT/OT recommending rehab-medically stable for discharge and insurance auth will be needed once bed available at [facility]. Admission and Anticipated Discharge Date Admission Date: January 31, 2025 Subjective Pt reports feeling better, slightly more energy, is eating. Denies pain. No BM in 4 days at least. Physical Exam Constitutional: WD/WN, vitals as above Respiratory: normal respiratory effort, lungs clear to auscultation Cardiovascular: RRR, no murmur, no edema Gastrointestinal (Abdomen): normal bowel sounds, soft, nontender, no hepatosplenomegaly Skin: + rash (lower abd and groin rash almost completely resolved) and + lesion (large areas of erythemaous macular confluent lesions w/ serpig border legs) Psychiatric: A+Ox3, euthymic affect Genitourinary: + penis abnormality (Borden in place, uri ne clear) Results & Data Results & Data Vital Signs (Past 12 Hours) Vital Signs Temp Pulse Pulse Resp BP Pulse Ox O2 Del Method 02/04/25 07:41 36.7 C 77 18 112/62 96 Room Air 02/03/25 23:30 36.6 C 79 18 103/48 L 95 Room Air Laboratory Results CBC, BMP,, BCxs reviewed PG Care Time/CCT Total # of Minutes Spent Total Time Spent with Patient: Total time spent is greater than 50% in coordination of care (as documented) at patient's floor/unit and/or counseling patient: Coding Level of Care Code 26442 SUB INP/OBS CARE 2/35MIN Diagnoses UTI (urinary tract infection) N39.0 Indwelling catheter present on admission Z96.0 Weakness R53.1 Rash and nonspecific skin eruption R21
[2025-02-04] MEDS: SENNA 8.6 MG TAB PO SCH (13:26)
[2025-02-05 07:10] LABS: Basophils # (auto) 0.01 K/uL (0.00-0.20); Basophils % (auto) 0.1 %; Hematocrit (blood only) 28.7 % (42.0-52.0); Hemoglobin 8.8 g/dl (14.0-18.0); Immature Granulocytes % (auto) 0.8 %; Lymphocytes # (auto) 0.71 K/uL (1.20-3.40); Lymphocytes % (auto) 5.8 %; Mean Corpuscular Hemoglobin 28.5 pg (25.0-34.0); Mean Corpuscular Hgb Conc 30.7 g/dL (32.0-36.0); Mean Corpuscular Volume 92.9 fL (80.0-100.0); Mean Platelet Volume 9.1 fL (9.4-12.4); Monocytes # (auto) 0.56 K/uL (0.11-0.59); Monocytes % (auto) 4.6 %; Neutrophils # (auto) 10.88 K/uL (1.40-6.50); Neutrophils % (auto) 88.7 %; Platelet Count 470 K/uL (130-400); RDW Coefficient of Variation 12.9 % (11.5-14.5); RDW Standard Deviation 43.8 fL (36.4-46.3); Red Blood Count 3.09 M/uL (4.70-6.10); White Blood Count 12.26 K/ul (4.8-10.8)
[2025-02-05 07:21] LABS: BUN Creatinine Ratio 39.3 (10-20); Calcium 9.1 mg/dl (8.6-10.3); Creatinine Clr Calc Pharmacy 37.2 ml/min
[2025-02-05] MEDS: TORSEMIDE 10 MG TAB PO SCH (09:35)
--- NOTE | 2025-02-05 14:28 | Hospitalist Progress Note ---
Date of Service February 05, 2025 Assessment & Plan (1) UTI (urinary tract infection): (2) Indwelling catheter present on admission: (3) Weakness: (4) Rash and nonspecific skin eruption: Plan This pt is an 89 yo male with a h/o HFrEF, AICD, bladder CA, metastatic prostate CA recently started on Lupron, chronic Borden catheter, iron def anemia, KATHYA on CPAP, here with acute encephalopathy, lethargy, found to have catheter- associated UTI and a new rash. #CAUTI/Acute metabolic encephalopathy-Indwelling borden catheter present, presenting symptoms of weakness/fatigue, confusion, and leukocytosis. UA consistent with UTI and with nitrites. Urine culture growing MSSA; blood cultures remain NGTD. Procal mildly elevated at 0.79. Borden catheter exchanged one day after starting abx and repeat UA without nitrites yet still with MSSA With low grade fever on 02/02 and now resolved; leukocytosis worsening again on 02/02 and remains at 12 x 4 days with mild thrombocytosis as well-possibly reactive to Fe def anemia? Received Ceftriaxone x several days and 2 doses of Daptomycin (discontinued) -continue Augmentin to complete 10 day course on 02/09 -follow final blood cultures-remain NGTD -follow CBC, BMP in AM -has appt for Borden exchange in Urology office 02/22 #Weakness/Ambulatory Dysfunction-Ongoing fatigue and weakness for over a week prior to admission- secondary to combo of UTI, side effect of initiation of Lupron therapy, dehydration/HITESH, and known iron deficiency anemia. Improving slowly with treating infection and anemia -PT/OT evaluations recommending acute rehab-SNF referral placed by CM and awaiting placement -continue treating UTI and anemia -change diet to easy to chew as po intake poor without lower dentures (lost); added Boost shakes -if not improving with treatment of anemia, UTI, consider holding Lupron moving forward-informed his oncologist, Dr. Khan #HITESH/CKD stage 3/Hyponatremia/Hyperkalemia-Cr 1.76 on admission, baseline ~1.5. Likely secondary to poor PO intake and now improved further to 1.1. Na 131 on arrival in ED, and now improved to 138 with IVF hydration and holding diuretic. K+ normalized with improvement in nursing home aide, now nursing home aide rising back up to 5.0 -continue to follow BMP -ok to continue Entresto, spironolactone, and resume home torsemide -continue Boost shakes as poor po intake #Rash/Urticaria--diffuse on extremities and trunk, lateral left foot but spares palms and soles, face, and oral cavity. Rash on thighs was serpiginous and now overall improving on Zyrtec. No itching or pain. Likely urticaria. He received oral fluconazole in ED but this does not seem fungal. See pictures of rash on 02/02 and 02/03. 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 No other new meds -took pictures and sent to DERM for opinion-thinks urticarial -will arrange close f/u with DERM after discharge for biopsy and further eval if not improving-text Dr. J Carlos Hernandez of [facility] upon discharge so he can arrange close follow up -continue Zyrtec 10mg po hs -informed Dr. Khan in case could be from Lupron-she is considering holding Lupron although notes a rash from Lupron is usually localized and paraneoplastic rash from prostate CA is rare #Constipation-Improved now with laxatives-had BM on 02/04. Oral Fe tabs may be contributing -continue Miralax, docusate, and sennakot -dc Fe tabs #Iron Deficiency Anemia/Anemia of chronic kidney disease-Hgb 9.3 on admission, now stable at 8.8- baseline ~10. Transferrin sat here low at 7%, but iron studies mixed with chronic disease as well, ferritin high from UTI. -increased oral iron supplement to 325mg po bid but had constipation -start Venofer 200mg IV daily x 5 doses or as many as he can get before discharge -follow CBC #HFrEF/ S/P AICD Placement/CAD--Echo from August showed EF 40%, no acute issues, dry on admission and now euvolemic. Started becoming slightly tachypneic at rest on 02/05, POx normal, mild crackles on exam -Continue with ASA, Entresto, metoprolol, spironolactone -resumed home torsemide 10mg po daily on 02/05 but then had brief hypotension to high 80s systolic-give NS 250mL over 2 hours -reduce Entresto dose to 49/51 mg po bid #Hyperglycemia-pt has been having elevated AM fasting glucose readings, no h/o DMII. -add BSGs, SSI Novolog qachs -check HgbA1C in AM -change diet to diabetic #Prostate Cancer -Known prostate CA with bony mets-Received Lupron injection 3-4 weeks ago, planning to start oral Zytiga with Dr. Khan when delivered to the house -informed Dr. Khan about his hospitalization and ongoing issues perhaps with fatigue from Lupron and urticarial rash after starting Lupron #KATHYA- continue CPAP hs VTE Prophylaxis: Heparin SQ Dispo-continued stay on med/surg, PT/OT recommending rehab-medically stable for discharge and insurance auth will be needed once bed available at [facility]. Admission and Anticipated Discharge Date Admission Date: January 31, 2025 Subjective Pt reports feeling a little more energy. reports he is not eating much at all. He does like pudding and Boost vanilla shakes. He also lost his bottom dentures and is having trouble eating solid foods. Denies SOB, no abd pain. Was started on torsemide this AM and then BPs dropped to 80s systolic-was given 250mL gentle bolus NS over 2 hours Physical Exam Constitutional: WD/WN, vitals as above Cardiovascular: RRR, no murmur, no edema Gastrointestinal (Abdomen): normal bowel sounds, soft, nontender, no hepatosplenomegaly Skin: + rash (lower abd and groin rash resolve d;LEs very faint erythematous macular ) Psychiatric: A+Ox3, euthymic affect Genitourinary: + penis abnormality (Borden in place, uri ne clear) Results & Data Results & Data Vital Signs (Past 12 Hours) Vital Signs Temp Pulse Resp BP Pulse Ox O2 Del Method 02/05/25 07:59 Room Air 02/05/25 07:56 37.1 C 85 20 113/65 94 Room Air Laboratory Results CBC, BMP, BCxs reviewed PG Care Time/CCT Total # of Minutes Spent Total Time Spent with Patient: Total time spent is greater than 50% in coordination of care (as documented) at patient's floor/unit and/or counseling patient: Coding Level of Care Code 42011 SUB INP/OBS CARE 3/50MIN Diagnoses UTI (urinary tract infection) N39.0 Indwelling catheter present on admission Z96.0 Weakness R53.1 Rash and nonspecific skin eruption R21
[2025-02-05] MEDS: IRON SUCROSE 200 MG in SODIUM CHLORIDE 0.9% 100 ML IV SCH (15:09)
[2025-02-05] MEDS: ACETAMINOPHEN 325 MG TAB PO PRN (15:23)
[2025-02-05] MEDS: SODIUM CHLORIDE 0.9% 250 ML IV ONE (15:23)
[2025-02-05] MEDS ORDERED: GLUCOSE 10 TAB/TUBE PO PRN (18:06)
[2025-02-05] MEDS ORDERED: CARBOHYDRATES FOR HYPOGLYCEMIA PO PRN (18:06)
[2025-02-05] MEDS ORDERED: GLUCAGON FOR INJ 1 MG VIAL SQ PRN (18:06)
[2025-02-05] MEDS ORDERED: DEXTROSE 50% 50 ML SYRINGE IV PRN (18:06)
[2025-02-05] MEDS ORDERED: GLUCOSE 40% GEL 15 GM TUBE PO PRN (18:06)
[2025-02-05] MEDS: INSULIN ASPART PER UNIT CHARGE SC SCH (20:31)
[2025-02-05] MEDS: VALSARTAN/SACUBITRIL 51/49 MG TAB PO SCH (20:31)
[2025-02-06 06:57] LABS: Basophils # (auto) 0.02 K/uL (0.00-0.20); Basophils % (auto) 0.2 %; Eosinophils # (auto) 0.01 K/uL (0.00-0.50); Eosinophils % (auto) 0.1 %; Hemoglobin 8.5 g/dl (14.0-18.0); Immature Granulocytes # (auto) 0.13 K/uL (0.01-0.20); Lymphocytes # (auto) 0.93 K/uL (1.20-3.40); Lymphocytes % (auto) 7.2 %; Mean Corpuscular Hemoglobin 29.1 pg (25.0-34.0); Mean Corpuscular Hgb Conc 31.5 g/dL (32.0-36.0); Mean Corpuscular Volume 92.5 fL (80.0-100.0); Mean Platelet Volume 8.6 fL (9.4-12.4); Monocytes # (auto) 0.48 K/uL (0.11-0.59); Monocytes % (auto) 3.7 %; Neutrophils # (auto) 11.42 K/uL (1.40-6.50); Neutrophils % (auto) 87.8 %; Platelet Count 434 K/uL (130-400); RDW Standard Deviation 43.8 fL (36.4-46.3); Red Blood Count 2.92 M/uL (4.70-6.10); White Blood Count 12.99 K/ul (4.8-10.8)
[2025-02-06 07:28] LABS: BUN Creatinine Ratio 40.3 (10-20); Calcium 9.1 mg/dl (8.6-10.3); Creatinine Clr Calc Pharmacy 33.8 ml/min; Magnesium 2.1 mg/dl (1.7-2.4); Potassium 4.7 mmol/L (3.5-5.1)
[2025-02-06 08:08] LABS: Estimated Average Glucose 148 mg/dl; Hemoglobin A1C 6.8 % (4.5-5.6)
--- NOTE | 2025-02-06 13:12 | Hospitalist Progress Note ---
Date of Service February 06, 2025 Assessment & Plan (1) UTI (urinary tract infection): (2) Indwelling catheter present on admission: (3) Weakness: (4) Rash and nonspecific skin eruption: (5) Type 2 diabetes mellitus: (6) Pacemaker: (7) Catheter-associated urinary tract infection: (8) Melena: Plan 89yo male with chronic HFrEF (EF 40%), AICD/pacer, bladder CA, metastatic prostate CA recently started on Lupron, chronic Borden catheter, iron def anemia, KATHYA on CPAP - presented with acute encephalopathy, lethargy, & found to have catheter-associated UTI and a new rash. #CAUTI/Acute metabolic encephalopathy - * urine cx with MSSA * blood cultures negative * borden catheter exchanged one day after starting antibiotics * s/p rocephin x 3 days, followed by augmentin BID * plan 10 days in total of Rx * consider checking PSA and if elevated consider longer course for prostatitis * has appt for Borden exchange in Urology office on 02/22 * confusion has improved but does not seem resolved #Weakness/Ambulatory Dysfunction - * likely multifactorial including MSSA UTI, metastatic prostate ca, anemia, recent Lupron for prostate ca, etc. * whatever is the etiology of his rash could be contributing significantly as well to the weakness * recent TSH wnl * consider checking inflammatory markers #HITESH/CKD stage 3 - * Cr 1.76 at admission * baseline Cr ~1.5 * Cr today 1.29 * plan repeat BMP in am #Hyponatremia/Hyperkalemia- * Na 131 on arrival in ED, and now improved to 138 * hyperkalemia resolved * aldactone/torsemide have been resumed * hold Entresto due to ongoing low or low-normal BPs * repeat BMP am #Rash/Urticaria * by report his rash has improved over the last few days * was diffuse on extremities and trunk, lateral left foot * spares palms and soles, face, and oral cavity; back largely spared as well * Rash on thighs was serpiginous and now improved on Zyrtec * oddly the rash has never been pruritic * etiology? recent Lupron injection (by report skin reactions to Lupron are typically localized)? Lyme disease (disseminated)? Granuloma annulare? paraneoplastic rash from prostate CA (rare)? Doubt EM - most lesions are NOT target like * cont zyrtec * check sed rate, crp, and Lyme in am * prior MD contacted Dr Khan from heme/onc - she may hold Lupron in the future #Constipation - * improved with miralax, senna, colace #Iron Deficiency Anemia/Anemia of chronic kidney disease - * Hgb 9.3 on admission * recent Hb's mid 8s * baseline Hb ~10 * Fe studies likely combination of ACD + Fe deficiency * Venofer 200mg IV daily x 5 doses ; dose #2 today #HFrEF - * cont meto succ, aldactone, torsemide * place Entresto on hold due to ongoing low-normal or low BPs (still low even after reducing the Entresto strength) * EF 40% * appears compensated on exam today #S/P Pacer/AICD Placement/CAD - * interrogation requested * no ischemic symptoms at this time #T2DM - * a1c 6.8% c/w mild DM * novolog SSI added * DM diet * ac/hs BSGs * made pt's aware of DM #Prostate Cancer - * stage 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 Khan #KATHYA - * continue CPAP hs #melena stools - * check fecal occult blood to see if he is having GI bleeding * add PPI #VTE Prophylaxis: Heparin 5000 BID Dispo - [facility] for rehab extensively updated at bedside today Admission and Anticipated Discharge Date Admission Date: January 31, 2025 Subjective patient sitting in chair during the visit present at bedside she had multiple questions about his care plan she mentioned he was due for a pacemaker interrogation when asked how he was feeling he said "great" his then spoke up stating that he actually has been very fatigued and weak only ate about 25% of breakfast although he has a diffuse rash he has NO pruritis does think the rash has improved during the visit the patient was drinking from a straw he immediately would cough when drinking this happened multiple times during the visit he ultimately coughed for about 5 minutes reports no swallowing issues typically Review of Systems 2 Review of Systems: gen - no fevers or chills cv - no chest pain pulm - no dyspnea GI - no abd pain or N/V; had a stool today that was dark/black per nursing - borden in place Physical Exam 2 Physical Exam: gen - sitting in chair, NAD, coughing after drinking water neck - ?mild JVD (just above clavicle) mouth - MMM skin - diffuse erythematous rash on arms, legs, lower abdominal wall; palms spared; back largely spared; minimal involvement of chest; 2 ring-shaped/bulls-eye type lesions on left arm (see photos); none of the rash today is raised heart - RRR, s1 s2 lungs - CTA b/l, no rales abd - soft NT ND BS+ ext - no edema, pulses b/l feet 2+ Results & Data Results & Data Vital Signs (Past 12 Hours) Vital Signs Temp Pulse Resp BP Pulse Ox O2 Del Method 02/06/25 10:53 Room Air, CPAP 02/06/25 07:40 37.1 C 92 H 18 105/64 95 Room Air Laboratory Results Laboratory Results - last 24 hr 02/05/25 02/05/25 02/06/25 18:10 20:13 06:40 WBC 12.99 H RBC 2.92 L Hgb 8.5 L Hct 27.0 L MCV 92.5 MCH 29.1 MCHC 31.5 L RDW Std Deviation 43.8 RDW Coeff of Armando 13.0 Plt Count 434 H MPV 8.6 L Immature Gran % (Auto) 1.0 Neut % (Auto) 87.8 Lymph % (Auto) 7.2 Davidson % (Auto) 3.7 Eos % (Auto) 0.1 Baso % (Auto) 0.2 Neut # (Auto) 11.42 H Lymph # (Auto) 0.93 L Davidson # (Auto) 0.48 Eos # (Auto) 0.01 Baso # (Auto) 0.02 Immature Gran # (Auto) 0.13 Sodium 138 Potassium 4.7 Chloride 106 Carbon Dioxide 29 Anion Gap 3 BUN 52 H Creatinine 1.29 Est Cr Clr Drug Dosing 33.8 eGFR 53.00 BUN/Creatinine Ratio 40.3 H Glucose 183 H POC Glucose 314 H* 255 H Estimat Average Glucose 148 Hemoglobin A1c 6.8 H Calcium 9.1 Magnesium 2.1 02/06/25 02/06/25 08:05 12:04 WBC RBC Hgb Hct MCV MCH MCHC RDW Std Deviation RDW Coeff of Armando Plt Count MPV Immature Gran % (Auto) Neut % (Auto) Lymph % (Auto) Davidson % (Auto) Eos % (Auto) Baso % (Auto) Neut # (Auto) Lymph # (Auto) Davidson # (Auto) Eos # (Auto) Baso # (Auto) Immature Gran # (Auto) Sodium Potassium Chloride Carbon Dioxide Anion Gap BUN Creatinine Est Cr Clr Drug Dosing eGFR BUN/Creatinine Ratio Glucose POC Glucose 200 H 253 H Estimat Average Glucose Hemoglobin A1c Calcium Magnesium Diagnostic Findings PG Care Time/CCT Total # of Minutes Spent Total Time Spent with Patient: Total time spent is greater than 50% in coordination of care (as documented) at patient's floor/unit and/or counseling patient: Coding Level of Care Code 53555 SUB INP/OBS CARE 3/50MIN Diagnoses UTI (urinary tract infection) N39.0 Indwelling catheter present on admission Z96.0 Weakness R53.1 Rash and nonspecific skin eruption R21 Type 2 diabetes mellitus E11.9 Pacemaker Z95.0 Catheter-associated urinary tract infection T83.511A; N39.0 Melena K92.1
[2025-02-06] MEDS: MELATONIN 3 MG TAB PO PRN (21:09)
[2025-02-07 06:13] LABS: Basophils # (auto) 0.02 K/uL (0.00-0.20); Basophils % (auto) 0.1 %; Eosinophils # (auto) 0.01 K/uL (0.00-0.50); Eosinophils % (auto) 0.1 %; Hematocrit (blood only) 28.3 % (42.0-52.0); Immature Granulocytes # (auto) 0.22 K/uL (0.01-0.20); Immature Granulocytes % (auto) 1.6 %; Lymphocytes # (auto) 0.88 K/uL (1.20-3.40); Lymphocytes % (auto) 6.4 %; Mean Corpuscular Hemoglobin 29.1 pg (25.0-34.0); Mean Corpuscular Hgb Conc 31.8 g/dL (32.0-36.0); Mean Corpuscular Volume 91.6 fL (80.0-100.0); Mean Platelet Volume 9.2 fL (9.4-12.4); Monocytes # (auto) 0.51 K/uL (0.11-0.59); Monocytes % (auto) 3.7 %; Neutrophils # (auto) 12.02 K/uL (1.40-6.50); Neutrophils % (auto) 88.1 %; Platelet Count 508 K/uL (130-400); RDW Coefficient of Variation 13.1 % (11.5-14.5); RDW Standard Deviation 44.4 fL (36.4-46.3); Red Blood Count 3.09 M/uL (4.70-6.10); White Blood Count 13.66 K/ul (4.8-10.8)
[2025-02-07 06:31] LABS: BUN Creatinine Ratio 45.1 (10-20); C Reactive Protein 19.27 mg/dl (0-0.5); Calcium 9.4 mg/dl (8.6-10.3); Creatinine Clr Calc Pharmacy 30.3 ml/min; Potassium 4.8 mmol/L (3.5-5.1)
[2025-02-07] MEDS: LANTUS PER UNIT CHARGE SQ SCH (09:02)
[2025-02-07] MEDS: PANTOprazole 40 MG TAB PO SCH (09:04)
--- NOTE | 2025-02-07 14:03 | XRay Report ---
XR chest 2V PA/lateral HISTORY: 89 years-old Male cough, h/o CHF acute cough COMPARISON: 01/31/2025 TECHNIQUE: AP view the chest FINDINGS: Cardiac silhouette is enlarged. Left subclavian pacer/AICD. Thorax, pleural effusion, airspace consol idation or pulmonary edema. Degenerative changes of the shoulders and spine. IMPRESSION: Cardiomegaly without acute process. ACT 112: Negative or not required by law. The above report was generated using voice recognition software. It may contain grammatical, syntax o r spelling errors. Electronically signed by: David Mcgee M.D. 02/07/2025 2:02 PM
--- NOTE | 2025-02-07 14:12 | CT Scan Report ---
ABDOMEN AND PELVIS CT WITHOUT CONTRAST CT DOSE: 1010.54 mGy.cm HISTORY: Urinary tract infection with pelvic pain staph UTI, prostate ca, leukocytosis TECHNIQUE: Multiaxial CT images of the abdomen and pelvis were performed without contrast. A dose lo wering technique was utilized adhering to the principles of ALARA. COMPARISON STUDY: 08/20/2024 FINDINGS: Gynecomastia. Cardiomegaly with partially imaged pacer leads. Trace pericardial effusion. S tudy is degraded by respiratory motion artifact. No pneumatosis or pneumoperitoneum. The unenhanced s pleen, and adrenal glands are unchanged. Contracted gallbladder. Scattered hepatic cysts redemonstrat ed. 2.4 cm partially calcified focus anterior to the falciform ligament again noted. Stable 3.2 x 2.6 cm pancreatic head cystic lesion may represent a mucinous neoplasm versus large IPMN. No hydronephrosis. Renal cysts redemonstrated. Nonspecific bilateral perinephric stranding. No urolit h. Decompressed urinary bladder with Betancourt catheter in place. Urinary bladder diverticula with air in the bladder lumen. Prostatomegaly. Atherosclerosis of the aorta. Borderline enlarged inguinal chain lymph nodes, likely reactive. Moderate fecal retention. Small hiatal hernia. Colonic diverticulosis without acute diverticulitis. N ormal appendix. No acute fracture. Sclerosis of the posterior right ninth rib redemonstrated. Numerou s punctate sclerotic foci throughout the osseous structures have progressed. IMPRESSION: 1. Prostamegaly with evidence of chronic outlet obstruction. 2. No urolithiasis or hydronephrosis. 3. Progressive osteoblastic skeletal metastasis. 4. Borderline enlarged inguinal chain lymph nodes are nonspecific. 5. Small hiatal hernia. 6. Incidental findings as above. ACT 112: Negative or not required by law. The above report was generated using voice recognition software. It may contain grammatical, syntax o r spelling errors. Electronically signed by: David Mcgee M.D. 02/07/2025 2:09 PM
--- NOTE | 2025-02-07 15:42 | Hospitalist Progress Note ---
Date of Service February 07, 2025 Assessment & Plan (1) UTI (urinary tract infection): (2) Indwelling catheter present on admission: (3) Weakness: (4) Rash and nonspecific skin eruption: (5) Type 2 diabetes mellitus: (6) Pacemaker: (7) Catheter-associated urinary tract infection: (8) Melena: Plan 89yo male with chronic HFrEF (EF 40%), AICD/pacer, bladder CA, metastatic prostate CA recently started on Lupron, chronic Borden catheter, iron def anemia, KATHYA on CPAP - presented with acute encephalopathy, lethargy, & found to have catheter-associated UTI and a new rash. #CAUTI/Acute metabolic encephalopathy - * urine cx with MSSA * admit blood cultures negative * borden catheter exchanged one day after starting antibiotics * s/p rocephin x 3 days, followed by augmentin BID - today is day #5 of latter * plan 10 days in total of Rx * has appt for Borden exchange in Urology office on 02/22 * confusion has improved but does not seem resolved #Rash/Urticaria * by report his rash has improved over the last few days * was diffuse on extremities and trunk, lateral left foot * spared palms and soles, face, and oral cavity; back largely spared as well * Rash on thighs was serpiginous and now improved on Zyrtec * oddly the rash has never been pruritic * etiology? recent Lupron injection (by report skin reactions to Lupron are typically localized)? 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 Doubt EM - most lesions are NOT target like Lyme is negative * cont zyrtec * check C3,C4 in am; check mono titers in am; consider cryoglobulins; consider SPEP, IgG, IgM, IgA, HepB and C, etc. * consider trial of prednisone 0.5mg/kg/day * prior MD contacted Dr Khan from heme/onc - she may hold Lupron in the future #Weakness/Ambulatory Dysfunction - * likely multifactorial including MSSA UTI, metastatic prostate ca, anemia, recent Lupron for prostate ca, etc. * whatever is the etiology of his rash could be contributing significantly as well to the weakness; I am uncertain what triggered the rash * recent TSH wnl * sed rate and CRP are elevated; will obtain repeat CRP in am; I suspect the elevated sed rate/crp are due to whatever is driving the rash, leukocytosis, and thrombocytosis - see above #HITESH/CKD stage 3 - * Cr 1.76 at admission * baseline Cr ~1.5 * Cr today 1.4 * plan repeat BMP in am #Hyponatremia/Hyperkalemia- * Na 131 on arrival in ED, and now improved to 138 * hyperkalemia resolved * since patient's Cr increased again today place aldactone/torsemide/Entresto all on hold * repeat BMP am #Constipation - * improved with miralax, senna, colace #Iron Deficiency Anemia/Anemia of chronic kidney disease - * Hgb 9.3 on admission * recent Hb's mid 8s * baseline Hb ~10 * Fe studies likely combination of ACD + Fe deficiency * Venofer 200mg IV daily x 5 doses ; dose #3 today #HFrEF - * cont meto succ but hold aldactone, torsemide as Cr increased this am * hold Entresto * EF 40% * again appears compensated on exam today * cxr 2view today -- no pulm edema or significant effusions #S/P Pacer/AICD Placement/CAD - * interrogation requested; report not available * no ischemic symptoms at this time #T2DM - * a1c 6.8% c/w mild DM * novolog SSI added * DM diet * ac/hs BSGs * add lantus 5 units daily #Prostate Cancer - * stage 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 Khan; I corresponded with Dr Khan today - she states we can hold the Zytiga when he is in rehab #KATHYA - * continue CPAP hs #melena stools - * check fecal occult blood to see if he is having GI bleeding * added PPI #leukocytosis and thrombocytosis - * despite Rx of MSSA UTI he continues with high WBCs & platelets, and sed rate/crp are high * he continues with weakness, fatigue, poor appetite, and failure to thrive * will repeat blood cultures * consider repeat u/a and urine cx for test of cure * check EBV titers * check respiratory BioFire * see above re: rash * consider ID consultation * lyme screen today negative; could always repeat Lyme in 2-3 weeks in the event he had failed to seroconvert due to early disease * CT abd/pelvis obtained today to r/o any renal tract abnormality contributing to leukocytosis - CT negative for acute findings * CXR also negative for acute findings #VTE Prophylaxis: Heparin 5000 BID Dispo - [facility] for rehab extensively updated at bedside once again today grand-daughter also updated Admission and Anticipated Discharge Date Admission Date: January 31, 2025 Subjective when I arrived to Mr Flynn's room he was asleep in the chair he awoke when I called his name he smiled and said "he was feeling fine" he admitted he is very tired ate poorly at breakfast denies any new complaints he was scheduled for a video swallow test today but he said "I just didn't want to do it" he felt he wasn't "up for it" staff report no overt aspiration today towards the end of the visit the pt's arrived I answered her questions and reviewed plan of care she voiced concerns about his fatigue/weakness/sleepiness, poor appetite, etc. she stated "this isn't like him" Review of Systems Review of Systems: skin - no pruritis gen - no fevers or chills cv - no chest pain pulm - rare cough, no dyspnea, no SEAY neuro - denies dizziness GI - no N/V - borden in place Physical Exam Physical Exam: gen - sitting in chair, NAD, looks tired neck - mild JVD still present mouth - MMM skin - diffuse erythematous rash on arms, legs (worst location), groin; previous 2 ring-shaped/bulls-eye type lesions on left arm already resolved/resolving; the rash on the legs is not as erythematous as yesterday heart - RRR, s1 s2, 2/6 MAGDY LSB lungs - CTA b/l, no rales abd - soft NT ND BS+; no HSM ext - no edema, pulses b/l feet 2+ Results & Data Results & Data Vital Signs (Past 12 Hours) Vital Signs Temp Pulse Resp BP BP Pulse Ox O2 Del Method 02/07/25 14:55 36.7 C 67 18 100/58 L 94 Room Air 02/07/25 11:48 36.7 C 85 94/59 L 93 Room Air 02/07/25 08:30 Room Air 02/07/25 07:34 36.3 C L 82 24 105/68 95 Nasal CPAP Laboratory Results Laboratory Results - last 24 hr 02/06/25 02/07/25 02/07/25 23:10 05:20 08:02 WBC 13.66 H RBC 3.09 L Hgb 9.0 L Hct 28.3 L MCV 91.6 MCH 29.1 MCHC 31.8 L RDW Std Deviation 44.4 RDW Coeff of Armando 13.1 Plt Count 508 H MPV 9.2 L Immature Gran % (Auto) 1.6 Neut % (Auto) 88.1 Lymph % (Auto) 6.4 [place] % (Auto) 3.7 Eos % (Auto) 0.1 Baso % (Auto) 0.1 Neut # (Auto) 12.02 H Lymph # (Auto) 0.88 L [place] # (Auto) 0.51 Eos # (Auto) 0.01 Baso # (Auto) 0.02 Immature Gran # (Auto) 0.22 H ESR 63 H Sodium 138 Potassium 4.8 Chloride 104 Carbon Dioxide 29 Anion Gap 5 BUN 65 H Creatinine 1.44 H Est Cr Clr Drug Dosing 30.3 eGFR 46.45 BUN/Creatinine Ratio 45.1 H Glucose 176 H POC Glucose 179 H 204 H Calcium 9.4 C-Reactive Protein 19.27 H Procalcitonin Adenovirus (PCR) B. pertussis DNA (PCR) B.parapertussis DNA PCR Lyme Disease Screen Negative C. pneumoniae DNA (PCR) Coronavirus OC43 (PCR) Coronavirus HKU1 (PCR) Coronavirus 229E (PCR) SARS-CoV-2 (PCR) Coronavirus NL63 (PCR) Human Metapneumovir PCR Influenza Type A (PCR) Influenza Type B (PCR) M. pneumoniae (PCR) Parainfluenza 1 (PCR) Parainfluenza 2 (PCR) Parainfluenza 3 (PCR) Parainfluenza 4 (PCR) RSV (PCR) Entero/Rhino (PCR) 02/07/25 02/07/25 02/07/25 11:56 16:32 18:15 WBC RBC Hgb Hct MCV MCH MCHC RDW Std Deviation RDW Coeff of Armando Plt Count MPV Immature Gran % (Auto) Neut % (Auto) Lymph % (Auto) [place] % (Auto) Eos % (Auto) Baso % (Auto) Neut # (Auto) Lymph # (Auto) [place] # (Auto) Eos # (Auto) Baso # (Auto) Immature Gran # (Auto) ESR Sodium Potassium Chloride Carbon Dioxide Anion Gap BUN Creatinine Est Cr Clr Drug Dosing eGFR BUN/Creatinine Ratio Glucose POC Glucose 224 H 114 H Calcium C-Reactive Protein Procalcitonin 0.74 H Adenovirus (PCR) B. pertussis DNA (PCR) B.parapertussis DNA PCR Lyme Disease Screen C. pneumoniae DNA (PCR) Coronavirus OC43 (PCR) Coronavirus HKU1 (PCR) Coronavirus 229E (PCR) SARS-CoV-2 (PCR) Coronavirus NL63 (PCR) Human Metapneumovir PCR Influenza Type A (PCR) Influenza Type B (PCR) M. pneumoniae (PCR) Parainfluenza 1 (PCR) Parainfluenza 2 (PCR) Parainfluenza 3 (PCR) Parainfluenza 4 (PCR) RSV (PCR) Entero/Rhino (PCR) PG Care Time/CCT Total # of Minutes Spent Total Time Spent with Patient: Total time spent is greater than 50% in coordination of care (as documented) at patient's floor/unit and/or counseling patient: Coding Level of Care Code 89309 SUB INP/OBS CARE 3/50MIN Diagnoses UTI (urinary tract infection) N39.0 Indwelling catheter present on admission Z96.0 Weakness R53.1 Rash and nonspecific skin eruption R21 Type 2 diabetes mellitus E11.9 Pacemaker Z95.0 Catheter-associated urinary tract infection T83.511A; N39.0 Melena K92.1
[2025-02-07 22:51] LABS: Adenovirus PCR Not Detected (NotDetected); Bordetella parapertussis PCR Not Detected (NotDetected); Bordetella pertussis PCR Not Detected (NotDetected); Chlamydia pneumoniae PCR Not Detected (NotDetected); Coronavirus 229E PCR Not Detected (NotDetected); Coronavirus CoV-2 (COVID19)PCR Not Detected (NotDetected); Coronavirus HKU1 PCR Not Detected (NotDetected); Coronavirus NL63 PCR Not Detected (NotDetected); Coronavirus OC43PCR Not Detected (NotDetected); Human Metapneumovirus PCR Not Detected (NotDetected); Influenza A PCR Not Detected (NotDetected); Influenza B PCR Not Detected (NotDetected); Mycoplasma pneumoniae PCR Not Detected (NotDetected); Parainfluenza Virus 1 PCR Not Detected (NotDetected); Parainfluenza Virus 2 PCR Not Detected (NotDetected); Parainfluenza Virus 3 PCR Not Detected (NotDetected); Parainfluenza Virus 4 PCR Not Detected (NotDetected); Respiratory Syncytial VirusPCR Not Detected (NotDetected); Rhinovirus/Enterovirus PCR Not Detected (NotDetected)
[2025-02-08 05:57] LABS: Basophils # (auto) 0.03 K/uL (0.00-0.20); Basophils % (auto) 0.2 %; Eosinophils # (auto) 0.02 K/uL (0.00-0.50); Eosinophils % (auto) 0.2 %; Hematocrit (blood only) 26.1 % (42.0-52.0); Hemoglobin 8.4 g/dl (14.0-18.0); Immature Granulocytes # (auto) 0.33 K/uL (0.01-0.20); Immature Granulocytes % (auto) 2.6 %; Lymphocytes # (auto) 1.01 K/uL (1.20-3.40); Lymphocytes % (auto) 8.1 %; Mean Corpuscular Hemoglobin 29.5 pg (25.0-34.0); Mean Corpuscular Hgb Conc 32.2 g/dL (32.0-36.0); Mean Corpuscular Volume 91.6 fL (80.0-100.0); Mean Platelet Volume 8.9 fL (9.4-12.4); Monocytes # (auto) 0.54 K/uL (0.11-0.59); Monocytes % (auto) 4.3 %; Neutrophils # (auto) 10.59 K/uL (1.40-6.50); Neutrophils % (auto) 84.6 %; Platelet Count 520 K/uL (130-400); RDW Coefficient of Variation 13.3 % (11.5-14.5); RDW Standard Deviation 44.2 fL (36.4-46.3); Red Blood Count 2.85 M/uL (4.70-6.10); White Blood Count 12.52 K/ul (4.8-10.8)
[2025-02-08 06:11] LABS: Albumin Globulin Ratio 0.8 (0.9-2); Albumin Level 2.5 gm/dl (3.4-5.0); BUN Creatinine Ratio 50.4 (10-20); Bilirubin,Total 0.3 mg/dl (0.2-1.0); C Reactive Protein 17.56 mg/dl (0-0.5); Creatinine Clr Calc Pharmacy 33.8 ml/min; Globulin 3.3 gm/dl (2.5-4.0); Potassium 4.6 mmol/L (3.5-5.1)
[2025-02-08 06:13] LABS: Total Protein 5.8 gm/dl (6.0-8.3)
[2025-02-08 06:41] LABS: Monotest Negative (Negative)
[2025-02-08 09:04] LABS: EBV Nuclear Antigen IgG Ab Positive; EBV Nuclear Antigen IgG Quant 27.9 U/mL (< 18.0)
[2025-02-08 09:05] LABS: EBV Early Antigen IgG Ab Negative (Negative); EBV Early Antigen IgG Quant < 5.0 U/mL (< 9.0); EBV IgM Quant < 10.0 U/mL (< 36.0)
[2025-02-08 09:06] LABS: EBV IgG Quant > 750.0 U/mL (< 18.0)
--- NOTE | 2025-02-08 12:02 | Hospitalist Progress Note ---
Date of Service February 08, 2025 Assessment & Plan (1) UTI (urinary tract infection): (2) Indwelling catheter present on admission: (3) Weakness: (4) Rash and nonspecific skin eruption: (5) Type 2 diabetes mellitus: (6) Pacemaker: (7) Catheter-associated urinary tract infection: (8) Melena: Plan 89yo male with chronic HFrEF (EF 40%), AICD/pacer, bladder CA, metastatic prostate CA recently started on Lupron, chronic Borden catheter, iron def anemia, KATHYA on CPAP - presented with acute encephalopathy, lethargy, & found to have catheter-associated UTI and a new rash. #CAUTI/Acute metabolic encephalopathy - * urine cx with MSSA * admit blood cultures negative; repeat blood cx's taken yesterday, 02/07, also negative * borden catheter exchanged one day after starting antibiotics * s/p rocephin x 3 days, followed by augmentin BID - today is day #6 of latter * plan 10 days in total of Rx * has appt for Borden exchange in Urology office on 02/22 * confusion had improved, but seems worse today - I agree with his family that he has ongoing delirium #Rash/Urticaria * rash has significantly improved over the last few days (see photos in Dr Gomez's notes from earlier in the admission) * was diffuse on extremities and trunk, lateral left foot, etc * spared palms and soles, face, and oral cavity; back largely spared as well * Rash on thighs was serpiginous and now improved on Zyrtec * oddly the rash has never been pruritic * etiology? recent Lupron injection (by report skin reactions to Lupron are typically localized however)? 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 -Doubt EM - most lesions are NOT target like -Lyme is negative * cont zyrtec * checked C3,C4 - pending * checked mono titers -- negative; old infection only * consider cryoglobulins; consider SPEP, IgG, IgM, IgA, HepB and C, etc. * at this point, given the significant improvement in his rash, a punch bx may not provide additional information; however, I believe it is worth doing, as it may rule in/rule out urticarial vasculitis * thus, gen surg consulted, and they did punch bx today - appreciate their assistance * if he does have urticarial vasculitis this could be the reason for the ongoing failure to thrive, weakness, elevated sed rate/crp, leukocytosis, etc * will trial him on prednisone ~0.5mg/kg/day --- give 30mg x 1 now and assess response tomorrow * recheck crp am * prior MD contacted Dr Khan from heme/onc - she may hold Lupron in the future #Weakness/Ambulatory Dysfunction - * likely multifactorial including MSSA UTI, metastatic prostate ca, anemia, recent Lupron for prostate ca, etc. * whatever is the etiology of his rash could be contributing significantly as well to the weakness; I am uncertain what triggered the rash - urticarial vasculitis?? * recent TSH wnl * sed rate and CRP are elevated; will obtain repeat CRP in am; I suspect the elevated sed rate/crp are due to whatever is driving the rash, leukocytosis, and thrombocytosis - see above #HITESH/CKD stage 3 - * Cr 1.76 at admission * baseline Cr ~1.5 * Cr today 1.29 * repeat BMP in am #Hyponatremia/Hyperkalemia- * Na 131 on arrival in ED, and now improved to 136 * hyperkalemia resolved * aldactone/torsemide/Entresto all on hold - hold again today * repeat BMP am #Constipation - * improved with miralax, senna, colace #Iron Deficiency Anemia/Anemia of chronic kidney disease - * Hgb 9.3 on admission * recent Hb's mid 8s * baseline Hb ~10 * Fe studies likely combination of ACD + Fe deficiency * Venofer 200mg IV daily x 5 doses ; dose #4 today * fecal occult blood is pending -- staff reported his stool looked like melena earlier this week #HFrEF - * cont meto succ but hold aldactone, torsemide as Cr increased last few days with attempt to restart them * hold Entresto as well for now * EF 40% * appears compensated on exam today * cxr 2view 02/07 -- no pulm edema or significant effusions #S/P Pacer/AICD Placement/CAD - * interrogation requested; report not available yet * no ischemic symptoms at this time #T2DM - * a1c 6.8% c/w mild DM * novolog SSI added * DM diet * ac/hs BSGs * add lantus 5 units daily * adjust novolog again today * steroids will make BSGs worse -- will need additional adjustments tomorrow #Prostate Cancer - * stage 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 Khan; I corresponded with Dr Khan today - she states we can hold the Zytiga when he is in rehab #KATHYA - * continue CPAP hs #melena stools - * check fecal occult blood to see if he is having GI bleeding * added PPI #leukocytosis and thrombocytosis - * despite Rx of MSSA UTI he continues with high WBCs & platelets, and sed rate/crp are high * he continues with weakness, fatigue, poor appetite, and failure to thrive * repeat blood cultures from 02/07 negative, and admission blood cx's negative * consider repeat u/a and urine cx for test of cure AFTER all abx are complete * EBV titers - no acute infection; old infection only * respiratory BioFire fully negative * see above re: rash * consider ID consultation if all else doesn't turn up anything * lyme screen today negative; could always repeat Lyme in 2-3 weeks in the event he had failed to seroconvert due to early disease * CT abd/pelvis obtained o r/o any renal tract abnormality contributing to leukocytosis - CT negative for acute findings * CXR also negative for acute findings #tachypnea - * compensation for acidosis? * other etiology? * cxr negative, lungs clear on exam * check VBG in am * consider CT chest if VBG is wnl and tachypnea continues #VTE Prophylaxis: Heparin 5000 BID Dispo - [facility] for rehab pt's sons extensively updated at bedside this am extensively updated at bedside once again today later in the day care d/w gen surg via [place] correspondence ongoing highly complex care coordination - total time today 80 minutes between multiple visits to the bedside, correspondence with gen surg, discussion with social work, review and interpretation of numerous labs, ordering additional testing, etc Admission and Anticipated Discharge Date Admission Date: January 31, 2025 Subjective patient continues to be tired/fatigued and sleeping more than his usual appetite remains poor he is confused during the visit - like previous visits - when asked how he is doing he says "I'm great!" he offers very little ROS/history during rounds during rounds today pt's 2 sons Luciano & Noe were present extensive update given to both children at bedside with plan of care gen surg consulted & punch bx of his rash taken Review of Systems Review of Systems: gen - denies pain in any location CV - no chest pain pulm - no dyspnea, no cough GI - no abd pain or N/V - borden in place Physical Exam Physical Exam: gen - laying in bed, NAD, looks tired much like previous visits neck - mild JVD present mouth - MMM, no lesions; lips w/o crusting skin - mildly pink/erythematous rash on arms, legs (worst location); rash again improved/fading today; previous 2 ring-shaped/bulls-eye type lesions on left arm already resolved/resolving; no rash on back/torso/chest/abdominal wall/face heart - RRR, s1 s2, 2/6 MAGDY LSB lungs - CTA b/l, no rales, no wheeze; he is mildly tachypneic but it is "quiet tachypnea" abd - soft NT ND BS+; no HSM ext - no edema, pulses b/l feet 2+ - borden in place Results & Data Results & Data Vital Signs (Past 12 Hours) Vital Signs Temp Pulse Resp BP Pulse Ox O2 Del Method 02/08/25 07:40 36.6 C 72 16 116/64 97 Room Air Laboratory Results Laboratory Results - last 24 hr 02/07/25 02/07/25 02/07/25 16:32 18:15 20:05 WBC RBC Hgb Hct MCV MCH MCHC RDW Std Deviation RDW Coeff of Armando Plt Count MPV Immature Gran % (Auto) Neut % (Auto) Lymph % (Auto) [place] % (Auto) Eos % (Auto) Baso % (Auto) Neut # (Auto) Lymph # (Auto) [place] # (Auto) Eos # (Auto) Baso # (Auto) Immature Gran # (Auto) Sodium Potassium Chloride Carbon Dioxide Anion Gap BUN Creatinine Est Cr Clr Drug Dosing eGFR BUN/Creatinine Ratio Glucose POC Glucose 114 H 155 H Calcium Total Bilirubin AST ALT Alkaline Phosphatase C-Reactive Protein Total Protein Albumin Globulin Albumin/Globulin Ratio Procalcitonin 0.74 H Complement C3 Complement C4 Adenovirus (PCR) B. pertussis DNA (PCR) B.parapertussis DNA PCR C. pneumoniae DNA (PCR) Coronavirus OC43 (PCR) Coronavirus HKU1 (PCR) Coronavirus 229E (PCR) SARS-CoV-2 (PCR) Coronavirus NL63 (PCR) EBV Capsid Ag IgG Ab EBV Caps Ag IgG Sig Str EBV Capsid Ag IgM Ab EBV Caps Ag IgM Sig Str EBV Early Antigen IgG EBV EA Signal Strength EBV Nuclear Antigen Ab EBV Nucl Ag IgG Sig Str EBV Interpretation Monoscreen Human Metapneumovir PCR Influenza Type A (PCR) Influenza Type B (PCR) M. pneumoniae (PCR) Parainfluenza 1 (PCR) Parainfluenza 2 (PCR) Parainfluenza 3 (PCR) Parainfluenza 4 (PCR) RSV (PCR) Entero/Rhino (PCR) 02/07/25 02/08/25 02/08/25 Unknown 05:29 08:53 WBC 12.52 H RBC 2.85 L Hgb 8.4 L Hct 26.1 L MCV 91.6 MCH 29.5 MCHC 32.2 RDW Std Deviation 44.2 RDW Coeff of Armando 13.3 Plt Count 520 H MPV 8.9 L Immature Gran % (Auto) 2.6 Neut % (Auto) 84.6 Lymph % (Auto) 8.1 [place] % (Auto) 4.3 Eos % (Auto) 0.2 Baso % (Auto) 0.2 Neut # (Auto) 10.59 H Lymph # (Auto) 1.01 L [place] # (Auto) 0.54 Eos # (Auto) 0.02 Baso # (Auto) 0.03 Immature Gran # (Auto) 0.33 H Sodium 136 Potassium 4.6 Chloride 104 Carbon Dioxide 27 Anion Gap 5 BUN 65 H Creatinine 1.29 Est Cr Clr Drug Dosing 33.8 eGFR 53.00 BUN/Creatinine Ratio 50.4 H Glucose 145 H POC Glucose 185 H Calcium 9.0 Total Bilirubin 0.3 AST 11 L ALT 11 Alkaline Phosphatase 133 H C-Reactive Protein 17.56 H Total Protein 5.8 L Albumin 2.5 L Globulin 3.3 Albumin/Globulin Ratio 0.8 L Procalcitonin Complement C3 Pending Complement C4 Pending Adenovirus (PCR) Not Detected B. pertussis DNA (PCR) Not Detected B.parapertussis DNA PCR Not Detected C. pneumoniae DNA (PCR) Not Detected Coronavirus OC43 (PCR) Not Detected Coronavirus HKU1 (PCR) Not Detected Coronavirus 229E (PCR) Not Detected SARS-CoV-2 (PCR) Not Detected Coronavirus NL63 (PCR) Not Detected EBV Capsid Ag IgG Ab Positive EBV Caps Ag IgG Sig Str > 750.0 EBV Capsid Ag IgM Ab Negative EBV Caps Ag IgM Sig Str < 10.0 EBV Early Antigen IgG Negative EBV EA Signal Strength < 5.0 EBV Nuclear Antigen Ab Positive EBV Nucl Ag IgG Sig Str 27.9 EBV Interpretation See Comment Monoscreen Negative Human Metapneumovir PCR Not Detected Influenza Type A (PCR) Not Detected Influenza Type B (PCR) Not Detected M. pneumoniae (PCR) Not Detected Parainfluenza 1 (PCR) Not Detected Parainfluenza 2 (PCR) Not Detected Parainfluenza 3 (PCR) Not Detected Parainfluenza 4 (PCR) Not Detected RSV (PCR) Not Detected Entero/Rhino (PCR) Not Detected 02/08/25 11:32 WBC RBC Hgb Hct MCV MCH MCHC RDW Std Deviation RDW Coeff of Armando Plt Count MPV Immature Gran % (Auto) Neut % (Auto) Lymph % (Auto) [place] % (Auto) Eos % (Auto) Baso % (Auto) Neut # (Auto) Lymph # (Auto) [place] # (Auto) Eos # (Auto) Baso # (Auto) Immature Gran # (Auto) Sodium Potassium Chloride Carbon Dioxide Anion Gap BUN Creatinine Est Cr Clr Drug Dosing eGFR BUN/Creatinine Ratio Glucose POC Glucose 220 H Calcium Total Bilirubin AST ALT Alkaline Phosphatase C-Reactive Protein Total Protein Albumin Globulin Albumin/Globulin Ratio Procalcitonin Complement C3 Complement C4 Adenovirus (PCR) B. pertussis DNA (PCR) B.parapertussis DNA PCR C. pneumoniae DNA (PCR) Coronavirus OC43 (PCR) Coronavirus HKU1 (PCR) Coronavirus 229E (PCR) SARS-CoV-2 (PCR) Coronavirus NL63 (PCR) EBV Capsid Ag IgG Ab EBV Caps Ag IgG Sig Str EBV Capsid Ag IgM Ab EBV Caps Ag IgM Sig Str EBV Early Antigen IgG EBV EA Signal Strength EBV Nuclear Antigen Ab EBV Nucl Ag IgG Sig Str EBV Interpretation Monoscreen Human Metapneumovir PCR Influenza Type A (PCR) Influenza Type B (PCR) M. pneumoniae (PCR) Parainfluenza 1 (PCR) Parainfluenza 2 (PCR) Parainfluenza 3 (PCR) Parainfluenza 4 (PCR) RSV (PCR) Entero/Rhino (PCR) Diagnostic Findings Microbiology 02/07/25 18:15 Blood Aerobic Blood Culture - Preliminary No growth in Aerobic bottle after 24 hours. 02/07/25 18:15 Blood Anaerobic Blood Culture - Preliminary No growth in Anaerobic bottle after 24 hours. 02/07/25 18:15 Blood Aerobic Blood Culture - Preliminary No growth in Aerobic bottle after 24 hours. 02/07/25 18:15 Blood Anaerobic Blood Culture - Preliminary No growth in Anaerobic bottle after 24 hours. 01/31/25 19:26 Blood Aerobic Blood Culture - Final No growth in Aerobic bottle after 5 days. 01/31/25 19:26 Blood Anaerobic Blood Culture - Final No growth in Anaerobic bottle after 5 days. 01/31/25 18:21 Blood Aerobic Blood Culture - Final No growth in Aerobic bottle after 5 days. 01/31/25 18:21 Blood Anaerobic Blood Culture - Final No growth in Anaerobic bottle after 5 days. 02/01/25 Unknown Urine,Straight Cath Urine Culture - Final Staphylococcus aureus 01/31/25 20:30 Urine,Straight Cath Urine Culture - Final Staphylococcus aureus PG Care Time/CCT Total # of Minutes Spent Total Time Spent with Patient: Total time spent is greater than 50% in coordination of care (as documented) at patient's floor/unit and/or counseling patient: Prolonged Care Time Prolonged Care Time: Yes Total Prolonged Care Time: 80 Coding Level of Care Code 52257 SUB INP/OBS CARE 3/50MIN (25 - SIGNIFICANT, SEPARATELY IDENTIFIABLE ) Diagnoses UTI (urinary tract infection) N39.0 Indwelling catheter present on admission Z96.0 Weakness R53.1 Rash and nonspecific skin eruption R21 Type 2 diabetes mellitus E11.9 Pacemaker Z95.0 Catheter-associated urinary tract infection T83.511A; N39.0 Melena K92.1 Additional Codes Prolonged Care Time - Prolonged Care Time: Yes ([id number])
[2025-02-08] MEDS: predniSONE 10 MG TABLET PO STA (15:27)
[2025-02-08] MEDS: LIDOCAINE 1%/EPINEPHRINE 1:100,000 50 ML VIAL INFIL ONE (15:27)
[2025-02-08] MEDS: SILVER NITR/POTASSIUM NITRATE APPLICATOR EXT ONE (15:28)
[2025-02-08] MEDS: LIDOCAINE 1% LOCAL 20 ML VIAL INFIL ONE (15:28)
--- NOTE | 2025-02-08 15:37 | Surgery Consultation ---
Date of Consultation February 08, 2025 Assessment & Plan (1) Unspecified skin changes: The plan will be for a bedside punch biopsy and this has been discussed with the family at bedside including his spouse and the patient. They have been expecting to have this procedure based on recommendation from their aircraft engineer and agree. The details of the procedure have been discussed with the patient including risks and benefits and consent was obtained. We have planned to biopsy an area of the right thigh at the location of a rash that still appears prominent. History of Present Illness Reason for Consultation: punch biopsy Attending Physician: Cristopher Khan MD History of Present Illness Nikita Flynn is a 89 year-old male who presented to the ED after evaluation by his PCP due to weakness and concern for UTI. Medical history significant for KATHYA, CHF, RBBB, s/p AICD implantation, history of bladder cancer, current prostate cancer with jackie metastasis. Patient's and son are at bedside, note that patient has been progressively weaker and fatigued for over one week, they note he developed a rash over his arms and legs. His aircraft engineer has been on board and recommends a punch biopsy as he continues to have weakness and sleepiness. His family describes this was most impressive at originated at his left thigh but that there has been vast improvement. Allergies Allergy/AdvReac Type Severity Reaction Status Date / Time No Known Allergies Allergy Verified 01/31/25 19:48 Home Medications Medication Instructions Recorded Confirmed Type calcium 600 mg (as 1 tab PO DAILY 06/08/19 01/31/25 History carbonate)-vitamin D3 10 mcg (400 unit) tablet (Calcium 600 + D(3)) Prevagen 1 tab PO QAM 06/18/21 01/31/25 History ibuprofen 200 mg tablet 200 mg PO Q6H PRN Pain 10/08/21 01/31/25 History hznceowpxjek-Gf-bcpv-minerals 1 tab PO QAM 09/20/23 01/31/25 History cholecalciferol (vitamin D3) 50 50 mcg PO QAM 11/11/23 01/31/25 History mcg (2,000 unit) capsule acetaminophen 500 mg tablet 1,000 mg PO QAM pain 04/19/24 01/31/25 History (Tylenol Extra Strength) balance of nature 6 cap PO DAILY 04/19/24 01/31/25 History sacubitril 97 mg-valsartan 103 mg 1 tab PO BID #180 tabs 07/22/24 01/31/25 Rx tablet (Entresto) aspirin 81 mg tablet,delayed 81 mg PO QAM 10/04/24 01/31/25 History release (Adult Low Dose Aspirin) metoprolol succinate 25 mg 25 mg PO QAM 10/04/24 01/31/25 History tablet,extended release 24 hr torsemide 10 mg tablet 10 - 20 mg PO DAILY 11/15/24 01/31/25 History Lupron 0 mg IM DIRECTED 12/28/24 01/31/25 History celecoxib 200 mg capsule 200 mg PO DAILY PRN Pain 12/28/24 01/31/25 History triamcinolone acetonide 0.1 % 1 applic topical BID #80 grams 12/28/24 01/31/25 Rx topical cream nystatin 100,000 unit/gram topical 1 applic topical TID #60 grams 01/13/25 01/31/25 Rx powder spironolactone 25 mg tablet 12.5 mg (1/2 x 25 mg) PO QAM #45 01/30/25 01/31/25 Rx tabs Patient History Medical History Arthritis Nocturnal hypoxemia Thoracic ascending aortic aneurysm Echo 08/2024: Borderline dilated ascending aorta Cyst of pancreas (~06/2021) Per records: 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 Can consider repeat imaging in 2 years if good surgical candidate. ICD (implantable cardioverter-defibrillator) in place Implanted 10/2023 (bradycardia) Medtronic device Pacemaker PPM/ICD CHF (congestive heart failure) [facility] cardio Hypertension History of asthma Childhood Sleep apnea CPAP (compliant) Hx of gout Recurrent falls Multiple pulmonary nodules Per records: CT scan 06/2021 through 05/2023, stable- no further surveillance Chronic venous insufficiency Nonischemic cardiomyopathy CAD (coronary artery disease) 2020 cath: "No obstructive coronary disease" Aortic root dilation Echo 08/2024: 4.6cm dilated aortic root, "Moderate aortic root dilatation" Aortic regurgitation Echo 08/2024: Moderate AR AV block, Mobitz 1 Pigmented skin lesion of uncertain behavior of torso IPMN (intraductal papillary mucinous neoplasm) Mild cognitive impairment Bifascicular block 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 Abnormal gait Uses cane Nephrolithiasis Urinary urgency Periodic limb movement disorder Hyperlipidemia Surgical History History of cardiac cath 2020- no stents Status post implantation of automatic cardioverter/defibrillator (AICD) History of tooth extraction S/P tonsillectomy and adenoidectomy S/P colonoscopy S/P cataract surgery R/L Family History Mother Breast cancer COPD (chronic obstructive pulmonary disease) Lung disease Father Heart disease Other No family history of adverse response to anesthesia Denies family history of Colon cancer Ovarian cancer Prostate cancer Myocardial infarction Colorectal cancer Social History Smoking Status: Former smoker Tobacco Type: Smokeless Tobacco (Dip or Chew) Age Started Using Tobacco: 16; Age Quit Using Tobacco: 35; packs per day: 1; Cigarettes Per Day: Quit at age 35; Second Hand Exposure: No; Do You Dip or Chew Tobacco: Yes; Hx Alcohol Use: Yes Alcohol type: beer Alcohol Intake Frequency: 2-3 x/Week Alcohol Intake Frequency Comment: 1 beer a week Hx Substance Use: No Preferred Language: Latvian Communication Ability: Effective Visual Impairment: Limited Hearing Ability: Normal Buffet Runner Required: No Beliefs That Will Affect Care: Nondenominational marital status: Current Living Situation: Spouse Current Living Situation Comment: Living at home with current occupational status: employed current occupation: works at a [employer] How many Children do You have: 2 Feels Safe at Home: Yes Childhood Exposure to Second-Hand Smoke: Yes Diet: regular caffeine: Yes (coffee daily, tea, soda ) Dental Care, Regularly: Yes Physical Activity Frequency: Daily Physical Activity Frequency Comment: prescribed by therapy Seatbelt Use: always Sunscreen Use: No Assistive Devices: Cane and CPAP Review of Systems Review of Systems: All systems reviewed & are unremarkable except as noted in Subjective Physical Exam Constitutional: pt is sleepy, awakens to alert and AAOx3 Respiratory: normal respiratory effort; no respiratory distress, no labored breathing and does not use accessory muscles Skin: flat, pigmented lesions over the arms and legs faintly red with a small tannish brown tinge Results & Data Vital Signs (Past 12 Hours) Vital Signs Temp Pulse Pulse Resp BP BP Pulse Ox 04/02/25 14:57 37.3 C 78 16 102/56 L 93 02/08/25 12:04 37 C 64 15 120/76 96 02/08/25 08:45 02/08/25 07:40 36.6 C 72 16 116/64 97 O2 Del Method 02/08/25 14:57 Room Air 02/08/25 12:04 Room Air 02/08/25 08:45 Room Air 02/08/25 07:40 Room Air PG Care Time/CCT Total # of Minutes Spent Total Time Spent with Patient: Total time spent is greater than 50% in coordination of care (as documented) at patient's floor/unit and/or counseling patient: Coding Level of Care Code 69854 INT INP/OBS CARE 1/40MIN Diagnoses Unspecified skin changes R23.9
--- NOTE | 2025-02-08 15:43 | Procedure Note ---
Procedure Note Date of Service February 08, 2025 Consent was obtained for a right thigh punch biopsy The area was cleaned with Betadine and the skin over an area of a right upper, lateral thigh lesion was anesthetized using local anesthetic A 3mm punch was initially used but did not seem substantial enough so that a 5mm punch biopsy was taken of the area. Both biopsies were paced in a labeled container that was forwarded to the nurse for submission to pathology for further analysis Hemostasis was adequate with pressure A pressure dressing was applied using gauze and Medipore tape He tolerated the procedure well Coding Additional Codes Date of Service ([facility].SURGERY)
[2025-02-09 06:44] LABS: Hemoglobin 8.1 g/dl (14.0-18.0); Mean Corpuscular Hemoglobin 29.8 pg (25.0-34.0); Mean Corpuscular Hgb Conc 32.4 g/dL (32.0-36.0); Mean Corpuscular Volume 91.9 fL (80.0-100.0); Platelet Count 529 K/uL (130-400); RDW Coefficient of Variation 13.2 % (11.5-14.5); RDW Standard Deviation 43.5 fL (36.4-46.3); Red Blood Count 2.72 M/uL (4.70-6.10); White Blood Count 11.81 K/ul (4.8-10.8)
[2025-02-09 06:56] LABS: BUN Creatinine Ratio 57.8 (10-20); C Reactive Protein 15.64 mg/dl (0-0.5); Calcium 9.3 mg/dl (8.6-10.3); Potassium 4.6 mmol/L (3.5-5.1)
[2025-02-09 08:00] LABS: Base Excess VBG 1.2 mEq/L; HCO3 VBG 27 mmol/L; Oxygen Saturation VBG 79.3 %; PCO2 VBG 44 mmHg (38-50); PO2 VBG 46 mmHg; pH VBG 7.39 (7.36-7.41)
--- NOTE | 2025-02-09 09:18 | Surgery Progress Note ---
Date of Service February 09, 2025 Assessment & Plan (1) Unspecified skin changes: Plan POD 1 right thigh punch biopsy pt without complaints this AM regarding his post surgical wound Nursing to continue localized dressing changes daily General surgical will follow from the peripheral call with questions/concerns pt seen and examined with Dr Sloan Admission and Anticipated Discharge Date Admission Date: January 31, 2025 Supervising Physician Co-Signing Physician Notes I have seen this patient with the surgical team this am, there is no bleeding at the surgical site and I agree with the assessment. Subjective no pain reported in right leg post surgical area Review of Systems Integumentary: + wounds Physical Exam Skin: + rash and + wound Results & Data Vital Signs (Past 12 Hours) Vital Signs Temp Pulse Resp BP Pulse Ox O2 Del Method 02/09/25 07:26 96.3 F L 66 20 113/67 96 Room Air 02/09/25 00:46 65 21 120/69 94 Room Air PG Care Time/CCT Total # of Minutes Spent Total Time Spent with Patient: Total time spent is greater than 50% in coordination of care (as documented) at patient's floor/unit and/or counseling patient: Coding Level of Care Code 99633 SUB INP/OBS CARE 12/03MIN Diagnoses Unspecified skin changes R23.9
[2025-02-09] MEDS: LANTUS PER UNIT CHARGE SQ SCH (09:41)
--- NOTE | 2025-02-09 13:42 | Hospitalist Progress Note ---
Date of Service February 09, 2025 Assessment & Plan (1) Catheter-associated urinary tract infection: (2) Indwelling catheter present on admission: (3) Rash and nonspecific skin eruption: (4) Type 2 diabetes mellitus: (5) Pacemaker: (6) Melena: Plan 89yo male with chronic HFrEF (EF 40%), AICD/pacer, bladder CA, metastatic prostate CA recently started on Lupron, chronic Borden catheter, iron def anemia, KATHYA on CPAP - presented with acute encephalopathy, lethargy, & found to have catheter-associated UTI and a new rash. He had prednisone 30 mg yesterday, used CPAP for 7h last night, today is much better #CAUTI/Acute metabolic encephalopathy - * urine cx with MSSA * admit blood cultures negative; repeat blood cx's taken 02/07 NGTD * borden catheter exchanged one day after starting antibiotics * s/p rocephin x 3 days, followed by augmentin BID - day 05/18 * plan 10 days in total of Rx * has appt for Borden exchange in Urology office on 02/22 * mental status and alertness improved #Rash/Urticaria * rash has significantly improved over the last few days (see photos in Dr Gomez's notes from earlier in the admission). 4/3 virtually resolved. * was diffuse on extremities and trunk, lateral left foot, etc * spared palms and soles, face, and oral cavity; back largely spared as well * Rash on thighs was serpiginous and now improved on Zyrtec * oddly the rash has never been pruritic * etiology? recent Lupron injection (by report skin reactions to Lupron are typically localized however)? Also was newly on nystatin powder in the past month CLAIM APPROVER. 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 -Doubt EM - most lesions are NOT target like -Lyme is negative * cont zyrtec * checked C3,C4 - pending * checked mono titers -- negative; old infection only * consider cryoglobulins; consider SPEP, IgG, IgM, IgA, HepB and C, etc. * punch biopsy 02/08 - path pending * having good response to prednisone - continue 20 mg daily pending biopsy results, monitor ESR/CRP * prior MD contacted Dr Khan from heme/onc - she may hold Lupron in the future #Weakness/Ambulatory Dysfunction - * likely multifactorial including MSSA UTI, metastatic prostate ca, anemia, recent Lupron for prostate ca, etc. * if the rash is a vasculitis that would contribute * recent TSH wnl * much better today * rehab at [facility] #HITESH/CKD stage 3 - * Cr 1.76 at admission * baseline Cr ~1.5 * Cr today 1 * resume entresto at lower dose, monitor Cr #Hyponatremia/Hyperkalemia- * resolved * aldactone/torsemide held, resume low dose entresto #Constipation - * improved with miralax, senna, colace #Iron Deficiency Anemia/Anemia of chronic kidney disease - * Venofer 200mg IV daily x 5 doses - last dose today * fecal occult blood is pending -- staff reported his stool looked like melena earlier this week #HFrEF - EF 40% * cont meto succ, resume entresto at lower dose * torsemide, spironolactone still held * appears euvolemic on exam #S/P Pacer/AICD Placement/CAD - * last device report 01/01/25 unremarkable * no ischemic symptoms at this time #T2DM - * a1c 6.8% c/w mild DM * hyperglycemia related to steroids * novolog SSI added - increase dose. glargine was increased to 10 #Prostate Cancer - * stage 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 Khan - she states we can hold the Zytiga when he is in rehab #KATHYA - * continue CPAP hs #melena stools - * check fecal occult blood to see if he is having GI bleeding * added PPI #leukocytosis and thrombocytosis - * despite Rx of MSSA UTI he continues with high WBCs & platelets, and sed rate/crp are high * he continues with weakness, fatigue, poor appetite, and failure to thrive * repeat blood cultures from 02/07 negative, and admission blood cx's negative * consider repeat u/a and urine cx for test of cure AFTER all abx are complete * EBV titers - no acute infection; old infection only * respiratory BioFire fully negative * see above re: rash * consider ID consultation if all else doesn't turn up anything * lyme screen negative; could always repeat Lyme in 2-3 weeks in the event he had failed to seroconvert due to early disease * CT abd/pelvis obtained o r/o any renal tract abnormality contributing to leukocytosis - CT negative for acute findings * CXR also negative for acute findings #tachypnea - * vbg unremarkable * not hypoxic * I didn't notice any today #VTE Prophylaxis: Heparin 5000 BID Dispo - [facility] for rehab I updated his son and at the bedside Admission and Anticipated Discharge Date Admission Date: January 31, 2025 Subjective Nikita is doing much better this AM. Has been awake and alert, telling jokes, up in chair and ate breakfast Did sleep with the CPAP on last night Rash has nearly resolved His son and are at the bedside Physical Exam 2 Physical Exam: Last 24h vitals reviewed GEN: no acute distress, sitting up in chair HEENT: pupils equal, sclerae anicteric, moist MM RESP: normal WOB, CTAB, no rrw CV: reg no mrg ABD: soft/nt/nd +BT : no borden SKIN: warm and dry, eczematous patch near R elbow, hives-type rash has faded off his trunk as has the serpiginous rash previously on his upper and inner thighs NEURO: AOx person, place, and situation. Makes jokes. Face symmetric, speech normal, moves 4 ext spontaneously and equally Results & Data Results & Data Vital Signs (Past 12 Hours) Vital Signs Temp Pulse Resp BP Pulse Ox O2 Del Method 02/09/25 07:26 35.7 C L 66 20 113/67 96 Room Air Laboratory Results 02/09/25 06:01 02/09/25 06:01 CRP decreased to 15 ESR was low 60s WBC decreased a little PG Care Time/CCT Total # of Minutes Spent Total Time Spent with Patient: Total time spent is greater than 50% in coordination of care (as documented) at patient's floor/unit and/or counseling patient: Coding Level of Care Code 35539 SUB INP/OBS CARE 2/35MIN Diagnoses Catheter-associated urinary tract infection T83.511A; N39.0 Indwelling catheter present on admission Z96.0 Rash and nonspecific skin eruption R21 Type 2 diabetes mellitus E11.9 Pacemaker Z95.0 Melena K92.1
[2025-02-09 14:52] LABS: Complement C3 106 mg/dL
[2025-02-09] MEDS: predniSONE 20 MG TAB PO SCH (15:24)
[2025-02-09] MEDS: VALSARTAN/SACUBITRIL 26/24MG TAB PO SCH (21:01)
[2025-02-10] MEDS: predniSONE 10 MG TABLET PO SCH (08:40)
[2025-02-10 09:36] LABS: Hematocrit (blood only) 28.4 % (42.0-52.0); Mean Corpuscular Hemoglobin 29.7 pg (25.0-34.0); Mean Corpuscular Hgb Conc 31.7 g/dL (32.0-36.0); Mean Corpuscular Volume 93.7 fL (80.0-100.0); Platelet Count 611 K/uL (130-400); RDW Coefficient of Variation 13.5 % (11.5-14.5); RDW Standard Deviation 45.3 fL (36.4-46.3); Red Blood Count 3.03 M/uL (4.70-6.10); White Blood Count 10.01 K/ul (4.8-10.8)
[2025-02-10 09:41] LABS: BUN Creatinine Ratio 51.7 (10-20); C Reactive Protein 8.36 mg/dl (0-0.5); Calcium 9.6 mg/dl (8.6-10.3); Creatinine Clr Calc Pharmacy 37.6 ml/min; Potassium 4.8 mmol/L (3.5-5.1)
--- NOTE | 2025-02-10 16:17 | Hospitalist Progress Note ---
Date of Service February 10, 2025 Assessment & Plan (1) Catheter-associated urinary tract infection: (2) Indwelling catheter present on admission: (3) Rash and nonspecific skin eruption: (4) Type 2 diabetes mellitus: (5) Pacemaker: (6) Melena: Plan 89yo male with chronic HFrEF (EF 40%), AICD/pacer, bladder CA, metastatic prostate CA recently started on Lupron, chronic Borden catheter, iron def anemia, KATHYA on CPAP - presented with acute encephalopathy, lethargy, & found to have catheter-associated UTI and a new rash. #CAUTI/Acute metabolic encephalopathy - * urine cx with MSSA * admit blood cultures negative; repeat blood cx's taken 02/07 remain negative to date * borden catheter exchanged one day after starting antibiotics * s/p rocephin x 3 days, followed by augmentin BID - day 06/18 * has appt for Borden exchange in Urology office on 02/22 * mental status and alertness much improved #Rash/Urticaria * was diffuse on extremities and trunk, lateral left foot, etc. was not pruritic. he does have chronic pruritus however. * spared palms and soles, face, and oral cavity; back largely spared as well * Rash on thighs was serpiginous * Lyme screen and EBV negative for acute infection * unclear cause possibly urticarial related to Lupron, nystatin powder or other exposure. 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 * if the rash is a vasculitis that would contribute * recent TSH wnl * much better Last 48 hours * rehab at [facility] - tomorrow # systemic inflammatory conditionhe had persistent malaise, weakness, sleepiness, poor appetite, leukocytosis, thrombocytosis and significantly elevated CRP/ESR that all persisted despite a week of antibiotics for UTI - CT abdomen and pelvis, chest x-ray, Lyme screen were negative for any explanation - await biopsy result with respect to leukocytosis, if no vasculitis consider PMR. no obvious symptoms compatible with giant cell arteritis. history of gout but only 1 flare ever in his great toe and I do not see any evidence of active gout. his chronic low back pain is improved on steroids - he had a dramatic response to prednisone with improvement in all the above modalities CRP decreased from 17-15 and now 8 today with 48 hours of prednisone 30 mg - we are making a rheumatology referral for follow-up #HITESH/CKD stage 3 - * Cr 1.76 at admission, baseline around -11/10 * resolved to 1.0, resumed Entresto at lower dose on 02/09, creatinine 1.16 today #Hyponatremia/Hyperkalemia- * resolved * aldactone/torsemide still held, resumed low dose entresto * potassium jael a little bit to 4.8 today, continue to monitor #Iron Deficiency Anemia/Anemia of chronic kidney disease - * Venofer 200mg IV daily x 5 doses given * staff reported his stool looked like melena earlier this week, however stools the past 2 days have been brown * added PPI #HFrEF - EF 40% * cont meto succ, resumed entresto at lower dose - blood pressure is tolerating * torsemide, spironolactone still held * appears euvolemic on exam, oral intake improving may need to resume torsemide within the next week #S/P Pacer/AICD Placement/CAD - * last device report 01/01/25 unremarkable * no ischemic symptoms at this time #T2DM - * a1c 6.8% c/w mild DM * hyperglycemia related to steroids * continue glargine and Premeal aspart #Prostate Cancer - * stage 4 with bony mets & lymph node metastases * s/p Lupron injection 3/4 weeks ago * follows with Dr. Khan - she states we can hold the Zytiga when he is in rehab #KATHYA - * continue CPAP hs #tachypnea - * vbg unremarkable * not hypoxic * resolved #VTE Prophylaxis: Heparin 5000 BID Dispo - [facility] for rehab tomorrow discussed with care clinician, updated his son at the bedside this afternoon Admission and Anticipated Discharge Date Admission Date: January 31, 2025 Subjective doing really well Today I saw him in the production operator and again this afternoon. his son is at the bedside reports he ate a good bit of his lunch entire boost and a snack of yogurt in the afternoon rash has resolved PT note yesterday says he was a lot stronger though still unsteady walked 85 feet x 2 with a walker and assistance Physical Exam 2 Physical Exam: Last 24h vitals reviewed GEN: sitting up awake in bed very pleasant HEENT: pupils equal, sclerae anicteric, moist MM RESP: normal WOB, CTAB, no rrw CV: reg no mrg ABD: soft/nt/nd +BT : borden SKIN: warm and dry, eczematous patch near R elbow much less red, rash on lower trunk and upper and inner thighs has completely resolved NEURO: AOx person, place, and situation, forgot part of our conversation this morning however. Makes jokes. Face symmetric, speech normal, moves 4 ext spontaneously and equally Results & Data Results & Data Vital Signs (Past 12 Hours) Vital Signs Temp Pulse Resp BP Pulse Ox O2 Del Method 02/10/25 14:16 36.8 C 68 16 129/70 93 Room Air 02/10/25 10:16 CPAP 02/10/25 07:37 36.6 C 66 16 131/71 97 CPAP Laboratory Results 02/10/25 08:47 02/10/25 08:47 PG Care Time/CCT Total # of Minutes Spent Total Time Spent with Patient: Total time spent is greater than 50% in coordination of care (as documented) at patient's floor/unit and/or counseling patient: Coding Level of Care Code 16301 SUB INP/OBS CARE 2/35MIN Diagnoses Catheter-associated urinary tract infection T83.511A; N39.0 Indwelling catheter present on admission Z96.0 Rash and nonspecific skin eruption R21 Type 2 diabetes mellitus E11.9 Pacemaker Z95.0 Melena K92.1
[2025-02-10 21:05] VITALS: TEMP 97.3; O2SAT 97
[2025-02-11 07:55] VITALS: BP 132/70; PULSE 61; RESP 16
[2025-02-11 07:57] LABS: BUN Creatinine Ratio 52.3 (10-20); C Reactive Protein 5.13 mg/dl (0-0.5); Calcium 9.6 mg/dl (8.6-10.3); Potassium 4.4 mmol/L (3.5-5.1)
--- NOTE | 2025-02-11 15:45 | Discharge Summary ---
Discharge Summary Date of Service February 11, 2025 Principal Dx & Hospital Course #1 = Principal Diagnosis (1) Catheter-associated urinary tract infection: (2) Indwelling catheter present on admission: (3) Rash and nonspecific skin eruption: (4) Type 2 diabetes mellitus: (5) Pacemaker: (6) Melena: Plan 89yo male with chronic HFrEF (EF 40%), AICD/pacer, bladder CA, metastatic prostate CA recently started on Lupron, chronic Borden catheter, iron def anemia, KATHYA on CPAP - presented with acute encephalopathy, lethargy, & found to have catheter-associated UTI and a new rash. CAUTI was treated with antibiotics. Rash slowly but clearly improved on cetirizine. He had prolonged malaise, fatigue / sleepiness and failure to thrive as well as prolonged elevated CRP at 17 and ESR 63 despite having been on IV antibiotics for nearly a week. Rash was urticarial on lower trunk but atypical with serpiginous appearance on upper/inner thighs. Urticarial vasculitis was considered and punch biopsy was obtained, prednisone 30 mg daily was started. Residual rash resolved. He had a dramatic improvement within 24h of first prednisone dose - became much more alert, awake, started eating well. Biopsy resulted and there were no features concerning for urticarial vasculitis, but could not be completely ruled out. Complement C3/4 still pending. Consider other explanations for his inflammatory steroid-responsive condition - PMR, there were no symptoms of GCA, minor Hx of gout but no acutely inflamed peripheral joints, longstanding back pain and this did improve on steroids. CRP fell from 15 ---> 5 between 02/07 and 02/11. Plan to continue prednisone with taper over 3 weeks, monitor for recurrence of rash or constitutional symptoms, monitor ESR/CRP, recommend referral to rheumatology, family prefers Dr. Medina. #CAUTI/Acute metabolic encephalopathy - * urine cx with MSSA * admit blood cultures negative; repeat blood cx's taken 02/07 remain negative to date * borden catheter exchanged one day after starting antibiotics * s/p rocephin x 3 days, followed by augmentin BID - day 07/19 * has appt for Borden exchange in Urology office on 02/22. Consider voiding trial at [facility] vs at urology office * mental status and alertness much improved #Rash - urticarial (allergic) rash vs urticarial vasculitis (much less likely based on punch biopsy) * was diffuse on extremities and trunk, lateral left foot, etc. was not pruritic. he does have chronic pruritus however. * spared palms and soles, face, and oral cavity; back largely spared as well * Rash on thighs was serpiginous * Lyme screen and EBV negative for acute infection * unclear cause possibly urticarial related to Lupron, nystatin powder or other exposure. Did clearly begin resolving on Zyrtec alone prior to initiation of prednisone * considering urticarial vasculitis especially in light of systemic inflammation and malaisePunch biopsy done 02/08, no findings of vasculitis, C3, C4 pending * prior MD contacted Dr Khan from heme/onc - she may hold Lupron in the future * prednisone started 02/08, rash resolved entirely as of 02/10 * decreased cetirizine to 5 mg at discharge - can stop if no further rash as prednisone tapers off. does have chronic itching # systemic inflammatory conditionhe had persistent malaise, weakness, sleepiness, poor appetite, leukocytosis, thrombocytosis and significantly e levated CRP/ESR that all persisted despite a week of antibiotics for UTI - CT abdomen and pelvis, chest x-ray, Lyme screen were negative for any explanation - could have been from infection/pyelo but had dramatic steroid response - see above #Weakness/Ambulatory Dysfunction - * multifactorial including MSSA UTI, metastatic prostate ca, anemia, recent Lupron for prostate ca, etc. * if the rash is a vasculitis that would contribute * recent TSH wnl * much better Last 72 hours * rehab at [facility] - tomorrow #HITESH/CKD stage 3 - * Cr 1.76 at admission, baseline around -11/10 * resolved to 1.0, resumed Entresto at lower dose on 02/09, creatinine 1.09 today #Hyponatremia/Hyperkalemia- * resolved * resumed low dose entresto 02/10, resume torsemide on discharge, hold/stop spironolactone * potassium 4.4 today, continue to monitor #Iron Deficiency Anemia/Anemia of chronic kidney disease - * Venofer 200mg IV daily x 5 doses given * staff reported his stool looked like melena earlier this week, however stools the past 2 days have been brown * added PPI #HFrEF - EF 40% * cont meto succ, resumed entresto at 50% lower dose - blood pressure is tolerating. 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 Khan - she states we can hold the Zytiga when he is in rehab #KATHYA - * continue CPAP hs Dispo - [facility] for rehab tomorrow I updated his son at the bedside this morning Notes For Next Care Provider monitor for recurrence of rash or constitutional symptoms as prednisone tapers off recommend repeat CRP in 2-3 weeks as prednisone tapers recommend rheumatology referral monitor weight and edema for heart failure. at home takes 10-20 mg torsemide daily (usually 10 mg) increase entresto if tolerating, monitor for hyperkalemia if entresto increased or if spironolactone restarted follow up with urology as scheduled ok to do voiding trial at SNF prior to that, or defer until urology follow up Medication Changes From Visit entresto decreased, spironolactone stopped prednisone 30 mg for four more days (completes 7d), 20 mg for 7d then 10 mg for 7d few more doses augmentin for UTI completes 10d cetirizine new, dose lowered at discharge Admission HPI Per Admitting Provider Nikita Flynn is a 89 year-old male who presented to the ED after evaluation by his PCP due to weakness and concern for UTI. Medical history significant for KATHYA, CHF, RBBB, s/p AICD implantation, history of bladder cancer, current prostate cancer with jackie metastasis. Patient's and son are at bedside, note that patient has been progressively weaker and fatigued for over one week- notes that one day he slept until the middle of the afternoon and then fell asleep again shortly afterwards. Uses a cane at home. Has also had decreased appetite, only eating a few bites of oatmeal this morning. Recently started following with Dr. Ajala for prostate cancer, received Lupron injection about 2.5 weeks ago and family reports that he is planning to start oral treatment soon. Patient also has had a new rash at his lower legs and feet, not itchy or painful. Patient has a CPAP, family notes that he often takes it off overnight and only gets a few hours of wear per night. ED Course: -CBC, CMP, UA -Urine culture, blood cultures collected -Chest XR -IV Ceftriaxone, IVF bolus (500mL), oral fluconazole Discharge Exam Last 24h vitals reviewed GEN: awake alert sitting up in bed and very positive and enthusiastic HEENT: pupils equal, sclerae anicteric, moist MM. pink cheeks unchanged RESP: normal WOB, CTAB, no rrw CV: reg no mrg ABD: soft/nt/nd +BT : borden SKIN: warm and dry, eczematous patch near R elbow much less red, rash on lower trunk and upper and inner thighs has completely resolved NEURO: AOx person, place, and situation, Makes jokes. Face symmetric, speech normal, moves 4 ext spontaneously and equally Discharge Plan Discharge Items Patient Disposition[facility] Reason For Visit: UTI, WEAKNESS Discharge Diagnosis: UTI, atypical urticarial rash Activity: Per Instructions section Weightbearing: Full weightbearing Non-emergency contact: Primary Care Provider Call non-emergency contact if: you have any medication questions and your symptoms worsen Follow-up/Referrals: Nba Lr, [Primary Care Provider] - Diet: Carb Consistent or DM2 Addtl Attending Provider Instructions: PT and OT evaluate and treat Urticarial rash resolved (especially thighs, lower abdomen), could have been related to lupron injection or nystatin powder. Punch biopsy did not have features of urticarial vasculitis, but cannot be completely ruled out. Complement C3 and C4 are pending. Elevated CRP, ESR, inflammatory syndrome unclear cause - symptomatically much improved on prednisone. Inflammation from infection, PMR, vasculitis are possibilities. Recommend tapering prednisone over 2-3 weeks and monitor for recurrence of constitutional symptoms, rash or rising CRP. CRP trend 19-->17-->15-->8.3-->5.1 over past five days. ESR was 63. Please make rheumatology referral Blood glucose check qAC. Requiring insulin to cover steroid hyperglycemia, taper insulins as prednisone is reduced. Currently glargine 10 units daily with moderate dose PRN aspart premeal Cover right thigh wound daily with dry gauze/tape until well healed and no longer draining Leave borden catheter in place - has upcoming Urology appt for catheter change CPAP at HS for KATHYA Augmentin for two more days for MSSA CAUTI (completes 10 day course) Follow up with Dr. Khan - [facility] for metastatic prostate cancer For heart failure - has not been in exacerbation. Spironolactone stopped because of hyperkalemia. Entresto resumed at 50% of previous dose because of hypotension. Resumed torsemide at 10 mg daily (usually 10-20 mg PRN at home). Monitor weight and edema, adjust diuretics accordingly Pending Studies at Discharge: Yes Stand-Alone Forms: My [facility] [address] Skilled Items Patient informed of condition?: Yes DNR: No Discharge Level of Care: Skilled Communicable Disease: No Discharge Prognosis: Improving Lines: None Urinary Catheter: Yes (chronic catheter. Has urology appt for catheter change in February) Medications and DC Order Prescriptions: New amoxicillin-pot clavulanate 875-125 mg Tablet 1 tab PO BIDM Qty: 0 0RF cetirizine 5 mg tablet 5 mg PO HS Qty: 14 0RF acetaminophen 325 mg Tablet 650 mg PO Q4H PRN (Reason: fever or pain) Qty: 0 0RF Entresto 24-26 mg Tablet 1 tab PO BID Qty: 0 0RF polyethylene glycol 3350 [Miralax] 17 gram Powder In Packet 17 g PO DAILY Qty: 0 0RF torsemide 10 mg Tablet 10 mg PO DAILY Qty: 0 0RF pantoprazole 40 mg Tablet,Delayed Release (Dr/Ec) 40 mg PO QAM Qty: 0 0RF sennosides [Senokot] 8.6 mg Tablet 8.6 mg PO QAM Qty: 0 0RF insulin glargine [Lantus U-100 Insulin] 100 unit/mL Solution 10 unit subcut DAILY Qty: 0 0RF melatonin 3 mg Tablet 3 mg PO HS PRN (Reason: sleep) Qty: 0 0RF prednisone 10 mg tablet See Taper PO DIRECTED Qty: 33 0RF Taper: Taper, Blank 30 mg DAILY for 4 Days 20 mg DAILY for 7 Days 10 mg DAILY for 7 Days Rx Instructions: see taper instructions Continued cholecalciferol (vitamin D3) 50 mcg (2,000 unit) capsule 50 mcg PO QAM celecoxib 200 mg capsule 200 mg PO DAILY PRN (Reason: Pain) Lupron 0 mg IM DIRECTED balance of nature 6 cap PO DAILY Rx Instructions: 3 caps of fruit supplement & 3 caps of vegetable supplement calcium carbonate-vitamin D3 [Calcium 600 + D(3)] 600 mg(1,500mg) -400 unit Tablet 1 tab PO DAILY Prevagen 1 tab PO QAM larqxrlpymrf-Hc-fyli-minerals Tablet 1 tab PO QAM aspirin [Adult Low Dose Aspirin] 81 mg tablet,delayed release (DR/EC) 81 mg PO QAM metoprolol succinate 25 mg tablet extended release 24 hr 25 mg PO QAM Discontinued spironolactone 25 mg tablet 12.5 mg PO QAM Qty: 45 3RF ibuprofen 200 mg tablet 200 mg PO Q6H PRN (Reason: Pain) acetaminophen [Tylenol Extra Strength] 500 mg tablet 1,000 mg PO QAM torsemide 10 mg tablet 10 - 20 mg PO DAILY Patient Comments: pt states only taking 10mg daily unless wt gain, instructed to take 20mg Rx Instructions: Alternate 10 mg and 20 mg every other day. triamcinolone acetonide 0.1 % cream 1 applic topical BID Qty: 80 0RF Rx Instructions: Apply to torso and extremities. nystatin 100,000 unit/gram powder 1 applic topical TID Qty: 60 0RF No Action Entresto 97-103 mg tablet 1 tab PO BID Qty: 180 3RF Discharge Orders: Discharge Order (Routine); Ordered 02/11/25 Ordered By: Mariya Stewart Admission Data Admit Date/Time: 01/31/25 22:59 Attending Provider: Mariya Stewart Admit Provider: Cee Hughes Primary Care Provider: Nba Lr Other Providers: Pk Newman; [facility]; Harjit Sloan Other Interventions: Discharge Summary Assessment (RN) Last Done: 02/11/25 08:48 Hospital Stay Data Consultations 01/31/25 21:25 ED Decision to Admit Stat 02/08/25 12:01 Consult General Surgery Routine Diagnostic Imagining Performed 02/07/25 12:55 CT Abd and Pelvis [CT abd pelvis wo con] Routine Pending Results Patient Have Any Pending Studies at Discharge: Yes Discharge Instructions Given to Patient (Per Discharging Provider) PT and OT evaluate and treat Urticarial rash resolved (especially thighs, lower abdomen), could have been related to lupron injection or nystatin powder. Punch biopsy did not have features of urticarial vasculitis, but cannot be completely ruled out. Complement C3 and C4 are pending. Elevated CRP, ESR, inflammatory syndrome unc lear cause - symptomatically much improved on prednisone. Inflammation from infection, PMR, vasculitis are possibilities. Recommend tapering prednisone over 2-3 weeks and monitor for recurrence of constitutional symptoms, rash or rising CRP. CRP trend 19-->17-->15-->8.3-->5.1 over past five days. ESR was 63. Please make rheumatology referral Blood glucose check qAC. Requiring insulin to cover steroid hyperglycemia, taper insulins as prednisone is reduced. Currently glargine 10 units daily with moderate dose PRN aspart premeal Cover right thigh wound daily with dry gauze/tape until well healed and no longer draining Leave borden catheter in place - has upcoming Urology appt for catheter change CPAP at for KATHYA Augmentin for two more days for MSSA CAUTI (completes 10 day course) Follow up with Dr. Khan - heme onc for metastatic prostate cancer For heart failure - has not been in exacerbation. Spironolactone stopped because of hyperkalemia. Entresto resumed at 50% of previous dose because of hypotension. Resumed torsemide at 10 mg daily (usually 10-20 mg PRN at home). Monitor weight and edema, adjust diuretics accordingly Total Time Total Time Spent Total Time Spent (In Minutes): I personally spent: 45 minutes today on clinical care activities including: reviewing chart notes and vital signs reviewing labs discussion with child care lead teacher examining and counseling the patient counseling the patient's family writing orders writing prescriptions, discharge instructions documentation Coding Level of Care Code 50992 INP/OBS DISCH >30 MIN Diagnoses Catheter-associated urinary tract infection T83.511A; N39.0 Indwelling catheter present on admission Z96.0 Rash and nonspecific skin eruption R21 Type 2 diabetes mellitus E11.9 Pacemaker Z95.0 Melena K92.1
== END 2025-02-11 09:29 | DRG 698 ==
LOC: ED 17:35 → SUATTDRO 22:59 → 2N 22:59 → 3W 02-10 02:43